=== PATIENT | female | born 1960 | race Two or more races ===

== ENCOUNTER 2016-11-07 19:37 | Emergency (ER) | payer MEDICARE, MEDICAID ==
[~2016-11-07] VITALS: Ht 157.5 cm; Wt 81.6 kg
[~2016-11-07 19:37] MED LIST: BUSP15TA60 PO; CARI-277; CLIN1CAP4 PO; DIPH25CA66 PO; DOCU-94 PO; DOXY100C46 PO; GAB400C PO; LISI10TA6 PO; NOR10T PO; SIMV-8 PO
[2016-11-08] MEDS ORDERED: cloNIDine HCL 0.1 MG TAB PO ONE (01:00)
[2016-11-08 01:49] VITALS: BP 170/105
[2016-11-08] MEDS ORDERED: LABETALOL HCL 5 MG/ML 4ML SYRINGE IV ONE (02:00)
[2016-11-08] MEDS ORDERED: ONDANSETRON HCL 4 MG/2 ML VIAL IV ONE (04:00)
[2016-11-08] MEDS ORDERED: HYDROmorphone HCL 2 MG/ML VL IV ONE (04:00)
== END 2016-11-08 04:14 | disposition home or self-care (01) ==
LOC: ER 19:40
DX: S80.02XA Contusion of left knee, initial encounter (principal); S80.01XA Contusion of right knee, initial encounter; S13.9XXA Sprain of joints and ligaments of unspecified parts of neck, initial encounter; R51 Headache; M54.9 Dorsalgia, unspecified; I12.9 Hypertensive chronic kidney disease with stage 1 through stage 4 chronic kidney disease, or unspecified chronic kidney disease; N18.9 Chronic kidney disease, unspecified; M19.90 Unspecified osteoarthritis, unspecified site; J45.909 Unspecified asthma, uncomplicated; E11.9 Type 2 diabetes mellitus without complications; Z90.710 Acquired absence of both cervix and uterus; Z98.890 Other specified postprocedural states; Z88.6 Allergy status to analgesic agent; W19.XXXA Unspecified fall, initial encounter; Y93.89 Activity, other specified; Y99.8 Other external cause status; Y92.89 Other specified places as the place of occurrence of the external cause
CPT/HCPCS: 70450; 72125; 72131; 73560; 96374; 96375; 99284; J1170; J2405; J3490

== ENCOUNTER 2017-07-15 20:32 | Inpatient (IN) | payer MEDICARE, MEDICAID ==
[~2017-07-15] VITALS: Ht 157.5 cm; Wt 96.3 kg
[2017-07-15 21:26] LABS: Basophils # (auto) 0.1 uL; Basophils % (auto) 1.2 % (0.0-2.0); Eosinophils # (auto) 0.1 uL; Hematocrit 35.2 % (36.0-46.0); Hemoglobin 11.9 g/dL (12.2-16.2); Lymphocytes # (auto) 2.6 uL; Lymphocytes % (auto) 28.6 % (10.0-50.0); Mean Corpuscular Hemoglobin 30.7 pg (28.0-32.0); Mean Corpuscular Hgb Conc. 33.8 g/dL (32.0-36.0); Mean Corpuscular Volume 90.8 fL (80.0-100.0); Mean Platelet Volume 8.8 fL (6.9-10.8); Monocytes # (auto) 0.6 uL; Monocytes % (auto) 6.3 % (0.0-12.0); Neutrophils # (auto) 5.6 uL; Neutrophils % (auto) 62.9 % (37.0-80.0); Platelet Count (auto) 258 10^3/uL (140-450); Red Cell Distribution Width 13.1 % (11.8-14.3); White Blood Cell 8.9 10^3/uL (4.4-10.8)
[2017-07-15 21:35] LABS: Urine Bilirubin Negative (Negative); Urine Blood 1+ /uL (Negative); Urine Color Yellow (Yellow); Urine Glucose 4+ mg/dL (Normal); Urine Hyaline Cast FEW /lpf (0 - 2); Urine Ketone Negative (Negative); Urine Mucus FEW (None Seen); Urine Nitrite Negative (Negative); Urine RBC 2 /hpf (0 - 4); Urine Squamous Epithelial Cell MOD /hpf (<5); Urine Urobilinogen Normal (Negative); Urine pH 6.5 (5.0-8.0)
[2017-07-15 21:41] LABS: INR 0.92 (0.9-1.15); Partial Thromboplastin Time 22.8 sec (22.64-33.71)
[2017-07-15 21:47] LABS: Albumin 2.8 g/dL (3.4-5.0); Alkaline Phosphatase 111 U/L (45-117); Anion Gap 9 (5-15); Aspartate Aminotransferase 17 U/L (15-37); BUN/Creatinine Ratio 13.1; Bilirubin, Total 0.2 mg/dL (0.2-1.0); Blood Urea Nitrogen 32 mg/dL (7-18); Carbon Dioxide 22 mmol/L (21-32); Chloride 105 mmol/L (98-107); GFR African American 26 mL/min; GFR Non-African American 22 mL/min; Glucose 334 mg/dL (74-106); Magnesium 2.3 mg/dL (1.6-2.6); Potassium 4.2 mmol/L (3.5-5.1); Sodium 136 mmol/L (136-145); Total Protein 7.1 g/dL (6.4-8.2)
[2017-07-16] VITALS (7 sets, daily range): BP systolic 110–136; BP diastolic 59–91
[2017-07-16] MEDS ORDERED: ESMOLOL HCL-NS 10MG/ML 250 ML IV SCH (02:08)
[2017-07-16] MEDS ORDERED: ESMOLOL HCL (10MG/ML) 10 ML VIAL IV ONE (02:15)
[2017-07-16] MEDS ORDERED: ASPirin 81 mg TAB PO ONE (02:15)
[2017-07-16] MEDS ORDERED: KETOROLAC TROMETH 30 MG/ML 1ML VIAL IV ONE (03:00)
[2017-07-16] MEDS ORDERED: NITROGLYCERIN 0.2MG/HR TOPICAL PATCH TD ONE (03:00)
[2017-07-16] MEDS ORDERED: cloNIDine HCL 0.1 MG TAB ONE (03:01)
[2017-07-16] MEDS ORDERED: cloNIDine HCL 0.1 MG TAB PO ONE (03:15)
[2017-07-16] MEDS ORDERED: BACLOFEN 10 MG TAB PO PRN (03:15)
[2017-07-16] MEDS ORDERED: NITROGLYCERIN 0.4 MG SL TAB SL PRN (03:15)
[2017-07-16] MEDS ORDERED: HYDROcodone-ACET 5/325MG TAB PO PRN (03:15)
[2017-07-16] MEDS ORDERED: MORPHINE SULF INJ 2 MG/ML SYRINGE 1ML IV PRN (03:15)
[2017-07-16] MEDS ORDERED: ACETAMINOPHEN 500 MG TAB PO PRN (03:15)
[2017-07-16] MEDS ORDERED: ONDANSETRON HCL 4 MG/2 ML VIAL IV PRN (03:15)
[2017-07-16] MEDS ORDERED: LABETALOL HCL 5 MG/ML 4ML SYRINGE IV PRN (03:30)
[2017-07-16] MEDS ORDERED: DEXTROSE (50%) 50ML SYRG IV PRN (03:30)
[2017-07-16 03:42] LABS: Cholesterol 184 mg/dL (< 200); HDL Cholesterol 31 mg/dL (40-59); Triglycerides 418 mg/dL (< 150)
[2017-07-16] MEDS: GABAPENTIN 400 MG CAP PO SCH ×3 (06:23→22:39)
[2017-07-16] MEDS: MORPHINE SULF INJ 2 MG/ML SYRINGE 1ML IV PRN ×3 (06:44→23:12)
[2017-07-16] MEDS: ACCU-CHEK COMFORT CURVE STRIP VI SCH ×4 (07:26→22:00)
[2017-07-16] MEDS: InsuLIN REG 1unit/0.01ml Soln (100units/ml) SC SCH ×3 (07:36→17:00)
[2017-07-16] MEDS: NITROGLYCERIN 0.2MG/HR TOPICAL PATCH TD SCH (10:00)
[2017-07-16] MEDS ORDERED: LISINOPRIL 20 MG TAB PO SCH (10:00)
[2017-07-16] MEDS: ASPirin-EC 81 mg tab PO SCH (10:04)
[2017-07-16] MEDS ORDERED: LISI-707 PO (16:34)
[2017-07-16] MEDS ORDERED: INSUINJ18 SC (16:34)
[2017-07-16] MEDS ORDERED: BACL10TA PO (16:34)
[2017-07-16] MEDS ORDERED: ALBUAER3 IN (16:34)
[2017-07-16] MEDS ORDERED: ONDA4TAB5 PO (16:38)
[2017-07-16] MEDS ORDERED: CYCL1TAB18 PO (16:38)
[2017-07-16] MEDS ORDERED: ALBU2TAB4 NEB (16:41)
[2017-07-16] MEDS: ALBUTEROL SULF 2.5 MG/0.5ML(0.5%) NEB SOLN NEB PRN (18:41)
[2017-07-16] MEDS ORDERED: ATORVASTATIN 20 MG TAB PO SCH (22:00)
[2017-07-16] MEDS ORDERED: InsuLIN REG 1unit/0.01ml Soln (100units/ml) SC SCH (22:00)
[2017-07-17 05:22] VITALS: BP 154/73
[2017-07-17] MEDS: MORPHINE SULF INJ 2 MG/ML SYRINGE 1ML IV PRN ×2 (05:48→10:19)
[2017-07-17] MEDS: GABAPENTIN 400 MG CAP PO SCH ×2 (05:48→14:00)
[2017-07-17 06:00] LABS: Basophils # (auto) 0.1 uL; Basophils % (auto) 1.2 % (0.0-2.0); Eosinophils # (auto) 0.2 uL; Eosinophils % (auto) 1.9 % (0.0-7.0); Hematocrit 30.9 % (36.0-46.0); Hemoglobin 10.6 g/dL (12.2-16.2); Lymphocytes # (auto) 2.9 uL; Lymphocytes % (auto) 35.1 % (10.0-50.0); Mean Corpuscular Hemoglobin 31.3 pg (28.0-32.0); Mean Corpuscular Hgb Conc. 34.3 g/dL (32.0-36.0); Mean Corpuscular Volume 91.2 fL (80.0-100.0); Mean Platelet Volume 8.9 fL (6.9-10.8); Monocytes # (auto) 0.7 uL; Monocytes % (auto) 8.7 % (0.0-12.0); Neutrophils # (auto) 4.3 uL; Neutrophils % (auto) 53.1 % (37.0-80.0); Nucleated Red Blood Cells % 0.1 %; Platelet Count (auto) 197 10^3/uL (140-450); Red Cell Distribution Width 12.7 % (11.8-14.3); White Blood Cell 8.1 10^3/uL (4.4-10.8)
[2017-07-17 06:25] LABS: BUN/Creatinine Ratio 15.2; Calcium 7.7 mg/dL (8.5-10.1); Potassium 4.2 mmol/L (3.5-5.1); Uric Acid 7.1 mg/dL (2.6-6.0)
[2017-07-17] MEDS: ACCU-CHEK COMFORT CURVE STRIP VI SCH ×3 (06:54→17:00)
[2017-07-17] MEDS: InsuLIN REG 1unit/0.01ml Soln (100units/ml) SC SCH ×3 (07:20→17:00)
[2017-07-17 08:00] VITALS: BP 132/72
[2017-07-17] MEDS: ALBUTEROL SULF 2.5 MG/0.5ML(0.5%) NEB SOLN NEB PRN (08:04)
[2017-07-17 09:00] VITALS: BP 132/72
[2017-07-17] MEDS ORDERED: METOPROLOL TARTRATE 25 MG TAB PO ONE (10:00)
[2017-07-17] MEDS ORDERED: METOPROLOL TARTRATE 25 MG TAB PO SCH (10:00)
[2017-07-17] MEDS: ASPirin-EC 81 mg tab PO SCH (10:15)
[2017-07-17] MEDS: NITROGLYCERIN 0.2MG/HR TOPICAL PATCH TD SCH (10:18)
[2017-07-17 11:53] LABS: Urine Bilirubin Negative (Negative); Urine Blood Negative /uL (Negative); Urine Color Yellow (Yellow); Urine Glucose 3+ mg/dL (Normal); Urine Ketone Negative (Negative); Urine Nitrite Negative (Negative); Urine RBC 1 /hpf (0 - 4); Urine Squamous Epithelial Cell FEW /hpf (<5); Urine Urobilinogen Normal (Negative)
[2017-07-17 13:00] VITALS: BP 143/81
[2017-07-17 15:57] VITALS: BP 143/80
[2017-07-17 16:55] VITALS: BP 140/75
== END 2017-07-17 19:00 | disposition home or self-care (01) | DRG 77 ==
LOC: ER 20:33 → TELE 20:34 → TELE-WESTW 07-16 08:42
PROVIDERS: ADMIT Nurse Practitioner Family; ATTEND Family Medicine
DX: I67.4 Hypertensive encephalopathy (principal); N17.0 Acute kidney failure with tubular necrosis; I16.1 Hypertensive emergency; N18.4 Chronic kidney disease, stage 4 (severe); E11.22 Type 2 diabetes mellitus with diabetic chronic kidney disease; E11.40 Type 2 diabetes mellitus with diabetic neuropathy, unspecified; E11.649 Type 2 diabetes mellitus with hypoglycemia without coma; I12.9 Hypertensive chronic kidney disease with stage 1 through stage 4 chronic kidney disease, or unspecified chronic kidney disease; E11.51 Type 2 diabetes mellitus with diabetic peripheral angiopathy without gangrene; E78.5 Hyperlipidemia, unspecified; F41.9 Anxiety disorder, unspecified; E66.9 Obesity, unspecified; H53.8 Other visual disturbances; G89.29 Other chronic pain; M54.9 Dorsalgia, unspecified; J45.909 Unspecified asthma, uncomplicated; K59.00 Constipation, unspecified; Z79.4 Long term (current) use of insulin; Z79.899 Other long term (current) drug therapy; Z82.3 Family history of stroke; Z82.49 Family history of ischemic heart disease and other diseases of the circulatory system; Z85.42 Personal history of malignant neoplasm of other parts of uterus; Z88.5 Allergy status to narcotic agent; Z68.38 Body mass index [BMI] 38.0-38.9, adult; Z90.710 Acquired absence of both cervix and uterus
CPT/HCPCS: 36415; 71010; 76775; 80048; 80053; 80061; 81001; 81025; 82550; 82570; 82962; 83036; 83735; 84156; 84300; 84484; 84550; 85025; 85610; 85652; 85730; 93005; 94640; 96374; 96375; 99291; J1815; J1885; J2405

== ENCOUNTER 2017-08-01 17:40 | Emergency (ER) | payer MEDICARE, MEDICAID ==
[~2017-08-01] VITALS: Ht 157.5 cm; Wt 81.6 kg
[~2017-08-01 17:40] MED LIST changes: +ALBU2TAB4 NEB; +ALBUAER3 IN; +BACL10TA PO; -BUSP15TA60 PO; -CARI-277; -CLIN1CAP4 PO; +CYCL1TAB18 PO; -DIPH25CA66 PO; -DOCU-94 PO; -DOXY100C46 PO; +INSUINJ18 SC; +LISI-707 PO; +ONDA4TAB5 PO
[2017-08-01] MEDS ORDERED: cloNIDine HCL 0.1 MG TAB PO ONE (18:00)
[2017-08-01 18:40] LABS: Basophils # (auto) 0.1 uL; Basophils % (auto) 0.9 % (0.0-2.0); Eosinophils # (auto) 0.3 uL; Eosinophils % (auto) 2.8 % (0.0-7.0); Hematocrit 34.4 % (36.0-46.0); Hemoglobin 11.8 g/dL (12.2-16.2); Lymphocytes % (auto) 32.4 % (10.0-50.0); Mean Corpuscular Hgb Conc. 34.2 g/dL (32.0-36.0); Mean Corpuscular Volume 90.7 fL (80.0-100.0); Monocytes # (auto) 0.6 uL; Monocytes % (auto) 6.8 % (0.0-12.0); Neutrophils # (auto) 5.2 uL; Neutrophils % (auto) 57.1 % (37.0-80.0); Platelet Count (auto) 227 10^3/uL (140-450); Red Cell Distribution Width 12.9 % (11.8-14.3); White Blood Cell 9.1 10^3/uL (4.4-10.8)
[2017-08-01 19:08] LABS: Albumin 2.9 g/dL (3.4-5.0); Alkaline Phosphatase 87 U/L (45-117); Anion Gap 9 (5-15); Aspartate Aminotransferase 19 U/L (15-37); BUN/Creatinine Ratio 24.2; Bilirubin, Total 0.2 mg/dL (0.2-1.0); Blood Urea Nitrogen 50 mg/dL (7-18); Carbon Dioxide 22 mmol/L (21-32); Chloride 105 mmol/L (98-107); GFR African American 32 mL/min; GFR Non-African American 26 mL/min; Glucose 126 mg/dL (74-106); Magnesium 2.3 mg/dL (1.6-2.6); Potassium 3.9 mmol/L (3.5-5.1); Sodium 136 mmol/L (136-145); Total Protein 7.3 g/dL (6.4-8.2)
[2017-08-01 19:18] VITALS: BP 148/92
== END 2017-08-01 20:54 | disposition left against medical advice (07) ==
LOC: ER 17:42
DX: I10 Essential (primary) hypertension (principal); R00.2 Palpitations; R07.9 Chest pain, unspecified; Z53.21 Procedure and treatment not carried out due to patient leaving prior to being seen by health care provider
CPT/HCPCS: 36415; 71020; 80053; 83735; 84484; 85025; 93005

== ENCOUNTER 2018-04-04 13:11 | Inpatient (IN) | payer MEDICARE, MEDICAID ==
[~2018-04-04] VITALS: Ht 154.9 cm; Wt 100.6 kg
[~2018-04-04 13:11] MED LIST changes: -BACL10TA PO; +GABA300C10 PO; +HYDR100T22 PO; -INSUINJ18 SC; -LISI-707 PO; -LISI10TA6 PO
[2018-04-04] MEDS ORDERED: FUROSEMIDE 40 MG/4 ML VIAL IV ONE (13:45)
[2018-04-04 14:28] LABS: Basophils # (auto) 0.1 uL; Basophils % (auto) 1.3 % (0.0-2.0); Eosinophils # (auto) 0.3 uL; Hemoglobin 9.6 g/dL (12.2-16.2); Lymphocytes # (auto) 1.5 uL; Lymphocytes % (auto) 20.4 % (10.0-50.0); Mean Corpuscular Hemoglobin 30.6 pg (28.0-32.0); Mean Corpuscular Hgb Conc. 33.3 g/dL (32.0-36.0); Mean Corpuscular Volume 91.9 fL (80.0-100.0); Monocytes # (auto) 0.6 uL; Monocytes % (auto) 8.4 % (0.0-12.0); Neutrophils # (auto) 4.9 uL; Neutrophils % (auto) 65.9 % (37.0-80.0); Platelet Count (auto) 183 10^3/uL (140-450); Red Blood Cells 3.15 10^6/uL (4.0-5.20); Red Cell Distribution Width 13.5 % (11.8-14.3); White Blood Cell 7.4 10^3/uL (4.4-10.8)
[2018-04-04 14:47] LABS: INR 0.92 (0.9-1.15); Partial Thromboplastin Time 23.4 sec (23.78-33.04); Prothrombin Time 9.9 sec (9.27-12.13)
[2018-04-04 15:01] LABS: Albumin 2.4 g/dL (3.4-5.0); BUN/Creatinine Ratio 10.2; Bilirubin, Total 0.1 mg/dL (0.2-1.0); Calcium 7.7 mg/dL (8.5-10.1); Potassium 3.7 mmol/L (3.5-5.1); Total Protein 6.2 g/dL (6.4-8.2)
[2018-04-04] MEDS ORDERED: MORPHINE SULF(PF) 0.5MG/ML 10ML VIAL IV PRN (17:00)
[2018-04-04] MEDS ORDERED: ALBUTEROL SULF 2.5 MG/0.5ML(0.5%) NEB SOLN NEB PRN (17:00)
[2018-04-04] MEDS ORDERED: traMADol HCL 50 MG TAB PO PRN (17:00)
[2018-04-04] MEDS ORDERED: NITROGLYCERIN 0.4 MG SL TAB SL PRN (17:00)
[2018-04-04] MEDS ORDERED: DEXTROSE (50%) 50ML SYRG IV PRN (17:00)
[2018-04-04] MEDS ORDERED: MEPERIDINE HCL (25 MG/ML) 1ML VIAL IM PRN (17:00)
[2018-04-04] MEDS: ACCU-CHEK COMFORT CURVE STRIP VI SCH ×2 (17:32→22:18)
[2018-04-04] MEDS: InsuLIN REG 1unit/0.01ml Soln (100units/ml) SC SCH ×2 (17:34→22:00)
[2018-04-04] MEDS ORDERED: FUROSEMIDE 40 MG/4 ML VIAL ONE (17:40)
[2018-04-04] MEDS: PROMETHAZINE HCL 25 MG/ML 1ML IV PRN (19:47)
[2018-04-04 20:00] VITALS: BP 141/97
[2018-04-04 20:25] VITALS: BP 149/100
[2018-04-04 21:30] VITALS: BP 149/100
[2018-04-04] MEDS: CARVEDILOL 3.125 MG TAB PO SCH (22:14)
[2018-04-04] MEDS: hydrALAZINE HCL 25 MG TAB PO SCH (22:15)
[2018-04-04] MEDS: ATORVASTATIN 20 MG TAB PO SCH (22:16)
[2018-04-04] MEDS: SODIUM CHLOR 0.9% PF (SALINE LOCK) 10ML VIAL/SYR IV SCH (22:17)
[2018-04-05] VITALS (7 sets, daily range): BP systolic 133–141; BP diastolic 74–96
[2018-04-05] MEDS: ALBUTEROL SULF 2.5 MG/0.5ML(0.5%) NEB SOLN NEB SCH ×4 (01:14→18:59)
[2018-04-05] MEDS: IPRATROPIUM BROM 0.5 MG/2.5ML INH SOL NEB SCH ×4 (01:14→18:59)
[2018-04-05] MEDS ORDERED: HYDROcodone-ACET 10/325MG TAB PO ONE (02:00)
[2018-04-05] MEDS: InsuLIN REG 1unit/0.01ml Soln (100units/ml) SC SCH ×4 (06:16→22:00)
[2018-04-05] MEDS: hydrALAZINE HCL 25 MG TAB PO SCH ×3 (06:16→22:37)
[2018-04-05] MEDS: ACCU-CHEK COMFORT CURVE STRIP VI SCH ×4 (06:17→22:00)
[2018-04-05] MEDS: SODIUM CHLOR 0.9% PF (SALINE LOCK) 10ML VIAL/SYR IV SCH ×3 (06:17→22:39)
[2018-04-05 06:18] LABS: Basophils # (auto) 0.1 uL; Eosinophils # (auto) 0.3 uL; Eosinophils % (auto) 4.5 % (0.0-7.0); Hematocrit 26.8 % (36.0-46.0); Hemoglobin 9.3 g/dL (12.2-16.2); Lymphocytes % (auto) 28.6 % (10.0-50.0); Mean Corpuscular Hemoglobin 31.7 pg (28.0-32.0); Mean Corpuscular Hgb Conc. 34.8 g/dL (32.0-36.0); Monocytes # (auto) 0.5 uL; Monocytes % (auto) 7.8 % (0.0-12.0); Neutrophils % (auto) 58.1 % (37.0-80.0); Platelet Count (auto) 176 10^3/uL (140-450); Red Blood Cells 2.94 10^6/uL (4.0-5.20); Red Cell Distribution Width 13.7 % (11.8-14.3)
[2018-04-05 06:34] LABS: Albumin 2.2 g/dL (3.4-5.0); Bilirubin, Total 0.1 mg/dL (0.2-1.0); Calcium 7.5 mg/dL (8.5-10.1); Potassium 3.4 mmol/L (3.5-5.1); Total Protein 5.8 g/dL (6.4-8.2)
[2018-04-05] MEDS ORDERED: GABAPENTIN 300 MG CAP PO SCH (10:00)
[2018-04-05] MEDS ORDERED: ENOXAPARIN SOD 30 MG/0.3 ML SYRINGE SC SCH (10:00)
[2018-04-05] MEDS ORDERED: FUROSEMIDE 40 MG/4 ML VIAL IV SCH (10:00)
[2018-04-05] MEDS: PANTOPRAZOLE 40 MG TAB PO SCH (11:00)
[2018-04-05] MEDS: POTASSIUM CHL 20 Meq TABLET PO SCH (11:01)
[2018-04-05] MEDS: CARVEDILOL 3.125 MG TAB PO SCH ×2 (11:02→22:36)
[2018-04-05] MEDS: ENALAPRIL MALEATE 2.5 MG TAB PO SCH (11:02)
[2018-04-05] MEDS: ASPirin 81 mg TAB PO SCH (11:05)
[2018-04-05] MEDS: NITROGLYCERIN 0.2MG/HR TOPICAL PATCH TD SCH (11:06)
[2018-04-05] MEDS: HYDROcodone-ACET 5/325MG TAB PO PRN ×2 (14:01→20:27)
[2018-04-05] MEDS ORDERED: IBUP800T24 PO (14:19)
[2018-04-05] MEDS ORDERED: METF-370 PO (14:21)
[2018-04-05] MEDS ORDERED: LORA-654 PO (14:22)
[2018-04-05] MEDS ORDERED: POTASSIUM CHL 20 Meq TABLET PO ONE (14:30)
[2018-04-05 15:38] LABS: Urine Bacteria FEW /hpf (None Seen); Urine Blood Negative /uL (Negative); Urine WBC 2 /hpf (0 - 5)
[2018-04-05 15:41] LABS: Alcohol, Urine < 3.0 mg/dL (0-5); Amphetamine Screen, Urine NEGATIVE (NEGATIVE); Barbiturate Scree,Urine NEGATIVE (NEGATIVE); Benzodiazephine Screen, Urine NEGATIVE (NEGATIVE); Cannabinoid Screen, Urine NEGATIVE (NEGATIVE); Cocaine Screen, Urine NEGATIVE (NEGATIVE); Opiate Scree,Urine NEGATIVE (NEGATIVE); Phencyclidine Screen, Urine NEGATIVE (NEGATIVE)
[2018-04-05] MEDS: FUROSEMIDE 40 MG/4 ML VIAL IV SCH (19:00)
[2018-04-05] MEDS ORDERED: ENOXAPARIN SOD 100 MG/1 ML SYRINGE SC ONE (19:15)
[2018-04-05] MEDS: ATORVASTATIN 20 MG TAB PO SCH (22:43)
[2018-04-06] MEDS: IPRATROPIUM BROM 0.5 MG/2.5ML INH SOL NEB SCH ×5 (00:49→20:04)
[2018-04-06] MEDS: ALBUTEROL SULF 2.5 MG/0.5ML(0.5%) NEB SOLN NEB SCH ×5 (00:49→20:03)
[2018-04-06] MEDS: TEMAZEPAM 15 MG CAP PO PRN (01:16)
[2018-04-06] MEDS: HYDROcodone-ACET 5/325MG TAB PO PRN ×4 (02:12→22:57)
[2018-04-06 05:00] VITALS: BP 130/77
[2018-04-06 06:37] LABS: Basophils # (auto) 0.1 uL; Basophils % (auto) 1.5 % (0.0-2.0); Eosinophils # (auto) 0.4 uL; Eosinophils % (auto) 5.8 % (0.0-7.0); Hematocrit 26.3 % (36.0-46.0); Hemoglobin 8.9 g/dL (12.2-16.2); Lymphocytes # (auto) 2.4 uL; Lymphocytes % (auto) 35.4 % (10.0-50.0); Mean Corpuscular Hemoglobin 31.1 pg (28.0-32.0); Mean Corpuscular Hgb Conc. 33.8 g/dL (32.0-36.0); Mean Corpuscular Volume 92.2 fL (80.0-100.0); Monocytes # (auto) 0.6 uL; Monocytes % (auto) 8.9 % (0.0-12.0); Neutrophils # (auto) 3.2 uL; Neutrophils % (auto) 48.4 % (37.0-80.0); Platelet Count (auto) 182 10^3/uL (140-450); Red Blood Cells 2.85 10^6/uL (4.0-5.20); Red Cell Distribution Width 13.5 % (11.8-14.3); White Blood Cell 6.7 10^3/uL (4.4-10.8)
[2018-04-06] MEDS: InsuLIN REG 1unit/0.01ml Soln (100units/ml) SC SCH ×4 (07:00→22:00)
[2018-04-06] MEDS: ACCU-CHEK COMFORT CURVE STRIP VI SCH ×4 (07:00→22:00)
[2018-04-06] MEDS: FUROSEMIDE 40 MG/4 ML VIAL IV SCH ×2 (07:02→18:00)
[2018-04-06] MEDS: hydrALAZINE HCL 25 MG TAB PO SCH ×3 (07:03→22:13)
[2018-04-06] MEDS: SODIUM CHLOR 0.9% PF (SALINE LOCK) 10ML VIAL/SYR IV SCH ×3 (07:03→22:12)
[2018-04-06 07:18] LABS: BUN/Creatinine Ratio 10.5; Calcium 7.6 mg/dL (8.5-10.1); Magnesium 2.2 mg/dL (1.6-2.6); Potassium 4.1 mmol/L (3.5-5.1)
[2018-04-06] MEDS: PROMETHAZINE HCL 25 MG/ML 1ML IV PRN (07:32)
[2018-04-06 07:35] VITALS: BP 130/77
[2018-04-06 09:00] VITALS: BP 140/77
[2018-04-06] MEDS: PANTOPRAZOLE 40 MG TAB PO SCH (10:05)
[2018-04-06] MEDS: ASPirin 81 mg TAB PO SCH (10:05)
[2018-04-06] MEDS: ENALAPRIL MALEATE 2.5 MG TAB PO SCH (10:05)
[2018-04-06] MEDS: POTASSIUM CHL 20 Meq TABLET PO SCH (10:07)
[2018-04-06] MEDS: CARVEDILOL 3.125 MG TAB PO SCH ×2 (10:08→22:13)
[2018-04-06] MEDS: NITROGLYCERIN 0.2MG/HR TOPICAL PATCH TD SCH (10:09)
[2018-04-06] MEDS: GABAPENTIN 400 MG CAP PO SCH (10:15)
[2018-04-06 13:00] VITALS: BP 153/77
[2018-04-06] MEDS: LACTULOSE 20Gm/30ML SOLN PO PRN (15:10)
[2018-04-06 17:00] VITALS: BP 119/64
[2018-04-06 22:00] VITALS: BP 135/74
[2018-04-06] MEDS: SENNA 8.6 MG TAB PO SCH (22:14)
[2018-04-06] MEDS: ATORVASTATIN 20 MG TAB PO SCH (22:14)
[2018-04-07] VITALS (7 sets, daily range): BP systolic 120–163; BP diastolic 56–88
[2018-04-07] MEDS: ALBUTEROL SULF 2.5 MG/0.5ML(0.5%) NEB SOLN NEB SCH ×5 (00:55→22:57)
[2018-04-07] MEDS: IPRATROPIUM BROM 0.5 MG/2.5ML INH SOL NEB SCH ×5 (00:55→22:57)
[2018-04-07] MEDS: PROMETHAZINE HCL 25 MG/ML 1ML IV PRN ×3 (01:22→18:25)
[2018-04-07] MEDS: TEMAZEPAM 15 MG CAP PO PRN (01:32)
[2018-04-07 06:04] LABS: Basophils # (auto) 0.1 uL; Basophils % (auto) 1.1 % (0.0-2.0); Eosinophils # (auto) 0.4 uL; Eosinophils % (auto) 5.3 % (0.0-7.0); Hematocrit 27.7 % (36.0-46.0); Hemoglobin 9.3 g/dL (12.2-16.2); Lymphocytes # (auto) 1.9 uL; Lymphocytes % (auto) 29.2 % (10.0-50.0); Mean Corpuscular Hemoglobin 30.8 pg (28.0-32.0); Mean Corpuscular Hgb Conc. 33.7 g/dL (32.0-36.0); Mean Corpuscular Volume 91.5 fL (80.0-100.0); Monocytes # (auto) 0.7 uL; Monocytes % (auto) 10.7 % (0.0-12.0); Neutrophils # (auto) 3.6 uL; Neutrophils % (auto) 53.7 % (37.0-80.0); Nucleated Red Blood Cells % 0.1 %; Platelet Count (auto) 191 10^3/uL (140-450); Red Blood Cells 3.02 10^6/uL (4.0-5.20); Red Cell Distribution Width 13.8 % (11.8-14.3); White Blood Cell 6.7 10^3/uL (4.4-10.8)
[2018-04-07] MEDS: SODIUM CHLOR 0.9% PF (SALINE LOCK) 10ML VIAL/SYR IV SCH ×3 (06:06→22:00)
[2018-04-07] MEDS: FUROSEMIDE 40 MG/4 ML VIAL IV SCH ×2 (06:06→17:40)
[2018-04-07] MEDS: hydrALAZINE HCL 25 MG TAB PO SCH ×3 (06:06→22:00)
[2018-04-07 06:16] LABS: Calcium 7.7 mg/dL (8.5-10.1); Potassium 4.1 mmol/L (3.5-5.1)
[2018-04-07] MEDS: ACCU-CHEK COMFORT CURVE STRIP VI SCH ×4 (06:39→22:00)
[2018-04-07] MEDS: InsuLIN REG 1unit/0.01ml Soln (100units/ml) SC SCH ×4 (06:50→21:21)
[2018-04-07] MEDS: GABAPENTIN 400 MG CAP PO SCH (09:20)
[2018-04-07] MEDS: ENALAPRIL MALEATE 2.5 MG TAB PO SCH (09:20)
[2018-04-07] MEDS: PANTOPRAZOLE 40 MG TAB PO SCH (09:20)
[2018-04-07] MEDS: CARVEDILOL 3.125 MG TAB PO SCH ×3 (09:20→23:00)
[2018-04-07] MEDS: HYDROcodone-ACET 5/325MG TAB PO PRN ×2 (09:20→18:30)
[2018-04-07] MEDS: POTASSIUM CHL 20 Meq TABLET PO SCH (09:20)
[2018-04-07] MEDS: NITROGLYCERIN 0.2MG/HR TOPICAL PATCH TD SCH (09:20)
[2018-04-07] MEDS: ASPirin 81 mg TAB PO SCH (09:20)
[2018-04-07] MEDS: LACTULOSE 20Gm/30ML SOLN PO PRN (12:05)
[2018-04-07] MEDS: SENNA 8.6 MG TAB PO SCH (22:00)
[2018-04-07] MEDS: ATORVASTATIN 20 MG TAB PO SCH (22:00)
[2018-04-08] VITALS (7 sets, daily range): BP systolic 97–159; BP diastolic 45–83
[2018-04-08] MEDS: ALBUTEROL SULF 2.5 MG/0.5ML(0.5%) NEB SOLN NEB SCH ×4 (05:56→19:35)
[2018-04-08] MEDS: IPRATROPIUM BROM 0.5 MG/2.5ML INH SOL NEB SCH ×4 (05:56→19:35)
[2018-04-08] MEDS: hydrALAZINE HCL 25 MG TAB PO SCH ×3 (06:15→22:31)
[2018-04-08] MEDS: ACCU-CHEK COMFORT CURVE STRIP VI SCH ×4 (06:15→22:00)
[2018-04-08] MEDS: InsuLIN REG 1unit/0.01ml Soln (100units/ml) SC SCH ×4 (06:15→22:30)
[2018-04-08] MEDS: SODIUM CHLOR 0.9% PF (SALINE LOCK) 10ML VIAL/SYR IV SCH ×3 (06:20→22:00)
[2018-04-08] MEDS: FUROSEMIDE 40 MG/4 ML VIAL IV SCH (06:20)
[2018-04-08] MEDS: HYDROcodone-ACET 5/325MG TAB PO PRN ×2 (06:24→15:13)
[2018-04-08] MEDS: PROMETHAZINE HCL 25 MG/ML 1ML IV PRN ×2 (06:30→17:31)
[2018-04-08 06:38] LABS: Basophils # (auto) 0.1 uL; Basophils % (auto) 1.2 % (0.0-2.0); Eosinophils # (auto) 0.3 uL; Eosinophils % (auto) 3.6 % (0.0-7.0); Hematocrit 27.3 % (36.0-46.0); Hemoglobin 9.4 g/dL (12.2-16.2); Lymphocytes # (auto) 2.1 uL; Lymphocytes % (auto) 28.5 % (10.0-50.0); Mean Corpuscular Hemoglobin 31.4 pg (28.0-32.0); Mean Corpuscular Hgb Conc. 34.4 g/dL (32.0-36.0); Mean Corpuscular Volume 91.3 fL (80.0-100.0); Monocytes # (auto) 0.8 uL; Monocytes % (auto) 10.2 % (0.0-12.0); Neutrophils # (auto) 4.2 uL; Neutrophils % (auto) 56.5 % (37.0-80.0); Platelet Count (auto) 208 10^3/uL (140-450); Red Blood Cells 2.99 10^6/uL (4.0-5.20); Red Cell Distribution Width 13.3 % (11.8-14.3); White Blood Cell 7.4 10^3/uL (4.4-10.8)
[2018-04-08 07:03] LABS: BUN/Creatinine Ratio 10.7
[2018-04-08] MEDS: ASPirin 81 mg TAB PO SCH (10:05)
[2018-04-08] MEDS: POTASSIUM CHL 20 Meq TABLET PO SCH (10:05)
[2018-04-08] MEDS: PANTOPRAZOLE 40 MG TAB PO SCH (10:05)
[2018-04-08] MEDS: CARVEDILOL 3.125 MG TAB PO SCH (10:06)
[2018-04-08] MEDS: NITROGLYCERIN 0.2MG/HR TOPICAL PATCH TD SCH (10:07)
[2018-04-08] MEDS: GABAPENTIN 400 MG CAP PO SCH (10:11)
[2018-04-08] MEDS ORDERED: EPOETIN ALFA 10,000 UNIT/1 ML VIAL SC ONE (16:00)
[2018-04-08] MEDS: HYDROcodone-ACET 10/325MG TAB PO PRN (20:33)
[2018-04-08] MEDS: SENNA 8.6 MG TAB PO SCH (22:31)
[2018-04-08] MEDS: LORazepam 0.5 MG TAB PO PRN (22:31)
[2018-04-08] MEDS: ATORVASTATIN 20 MG TAB PO SCH (22:32)
[2018-04-09] VITALS (7 sets, daily range): BP systolic 118–139; BP diastolic 56–77
[2018-04-09] MEDS: ALBUTEROL SULF 2.5 MG/0.5ML(0.5%) NEB SOLN NEB SCH ×4 (00:15→19:45)
[2018-04-09] MEDS: IPRATROPIUM BROM 0.5 MG/2.5ML INH SOL NEB SCH ×4 (00:15→19:45)
[2018-04-09] MEDS: HYDROcodone-ACET 10/325MG TAB PO PRN ×3 (01:42→21:50)
[2018-04-09 06:03] LABS: Basophils # (auto) 0 uL; Basophils % (auto) 0.2 % (0.0-2.0); Eosinophils # (auto) 0.4 uL; Eosinophils % (auto) 5.5 % (0.0-7.0); Hematocrit 27.6 % (36.0-46.0); Hemoglobin 9.3 g/dL (12.2-16.2); Lymphocytes # (auto) 2.7 uL; Lymphocytes % (auto) 34.7 % (10.0-50.0); Mean Corpuscular Hemoglobin 30.8 pg (28.0-32.0); Mean Corpuscular Hgb Conc. 33.8 g/dL (32.0-36.0); Monocytes # (auto) 0.8 uL; Monocytes % (auto) 10.3 % (0.0-12.0); Neutrophils # (auto) 3.8 uL; Neutrophils % (auto) 49.3 % (37.0-80.0); Platelet Count (auto) 212 10^3/uL (140-450); Red Blood Cells 3.03 10^6/uL (4.0-5.20); Red Cell Distribution Width 13.1 % (11.8-14.3); White Blood Cell 7.7 10^3/uL (4.4-10.8)
[2018-04-09] MEDS: SODIUM CHLOR 0.9% PF (SALINE LOCK) 10ML VIAL/SYR IV SCH ×3 (06:17→21:39)
[2018-04-09] MEDS: hydrALAZINE HCL 25 MG TAB PO SCH ×3 (06:18→21:39)
[2018-04-09] MEDS: ACCU-CHEK COMFORT CURVE STRIP VI SCH ×4 (06:18→21:54)
[2018-04-09] MEDS: InsuLIN REG 1unit/0.01ml Soln (100units/ml) SC SCH ×4 (06:19→21:54)
[2018-04-09 06:20] LABS: Potassium 4.5 mmol/L (3.5-5.1)
[2018-04-09 06:31] LABS: % Iron Saturation 14.6 % (15-50); BUN/Creatinine Ratio 12.6; Calcium 7.7 mg/dL (8.5-10.1)
[2018-04-09] MEDS: GABAPENTIN 400 MG CAP PO SCH (10:22)
[2018-04-09] MEDS: POTASSIUM CHL 20 Meq TABLET PO SCH (10:22)
[2018-04-09] MEDS: ASPirin 81 mg TAB PO SCH (10:22)
[2018-04-09] MEDS: PANTOPRAZOLE 40 MG TAB PO SCH (10:23)
[2018-04-09] MEDS: NITROGLYCERIN 0.2MG/HR TOPICAL PATCH TD SCH (10:24)
[2018-04-09] MEDS: CARVEDILOL 3.125 MG TAB PO SCH (10:25)
[2018-04-09 12:45] LABS: Hepatitis B Surface Antibody Negative
[2018-04-09 12:49] LABS: Hepatitis B Surface Antigen Negative (Negative)
[2018-04-09] MEDS: ATORVASTATIN 20 MG TAB PO SCH (21:39)
[2018-04-09] MEDS: SENNA 8.6 MG TAB PO SCH (21:40)
[2018-04-09] MEDS: TEMAZEPAM 15 MG CAP PO PRN (21:50)
[2018-04-10] VITALS (7 sets, daily range): BP systolic 118–164; BP diastolic 68–94
[2018-04-10] MEDS: PROMETHAZINE HCL 25 MG/ML 1ML IV PRN ×2 (01:27→18:56)
[2018-04-10 05:51] LABS: Basophils # (auto) 0.1 uL; Basophils % (auto) 1.3 % (0.0-2.0); Eosinophils # (auto) 0.3 uL; Eosinophils % (auto) 5.2 % (0.0-7.0); Hematocrit 25.2 % (36.0-46.0); Hemoglobin 8.7 g/dL (12.2-16.2); Lymphocytes # (auto) 1.6 uL; Lymphocytes % (auto) 25.8 % (10.0-50.0); Mean Corpuscular Hemoglobin 31.4 pg (28.0-32.0); Mean Corpuscular Hgb Conc. 34.7 g/dL (32.0-36.0); Mean Corpuscular Volume 90.6 fL (80.0-100.0); Monocytes # (auto) 0.6 uL; Monocytes % (auto) 9.3 % (0.0-12.0); Neutrophils # (auto) 3.5 uL; Neutrophils % (auto) 58.4 % (37.0-80.0); Platelet Count (auto) 188 10^3/uL (140-450); Red Blood Cells 2.78 10^6/uL (4.0-5.20); Red Cell Distribution Width 13.3 % (11.8-14.3); White Blood Cell 6.1 10^3/uL (4.4-10.8)
[2018-04-10] MEDS: HYDROcodone-ACET 10/325MG TAB PO PRN ×3 (05:58→18:53)
[2018-04-10] MEDS: SODIUM CHLOR 0.9% PF (SALINE LOCK) 10ML VIAL/SYR IV SCH ×3 (05:58→21:56)
[2018-04-10] MEDS: hydrALAZINE HCL 25 MG TAB PO SCH ×3 (05:58→21:57)
[2018-04-10 06:12] LABS: BUN/Creatinine Ratio 13.6; Calcium 7.8 mg/dL (8.5-10.1); Potassium 4.5 mmol/L (3.5-5.1)
[2018-04-10] MEDS: InsuLIN REG 1unit/0.01ml Soln (100units/ml) SC SCH ×4 (06:33→21:58)
[2018-04-10] MEDS: ACCU-CHEK COMFORT CURVE STRIP VI SCH ×4 (06:33→21:58)
[2018-04-10] MEDS: ALBUTEROL SULF 2.5 MG/0.5ML(0.5%) NEB SOLN NEB SCH ×4 (07:02→18:57)
[2018-04-10] MEDS: IPRATROPIUM BROM 0.5 MG/2.5ML INH SOL NEB SCH ×4 (07:02→18:57)
[2018-04-10] MEDS: GABAPENTIN 400 MG CAP PO SCH (09:40)
[2018-04-10] MEDS: POTASSIUM CHL 20 Meq TABLET PO SCH (09:40)
[2018-04-10] MEDS: ASPirin 81 mg TAB PO SCH (09:40)
[2018-04-10] MEDS: PANTOPRAZOLE 40 MG TAB PO SCH (09:40)
[2018-04-10] MEDS: NITROGLYCERIN 0.2MG/HR TOPICAL PATCH TD SCH (09:44)
[2018-04-10 18:30] LABS: BUN/Creatinine Ratio 13.9; Calcium 7.9 mg/dL (8.5-10.1); Potassium 4.5 mmol/L (3.5-5.1)
[2018-04-10] MEDS: SODIUM FERR GLUC 62.5MG/5ML 125 MG in SODIUM CHL 0.9% 100 ML IV SCH (21:35)
[2018-04-10] MEDS: ATORVASTATIN 20 MG TAB PO SCH (21:57)
[2018-04-10] MEDS: CARVEDILOL 3.125 MG TAB PO SCH (21:57)
[2018-04-10] MEDS: SENNA 8.6 MG TAB PO SCH (21:57)
[2018-04-11] VITALS (8 sets, daily range): BP systolic 115–159; BP diastolic 64–95
[2018-04-11] MEDS: SODIUM CHLOR 0.9% PF (SALINE LOCK) 10ML VIAL/SYR IV SCH ×3 (06:18→21:30)
[2018-04-11] MEDS: hydrALAZINE HCL 25 MG TAB PO SCH ×3 (06:20→22:23)
[2018-04-11] MEDS: ACCU-CHEK COMFORT CURVE STRIP VI SCH ×4 (06:35→22:22)
[2018-04-11] MEDS: InsuLIN REG 1unit/0.01ml Soln (100units/ml) SC SCH ×4 (06:35→22:34)
[2018-04-11 07:26] LABS: INR 0.97 (0.9-1.15); Partial Thromboplastin Time 23.6 sec (23.78-33.04); Prothrombin Time 10.4 sec (9.27-12.13)
[2018-04-11] MEDS: IPRATROPIUM BROM 0.5 MG/2.5ML INH SOL NEB SCH ×4 (07:37→18:53)
[2018-04-11] MEDS: ALBUTEROL SULF 2.5 MG/0.5ML(0.5%) NEB SOLN NEB SCH ×4 (07:37→18:53)
[2018-04-11] MEDS: NITROGLYCERIN 0.2MG/HR TOPICAL PATCH TD SCH (09:41)
[2018-04-11] MEDS: ASPirin 81 mg TAB PO SCH (09:43)
[2018-04-11] MEDS: PANTOPRAZOLE 40 MG TAB PO SCH (09:44)
[2018-04-11] MEDS: GABAPENTIN 400 MG CAP PO SCH (09:44)
[2018-04-11] MEDS: POTASSIUM CHL 20 Meq TABLET PO SCH (09:44)
[2018-04-11] MEDS: HYDROcodone-ACET 10/325MG TAB PO PRN (11:22)
[2018-04-11] MEDS ORDERED: FUROSEMIDE 20 MG/2 ML VIAL IV ONE (11:30)
[2018-04-11] MEDS: CARVEDILOL 3.125 MG TAB PO SCH ×2 (11:56→22:23)
[2018-04-11] MEDS ORDERED: LIDOCAINE 1% (LOCAL ANESTH.) PF 5ml SDV ONE ×3 (12:31→12:49)
[2018-04-11] MEDS ORDERED: HEPARIN SODIUM (PORCINE) 5000 UNITS/ML 1ML VIAL ONE (12:31)
[2018-04-11] MEDS ORDERED: BUPIVACAINE HCL 50 ML ONE (12:31)
[2018-04-11] MEDS ORDERED: LIDOCAINE HCL (LOCAL ANESTH.) 0.5 % 50ML MDV IJ ONE (12:37)
[2018-04-11] MEDS ORDERED: ceFAZolin 1GM/50ML 50 ML IV ONE (12:54)
[2018-04-11] MEDS ORDERED: GLYCOPYRROLATE 0.2 MG/ML 1ML VIAL IV ONE (13:25)
[2018-04-11] MEDS ORDERED: NEOSTIGMINE 1 MG/ML INJ (10mg/10ML VIAL) IV ONE (13:25)
[2018-04-11] MEDS ORDERED: MIDAZOLAM HCL 1MG/1ML-2 ML VIAL ONE (13:26)
[2018-04-11] MEDS ORDERED: ROCURONIUM 10MG/ML 10ML VIAL IV ONE (13:26)
[2018-04-11] MEDS ORDERED: fentaNYL CITRATE 100 MCG/2 ML VL ONE (13:26)
[2018-04-11] MEDS ORDERED: SUCCINYLCHOLINE CHLORIDE 20 MG/ML 10ML VIAL IV ONE (13:28)
[2018-04-11] MEDS ORDERED: PROPOFOL 10 MG/ML 20 ML IV ONE (13:34)
[2018-04-11] MEDS ORDERED: ONDANSETRON HCL 4 MG/2 ML VIAL IV ONE (14:30)
[2018-04-11] MEDS ORDERED: hydrALAZINE HCL 20 MG/ML VL IV PRN (14:30)
[2018-04-11] MEDS ORDERED: ePHEDrine SULFATE 50 MG/ML AMP IV PRN (14:30)
[2018-04-11] MEDS: fentaNYL CITRATE 100 MCG/2 ML VL IV PRN ×4 (14:35→15:15)
[2018-04-11] MEDS ORDERED: hydrALAZINE HCL 20 MG/ML VL ONE (14:40)
[2018-04-11] MEDS: OXYCODONE W/ ACETAMINOPHEN 5/325MG TABLET PO PRN ×2 (16:07→21:28)
[2018-04-11] MEDS: SODIUM FERR GLUC 62.5MG/5ML 125 MG in SODIUM CHL 0.9% 100 ML IV SCH (16:08)
[2018-04-11] MEDS: ATORVASTATIN 20 MG TAB PO SCH (21:30)
[2018-04-11] MEDS: SENNA 8.6 MG TAB PO SCH (21:30)
[2018-04-11] MEDS: TEMAZEPAM 15 MG CAP PO PRN (22:34)
[2018-04-12] MEDS: OXYCODONE W/ ACETAMINOPHEN 5/325MG TABLET PO PRN ×2 (02:59→06:53)
[2018-04-12 04:55] VITALS: BP 137/68
[2018-04-12] MEDS: ALBUTEROL SULF 2.5 MG/0.5ML(0.5%) NEB SOLN NEB SCH ×4 (06:00→20:40)
[2018-04-12] MEDS: IPRATROPIUM BROM 0.5 MG/2.5ML INH SOL NEB SCH ×4 (06:00→20:40)
[2018-04-12] MEDS: SODIUM CHLOR 0.9% PF (SALINE LOCK) 10ML VIAL/SYR IV SCH ×3 (06:14→21:34)
[2018-04-12] MEDS: hydrALAZINE HCL 25 MG TAB PO SCH ×3 (06:22→21:33)
[2018-04-12] MEDS: InsuLIN REG 1unit/0.01ml Soln (100units/ml) SC SCH ×4 (06:36→22:24)
[2018-04-12] MEDS: ACCU-CHEK COMFORT CURVE STRIP VI SCH ×4 (06:36→22:20)
[2018-04-12 09:00] VITALS: BP 149/85
[2018-04-12 09:18] LABS: BUN/Creatinine Ratio 13.5; Calcium 8.1 mg/dL (8.5-10.1); Potassium 4.4 mmol/L (3.5-5.1)
[2018-04-12] MEDS: POTASSIUM CHL 20 Meq TABLET PO SCH (10:17)
[2018-04-12] MEDS: GABAPENTIN 400 MG CAP PO SCH (10:17)
[2018-04-12] MEDS: CARVEDILOL 3.125 MG TAB PO SCH ×2 (10:18→21:34)
[2018-04-12] MEDS: PANTOPRAZOLE 40 MG TAB PO SCH (10:18)
[2018-04-12] MEDS: ASPirin 81 mg TAB PO SCH (10:18)
[2018-04-12] MEDS: NITROGLYCERIN 0.2MG/HR TOPICAL PATCH TD SCH (10:19)
[2018-04-12] MEDS: MORPHINE SULFATE 10 MG/5 ML ORAL SOLN PO PRN ×3 (11:13→19:41)
[2018-04-12] MEDS: SODIUM FERR GLUC 62.5MG/5ML 125 MG in SODIUM CHL 0.9% 100 ML IV SCH (12:59)
[2018-04-12 13:00] VITALS: BP 152/89
[2018-04-12] MEDS: FUROSEMIDE 100 MG/10ML VIAL IV SCH ×2 (13:01→17:34)
[2018-04-12 17:00] VITALS: BP 142/77
[2018-04-12 20:00] VITALS: BP 138/74
[2018-04-12] MEDS: SENNA 8.6 MG TAB PO SCH (21:33)
[2018-04-12] MEDS: TEMAZEPAM 15 MG CAP PO PRN (21:33)
[2018-04-12] MEDS: ATORVASTATIN 20 MG TAB PO SCH (21:33)
[2018-04-12 22:00] VITALS: BP 138/74
[2018-04-13] MEDS: ALBUTEROL SULF 2.5 MG/0.5ML(0.5%) NEB SOLN NEB SCH ×4 (00:29→18:00)
[2018-04-13] MEDS: IPRATROPIUM BROM 0.5 MG/2.5ML INH SOL NEB SCH ×5 (00:29→18:00)
[2018-04-13] MEDS: LORazepam 0.5 MG TAB PO PRN (00:34)
[2018-04-13] MEDS: PROMETHAZINE HCL 25 MG/ML 1ML IV PRN (00:34)
[2018-04-13 05:37] LABS: Basophils # (auto) 0.1 uL; Basophils % (auto) 1.3 % (0.0-2.0); Eosinophils # (auto) 0.3 uL; Eosinophils % (auto) 4.5 % (0.0-7.0); Hematocrit 27.3 % (36.0-46.0); Hemoglobin 9.4 g/dL (12.2-16.2); Lymphocytes # (auto) 1.3 uL; Lymphocytes % (auto) 18.5 % (10.0-50.0); Mean Corpuscular Hemoglobin 31.6 pg (28.0-32.0); Mean Corpuscular Hgb Conc. 34.3 g/dL (32.0-36.0); Mean Corpuscular Volume 92.2 fL (80.0-100.0); Monocytes # (auto) 0.7 uL; Monocytes % (auto) 10.2 % (0.0-12.0); Neutrophils # (auto) 4.6 uL; Neutrophils % (auto) 65.5 % (37.0-80.0); Platelet Count (auto) 211 10^3/uL (140-450); Red Blood Cells 2.96 10^6/uL (4.0-5.20); Red Cell Distribution Width 13.9 % (11.8-14.3)
[2018-04-13 05:38] VITALS: BP 120/58
[2018-04-13 05:55] LABS: BUN/Creatinine Ratio 12.3; Calcium 8.2 mg/dL (8.5-10.1); Potassium 4.6 mmol/L (3.5-5.1)
[2018-04-13] MEDS: hydrALAZINE HCL 25 MG TAB PO SCH ×3 (06:17→21:33)
[2018-04-13] MEDS: SODIUM CHLOR 0.9% PF (SALINE LOCK) 10ML VIAL/SYR IV SCH ×3 (06:19→21:34)
[2018-04-13] MEDS: FUROSEMIDE 100 MG/10ML VIAL IV SCH ×2 (06:19→17:29)
[2018-04-13] MEDS: MORPHINE SULFATE 10 MG/5 ML ORAL SOLN PO PRN ×4 (06:48→21:32)
[2018-04-13] MEDS: ACCU-CHEK COMFORT CURVE STRIP VI SCH ×4 (06:49→21:34)
[2018-04-13] MEDS: InsuLIN REG 1unit/0.01ml Soln (100units/ml) SC SCH ×4 (06:49→22:20)
[2018-04-13 09:00] VITALS: BP 141/91
[2018-04-13] MEDS: GABAPENTIN 400 MG CAP PO SCH (10:08)
[2018-04-13] MEDS: POTASSIUM CHL 20 Meq TABLET PO SCH (10:08)
[2018-04-13] MEDS: PANTOPRAZOLE 40 MG TAB PO SCH (10:08)
[2018-04-13] MEDS: ASPirin 81 mg TAB PO SCH (10:08)
[2018-04-13] MEDS: CARVEDILOL 3.125 MG TAB PO SCH ×2 (10:09→21:33)
[2018-04-13] MEDS: NITROGLYCERIN 0.2MG/HR TOPICAL PATCH TD SCH (10:11)
[2018-04-13 13:00] VITALS: BP 119/63
[2018-04-13 17:00] VITALS: BP 112/75
[2018-04-13 20:00] VITALS: BP 127/66
[2018-04-13] MEDS: ATORVASTATIN 20 MG TAB PO SCH (21:33)
[2018-04-13] MEDS: SENNA 8.6 MG TAB PO SCH (21:34)
[2018-04-13 22:00] VITALS: BP 127/66
[2018-04-13] MEDS: TEMAZEPAM 15 MG CAP PO PRN (22:20)
[2018-04-14] MEDS: PROMETHAZINE HCL 25 MG/ML 1ML IV PRN ×2 (01:53→10:36)
[2018-04-14 03:41] VITALS: BP 102/65
[2018-04-14 05:00] VITALS: BP 115/48
[2018-04-14] MEDS: SODIUM CHLOR 0.9% PF (SALINE LOCK) 10ML VIAL/SYR IV SCH (06:05)
[2018-04-14] MEDS: FUROSEMIDE 100 MG/10ML VIAL IV SCH (06:05)
[2018-04-14] MEDS: hydrALAZINE HCL 25 MG TAB PO SCH (06:08)
[2018-04-14] MEDS: IPRATROPIUM BROM 0.5 MG/2.5ML INH SOL NEB SCH ×3 (06:45→11:57)
[2018-04-14] MEDS: ALBUTEROL SULF 2.5 MG/0.5ML(0.5%) NEB SOLN NEB SCH ×3 (06:45→11:58)
[2018-04-14] MEDS: ACCU-CHEK COMFORT CURVE STRIP VI SCH (06:57)
[2018-04-14] MEDS: InsuLIN REG 1unit/0.01ml Soln (100units/ml) SC SCH (07:00)
[2018-04-14 07:30] LABS: Basophils # (auto) 0.1 uL; Basophils % (auto) 1.4 % (0.0-2.0); Eosinophils # (auto) 0.2 uL; Eosinophils % (auto) 2.7 % (0.0-7.0); Hematocrit 25.7 % (36.0-46.0); Hemoglobin 8.9 g/dL (12.2-16.2); Lymphocytes # (auto) 1.7 uL; Lymphocytes % (auto) 22.2 % (10.0-50.0); Mean Corpuscular Hemoglobin 31.8 pg (28.0-32.0); Mean Corpuscular Hgb Conc. 34.7 g/dL (32.0-36.0); Mean Corpuscular Volume 91.6 fL (80.0-100.0); Monocytes # (auto) 0.7 uL; Monocytes % (auto) 9.3 % (0.0-12.0); Neutrophils # (auto) 4.8 uL; Neutrophils % (auto) 64.4 % (37.0-80.0); Platelet Count (auto) 226 10^3/uL (140-450); Red Cell Distribution Width 13.6 % (11.8-14.3); White Blood Cell 7.5 10^3/uL (4.4-10.8)
[2018-04-14 07:47] LABS: BUN/Creatinine Ratio 11.8; Calcium 8.2 mg/dL (8.5-10.1); Potassium 5.3 mmol/L (3.5-5.1)
[2018-04-14 08:34] VITALS: BP 152/86
[2018-04-14] MEDS: NITROGLYCERIN 0.2MG/HR TOPICAL PATCH TD SCH (10:33)
[2018-04-14] MEDS: POTASSIUM CHL 20 Meq TABLET PO SCH (10:34)
[2018-04-14] MEDS: CARVEDILOL 3.125 MG TAB PO SCH (10:35)
[2018-04-14] MEDS: PANTOPRAZOLE 40 MG TAB PO SCH (10:35)
[2018-04-14] MEDS: ASPirin 81 mg TAB PO SCH (10:35)
[2018-04-14] MEDS: GABAPENTIN 400 MG CAP PO SCH (10:36)
[2018-04-14] MEDS: MORPHINE SULFATE 10 MG/5 ML ORAL SOLN PO PRN (10:37)
[2018-04-14 13:00] VITALS: BP 142/88
[2018-04-14 14:28] VITALS: BP 142/88
== END 2018-04-14 15:36 | disposition home or self-care (01) | DRG 987 ==
LOC: EDBD 13:11 → ER 13:11 → TELE 13:12 → ER 15:20 → TELE 19:57 → TELE-WESTW 20:14
PROVIDERS: ADMIT Internal Medicine; ATTEND Internal Medicine
PROC: 0WJG4ZZ Inspection of Peritoneal Cavity, Percutaneous Endoscopic Approach (ICD-10-PCS; principal; 2018-04-11 13:25)
DX: I13.2 Hypertensive heart and chronic kidney disease with heart failure and with stage 5 chronic kidney disease, or end stage renal disease (principal); E43 Unspecified severe protein-calorie malnutrition; I50.43 Acute on chronic combined systolic (congestive) and diastolic (congestive) heart failure; N18.5 Chronic kidney disease, stage 5; I24.9 Acute ischemic heart disease, unspecified; Z68.41 Body mass index [BMI] 40.0-44.9, adult; E11.22 Type 2 diabetes mellitus with diabetic chronic kidney disease; J45.909 Unspecified asthma, uncomplicated; F41.9 Anxiety disorder, unspecified; D63.1 Anemia in chronic kidney disease; E11.21 Type 2 diabetes mellitus with diabetic nephropathy; E11.51 Type 2 diabetes mellitus with diabetic peripheral angiopathy without gangrene; E66.01 Morbid (severe) obesity due to excess calories; I20.9 Angina pectoris, unspecified; I65.29 Occlusion and stenosis of unspecified carotid artery; N73.6 Female pelvic peritoneal adhesions (postinfective); Z82.3 Family history of stroke; Z82.49 Family history of ischemic heart disease and other diseases of the circulatory system; Z83.3 Family history of diabetes mellitus; Z80.9 Family history of malignant neoplasm, unspecified; Z90.710 Acquired absence of both cervix and uterus; Z89.411 Acquired absence of right great toe; Z88.6 Allergy status to analgesic agent
CPT/HCPCS: 36415; 71045; 72100; 78582; 80048; 80053; 80061; 80307; 81001; 82550; 82728; 82962; 83036; 83540; 83550; 83735; 83880; 84443; 84484; 85025; 85045; 85379; 85610; 85652; 85730; 86141; 86706; 86850; 86900; 86901; 87070; 87205; 87340; 93005; 93306; 93886; 93970; 94640; 96372; 96374; 96375; J0330; J0690; J0885; J1815; J2250; J2405; J2704; J3490

== ENCOUNTER 2018-08-27 20:27 | Emergency (ER) | payer MEDICARE, MEDICAID ==
[~2018-08-27] VITALS: Ht 152.4 cm; Wt 81.6 kg
[2018-08-27 21:25] LABS: Basophils # (auto) 0.1 uL; Basophils % (auto) 1.3 % (0.0-2.0); Eosinophils # (auto) 0.3 uL; Hematocrit 30.1 % (36.0-46.0); Hemoglobin 9.9 g/dL (12.2-16.2); Lymphocytes # (auto) 1.8 uL; Mean Corpuscular Hemoglobin 31.1 pg (28.0-32.0); Mean Corpuscular Hgb Conc. 33.1 g/dL (32.0-36.0); Mean Corpuscular Volume 93.8 fL (80.0-100.0); Monocytes # (auto) 0.5 uL; Neutrophils % (auto) 52.7 % (37.0-80.0); Platelet Count (auto) 276 10^3/uL (140-450); Red Cell Distribution Width 13.9 % (11.8-14.3); White Blood Cell 5.7 10^3/uL (4.4-10.8)
[2018-08-27 21:41] LABS: Albumin 3.3 g/dL (3.4-5.0); Calcium 8.3 mg/dL (8.5-10.1); Potassium 3.9 mmol/L (3.5-5.1); Uric Acid 5.6 mg/dL (2.6-6.0)
[2018-08-27 21:46] LABS: BUN/Creatinine Ratio 10.2; Bilirubin, Total 0.5 mg/dL (0.2-1.0); Total Protein 7.8 g/dL (6.4-8.2)
[2018-08-28] MEDS ORDERED: LORazepam 2MG/ML-1ML VIAL IV ONE (03:15)
[2018-08-28] MEDS ORDERED: MORPHINE SULFATE 4 MG/ML SYR/VIAL IV ONE (03:15)
[2018-08-28] MEDS ORDERED: ONDANSETRON HCL 4 MG/2 ML VIAL IV ONE (03:15)
[2018-08-28 05:04] VITALS: BP 146/83
== END 2018-08-28 05:40 | disposition home or self-care (01) ==
LOC: EDBD 20:27 → ER 20:31
DX: S16.1XXA Strain of muscle, fascia and tendon at neck level, initial encounter (principal); E11.22 Type 2 diabetes mellitus with diabetic chronic kidney disease; I12.0 Hypertensive chronic kidney disease with stage 5 chronic kidney disease or end stage renal disease; N18.6 End stage renal disease; J45.909 Unspecified asthma, uncomplicated; M25.512 Pain in left shoulder; M25.562 Pain in left knee; Z99.2 Dependence on renal dialysis; Z90.710 Acquired absence of both cervix and uterus; Z88.6 Allergy status to analgesic agent; Z79.899 Other long term (current) drug therapy; W19.XXXA Unspecified fall, initial encounter; Y93.89 Activity, other specified; Y92.89 Other specified places as the place of occurrence of the external cause; Y99.8 Other external cause status
CPT/HCPCS: 36415; 71045; 73560; 74176; 80053; 82962; 84550; 85025; 93005; 93971; 96374; 96375; 99285; J2060; J2270; J2405

== ENCOUNTER 2018-10-03 15:20 | Emergency (ER) | payer MEDICARE, MEDICAID ==
[~2018-10-03] VITALS: Ht 157.5 cm; Wt 80.3 kg
[2018-10-03 15:55] VITALS: BP 172/77
[2018-10-03] MEDS ORDERED: PROMETHAZINE HCL 25 MG/ML 1ML IM ONE (16:15)
[2018-10-03] MEDS ORDERED: MORPHINE SULFATE 10 MG/ML INJ 1ML SDV IM ONE (16:15)
== END 2018-10-03 17:21 | disposition home or self-care (01) ==
LOC: ER 15:26
DX: S16.1XXA Strain of muscle, fascia and tendon at neck level, initial encounter (principal); S39.012A Strain of muscle, fascia and tendon of lower back, initial encounter; S50.11XA Contusion of right forearm, initial encounter; J45.909 Unspecified asthma, uncomplicated; E11.22 Type 2 diabetes mellitus with diabetic chronic kidney disease; I12.9 Hypertensive chronic kidney disease with stage 1 through stage 4 chronic kidney disease, or unspecified chronic kidney disease; N18.9 Chronic kidney disease, unspecified; F41.9 Anxiety disorder, unspecified; Z90.710 Acquired absence of both cervix and uterus; Z88.6 Allergy status to analgesic agent; V43.62XA Car passenger injured in collision with other type car in traffic accident, initial encounter; Y93.89 Activity, other specified; Y92.488 Other paved roadways as the place of occurrence of the external cause; Y99.8 Other external cause status
CPT/HCPCS: 72040; 72100; 96372; 99283; J2270; J2550

== ENCOUNTER 2018-10-30 20:20 | Emergency (ER) | payer MEDICARE, MEDICAID ==
[~2018-10-30] VITALS: Ht 157.5 cm; Wt 80.3 kg
[2018-10-30 21:31] LABS: Urine Bacteria NONE SEEN /hpf (None Seen); Urine Blood TRACE /uL (Negative); Urine Hyaline Cast FEW /lpf (0 - 2); Urine Specific Gravity 1.018 (1.001-1.035); Urine WBC 2 /hpf (0 - 5)
[2018-10-30 21:40] LABS: Basophils # (auto) 0.1 uL; Basophils % (auto) 0.9 % (0.0-2.0); Eosinophils # (auto) 0.3 uL; Eosinophils % (auto) 3.4 % (0.0-7.0); Hematocrit 37.9 % (36.0-46.0); Hemoglobin 12.9 g/dL (12.2-16.2); Lymphocytes # (auto) 1.6 uL; Lymphocytes % (auto) 21.2 % (10.0-50.0); Mean Corpuscular Hemoglobin 32.6 pg (28.0-32.0); Mean Corpuscular Hgb Conc. 34.1 g/dL (32.0-36.0); Mean Corpuscular Volume 95.7 fL (80.0-100.0); Monocytes # (auto) 0.7 uL; Monocytes % (auto) 9.6 % (0.0-12.0); Neutrophils % (auto) 64.9 % (37.0-80.0); Platelet Count (auto) 278 10^3/uL (140-450); Red Blood Cells 3.96 10^6/uL (4.0-5.20); Red Cell Distribution Width 14.6 % (11.8-14.3); White Blood Cell 7.7 10^3/uL (4.4-10.8)
[2018-10-30 21:56] LABS: Alanine Aminotransferase 22 U/L (13-56); Albumin 3.2 g/dL (3.4-5.0); Anion Gap 11 (5-15); Aspartate Aminotransferase 17 U/L (15-37); BUN/Creatinine Ratio 10.9; Blood Urea Nitrogen 53 mg/dL (7-18); Calcium 7.5 mg/dL (8.5-10.1); Carbon Dioxide 27 mmol/L (21-32); Chloride 95 mmol/L (98-107); GFR African American 12 mL/min; GFR Non-African American 10 mL/min; Glucose 297 mg/dL (74-106); Magnesium 2.8 mg/dL (1.6-2.6); Potassium 4.2 mmol/L (3.5-5.1); Sodium 133 mmol/L (136-145)
[2018-10-30 22:00] LABS: Alkaline Phosphatase 123 U/L (45-117); Bilirubin, Total 0.4 mg/dL (0.2-1.0); Total Protein 7.8 g/dL (6.4-8.2)
[2018-10-31 00:04] VITALS: BP 134/76
[2018-10-31] MEDS ORDERED: NEOMYCIN-BACITRACIN-POLYM UNITDOSE PKG TOP OINT TOP ONE (00:30)
[2018-10-31] MEDS ORDERED: BACITRACIN-POLYMYXIN B TOPICAL OINT UD TOP ONE (00:31)
== END 2018-10-31 00:54 | disposition home or self-care (01) ==
LOC: ER 20:20
DX: L08.9 Local infection of the skin and subcutaneous tissue, unspecified (principal); B96.89 Other specified bacterial agents as the cause of diseases classified elsewhere; F41.9 Anxiety disorder, unspecified; J45.909 Unspecified asthma, uncomplicated; E11.22 Type 2 diabetes mellitus with diabetic chronic kidney disease; I12.9 Hypertensive chronic kidney disease with stage 1 through stage 4 chronic kidney disease, or unspecified chronic kidney disease; N18.9 Chronic kidney disease, unspecified; Z90.710 Acquired absence of both cervix and uterus; Z88.6 Allergy status to analgesic agent
CPT/HCPCS: 36415; 71250; 80053; 81001; 82010; 82962; 83605; 83735; 84484; 85025; 87040; 87077; 87186; 93005; 94761

== ENCOUNTER 2018-11-21 13:52 | Emergency (ER) | payer MEDICARE, MEDICAID ==
[~2018-11-21] VITALS: Ht 157.5 cm; Wt 81.6 kg
[2018-11-21 14:51] LABS: Basophils # (auto) 0.1 uL; Basophils % (auto) 0.8 % (0.0-2.0); Eosinophils # (auto) 0.2 uL; Eosinophils % (auto) 3.1 % (0.0-7.0); Hematocrit 32.3 % (36.0-46.0); Hemoglobin 10.8 g/dL (12.2-16.2); Lymphocytes # (auto) 1.8 uL; Lymphocytes % (auto) 27.8 % (10.0-50.0); Mean Corpuscular Hemoglobin 31.3 pg (28.0-32.0); Mean Corpuscular Hgb Conc. 33.4 g/dL (32.0-36.0); Mean Corpuscular Volume 93.8 fL (80.0-100.0); Monocytes # (auto) 0.5 uL; Monocytes % (auto) 8.2 % (0.0-12.0); Neutrophils % (auto) 60.1 % (37.0-80.0); Nucleated Red Blood Cells % 0.1 %; Platelet Count (auto) 286 10^3/uL (140-450); Red Blood Cells 3.44 10^6/uL (4.0-5.20); Red Cell Distribution Width 13.4 % (11.8-14.3); White Blood Cell 6.6 10^3/uL (4.4-10.8)
[2018-11-21 15:09] LABS: Calcium 8.1 mg/dL (8.5-10.1); Potassium 4.4 mmol/L (3.5-5.1)
[2018-11-21 15:12] LABS: BUN/Creatinine Ratio 12.5; Bilirubin, Total 0.2 mg/dL (0.2-1.0); Total Protein 7.6 g/dL (6.4-8.2)
[2018-11-21] MEDS ORDERED: KETOROLAC TROMETH 60MG/2ML VIAL IM ONE ×2 (17:15→21:53)
[2018-11-21] MEDS ORDERED: DEXTROSE (50%) 50ML SYRG IV PRN (23:00)
[2018-11-21] MEDS ORDERED: ONDANSETRON HCL 4 MG/2 ML VIAL IV PRN (23:00)
[2018-11-21] MEDS ORDERED: ALBUTEROL SULF 2.5 MG/0.5ML(0.5%) NEB SOLN NEB PRN (23:00)
[2018-11-21] MEDS ORDERED: ONDANSETRON HCL 4 MG/2 ML VIAL IV ONE (23:00)
[2018-11-21] MEDS ORDERED: MORPHINE SULFATE 4 MG/ML SYR/VIAL IV ONE (23:00)
[2018-11-21 23:42] VITALS: BP 163/90
[2018-11-22 00:29] VITALS: BP 179/85
[2018-11-22] MEDS ORDERED: NEOMYCIN-BACITRACIN-POLYM UNITDOSE PKG TOP OINT TOP ONE (00:30)
[2018-11-22] MEDS ORDERED: cefTRIAXone SOD 1,000 MG VL IM ONE (00:30)
[2018-11-22] MEDS ORDERED: cefTRIAXone 1GM/50ML D5W 0 ML IV ONE (01:01)
[2018-11-22] MEDS ORDERED: cefTRIAXone SOD 1,000 MG VL ONE (01:02)
[2018-11-22] MEDS ORDERED: MORPHINE SULF INJ 2 MG/ML SYRINGE 1ML IV PRN (03:00)
[2018-11-22] MEDS ORDERED: hydrALAZINE HCL 25 MG TAB PO SCH (06:00)
[2018-11-22] MEDS ORDERED: GABAPENTIN 400 MG CAP PO SCH (06:00)
[2018-11-22] MEDS ORDERED: ACCU-CHEK COMFORT CURVE STRIP VI SCH (07:00)
[2018-11-22] MEDS ORDERED: InsuLIN REG 1unit/0.01ml Soln (100units/ml) SC SCH (07:00)
[2018-11-22] MEDS ORDERED: CLOPIDOGREL BISULFATE 75 MG TAB PO SCH (10:00)
[2018-11-22] MEDS ORDERED: busPIRone HCL 10 MG TAB PO SCH (10:00)
== END 2018-11-22 01:10 | disposition home or self-care (01) ==
LOC: EDBD 13:52 → ER 13:53
DX: M25.061 Hemarthrosis, right knee (principal); D63.8 Anemia in other chronic diseases classified elsewhere; F41.9 Anxiety disorder, unspecified; I25.10 Atherosclerotic heart disease of native coronary artery without angina pectoris; E11.22 Type 2 diabetes mellitus with diabetic chronic kidney disease; I12.0 Hypertensive chronic kidney disease with stage 5 chronic kidney disease or end stage renal disease; N18.6 End stage renal disease; E78.00 Pure hypercholesterolemia, unspecified; Z79.899 Other long term (current) drug therapy; Z88.5 Allergy status to narcotic agent; Z88.6 Allergy status to analgesic agent
CPT/HCPCS: 20610; 36415; 73562; 73700; 80053; 84550; 85025; 87205; 89051; 93971; 94761; 96372; 96374; 96375; 99284; J0696; J1885; J2270; J2405

== ENCOUNTER 2018-12-12 13:12 | Emergency (ER) | payer MEDICARE, MEDICAID ==
[~2018-12-12] VITALS: Ht 165.1 cm; Wt 90.7 kg
[2018-12-12 14:45] LABS: Basophils # (auto) 0.1 uL; Eosinophils # (auto) 0.1 uL; Eosinophils % (auto) 1.1 % (0.0-7.0); Hematocrit 36.7 % (36.0-46.0); Lymphocytes # (auto) 1.1 uL; Mean Corpuscular Hemoglobin 31.4 pg (28.0-32.0); Mean Corpuscular Hgb Conc. 32.8 g/dL (32.0-36.0); Mean Corpuscular Volume 95.7 fL (80.0-100.0); Monocytes # (auto) 0.9 uL; Monocytes % (auto) 11.9 % (0.0-12.0); Neutrophils # (auto) 5.6 uL; Platelet Count (auto) 264 10^3/uL (140-450); Red Blood Cells 3.83 10^6/uL (4.0-5.20); Red Cell Distribution Width 14.4 % (11.8-14.3); White Blood Cell 7.8 10^3/uL (4.4-10.8)
[2018-12-12 14:58] LABS: Alanine Aminotransferase 11 U/L (13-56); Albumin 2.9 g/dL (3.4-5.0); Anion Gap 11 (5-15); Aspartate Aminotransferase 9 U/L (15-37); BUN/Creatinine Ratio 13.9; Blood Urea Nitrogen 58 mg/dL (7-18); Calcium 8.1 mg/dL (8.5-10.1); Carbon Dioxide 24 mmol/L (21-32); Chloride 99 mmol/L (98-107); GFR African American 14 mL/min; GFR Non-African American 12 mL/min; Glucose 179 mg/dL (74-106); Sodium 134 mmol/L (136-145)
[2018-12-12 15:03] LABS: Alkaline Phosphatase 83 U/L (45-117); Bilirubin, Total 0.6 mg/dL (0.2-1.0); Total Protein 7.7 g/dL (6.4-8.2)
[2018-12-12] MEDS ORDERED: HYDROcodone-ACET 10/325MG TAB PO ONE (15:15)
[2018-12-12] MEDS ORDERED: MORPHINE SULFATE 4 MG/ML SYR/VIAL IM ONE (15:30)
[2018-12-12] MEDS ORDERED: ONDANSETRON HCL 4 MG/2 ML VIAL IM ONE (15:30)
[2018-12-12 15:40] VITALS: BP 161/82
== END 2018-12-12 16:01 | disposition home or self-care (01) ==
LOC: EDBD 13:12 → EDUNIT# 13:12 → ER 13:14
DX: M25.461 Effusion, right knee (principal); E11.22 Type 2 diabetes mellitus with diabetic chronic kidney disease; I12.0 Hypertensive chronic kidney disease with stage 5 chronic kidney disease or end stage renal disease; N18.6 End stage renal disease; Z99.2 Dependence on renal dialysis; Z88.5 Allergy status to narcotic agent; Z88.6 Allergy status to analgesic agent; Z79.899 Other long term (current) drug therapy
CPT/HCPCS: 36415; 71045; 73562; 80053; 83880; 84484; 85025; 96372; 99284; J2270; J2405

== ENCOUNTER 2019-08-05 12:38 | Emergency (ER) | payer MEDICARE, MEDICAID ==
[~2019-08-05] VITALS: Ht 157.5 cm; Wt 77.1 kg
[~2019-08-05 12:38] MED LIST changes: -ALBU2TAB4 NEB; +AML5T PO; +ASPI-404 PO; -CYCL1TAB18 PO; +FURO1TAB32 PO; -GAB400C PO; -GABA300C10 PO; +GABA400C PO; -HYDR100T22 PO; +HYDR50TA15 PO; +METH750T3 PO; +ONDA-144 PO; -ONDA4TAB5 PO; +RIVA20TA PO; +SEVE800T8 PO
[2019-08-05 13:11] LABS: Basophils # (auto) 0.1 uL; Basophils % (auto) 1.5 % (0.0-2.0); Eosinophils # (auto) 0.1 uL; Eosinophils % (auto) 1.1 % (0.0-7.0); Hematocrit 40.7 % (36.0-46.0); Hemoglobin 13.7 g/dL (12.2-16.2); Lymphocytes # (auto) 1.6 uL; Mean Corpuscular Hemoglobin 32.7 pg (28.0-32.0); Mean Corpuscular Hgb Conc. 33.6 g/dL (32.0-36.0); Mean Corpuscular Volume 97.3 fL (80.0-100.0); Monocytes # (auto) 0.7 uL; Monocytes % (auto) 7.1 % (0.0-12.0); Neutrophils # (auto) 6.6 uL; Neutrophils % (auto) 72.3 % (37.0-80.0); Nucleated Red Blood Cells % 0.1 %; Platelet Count (auto) 262 10^3/uL (140-450); Red Blood Cells 4.18 10^6/uL (4.0-5.20); White Blood Cell 9.2 10^3/uL (4.4-10.8)
[2019-08-05 13:27] LABS: Alanine Aminotransferase 19 U/L (13-56); Albumin 4.2 g/dL (3.4-5.0); Anion Gap 12 (5-15); Aspartate Aminotransferase 19 U/L (15-37); BUN/Creatinine Ratio 3.8; Blood Urea Nitrogen 13 mg/dL (7-18); Calcium 9.5 mg/dL (8.5-10.1); Carbon Dioxide 27 mmol/L (21-32); Chloride 93 mmol/L (98-107); GFR African American 18 mL/min; GFR Non-African American 15 mL/min; Glucose 212 mg/dL (74-106); Potassium 3.5 mmol/L (3.5-5.1); Sodium 132 mmol/L (136-145)
[2019-08-05 13:32] LABS: Alkaline Phosphatase 96 U/L (45-117); Bilirubin, Total 0.6 mg/dL (0.2-1.0); Total Protein 9.7 g/dL (6.4-8.2)
[2019-08-05 16:23] VITALS: BP 116/62
[2019-08-05] MEDS ORDERED: traMADol HCL 50 MG TAB PO ONE (16:45)
== END 2019-08-05 17:11 | disposition home or self-care (01) ==
LOC: ER 12:41
DX: E11.65 Type 2 diabetes mellitus with hyperglycemia (principal); E11.22 Type 2 diabetes mellitus with diabetic chronic kidney disease; I12.0 Hypertensive chronic kidney disease with stage 5 chronic kidney disease or end stage renal disease; N18.6 End stage renal disease; E78.5 Hyperlipidemia, unspecified; Z99.2 Dependence on renal dialysis; Z90.710 Acquired absence of both cervix and uterus; Z98.61 Coronary angioplasty status
CPT/HCPCS: 36415; 80053; 82962; 84484; 85025; 93005

== ENCOUNTER 2019-08-05 22:34 | Emergency (ER) | payer MEDICARE, MEDICAID ==
[~2019-08-05] VITALS: Ht 157.5 cm; Wt 77.1 kg
[2019-08-05 22:47] VITALS: BP 95/65
== END 2019-08-05 23:43 | disposition left against medical advice (07) ==
LOC: EDBD 22:34 → ER 22:34
DX: R53.1 Weakness (principal); Z53.21 Procedure and treatment not carried out due to patient leaving prior to being seen by health care provider
CPT/HCPCS: 93005

== ENCOUNTER 2020-09-04 18:04 | Inpatient (IN) | payer MEDICARE, MEDICAID ==
[~2020-09-04] VITALS: Ht 157.5 cm; Wt 82.8 kg
[~2020-09-04 18:04] MED LIST changes: -ASPI-404 PO; +ASPI-543 PO; +ATOR20TA50 PO; +CLOP75TA28 PO; -RIVA20TA PO; -SIMV-8 PO
[2020-09-04 19:20] LABS: Basophils # (auto) 0.1 10 ^3/uL (0-0.2); Basophils % (auto) 0.9 % (0.0-2.0); Eosinophils # (auto) 0.2 10 ^3/uL (0-0.8); Eosinophils % (auto) 2.6 % (0.0-7.0); Hematocrit 27.2 % (36.0-46.0); Lymphocytes # (auto) 1.6 10 ^3/uL (0.4-5.4); Lymphocytes % (auto) 22.3 % (10.0-50.0); Monocytes # (auto) 0.6 10 ^3/uL (0-1.3); Monocytes % (auto) 9.1 % (0.0-12.0); Neutrophils # (auto) 4.6 10 ^3/uL (1.6-8.6); Neutrophils % (auto) 65.1 % (37.0-80.0); Platelet Count (auto) 188 10^3/uL (140-450); Red Blood Cells 2.81 10^6/uL (4.0-5.20); Red Cell Distribution Width 12.9 % (11.8-14.3)
[2020-09-04 19:45] LABS: Albumin 3.5 g/dL (3.4-5.0); BUN/Creatinine Ratio 13.7; Calcium 7.8 mg/dL (8.5-10.1)
[2020-09-04] MEDS ORDERED: ONDANSETRON HCL 4 MG/2 ML VIAL IV ONE (19:45)
[2020-09-04] MEDS ORDERED: MORPHINE SULFATE 4 MG/ML SYR/VIAL IV ONE ×2 (19:45→23:30)
[2020-09-04 19:50] LABS: Bilirubin, Total 0.3 mg/dL (0.2-1.0); Total Protein 7.1 g/dL (6.4-8.2)
[2020-09-04 20:39] LABS: INR 0.96 (0.9-1.15); Partial Thromboplastin Time 22.2 sec (23.0-31.2)
[2020-09-04] MEDS ORDERED: metroNIDAZOLE 500MG/100ML 100 ML IV ONE (23:30)
[2020-09-05 00:28] LABS: Urine Bacteria FEW /hpf (None Seen); Urine Blood Negative /uL (Negative); Urine Specific Gravity 1.009 (1.001-1.035); Urine WBC 1 /hpf (0 - 5)
[2020-09-05] MEDS ORDERED: SODIUM CHLORIDE 0.9% 1,000 ML IV SCH (00:30)
[2020-09-05] MEDS ORDERED: MORPHINE SULF INJ 2 MG/ML SYRINGE 1ML IV PRN (00:30)
[2020-09-05] MEDS ORDERED: NITROGLYCERIN 0.4 MG SL TAB SL PRN (00:30)
[2020-09-05] MEDS ORDERED: cloNIDine HCL 0.1 MG TAB PO PRN (00:30)
[2020-09-05] MEDS ORDERED: DEXTROSE (50%) 50ML SYRG IV PRN (00:30)
[2020-09-05] MEDS ORDERED: MORPHINE SULF INJ 2 MG/ML SYRINGE 1ML IV ONE (03:00)
[2020-09-05] MEDS: InsuLIN REG 1unit/0.01ml Soln (100units/ml) SC SCH ×4 (06:10→23:51)
[2020-09-05] MEDS: ACCU-CHEK COMFORT CURVE STRIP VI SCH ×4 (06:10→23:47)
[2020-09-05] MEDS ORDERED: HYDROcodone-ACET 7.5/325MG TAB PO ONE (07:15)
[2020-09-05] MEDS: SEVELAMER 800 MG TAB PO SCH ×3 (08:00→18:00)
[2020-09-05 08:45] LABS: Basophils # (auto) 0.2 10 ^3/uL (0-0.2); Basophils % (auto) 2.3 % (0.0-2.0); Eosinophils # (auto) 0.2 10 ^3/uL (0-0.8); Eosinophils % (auto) 2.9 % (0.0-7.0); Hematocrit 26.9 % (36.0-46.0); Lymphocytes # (auto) 2.5 10 ^3/uL (0.4-5.4); Lymphocytes % (auto) 34.2 % (10.0-50.0); Mean Corpuscular Hemoglobin 31.9 pg (28.0-32.0); Mean Corpuscular Hgb Conc. 33.2 g/dL (32.0-36.0); Mean Corpuscular Volume 95.8 fL (80.0-100.0); Monocytes # (auto) 0.5 10 ^3/uL (0-1.3); Monocytes % (auto) 7.1 % (0.0-12.0); Neutrophils # (auto) 3.8 10 ^3/uL (1.6-8.6); Neutrophils % (auto) 53.5 % (37.0-80.0); Nucleated Red Blood Cells % 0.3 %; Platelet Count (auto) 156 10^3/uL (140-450); Red Blood Cells 2.81 10^6/uL (4.0-5.20); Red Cell Distribution Width 13.1 % (11.8-14.3); White Blood Cell 7.2 10^3/uL (4.4-10.8)
[2020-09-05] MEDS: PANTOPRAZOLE 40 MG/10 ML VIAL INJ IV SCH (08:57)
[2020-09-05] MEDS: hydrALAZINE HCL 25 MG TAB PO SCH (08:58)
[2020-09-05] MEDS: FUROSEMIDE 40 MG TAB PO SCH (08:58)
[2020-09-05] MEDS: CLOPIDOGREL BISULFATE 75 MG TAB PO SCH (08:59)
[2020-09-05 09:02] LABS: Calcium 8.1 mg/dL (8.5-10.1); Potassium 4.5 mmol/L (3.5-5.1)
[2020-09-05 09:04] LABS: BUN/Creatinine Ratio 13.6
[2020-09-05 09:13] LABS: INR 0.99 (0.9-1.15); Partial Thromboplastin Time 22.6 sec (23.0-31.2)
[2020-09-05 09:16] LABS: Cholesterol 97 mg/dL (< 200)
[2020-09-05 09:18] LABS: HDL Cholesterol 46 mg/dL (40-59); LDL Cholesterol 71 mg/dL (< 100); Triglycerides 17 mg/dL (< 150)
[2020-09-05] MEDS ORDERED: ASPirin 81 mg TAB PO SCH (10:00)
[2020-09-05] MEDS ORDERED: HEPARIN SODIUM (PORCINE) 5000 UNITS/ML 1ML VIAL ONE (10:51)
[2020-09-05] MEDS ORDERED: VERAPAMIL 2.5MG/ML INJ 2ML VIAL IV ONE (10:51)
[2020-09-05] MEDS ORDERED: ANGIOMAX 250 MG VIAL IV ONE (10:51)
[2020-09-05] MEDS ORDERED: MIDAZOLAM HCL 1MG/1ML-2 ML VIAL ONE (10:51)
[2020-09-05] MEDS ORDERED: fentaNYL CITRATE 100 MCG/2 ML VL ONE (10:51)
[2020-09-05] MEDS ORDERED: LIDOCAINE 2%HCL (LOCAL ANESTH.) INJ 20ML MDV ONE (10:52)
[2020-09-05] MEDS ORDERED: IODIXANOL 320MG/ML 100ML BTL IV ONE (10:52)
[2020-09-05] MEDS ORDERED: SODIUM CHL 0.9% 0 ML ONE (10:52)
[2020-09-05] MEDS ORDERED: amLODIPine BESYLATE 5 MG TAB PO ONE (13:30)
[2020-09-05] MEDS: MORPHINE SULF INJ 2 MG/ML SYRINGE 1ML IV PRN ×2 (15:10→23:40)
[2020-09-05] MEDS ORDERED: OPTISON 3ml Vial for INJ IV ONE (15:12)
--- NOTE | 2020-09-05 19:40 | NUR ---
Opening shift note Assumed care from day shift RNHermilo who reported that this patient was recently admitted. Patient A&Ox4, respirations even and non-labored with no s/s of distress at this time. Noted that right radial wrist dressing is CDI from biology laboratory assistant with no s/s of swelling or bleeding. Patients IV to right AC flushed patent and intact. Discussed POC with patient who verbalized understanding, advised patient to call for assistance, bed alarm set at this time. Safety precautions in place, bed lowered and locked with 2 side rails up, call light within reach. Will continue to monitor Q1hr and PRN.
--- NOTE | 2020-09-05 19:46 | NUR ---
ADMITTED FROM PAYROLL MASTER, TRANSFERRED VIA STRETCHER, AMBULATED TO BR. PT A/O. RT WRIST NO BLEEDING OR BRUISING NOTED. EATING ET DRINKING WELL. VS TAKEN. 96% RA. BG 105. ORIENTED ROOM ET REMOTE.
[2020-09-05 21:00] VITALS: BP_SYST 121; BP_SYST 146; BP_DIAS 48; BP_DIAS 67
[2020-09-05] MEDS: ATORVASTATIN 20 MG TAB PO SCH (22:02)
[2020-09-05] MEDS: ONDANSETRON HCL 4 MG/2 ML VIAL IV PRN (23:40)
[2020-09-06 05:00] VITALS: BP 105/71
[2020-09-06] MEDS: InsuLIN REG 1unit/0.01ml Soln (100units/ml) SC SCH ×3 (05:28→18:00)
[2020-09-06] MEDS: ACCU-CHEK COMFORT CURVE STRIP VI SCH ×3 (05:28→18:28)
--- NOTE | 2020-09-06 06:52 | NUR ---
Patient medications taken to pharmacy
--- NOTE | 2020-09-06 07:37 | NUR ---
Closing shift note Patient resting without s/s of distress. Endorsed care to day shift RN.
[2020-09-06 07:56] LABS: Basophils # (auto) 0.1 10 ^3/uL (0-0.2); Eosinophils # (auto) 0.1 10 ^3/uL (0-0.8); Eosinophils % (auto) 1.6 % (0.0-7.0); Hematocrit 25.3 % (36.0-46.0); Hemoglobin 8.6 g/dL (12.2-16.2); Lymphocytes % (auto) 13.7 % (10.0-50.0); Mean Corpuscular Hgb Conc. 34.1 g/dL (32.0-36.0); Mean Corpuscular Volume 96.8 fL (80.0-100.0); Monocytes # (auto) 0.5 10 ^3/uL (0-1.3); Neutrophils # (auto) 5.8 10 ^3/uL (1.6-8.6); Neutrophils % (auto) 77.7 % (37.0-80.0); Platelet Count (auto) 176 10^3/uL (140-450); Red Blood Cells 2.61 10^6/uL (4.0-5.20); Red Cell Distribution Width 12.9 % (11.8-14.3); White Blood Cell 7.5 10^3/uL (4.4-10.8)
[2020-09-06 08:00] VITALS: BP 141/41
--- NOTE | 2020-09-06 08:00 | NUR ---
Opening Shift Note Assumed care of patient, pt is awake and A&OX4. No S/S of distress/SOB or pain. Instructed on POC and to call for assist PRN, call light within reach, bed is locked and in lowest position, side rails up X2. Rt. wrist dressing from veterinary laboratory technician is noted and no s/sx of swelling or bleeding. Rt. ac IV is intact and patent. Pt is in emotional distress due to her recent loss of a family member. Pt has good family support. Will continue to monitor for changes Q1hr and PRN.
[2020-09-06 08:09] LABS: Albumin 3.2 g/dL (3.4-5.0); Calcium 7.9 mg/dL (8.5-10.1); Potassium 4.4 mmol/L (3.5-5.1)
[2020-09-06 08:13] LABS: BUN/Creatinine Ratio 12.6; Bilirubin, Total 0.3 mg/dL (0.2-1.0)
[2020-09-06 09:00] VITALS: BP 141/41
[2020-09-06] MEDS: PANTOPRAZOLE 40 MG/10 ML VIAL INJ IV SCH (09:19)
[2020-09-06] MEDS: FUROSEMIDE 40 MG TAB PO SCH (09:20)
[2020-09-06] MEDS: hydrALAZINE HCL 25 MG TAB PO SCH (09:20)
[2020-09-06] MEDS: SEVELAMER 800 MG TAB PO SCH ×3 (09:21→18:00)
[2020-09-06] MEDS: ASPirin 81 mg TAB PO SCH (09:21)
[2020-09-06] MEDS: CLOPIDOGREL BISULFATE 75 MG TAB PO SCH (09:22)
[2020-09-06] MEDS: amLODIPine BESYLATE 5 MG TAB PO SCH (09:22)
[2020-09-06] MEDS ORDERED: SODIUM CHL 0.9% 1000 ML BAG XX ONE (11:45)
--- NOTE | 2020-09-06 12:00 | NUR ---
Blood Glucose Check & Held Insulin R Pt's blood glucose is 145 mg/dL but held 2 units of Insulin R as the pt is on hemodialysis at the moment and NPO as well as possible HIDA scan later of the day.
[2020-09-06 13:00] VITALS: BP 150/58
--- NOTE | 2020-09-06 15:00 | NUR ---
DIALYSIS ENDED 2.5 LITERS REMOVED, PATIENT TOLERATED WELL.
--- NOTE | 2020-09-06 16:00 | NUR ---
PATIENT TAKEN TO HIDA SCAN BY TECH. DENIED PAIN, NO DISTRESS NOTED.
--- NOTE | 2020-09-06 17:15 | NUR ---
RETURNED FROM HIDA SCAN.TOLERATED WELL
--- NOTE | 2020-09-06 18:28 | NUR ---
REFUSED DINNER TREE HELD . BLOOD SUGAR 132 INSULIN HELD DUE TO PATIENT WILL NOT EAT DINNER.
--- NOTE | 2020-09-06 19:03 | NUR ---
ENDORSED CARE TO NIGHT RN.
--- NOTE | 2020-09-06 19:10 | NUR ---
Opening shift note Assumed care from day shift RN. Patient A&Ox4, respirations even and non-labored with no s/s of distress at this time. Noted that right radial wrist dressing is CDI from wharf labourer 2 days ago as per report with no s/s of swelling or bleeding. Discussed POC with patient who verbalized understanding, advised patient to call for assistance, bed alarm set at this time. Safety precautions in place, bed lowered and locked with 2 side rails up, call light within reach. Will continue to monitor Q1hr and PRN.
[2020-09-06] MEDS ORDERED: EPOETIN ALFA 10,000 UNIT/1 ML VIAL SC ONE (21:00)
[2020-09-06] MEDS: ATORVASTATIN 20 MG TAB PO SCH (21:25)
[2020-09-06 22:00] VITALS: BP 110/83
[2020-09-06] MEDS: MORPHINE SULF INJ 2 MG/ML SYRINGE 1ML IV PRN (22:30)
--- NOTE | 2020-09-06 22:30 | NUR ---
IV insertion and IV removal IV access obtained, via clean sterile technique by inserting 22 gauge catheter at Right forearm after 1 attempt. IV secured properly. No trauma to site. Patient tolerated well. IV removed at Right AC. Catheter intact. Patient tolerated.
--- NOTE | 2020-09-06 22:30 | NUR ---
Patient is complaining of sore throat and pain on her right abdomen/ right lower rib. 9/10 for pain score. gave pain medicine. Patient tolerated.
--- NOTE | 2020-09-07 01:00 | NUR ---
Patient used bedside commode. Did well. Addendum: 09/08/20 at 0537 by HAROON MENA RN RN wrong date
[2020-09-07] MEDS: HYDROcodone-ACET 5/325MG TAB PO PRN ×2 (01:17→18:50)
--- NOTE | 2020-09-07 01:23 | NUR ---
Patient requested for jello and ice. Patient is using the bedpan. She said it will take her awhile because she is a dialysis patient. Educated the patient that she can't sit or have the bedpan for too long for it might cause pressure wound. Patient said she will call once she's done. Patient agreed and verbalized understanding.
--- NOTE | 2020-09-07 04:49 | NUR ---
Patient uses bedpan to urinate. Patient tolerated. No SOB seen.
[2020-09-07 05:00] VITALS: BP 127/60
[2020-09-07] MEDS: InsuLIN REG 1unit/0.01ml Soln (100units/ml) SC SCH ×4 (05:55→18:00)
[2020-09-07] MEDS: ACCU-CHEK COMFORT CURVE STRIP VI SCH ×4 (05:55→18:20)
[2020-09-07] MEDS: MORPHINE SULF INJ 2 MG/ML SYRINGE 1ML IV PRN ×2 (06:53→21:19)
[2020-09-07 08:00] VITALS: BP 123/54
--- NOTE | 2020-09-07 08:00 | NUR ---
Opening Shift Note Assumed care of patient, awake and alert. No S/S of distress/SOB or pain. Bed in lowest position side rails up x2 and call light within reach. Right forearm 22 gauge IV clean, patent, and dry with no signs of redness or swelling. Instructed on POC and to call for assist PRN, will continue to monitor for changes Q1hr and PRN.
[2020-09-07] MEDS: SEVELAMER 800 MG TAB PO SCH ×3 (08:28→18:19)
[2020-09-07 09:00] VITALS: BP 123/54
[2020-09-07] MEDS ORDERED: THROAT LOZENGES(CEPASTAT) MT PRN (09:30)
[2020-09-07] MEDS: amLODIPine BESYLATE 5 MG TAB PO SCH (09:45)
[2020-09-07] MEDS: FUROSEMIDE 40 MG TAB PO SCH (09:46)
[2020-09-07] MEDS: CLOPIDOGREL BISULFATE 75 MG TAB PO SCH (09:46)
[2020-09-07] MEDS: hydrALAZINE HCL 25 MG TAB PO SCH (09:47)
[2020-09-07] MEDS: ASPirin 81 mg TAB PO SCH (09:48)
[2020-09-07] MEDS: PANTOPRAZOLE 40 MG/10 ML VIAL INJ IV SCH (09:48)
[2020-09-07] MEDS ORDERED: CLOPIDOGREL BISULFATE 75 MG TAB PO SCH (10:30)
--- NOTE | 2020-09-07 11:00 | NUR ---
Patient using bedside commode Patient used bedside commode with assistance x1. Tolerated well with no signs of distress.
--- NOTE | 2020-09-07 12:40 | NUR ---
Nutrition Assessment Note please see attached link for complete assessment [employer] needs ABW 67 [id number] kcals (25-27 kcal/kgABW), Est Protein needs: 80-87 gms/day (1.2-1.3 gm/kgABW r/t HD) Will continue to monitor and reassess prn. Addendum: 09/07/20 at [address] Amended: Links added.
[2020-09-07 13:00] VITALS: BP 121/63
[2020-09-07 16:18] VITALS: BP 143/73
--- NOTE | 2020-09-07 16:45 | NUR ---
Assessment Patient is a 59 year old female, who is alert and oriented. Patient cognitive abilities are intact. Patient states that she can do all ADL's and ambulates independently. Patient states that she lives with a roommate, patient states that she will return home post discharge. Patient stated that she receives SSI/SSA as income. Patient states that her daughters Melva and Ene ([phone]) are her support systems. Patient states that she receives dialysis therapy on Saturday, Saturday, and Saturday at [facility] in [place]. Patient is receptive to receive Advance Directive forms. Discharge planning: Patient will return home post discharge, patient will follow up with her PCP post discharge. Patient will resume dialysis treatment at [facility] in [place] post discharge. will provide Advance Directives forms for patient to complete. Patient has no other post discharge needs to identify at the moment. Addendum: 09/07/20 at 1650 by EDISON THOMAS SS Amended: Links added.
[2020-09-07] MEDS ORDERED: SODIUM CHL 0.9% 1000 ML BAG XX ONE (17:00)
[2020-09-07 19:13] LABS: Hematocrit 25.4 % (36.0-46.0); Hemoglobin 8.7 g/dL (12.2-16.2)
--- NOTE | 2020-09-07 19:32 | NUR ---
Opening Shift Note Assumed care of patient, awake and alert. No S/S of distress/SOB or pain. Fall precaution observed for safety. InsTructed on POC and to call for assist PRN, will continue to monitor for changes Q1hr and PRN.
--- NOTE | 2020-09-07 19:32 | NUR ---
ENDORSED CARE TO NIGHT RN.
[2020-09-07] MEDS ORDERED: EPOETIN ALFA 10,000 UNIT/1 ML VIAL SC ONE (21:00)
[2020-09-07] MEDS: ATORVASTATIN 20 MG TAB PO SCH (21:19)
[2020-09-07 23:44] VITALS: BP 108/55
[2020-09-08 00:08] VITALS: BP 108/55
[2020-09-08] MEDS: ONDANSETRON HCL 4 MG/2 ML VIAL IV PRN ×2 (00:26→19:09)
--- NOTE | 2020-09-08 01:00 | NUR ---
Patient use bedside commode. Did well. Instruct to call for help.
[2020-09-08] MEDS: MORPHINE SULF INJ 2 MG/ML SYRINGE 1ML IV PRN ×2 (04:44→16:58)
--- NOTE | 2020-09-08 04:44 | NUR ---
Pain medication given for pain of 10/10 on right upper abdomen. tolerated
[2020-09-08 05:00] VITALS: BP 132/76
[2020-09-08] MEDS: InsuLIN REG 1unit/0.01ml Soln (100units/ml) SC SCH ×5 (05:57→23:29)
[2020-09-08] MEDS: ACCU-CHEK COMFORT CURVE STRIP VI SCH ×5 (05:57→23:29)
--- NOTE | 2020-09-08 07:40 | NUR ---
Opening Shift Note Assumed care of patient, awake and alert bed is locked and in lowest position bed rails up x2 call light is within reach . No S/S of distress/SOB or pain. Instructed on POC and to call for assistance PRN, will continue to monitor for changes Q1hr and PRN.
[2020-09-08] MEDS: SEVELAMER 800 MG TAB PO SCH ×3 (08:30→18:22)
[2020-09-08 09:00] VITALS: BP 131/66
[2020-09-08] MEDS ORDERED: SODIUM CHL 0.9% 1000 ML BAG XX ONE (09:30)
[2020-09-08] MEDS: hydrALAZINE HCL 25 MG TAB PO SCH (10:00)
[2020-09-08] MEDS: amLODIPine BESYLATE 5 MG TAB PO SCH (10:00)
[2020-09-08] MEDS: PANTOPRAZOLE 40 MG/10 ML VIAL INJ IV SCH (10:00)
[2020-09-08] MEDS: FUROSEMIDE 40 MG TAB PO SCH (10:00)
[2020-09-08] MEDS: ASPirin 81 mg TAB PO SCH (10:56)
[2020-09-08 13:00] VITALS: BP 167/80
--- NOTE | 2020-09-08 14:50 | NUR ---
Dialysis nurse removed 2.5 L
[2020-09-08] MEDS: HYDROcodone-ACET 5/325MG TAB PO PRN ×2 (15:11→21:05)
[2020-09-08 17:00] VITALS: BP 142/64
--- NOTE | 2020-09-08 19:20 | NUR ---
Opening Shift Note Assumed care of patient, awake and alert bed is locked and in lowest position bed rails up x2 call light is within reach . No S/S of distress/SOB or pain. Patinet calling for nausea medicine. Will check charts and emar and will give nausea medicine. Instructed on POC and to call for assistance PRN, will continue to monitor for changes Q1hr and PRN.
[2020-09-08] MEDS ORDERED: EPOETIN ALFA 4,000 UNIT/ML VL SC ONE (21:00)
[2020-09-08] MEDS: ATORVASTATIN 20 MG TAB PO SCH (21:05)
--- NOTE | 2020-09-08 21:05 | NUR ---
Patient verbalized that her pain medication hasn't helping her much. Will page hospitalist for this concern . Will continue to educate and monitor patient.
[2020-09-08 22:00] VITALS: BP 128/63
--- NOTE | 2020-09-08 22:06 | NUR ---
PAGED HOSPITALIST. WAITING FOR CALL BACK
--- NOTE | 2020-09-08 22:31 | NUR ---
OBTAINED AN ORDER TO INCREASE MORPHINE TO 3MG IV MORPHINE Q6 HOURS.
[2020-09-08] MEDS: MORPHINE SULFATE 4 MG/ML SYR/VIAL IV PRN (23:30)
--- NOTE | 2020-09-08 23:30 | NUR ---
Patient had a RUQ pain that radiates to her back. pain score is 9/10. gave pain medication. tolerated.
--- NOTE | 2020-09-09 00:01 | NUR ---
patient had bowel movement and gave bed bath and total linen change, oral and perineal care. Elevated the left foot. Addendum: 09/09/20 at 0435 by HAROON MENA RN RN Wrong patient.
[2020-09-09] MEDS: LORazepam 0.5 MG TAB PO PRN ×2 (01:50→22:12)
[2020-09-09] MEDS: ONDANSETRON HCL 4 MG/2 ML VIAL IV PRN (02:00)
[2020-09-09 05:00] VITALS: BP 131/72
[2020-09-09] MEDS: ACCU-CHEK COMFORT CURVE STRIP VI SCH ×4 (05:44→23:52)
[2020-09-09] MEDS: InsuLIN REG 1unit/0.01ml Soln (100units/ml) SC SCH ×4 (05:45→23:52)
--- NOTE | 2020-09-09 07:00 | NUR ---
Closing shift event Patient no SOB, denies any needs, bed in low locked position, siderails up x2, call light within reach.
--- NOTE | 2020-09-09 07:40 | NUR ---
Opening Shift Note Assumed care of patient, awake and alert. bed is locked and in lowest position bed rails up x2 , call light is within reach . No S/S of distress/SOB or pain. Instructed on POC and to call for assistance PRN, will continue to monitor for changes Q1hr and PRN.
[2020-09-09] MEDS: SEVELAMER 800 MG TAB PO SCH ×3 (07:51→17:43)
[2020-09-09 08:58] VITALS: BP 130/65
[2020-09-09] MEDS: ASPirin 81 mg TAB PO SCH (10:47)
[2020-09-09] MEDS: PANTOPRAZOLE 40 MG/10 ML VIAL INJ IV SCH (10:47)
[2020-09-09] MEDS: hydrALAZINE HCL 25 MG TAB PO SCH (10:48)
[2020-09-09] MEDS: amLODIPine BESYLATE 5 MG TAB PO SCH (10:49)
[2020-09-09] MEDS: FUROSEMIDE 40 MG TAB PO SCH (10:49)
[2020-09-09] MEDS: MORPHINE SULFATE 4 MG/ML SYR/VIAL IV PRN ×2 (11:55→18:17)
[2020-09-09 13:00] VITALS: BP 153/70
--- NOTE | 2020-09-09 15:54 | NUR ---
Nutrition Followup Notes Pt wt is 88.5 kg Pt was sleeping when rounded this morning. Pt is with a Clear Liquid diet, appetite is good aeb ave 75% PO intake x4 per RN doc. Est Energy needs ABW 67 [id number] kcals (25-27 kcal/kgABW), Est Protein needs: 80-87 gms/day (1.2-1.3 gm/kgABW r/t HD) Will continue to monitor and reassess prn. LABS: BUN 99 H, CREAT 4.87 H, GFR 10 L, CA 8.0 L, ALB 2.0 L GI: Pt had 1 BM on 09/08 per RN doc BS: 19 low risk. Refer to wound assessment report for further details PES: 1) Altered nutrition related lab values r.t current chronic medical condition aeb elev RFT hyperglycemia, mild hypoalb 2) Decreased nutrient needs r/t adiposity aeb pt`s high BMI of 34.1 kgm2 Comments Will continue to monitor PO status, skin status, pertinent labs and weight trends. Will f/u in 2-3 days 1) advance diet as medically feasible 2) refer to CDE on DC 3) continue current plan of care Addendum: 09/09/20 at [address] NOTE: Posted labs do not apply to this patient. Correct Labs: Gluc 108 H, Alb 3.2 L
[2020-09-09 17:00] VITALS: BP 136/62
--- NOTE | 2020-09-09 19:45 | NUR ---
RECEIVED PATIENT FROM DAY SHIFT RN. PATIENT RESTING IN BED AND TALKING ON THE PHONE. NO S/S OF DISTRESS NOTED. DENIED PAIN FOR NOW. POC INSTRUCTED AND ENCOURAGED PATIENT TO CALL FOR DIRECTOR ENTERPRISE SALES IF NEEDED. BED IN LOWEST POSITION WITH SIDE RAILS UP X 2. CALL MARTINEZ WITHIN REACH. ALARM ON. CONTINUE TO MONITOR FOR CHANGES Q1H AND PRN.
[2020-09-09] MEDS: ATORVASTATIN 20 MG TAB PO SCH (22:05)
--- NOTE | 2020-09-09 23:53 | NUR ---
ACCU-CHECK, BS 105. NO COVERAGE. CONTINUE TO MONITOR
[2020-09-10 05:00] VITALS: BP 140/78
[2020-09-10] MEDS: InsuLIN REG 1unit/0.01ml Soln (100units/ml) SC SCH ×3 (06:00→17:54)
[2020-09-10] MEDS: ACCU-CHEK COMFORT CURVE STRIP VI SCH ×3 (06:09→17:53)
[2020-09-10] MEDS ORDERED: SODIUM CHL 0.9% 1000 ML BAG XX ONE (07:00)
[2020-09-10] MEDS: MORPHINE SULFATE 4 MG/ML SYR/VIAL IV PRN ×3 (07:02→22:39)
--- NOTE | 2020-09-10 07:02 | NUR ---
PATIENT C/O PAIN @ 07/30. MEDICATED PATIENT ORDERED. CONTINUE TO MONITOR.
--- NOTE | 2020-09-10 07:25 | NUR ---
Opening Shift Note Assumed care of patient, awake and alert. Bed is locked and in lowest position,bed rails up x2 , call light is within reach. No S/S of distress/SOB or pain. Instructed on POC and to call for assistance PRN, will continue to monitor for changes Q1hr and PRN.
[2020-09-10] MEDS: SEVELAMER 800 MG TAB PO SCH ×3 (08:30→18:08)
[2020-09-10 09:00] VITALS: BP 149/72
[2020-09-10] MEDS: ASPirin 81 mg TAB PO SCH (10:00)
[2020-09-10] MEDS: FUROSEMIDE 40 MG TAB PO SCH (10:00)
[2020-09-10] MEDS: hydrALAZINE HCL 25 MG TAB PO SCH (10:00)
[2020-09-10] MEDS: PANTOPRAZOLE 40 MG/10 ML VIAL INJ IV SCH (10:00)
[2020-09-10] MEDS: amLODIPine BESYLATE 5 MG TAB PO SCH (10:00)
--- NOTE | 2020-09-10 10:30 | NUR ---
DIALYSIS NURSE AT BEDSIDE.
[2020-09-10] MEDS: HYDROcodone-ACET 5/325MG TAB PO PRN (12:38)
[2020-09-10 13:00] VITALS: BP 142/65
--- NOTE | 2020-09-10 13:30 | NUR ---
DIALYSIS COMPLETE PATIENT 2.5 L REMOVED PER ORDERS , VS IN HARD CHART.
[2020-09-10 16:56] VITALS: BP 137/67
[2020-09-10 21:00] VITALS: BP 122/58
[2020-09-10] MEDS ORDERED: EPOETIN ALFA 4,000 UNIT/ML VL SC ONE (21:00)
[2020-09-10] MEDS: ATORVASTATIN 20 MG TAB PO SCH (21:40)
[2020-09-11] MEDS: ACCU-CHEK COMFORT CURVE STRIP VI SCH ×5 (00:11→23:30)
[2020-09-11 05:24] LABS: Hematocrit 31.3 % (36.0-46.0); Hemoglobin 10.7 g/dL (12.2-16.2)
[2020-09-11 05:30] VITALS: BP 137/59
[2020-09-11 05:48] LABS: Calcium 8.7 mg/dL (8.5-10.1); Magnesium 2.5 mg/dL (1.6-2.6)
[2020-09-11 05:51] LABS: BUN/Creatinine Ratio 4.4
[2020-09-11] MEDS: InsuLIN REG 1unit/0.01ml Soln (100units/ml) SC SCH ×5 (05:52→23:31)
--- NOTE | 2020-09-11 07:40 | NUR ---
Opening note Assumed care of patient from NOC RN. Patient is AOx4 no s/s of distress noted. Bed is in lowest locked position, call light within reach and side rails up x2. Updated patient on plan of care and patient verbalized understanding. Will continue to monitor q1hr and PRN.
[2020-09-11] MEDS: MORPHINE SULFATE 4 MG/ML SYR/VIAL IV PRN ×2 (08:14→14:52)
[2020-09-11] MEDS: PANTOPRAZOLE 40 MG/10 ML VIAL INJ IV SCH (08:15)
[2020-09-11] MEDS: SEVELAMER 800 MG TAB PO SCH ×3 (08:17→17:45)
[2020-09-11] MEDS: FUROSEMIDE 40 MG TAB PO SCH (08:18)
[2020-09-11] MEDS: hydrALAZINE HCL 25 MG TAB PO SCH (08:18)
[2020-09-11] MEDS: amLODIPine BESYLATE 5 MG TAB PO SCH (08:19)
[2020-09-11] MEDS: ASPirin 81 mg TAB PO SCH (08:23)
[2020-09-11 09:00] VITALS: BP 160/70
--- NOTE | 2020-09-11 10:10 | NUR ---
Physician rounding Dr. Navarrete at bedside. MD updated patient on plan of care. Patient verbalized understanding. No new orders received, will continue care.
[2020-09-11] MEDS ORDERED: POTASSIUM EFFERVESENT TAB 25 MEQ PO ONE (10:15)
--- NOTE | 2020-09-11 10:40 | NUR ---
at nurses station Dr. Navarrete at nurses station. Per MD patient will require covid swab for surgery, will follow through.
--- NOTE | 2020-09-11 11:54 | NUR ---
Nutrition Followup Notes Pt wt is 88.5 kg Pt was alert and oriented at time of rounds, reports no nausea or vomiting, reports const last BM 09/09. Pt is on a CLD with a good po intake of 75-100% x 2 days per Rn note. Pt is NPO after midnight for open lap bertrand tomorrow. Est Energy needs ABW 67 [id number] kcals (25-27 kcal/kgABW), Est Protein needs: 80-87 gms/day (1.2-1.3 gm/kgABW r/t HD) Will continue to monitor and reassess prn. LABS: Na 135L, Creat 3.15H, Alb 3.2L, GLUC 113H GI: Pt had 1 BM on 09/09 per RN doc BS: 19 low risk. Refer to wound assessment report for further details PES: 1) Altered nutrition related lab values r.t current chronic medical condition aeb elev RFT hyperglycemia, mild hypoalb 2) Decreased nutrient needs r/t adiposity aeb pt`s high BMI of 34.1 kgm2 Comments Will continue to monitor PO status, skin status, pertinent labs and weight trends. Will f/u in 2-3 days 1) advance diet as medically feasible 2) refer to CDE on DC 3) continue current plan of care
[2020-09-11 13:00] VITALS: BP 144/71
[2020-09-11 17:00] VITALS: BP 143/62
[2020-09-11 19:04] LABS: Calcium 9.3 mg/dL (8.5-10.1); Potassium 3.5 mmol/L (3.5-5.1)
[2020-09-11 19:06] LABS: BUN/Creatinine Ratio 4.9
--- NOTE | 2020-09-11 19:15 | NUR ---
End of shift note Endorsed care to NOC. No s/s of distress noted.
--- NOTE | 2020-09-11 19:30 | NUR ---
Opening Shift Note Assumed care of patient, awake and alert. No S/S of distress/SOB or pain. Instructed on POC and to call for assist PRN. Bed in lowest locked position, call light within reach, side rails up x2. Will continue to monitor for changes Q1hr and PRN.
[2020-09-11] MEDS: ATORVASTATIN 20 MG TAB PO SCH (21:32)
[2020-09-12] MEDS: MORPHINE SULFATE 4 MG/ML SYR/VIAL IV PRN ×2 (04:15→15:06)
[2020-09-12] MEDS: ACCU-CHEK COMFORT CURVE STRIP VI SCH ×3 (05:57→17:32)
[2020-09-12] MEDS: InsuLIN REG 1unit/0.01ml Soln (100units/ml) SC SCH ×3 (05:58→17:32)
[2020-09-12 06:21] LABS: Basophils # (auto) 0 10 ^3/uL (0-0.2); Basophils % (auto) 0.6 % (0.0-2.0); Eosinophils # (auto) 0.1 10 ^3/uL (0-0.8); Eosinophils % (auto) 1.3 % (0.0-7.0); Hematocrit 32.2 % (36.0-46.0); Hemoglobin 10.7 g/dL (12.2-16.2); Lymphocytes % (auto) 16.8 % (10.0-50.0); Mean Corpuscular Hemoglobin 31.8 pg (28.0-32.0); Mean Corpuscular Hgb Conc. 33.2 g/dL (32.0-36.0); Mean Corpuscular Volume 95.8 fL (80.0-100.0); Monocytes # (auto) 0.5 10 ^3/uL (0-1.3); Monocytes % (auto) 8.5 % (0.0-12.0); Neutrophils # (auto) 4.2 10 ^3/uL (1.6-8.6); Neutrophils % (auto) 72.8 % (37.0-80.0); Nucleated Red Blood Cells % 0.1 %; Platelet Count (auto) 235 10^3/uL (140-450); Red Blood Cells 3.35 10^6/uL (4.0-5.20); Red Cell Distribution Width 13.2 % (11.8-14.3); White Blood Cell 5.7 10^3/uL (4.4-10.8)
[2020-09-12 06:28] LABS: INR 1.05 (0.9-1.15); Partial Thromboplastin Time 23.7 sec (23.0-31.2)
[2020-09-12 06:42] LABS: Potassium 3.4 mmol/L (3.5-5.1)
--- NOTE | 2020-09-12 07:05 | NUR ---
Opening Shift Note Assumed care of patient, awake and alert. No S/S of distress/SOB or pain. Bed in lowest position side rails upx2 and call light within reach. Instructed on POC and to call for assist PRN, will continue to monitor for changes Q1hr and PRN.
[2020-09-12] MEDS ORDERED: ETOMIDATE (2MG/ML) 20ML VIAL IV ONE (07:07)
[2020-09-12] MEDS ORDERED: GLYCOPYRROLATE 0.2 MG/ML 1ML VIAL ONE ×2 (07:07→11:03)
[2020-09-12] MEDS ORDERED: ONDANSETRON HCL 4 MG/2 ML VIAL ONE (07:07)
[2020-09-12] MEDS ORDERED: PHENYLEPHRINE HCL 10 MG/ML VL ONE (07:07)
[2020-09-12] MEDS ORDERED: LIDOCAINE 2% (LOCAL ANESTH.) PF 5ml SDV ONE (07:07)
[2020-09-12] MEDS ORDERED: ePHEDrine SULFATE 50 MG/ML AMP ONE (07:07)
[2020-09-12] MEDS ORDERED: ROCURONIUM 10MG/ML 10ML VIAL IV ONE (07:07)
[2020-09-12] MEDS ORDERED: fentaNYL CITRATE 100 MCG/2 ML VL ONE (07:07)
[2020-09-12] MEDS ORDERED: MIDAZOLAM HCL 1MG/1ML-2 ML VIAL ONE (07:12)
[2020-09-12 07:15] LABS: BUN/Creatinine Ratio 4.7; Calcium 8.9 mg/dL (8.5-10.1)
--- NOTE | 2020-09-12 07:20 | NUR ---
PATIENT OFF UNIT Patient off unit for procedure. Will assess when patient is back on the floor.
[2020-09-12] MEDS ORDERED: ceFAZolin 1GM/50ML 50 ML IV ONE (07:29)
[2020-09-12] MEDS: SEVELAMER 800 MG TAB PO SCH ×3 (08:00→17:32)
[2020-09-12] MEDS ORDERED: SUCCINYLCHOLINE CHLORIDE 20 MG/ML 10ML VIAL IV ONE (08:14)
--- NOTE | 2020-09-12 08:27 | NUR ---
Patient off unit Addendum: 09/12/20 at 0828 by JOSE BARRERA RN RN Amended: Links added.
[2020-09-12] MEDS ORDERED: HYDROmorphone HCL 2 MG/ML VL ONE (08:54)
[2020-09-12] MEDS ORDERED: ceFAZolin 1GM VL ONE (09:15)
[2020-09-12] MEDS ORDERED: ACCU-CHEK COMFORT CURVE STRIP VI ONE (09:45)
[2020-09-12] MEDS ORDERED: ONDANSETRON HCL 4 MG/2 ML VIAL IV PRN (09:45)
[2020-09-12] MEDS ORDERED: HYDROmorphone HCL 2 MG/ML VL IV PRN (09:45)
--- NOTE | 2020-09-12 10:50 | NUR ---
Patient back on floor Received report from OR nurse. Patient is A&Ox4, on 2L of O2 via nasal cannula , and complaining of no discomfort. No visible signs of SOB or distress. Patient has 3 incisions on abdomen secured with steri strips and an abdominal binder. Incisions are clean, dry, and intact.
[2020-09-12] MEDS: ASPirin 81 mg TAB PO SCH (11:00)
[2020-09-12] MEDS: PANTOPRAZOLE 40 MG/10 ML VIAL INJ IV SCH (11:00)
[2020-09-12] MEDS: FUROSEMIDE 40 MG TAB PO SCH (11:01)
[2020-09-12] MEDS: hydrALAZINE HCL 25 MG TAB PO SCH (11:01)
[2020-09-12] MEDS: amLODIPine BESYLATE 5 MG TAB PO SCH (11:02)
[2020-09-12] MEDS ORDERED: NEOSTIGMINE 1 MG/ML INJ (10mg/10ML VIAL) ONE (11:03)
[2020-09-12] MEDS ORDERED: diphenhdrAMINE HCL 25 MG CAP PO ONE (12:00)
[2020-09-12 13:21] VITALS: BP 142/73
[2020-09-12] MEDS: LACTATED RINGER'S 1,000 ML IV SCH ×2 (13:31→20:00)
[2020-09-12] MEDS: HYDROcodone-ACET 5/325MG TAB PO PRN (13:33)
[2020-09-12] MEDS ORDERED: diphenhdrAMINE HCL 25 MG CAP PO PRN (17:15)
[2020-09-12 17:20] VITALS: BP 157/68
--- NOTE | 2020-09-12 19:09 | NUR ---
PATIENT ROUNDS PATIENT SITTING UP IN BED WATCHING TELEVISION. NO S/S OF DISTRESS OR SOB. PATIENT DENIES PAIN. WILL ENDORSE CARE TO REPRODUCTION ARTIST RN.
--- NOTE | 2020-09-12 19:30 | NUR ---
Opening Shift Note Assumed care of patient, awake and alert. No S/S of distress/SOB or pain. Instructed on POC and to call for assist PRN. Bed in lowest locked position, call light within reach, side rails up x2, fall precautions in place. Will continue to monitor for changes Q1hr and PRN.
[2020-09-12] MEDS: ATORVASTATIN 20 MG TAB PO SCH (21:37)
[2020-09-12 22:00] VITALS: BP 132/73
[2020-09-13] MEDS: ACCU-CHEK COMFORT CURVE STRIP VI SCH ×4 (00:26→17:18)
[2020-09-13] MEDS: LACTATED RINGER'S 1,000 ML IV SCH (04:00)
[2020-09-13] MEDS: MORPHINE SULFATE 4 MG/ML SYR/VIAL IV PRN (04:25)
[2020-09-13 05:00] VITALS: BP 148/80
[2020-09-13] MEDS: InsuLIN REG 1unit/0.01ml Soln (100units/ml) SC SCH ×4 (05:34→17:18)
[2020-09-13] MEDS ORDERED: SODIUM CHL 0.9% 1000 ML BAG XX ONE (07:00)
--- NOTE | 2020-09-13 07:25 | NUR ---
Opening Shift Note Assumed care of patient, awake and alert. No S/S of distress/SOB or pain. Instructed on POC and to call for assistance PRN. Bed locked in lowest position, call light within reach, side rails up x2, fall precautions in place. Will continue to monitor for changes Q1hr and PRN.
[2020-09-13] MEDS: SEVELAMER 800 MG TAB PO SCH ×3 (08:14→17:58)
[2020-09-13 09:00] VITALS: BP 150/70
[2020-09-13 09:04] LABS: Basophils # (auto) 0 10 ^3/uL (0-0.2); Basophils % (auto) 0.7 % (0.0-2.0); Eosinophils # (auto) 0.2 10 ^3/uL (0-0.8); Eosinophils % (auto) 2.8 % (0.0-7.0); Hematocrit 33.3 % (36.0-46.0); Hemoglobin 10.9 g/dL (12.2-16.2); Lymphocytes # (auto) 1.2 10 ^3/uL (0.4-5.4); Lymphocytes % (auto) 18.6 % (10.0-50.0); Mean Corpuscular Hemoglobin 31.9 pg (28.0-32.0); Mean Corpuscular Hgb Conc. 32.6 g/dL (32.0-36.0); Mean Corpuscular Volume 98.1 fL (80.0-100.0); Monocytes # (auto) 0.6 10 ^3/uL (0-1.3); Monocytes % (auto) 9.2 % (0.0-12.0); Neutrophils # (auto) 4.6 10 ^3/uL (1.6-8.6); Neutrophils % (auto) 68.7 % (37.0-80.0); Nucleated Red Blood Cells % 0.1 %; Platelet Count (auto) 222 10^3/uL (140-450); Red Cell Distribution Width 13.2 % (11.8-14.3); White Blood Cell 6.7 10^3/uL (4.4-10.8)
[2020-09-13] MEDS ORDERED: PANT40TA2 PO (09:10)
[2020-09-13] MEDS ORDERED: AMLO10TA13 PO (09:10)
[2020-09-13] MEDS: amLODIPine BESYLATE 5 MG TAB PO SCH (09:32)
[2020-09-13] MEDS: FUROSEMIDE 40 MG TAB PO SCH (09:32)
[2020-09-13] MEDS: ASPirin 81 mg TAB PO SCH (09:32)
[2020-09-13] MEDS: hydrALAZINE HCL 25 MG TAB PO SCH (09:33)
[2020-09-13] MEDS: HYDROcodone-ACET 5/325MG TAB PO PRN ×2 (09:33→22:01)
[2020-09-13] MEDS: PANTOPRAZOLE 40 MG TAB PO SCH (09:33)
--- NOTE | 2020-09-13 12:45 | NUR ---
DESIGN PRINTING MACHINE SET UP OPERATOR AT BEDSIDE
[2020-09-13 13:00] VITALS: BP 142/64
--- NOTE | 2020-09-13 16:35 | NUR ---
DIALYSIS COMPLETED PER SYRUP MIXER, 2L REMOVED, PATIENT TOLERATED WELL. VITALS STABLE.
[2020-09-13 16:48] VITALS: BP 129/57
--- NOTE | 2020-09-13 18:05 | NUR ---
DISCHARGE HELD TILL MORNING PER MD VILLEGAS ORDERS, HOLD DC IF PATIENT DOES NOT TOLERATE DIET. PATIENT C/O OF NOT WANTING TO EAT, 25% EATEN AT THIS TIME, STATES "FOOD IS MAKING ME NOT FEEL GOOD". PATIENT STATES SHE WOULD PREFER TO DISCHARGE HOME IN THE MORNING. MARKETING DATABASE COORDINATOR MADE AWARE.
[2020-09-13] MEDS ORDERED: EPOETIN ALFA 4,000 UNIT/ML VL SC ONE (21:00)
[2020-09-13] MEDS: ATORVASTATIN 20 MG TAB PO SCH (21:51)
[2020-09-13] MEDS: LORazepam 0.5 MG TAB PO PRN (21:59)
[2020-09-13] MEDS: ONDANSETRON HCL 4 MG/2 ML VIAL IV PRN (21:59)
[2020-09-13 22:00] VITALS: BP 129/105
--- NOTE | 2020-09-14 04:25 | NUR ---
Pt informed this RN that she has not had bm in 19 days. Requesting laxative and stool softeners.
[2020-09-14 05:00] VITALS: BP 159/73
[2020-09-14] MEDS: ACCU-CHEK COMFORT CURVE STRIP VI SCH ×3 (06:00→12:00)
[2020-09-14] MEDS: InsuLIN REG 1unit/0.01ml Soln (100units/ml) SC SCH ×3 (06:00→12:00)
--- NOTE | 2020-09-14 07:30 | NUR ---
Opening Shift Note Upon entering room patient awake and alert. No signs of distress or shortness of breath noted. Patient relaxed and calm. Instructed patient on the use of the call light PRN, call light within reach. Bed in lowest position, locked with two side rails up. Will continue to monitor for changes.
[2020-09-14 09:19] VITALS: BP 148/66
[2020-09-14] MEDS: SEVELAMER 800 MG TAB PO SCH ×2 (09:19→12:00)
[2020-09-14] MEDS: PANTOPRAZOLE 40 MG TAB PO SCH (10:39)
[2020-09-14] MEDS: hydrALAZINE HCL 25 MG TAB PO SCH (10:39)
[2020-09-14] MEDS: ASPirin 81 mg TAB PO SCH (10:39)
[2020-09-14] MEDS: FUROSEMIDE 40 MG TAB PO SCH (10:40)
[2020-09-14] MEDS: amLODIPine BESYLATE 5 MG TAB PO SCH (10:41)
--- NOTE | 2020-09-14 11:30 | NUR ---
Discharge instructions given as ordered. Encourage to follow up with PMD as instructed. All questions and concerns addressed. Patient verbalized understanding. Medication reconciliation form completed and copy given to patient. Home medications held in Pharmacy returned to patient. IV removed with catheter intact, pressure dressing applied. Telemetry unit returned to ICU. Patient taken to vehicle via wheelchair with all personal belongings, accompanied by staff. No distress noted at time of departure.
== END 2020-09-14 11:30 | disposition home or self-care (01) | DRG 417 ==
LOC: ER 18:04 → TELE 18:05 → TELE-WESTW 09-05 18:42
PROVIDERS: ADMIT Nurse Practitioner; ATTEND Internal Medicine
PROC: B2111ZZ Fluoroscopy of Multiple Coronary Arteries using Low Osmolar Contrast (ICD-10-PCS; principal; 2020-09-05)
PROC: 4A023N7 Measurement of Cardiac Sampling and Pressure, Left Heart, Percutaneous Approach (ICD-10-PCS; 2020-09-05)
PROC: B2151ZZ Fluoroscopy of Left Heart using Low Osmolar Contrast (ICD-10-PCS; 2020-09-05)
PROC: B2111ZZ Fluoroscopy of Multiple Coronary Arteries using Low Osmolar Contrast (ICD-10-PCS; 2020-09-05)
PROC: 5A1D70Z Performance of Urinary Filtration, Intermittent, Less than 6 Hours Per Day (ICD-10-PCS; 2020-09-06)
PROC: 5A1D70Z Performance of Urinary Filtration, Intermittent, Less than 6 Hours Per Day (ICD-10-PCS; 2020-09-08)
PROC: 0FT44ZZ Resection of Gallbladder, Percutaneous Endoscopic Approach (ICD-10-PCS; 2020-09-12)
PROC: 5A1D70Z Performance of Urinary Filtration, Intermittent, Less than 6 Hours Per Day (ICD-10-PCS; 2020-09-13)
DX: K82.8 Other specified diseases of gallbladder (principal); N18.6 End stage renal disease; I21.A1 Myocardial infarction type 2; K80.12 Calculus of gallbladder with acute and chronic cholecystitis without obstruction; I50.32 Chronic diastolic (congestive) heart failure; I13.2 Hypertensive heart and chronic kidney disease with heart failure and with stage 5 chronic kidney disease, or end stage renal disease; E87.1 Hypo-osmolality and hyponatremia; E11.9 Type 2 diabetes mellitus without complications; I10 Essential (primary) hypertension; E66.9 Obesity, unspecified; E78.5 Hyperlipidemia, unspecified; E87.6 Hypokalemia; E83.39 Other disorders of phosphorus metabolism; D63.1 Anemia in chronic kidney disease; E11.22 Type 2 diabetes mellitus with diabetic chronic kidney disease; I25.10 Atherosclerotic heart disease of native coronary artery without angina pectoris; F41.9 Anxiety disorder, unspecified; K57.30 Diverticulosis of large intestine without perforation or abscess without bleeding; K66.0 Peritoneal adhesions (postprocedural) (postinfection); Z20.828 Contact with and (suspected) exposure to other viral communicable diseases; Z79.4 Long term (current) use of insulin; Z79.82 Long term (current) use of aspirin; Z99.2 Dependence on renal dialysis; Z82.3 Family history of stroke; Z82.49 Family history of ischemic heart disease and other diseases of the circulatory system; Z83.3 Family history of diabetes mellitus; Z85.42 Personal history of malignant neoplasm of other parts of uterus; Z90.711 Acquired absence of uterus with remaining cervical stump; Z95.5 Presence of coronary angioplasty implant and graft; Z88.5 Allergy status to narcotic agent; Z80.9 Family history of malignant neoplasm, unspecified; Z79.899 Other long term (current) drug therapy; Z79.891 Long term (current) use of opiate analgesic; Z79.01 Long term (current) use of anticoagulants; Z91.19 Patient's noncompliance with other medical treatment and regimen
CPT/HCPCS: 36415; 71045; 71250; 74176; 76705; 78226; 80048; 80053; 80061; 81001; 82247; 82962; 83735; 83880; 84443; 84484; 85014; 85018; 85025; 85610; 85730; 86850; 86900; 86901; 87040; 87426; 90935; 93005; 93306; 96365; 96366; 96375; 96376; 99152; C9113; G0378; J0330; J0690; J0885; J1642; J1815; J2001; J2250; J2405; J3490; Q9956; Q9967

== ENCOUNTER 2020-10-06 21:50 | Inpatient (IN) | payer MEDICARE, MEDICAID ==
[~2020-10-06] VITALS: Ht 154.9 cm; Wt 82.5 kg
[~2020-10-06 21:50] MED LIST changes: -AML5T PO; +AMLO10TA13 PO; -ASPI-543 PO; +PANT40TA2 PO
[2020-10-06] MEDS ORDERED: MORPHINE SULFATE 4 MG/ML SYR/VIAL IV ONE (22:45)
[2020-10-06 23:47] LABS: Hematocrit 29.9 % (36.0-46.0); Hemoglobin 10.1 g/dL (12.2-16.2)
[2020-10-07 00:05] LABS: Anion Gap 5 (5-15); BUN/Creatinine Ratio 8.6; Blood Urea Nitrogen 40 mg/dL (7-18); Carbon Dioxide 27 mmol/L (21-32); Chloride 103 mmol/L (98-107); GFR African American 12 mL/min; GFR Non-African American 10 mL/min; Glucose 107 mg/dL (74-106); Potassium 3.9 mmol/L (3.5-5.1); Sodium 135 mmol/L (136-145)
[2020-10-07] MEDS ORDERED: HYDROcodone-ACET 5/325MG TAB PO ONE (02:00)
[2020-10-07] MEDS ORDERED: ONDANSETRON HCL 4 MG/2 ML VIAL IV ONE (02:00)
[2020-10-07] MEDS ORDERED: MORPHINE SULFATE 4 MG/ML SYR/VIAL IV ONE (02:30)
[2020-10-07 03:25] LABS: INR 0.98 (0.9-1.15); Partial Thromboplastin Time 22.4 sec (23.0-31.2)
[2020-10-07 04:08] LABS: Urine Amorphous Crystal FEW /hpf (None Seen); Urine Bacteria FEW /hpf (None Seen); Urine Blood Negative /uL (Negative); Urine Hyaline Cast FEW /lpf (0 - 2); Urine Specific Gravity 1.015 (1.001-1.035); Urine WBC 1 /hpf (0 - 5)
[2020-10-07] MEDS ORDERED: DOCUSATE SOD 100 MG CAP PO PRN (06:30)
[2020-10-07] MEDS ORDERED: ACETAMINOPHEN 325 MG TAB PO PRN (06:30)
[2020-10-07] MEDS ORDERED: MORPHINE SULF INJ 2 MG/ML SYRINGE 1ML IV PRN (06:30)
[2020-10-07] MEDS ORDERED: NITROGLYCERIN 0.4 MG SL TAB SL PRN (06:30)
[2020-10-07] MEDS ORDERED: DEXTROSE (50%) 50ML SYRG IV PRN (06:30)
[2020-10-07] MEDS: InsuLIN REG 1unit/0.01ml Soln (100units/ml) SC SCH ×3 (07:00→17:00)
[2020-10-07] MEDS: ACCU-CHEK COMFORT CURVE STRIP VI SCH ×4 (07:08→23:55)
[2020-10-07 07:26] LABS: Basophils # (auto) 0.1 10 ^3/uL (0-0.2); Basophils % (auto) 1.3 % (0.0-2.0); Eosinophils # (auto) 0.2 10 ^3/uL (0-0.8); Eosinophils % (auto) 3.3 % (0.0-7.0); Hemoglobin 10.4 g/dL (12.2-16.2); Lymphocytes # (auto) 1.3 10 ^3/uL (0.4-5.4); Lymphocytes % (auto) 25.1 % (10.0-50.0); Mean Corpuscular Hgb Conc. 34.7 g/dL (32.0-36.0); Monocytes # (auto) 0.6 10 ^3/uL (0-1.3); Monocytes % (auto) 10.5 % (0.0-12.0); Neutrophils # (auto) 3.2 10 ^3/uL (1.6-8.6); Neutrophils % (auto) 59.8 % (37.0-80.0); Platelet Count (auto) 193 10^3/uL (140-450); Red Blood Cells 3.15 10^6/uL (4.0-5.20); White Blood Cell 5.3 10^3/uL (4.4-10.8)
[2020-10-07 07:47] LABS: Albumin 3.3 g/dL (3.4-5.0); Calcium 8.5 mg/dL (8.5-10.1); Potassium 3.8 mmol/L (3.5-5.1)
[2020-10-07 07:50] LABS: BUN/Creatinine Ratio 8.8; Bilirubin, Total 0.4 mg/dL (0.2-1.0); Total Protein 7.4 g/dL (6.4-8.2)
[2020-10-07] MEDS: MORPHINE SULFATE 4 MG/ML SYR/VIAL IV PRN ×4 (08:29→17:03)
[2020-10-07] MEDS: ONDANSETRON HCL 4 MG/2 ML VIAL IV PRN ×3 (08:30→17:03)
[2020-10-07] MEDS: FAMOTIDINE 20 MG TAB PO SCH ×2 (10:00→22:00)
[2020-10-07] MEDS: HEPARIN SODIUM (PORCINE) 5000 UNITS/ML 1ML VIAL SC SCH ×2 (10:00→22:00)
[2020-10-07] MEDS ORDERED: ZINC SULFATE 220mg CAP or TAB PO SCH (10:00)
[2020-10-07] MEDS: ASCORBIC ACID 500 MG TAB PO SCH ×2 (10:00→22:00)
[2020-10-07] MEDS ORDERED: MULTIPLE VITAMIN TAB PO SCH (10:00)
[2020-10-07] MEDS: SODIUM CHLOR 0.9% PF (SALINE LOCK) 10ML VIAL/SYR IV SCH ×2 (14:00→22:00)
[2020-10-07] MEDS ORDERED: InsuLIN REG 1unit/0.01ml Soln (100units/ml) SC SCH (22:00)
[2020-10-08 00:35] VITALS: BP 125/70
[2020-10-08 04:18] VITALS: BP 146/80
[2020-10-08] MEDS: SODIUM CHLOR 0.9% PF (SALINE LOCK) 10ML VIAL/SYR IV SCH ×2 (05:37→13:36)
[2020-10-08] MEDS: ACCU-CHEK COMFORT CURVE STRIP VI SCH ×3 (06:30→17:21)
[2020-10-08] MEDS: InsuLIN REG 1unit/0.01ml Soln (100units/ml) SC SCH ×3 (06:30→17:27)
--- NOTE | 2020-10-08 07:02 | NUR ---
OPENING SHIFT NOTE Assumed care of patient from brand advisor RN. She is alert and oriented x4, no signs of distress noted. She was updated on the plan of care and verbalized understanding. Immobilizer noted on right leg. Bed is locked, in the lowest position, side rails up x2 and call light is in reach. She was encouraged to call for assistance as needed.
[2020-10-08] MEDS: MORPHINE SULFATE 4 MG/ML SYR/VIAL IV PRN (08:36)
[2020-10-08 09:00] VITALS: BP 120/66
--- NOTE | 2020-10-08 09:01 | NUR ---
PARVIN AT BEDSIDE Updated on the patient status, plan of care was discussed with the patient and she verbalized understanding. Orders for DC after dialysis and renal diet. Will call Vera to see if the patient is on the list for today. Orders read back and verified.
--- NOTE | 2020-10-08 09:10 | NUR ---
MESSAGE LEFT FOR MIYA/YURY regarding dialysis today. Awaiting call back.
[2020-10-08] MEDS: FAMOTIDINE 20 MG TAB PO SCH (09:54)
[2020-10-08] MEDS: HEPARIN SODIUM (PORCINE) 5000 UNITS/ML 1ML VIAL SC SCH (09:56)
[2020-10-08] MEDS: HYDROcodone-ACET 10/325MG TAB PO PRN ×2 (10:31→17:21)
[2020-10-08 12:48] LABS: Basophils # (auto) 0.1 10 ^3/uL (0-0.2); Basophils % (auto) 1.2 % (0.0-2.0); Eosinophils # (auto) 0.3 10 ^3/uL (0-0.8); Eosinophils % (auto) 5.6 % (0.0-7.0); Hematocrit 27.6 % (36.0-46.0); Hemoglobin 9.6 g/dL (12.2-16.2); Lymphocytes # (auto) 1.2 10 ^3/uL (0.4-5.4); Lymphocytes % (auto) 23.3 % (10.0-50.0); Mean Corpuscular Hemoglobin 33.3 pg (28.0-32.0); Mean Corpuscular Hgb Conc. 34.8 g/dL (32.0-36.0); Mean Corpuscular Volume 95.5 fL (80.0-100.0); Monocytes # (auto) 0.5 10 ^3/uL (0-1.3); Monocytes % (auto) 8.9 % (0.0-12.0); Neutrophils # (auto) 3.2 10 ^3/uL (1.6-8.6); Platelet Count (auto) 187 10^3/uL (140-450); Red Blood Cells 2.89 10^6/uL (4.0-5.20); White Blood Cell 5.2 10^3/uL (4.4-10.8)
[2020-10-08 13:00] VITALS: BP 158/69
[2020-10-08 13:05] LABS: Potassium 4.2 mmol/L (3.5-5.1)
[2020-10-08 13:13] LABS: Albumin 3.2 g/dL (3.4-5.0); Bilirubin, Total 0.4 mg/dL (0.2-1.0); Calcium 8.2 mg/dL (8.5-10.1); Total Protein 7.1 g/dL (6.4-8.2)
--- NOTE | 2020-10-08 13:31 | NUR ---
MESSAGE LEFT FOR JUDE SPAULDING regarding patient dialysis for today, message left with Hiren at the answering service. Awaiting call back.
[2020-10-08] MEDS ORDERED: SODIUM CHL 0.9% 1000 ML BAG XX ONE (13:45)
--- NOTE | 2020-10-08 14:02 | NUR ---
DETHISTLER OPERATOR AT BEDSIDE
[2020-10-08 17:00] VITALS: BP 116/60
--- NOTE | 2020-10-08 17:26 | NUR ---
DIALYSIS COMPLETED Per dialysis nurse 2L removed. Patient tolerated well. No signs of distress noted.
[2020-10-08 17:30] VITALS: BP 136/72
--- NOTE | 2020-10-08 18:57 | NUR ---
DISCHARGE PAPERWORK SIGNED IV removed and tele box taken out Paperwork signed by patient.
[2020-10-08] MEDS ORDERED: EPOETIN ALFA 4,000 UNIT/ML VL SC ONE (21:00)
--- NOTE | 2020-10-08 21:09 | NUR ---
Pt's family here waiting at front entrance. This RN and MARTHA Rodriguez, assisted pt into w/c. TY Henderson and Jennifer accompanying pt off unit to pvt. vehicle. Pt in stable condition. No s/sx of resp distress and denies pain at this time. Arm band/ID removed. Tele monitor and IV access removed prev by day shift RN. Pt A&Ox4; able to HOUSE with coordination.
--- NOTE | 2020-10-08 21:33 | NUR ---
Received report re. pt who currently is reclining in bed awaiting family member to take her home. Discharge order already present. Pt able to HOUSE with purpose. A/R pulses equal. Skin wm and dry with cap refill <3 sec. PPP and =. No s/sx resp distress or increased WOB; denies pain. A&Ox4. Bed low with HOB in semi-Torrez's position. Call light within pt's reach. Addendum: 10/08/20 at 3 by BRANDON BEYER RN Above note for 1929 change of shift.
== END 2020-10-08 21:09 | disposition home or self-care (01) | DRG 562 ==
LOC: EDBD 21:50 → ER 21:52 → TELE 21:53 → TELE-CENTR 10-07 23:44
PROVIDERS: ADMIT Nurse Practitioner Family; ATTEND Family Medicine
PROC: 5A1D70Z Performance of Urinary Filtration, Intermittent, Less than 6 Hours Per Day (ICD-10-PCS; principal; 2020-10-08)
DX: S82.454A Nondisplaced comminuted fracture of shaft of right fibula, initial encounter for closed fracture (principal); N18.6 End stage renal disease; S82.001A Unspecified fracture of right patella, initial encounter for closed fracture; I13.2 Hypertensive heart and chronic kidney disease with heart failure and with stage 5 chronic kidney disease, or end stage renal disease; W10.8XXA Fall (on) (from) other stairs and steps, initial encounter; Y93.01 Activity, walking, marching and hiking; S09.90XA Unspecified injury of head, initial encounter; E11.22 Type 2 diabetes mellitus with diabetic chronic kidney disease; E11.40 Type 2 diabetes mellitus with diabetic neuropathy, unspecified; E78.5 Hyperlipidemia, unspecified; I25.10 Atherosclerotic heart disease of native coronary artery without angina pectoris; Z20.828 Contact with and (suspected) exposure to other viral communicable diseases; I50.9 Heart failure, unspecified; Y92.098 Other place in other non-institutional residence as the place of occurrence of the external cause; Y99.8 Other external cause status; Z82.49 Family history of ischemic heart disease and other diseases of the circulatory system; Z82.3 Family history of stroke; Z83.3 Family history of diabetes mellitus; Z85.42 Personal history of malignant neoplasm of other parts of uterus; Z90.49 Acquired absence of other specified parts of digestive tract; Z95.5 Presence of coronary angioplasty implant and graft; Z90.710 Acquired absence of both cervix and uterus; Y92.009 Unspecified place in unspecified non-institutional (private) residence as the place of occurrence of the external cause; Z99.2 Dependence on renal dialysis; Z88.5 Allergy status to narcotic agent; F41.9 Anxiety disorder, unspecified
CPT/HCPCS: 36415; 70450; 73080; 73562; 73610; 73700; 80048; 80053; 81001; 82962; 83036; 85014; 85018; 85025; 85610; 85730; 87081; 87426; 90935; 96374; 96375; 96376; G0378; J1815; J2405

== ENCOUNTER 2021-02-04 17:20 | Emergency (ER) | payer MEDICARE, MEDICAID ==
[~2021-02-04] VITALS: Ht 167.6 cm; Wt 81.6 kg
[~2021-02-04 17:20] MED LIST changes: +AMLO-496 PO; -AMLO10TA13 PO
[2021-02-04] MEDS ORDERED: HYDROcodone-ACET 10/325MG TAB PO ONE (22:00)
[2021-02-04 23:01] VITALS: BP 133/60
== END 2021-02-05 01:17 | disposition home or self-care (01) ==
LOC: EDBD 17:20 → ER 17:23
DX: S82.491A Other fracture of shaft of right fibula, initial encounter for closed fracture (principal); M25.561 Pain in right knee; F41.9 Anxiety disorder, unspecified; I25.10 Atherosclerotic heart disease of native coronary artery without angina pectoris; I12.0 Hypertensive chronic kidney disease with stage 5 chronic kidney disease or end stage renal disease; N18.6 End stage renal disease; E11.22 Type 2 diabetes mellitus with diabetic chronic kidney disease; E78.5 Hyperlipidemia, unspecified; Z88.5 Allergy status to narcotic agent; Z79.899 Other long term (current) drug therapy; Z86.73 Personal history of transient ischemic attack (TIA), and cerebral infarction without residual deficits; Z90.49 Acquired absence of other specified parts of digestive tract; Z90.710 Acquired absence of both cervix and uterus; Z98.890 Other specified postprocedural states; W18.39XA Other fall on same level, initial encounter; Y93.89 Activity, other specified; Y92.89 Other specified places as the place of occurrence of the external cause; Y99.8 Other external cause status
CPT/HCPCS: 73562; 93971

== ENCOUNTER 2021-08-16 23:30 | Inpatient (IN) | payer MEDICARE, MEDICAID ==
[~2021-08-16] VITALS: Ht 167.6 cm; Wt 122.5 kg
[~2021-08-16 23:30] MED LIST changes: +METH750T22 PO; -METH750T3 PO
[2021-08-17 00:43] LABS: Basophils # (auto) 0 10 ^3/uL (0-0.2); Basophils % (auto) 0.3 % (0.0-2.0); Eosinophils # (auto) 0 10 ^3/uL (0-0.8); Hematocrit 31.1 % (36.0-46.0); Hemoglobin 9.5 g/dL (12.2-16.2); Lymphocytes # (auto) 0.5 10 ^3/uL (0.4-5.4); Lymphocytes % (auto) 4.4 % (10.0-50.0); Mean Corpuscular Hemoglobin 33.7 pg (28.0-32.0); Mean Corpuscular Hgb Conc. 30.6 g/dL (32.0-36.0); Mean Corpuscular Volume 110.2 fL (80.0-100.0); Monocytes # (auto) 0.2 10 ^3/uL (0-1.3); Monocytes % (auto) 1.7 % (0.0-12.0); Neutrophils # (auto) 10.3 10 ^3/uL (1.6-8.6); Neutrophils % (auto) 93.6 % (37.0-80.0); Red Blood Cells 2.82 10^6/uL (4.0-5.20); Red Cell Distribution Width 13.6 % (11.8-14.3)
[2021-08-17 00:44] LABS: Calcium 6.6 mg/dL (8.5-10.1)
[2021-08-17 00:50] LABS: Albumin 2.9 g/dL (3.4-5.0); BUN/Creatinine Ratio 10.6; Bilirubin, Total 0.3 mg/dL (0.2-1.0); Total Protein 7.4 g/dL (6.4-8.2)
[2021-08-17 01:21] LABS: Potassium 7.1 mmol/L (3.5-5.1)
[2021-08-17] MEDS ORDERED: SODIUM BICARBONATE 8.4 % INJ 50ML VIAL IV ONE (02:00)
[2021-08-17] MEDS ORDERED: InsuLIN REG 1unit/0.01ml Soln (100units/ml) IV ONE (02:00)
[2021-08-17] MEDS ORDERED: ALBUTEROL SULF 2.5 MG/0.5ML(0.5%) NEB SOLN NEB ONE (02:00)
[2021-08-17] MEDS ORDERED: SODIUM ZIRCONIUM CYCL 10 GM PAK PO ONE (02:00)
[2021-08-17] MEDS ORDERED: CALCIUM CHL 100MG/ML 1,000 MG in D5W 5% 100 ML IV ONE (02:00)
[2021-08-17 02:43] LABS: Partial Thromboplastin Time 23.1 sec (23.6-33.0)
[2021-08-17] MEDS ORDERED: CALCIUM CHLOR(10%) 100MG/ML 10ML SYRINGE IV ONE (02:43)
[2021-08-17 03:58] LABS: Urine Bacteria FEW /hpf (None Seen); Urine Blood TRACE /uL (Negative); Urine Specific Gravity 1.017 (1.001-1.035); Urine WBC 1 /hpf (0 - 5)
[2021-08-17] MEDS ORDERED: SODIUM CHLORIDE 0.9% 500 ML IV ONE (04:15)
[2021-08-17] MEDS ORDERED: ONDANSETRON HCL 4 MG/2 ML VIAL IV PRN ×2 (06:30→16:15)
[2021-08-17] MEDS ORDERED: NITROGLYCERIN 0.4 MG SL TAB SL PRN (06:30)
[2021-08-17] MEDS ORDERED: DEXTROSE (50%) 50ML SYRG IV PRN (06:30)
[2021-08-17] MEDS ORDERED: MORPHINE SULFATE INJECTION 2 MG/ML SYRG IV PRN ×3 (06:30→16:45)
[2021-08-17] MEDS: InsuLIN R (HUMAN) 100 UNITS in SODIUM CHL 0.9% 99 ML IV SCH ×2 (06:37→07:52)
[2021-08-17] MEDS: ACCU-CHEK COMFORT CURVE STRIP VI SCH ×11 (07:53→22:21)
[2021-08-17] MEDS: SEVELAMER 800 MG TAB PO SCH ×3 (08:00→19:52)
[2021-08-17] MEDS ORDERED: PANTOPRAZOLE 40 MG TAB PO SCH (10:00)
[2021-08-17] MEDS ORDERED: ASPirin 81 mg TAB PO SCH (10:00)
[2021-08-17] MEDS: GABAPENTIN 400 MG CAP PO SCH ×2 (10:00→22:21)
[2021-08-17] MEDS: FUROSEMIDE 40 MG TAB PO SCH (10:00)
[2021-08-17] MEDS ORDERED: CLOPIDOGREL BISULFATE 75 MG TAB PO SCH (10:00)
[2021-08-17] MEDS ORDERED: ASPirin 81 mg TAB PO ONE (11:30)
[2021-08-17] MEDS ORDERED: CLOPIDOGREL 300 MG TAB PO ONE (11:30)
[2021-08-17] MEDS ORDERED: ENOXAPARIN SOD 120 MG/0.8 ML SYRINGE SC ONE (11:30)
[2021-08-17 11:31] LABS: Basophils # (auto) 0.1 10 ^3/uL (0-0.2); Basophils % (auto) 0.7 % (0.0-2.0); Eosinophils # (auto) 0 10 ^3/uL (0-0.8); Hematocrit 28.6 % (36.0-46.0); Hemoglobin 9.8 g/dL (12.2-16.2); Lymphocytes # (auto) 1.2 10 ^3/uL (0.4-5.4); Lymphocytes % (auto) 9.9 % (10.0-50.0); Mean Corpuscular Hemoglobin 33.5 pg (28.0-32.0); Mean Corpuscular Hgb Conc. 34.4 g/dL (32.0-36.0); Mean Corpuscular Volume 97.6 fL (80.0-100.0); Monocytes % (auto) 7.9 % (0.0-12.0); Neutrophils # (auto) 10.1 10 ^3/uL (1.6-8.6); Neutrophils % (auto) 81.5 % (37.0-80.0); Nucleated Red Blood Cells % 0.1 %; Red Blood Cells 2.93 10^6/uL (4.0-5.20); Red Cell Distribution Width 12.9 % (11.8-14.3); White Blood Cell 12.4 10^3/uL (4.4-10.8)
[2021-08-17 11:46] LABS: Calcium 8.3 mg/dL (8.5-10.1)
[2021-08-17 11:59] LABS: Cholesterol 169 mg/dL (< 200)
[2021-08-17 12:03] LABS: HDL Cholesterol 60 mg/dL (40-59); LDL Cholesterol 97 mg/dL (< 100); Triglycerides 134 mg/dL (< 150)
[2021-08-17] MEDS ORDERED: NITROGLYCERIN 0.4MG/HR TOPICAL PATCH TD ONE (16:45)
[2021-08-17] MEDS ORDERED: METOPROLOL TARTRATE 25 MG TAB PO ONE (16:45)
[2021-08-17 17:08] LABS: Calcium 7.8 mg/dL (8.5-10.1); Potassium 3.6 mmol/L (3.5-5.1)
[2021-08-17 17:14] LABS: BUN/Creatinine Ratio 8.3
[2021-08-17] MEDS: HYDROcodone-ACET 5/325MG TAB PO PRN (18:34)
[2021-08-17] MEDS: METOPROLOL TARTRATE 25 MG TAB PO SCH (22:20)
[2021-08-17] MEDS: ATORVASTATIN 20 MG TAB PO SCH (22:20)
[2021-08-18] VITALS (14 sets, daily range): BP systolic 109–193; BP diastolic 59–104
[2021-08-18] MEDS: ACCU-CHEK COMFORT CURVE STRIP VI SCH ×9 (00:15→23:26)
[2021-08-18 02:06] LABS: BUN/Creatinine Ratio 8.7; Calcium 7.8 mg/dL (8.5-10.1); Potassium 4.3 mmol/L (3.5-5.1)
[2021-08-18] MEDS: HYDROcodone-ACET 5/325MG TAB PO PRN (02:27)
[2021-08-18 03:05] LABS: Basophils # (auto) 0.1 10 ^3/uL (0-0.2); Eosinophils # (auto) 0.1 10 ^3/uL (0-0.8); Hematocrit 24.6 % (36.0-46.0); Hemoglobin 8.4 g/dL (12.2-16.2); Lymphocytes # (auto) 2.3 10 ^3/uL (0.4-5.4); Monocytes # (auto) 0.8 10 ^3/uL (0-1.3); Neutrophils # (auto) 8.6 10 ^3/uL (1.6-8.6); Red Blood Cells 2.44 10^6/uL (4.0-5.20)
[2021-08-18 03:07] LABS: Basophils % (auto) 1.1 % (0.0-2.0); Eosinophils % (auto) 0.9 % (0.0-7.0); Lymphocytes % (auto) 19.5 % (10.0-50.0); Mean Corpuscular Hemoglobin 34.3 pg (28.0-32.0); Mean Corpuscular Volume 100.8 fL (80.0-100.0); Monocytes % (auto) 6.3 % (0.0-12.0); Neutrophils % (auto) 72.2 % (37.0-80.0); Nucleated Red Blood Cells % 0.1 %; Red Cell Distribution Width 12.7 % (11.8-14.3)
[2021-08-18 03:08] LABS: Albumin 2.6 g/dL (3.4-5.0); BUN/Creatinine Ratio 8.7; Calcium 7.5 mg/dL (8.5-10.1); Potassium 4.1 mmol/L (3.5-5.1)
[2021-08-18 03:13] LABS: Bilirubin, Total 0.3 mg/dL (0.2-1.0); Total Protein 6.6 g/dL (6.4-8.2)
[2021-08-18 03:49] LABS: INR 1.05 (0.9-1.15); Partial Thromboplastin Time 24.7 sec (23.6-33.0)
[2021-08-18] MEDS ORDERED: HEPARIN SODIUM (PORCINE) 5000 UNITS/ML 1ML VIAL ONE (07:13)
[2021-08-18] MEDS ORDERED: ANGIOMAX 250 MG VIAL IV ONE (07:13)
[2021-08-18] MEDS ORDERED: VERAPAMIL 2.5MG/ML INJ 2ML VIAL IV ONE (07:13)
[2021-08-18] MEDS ORDERED: fentaNYL CITRATE 100 MCG/2 ML VL ONE (07:13)
[2021-08-18] MEDS ORDERED: IODIXANOL 320MG/ML 100ML BTL IV ONE ×3 (07:14→09:22)
[2021-08-18] MEDS ORDERED: MIDAZOLAM HCL 2MG/2ML 2ml VIAL (1mg/ml) ONE (07:14)
[2021-08-18] MEDS ORDERED: SODIUM CHL 0.9% 0 ML ONE (07:14)
[2021-08-18] MEDS ORDERED: LIDOCAINE 2%HCL (LOCAL ANESTH.) INJ 20ML MDV ONE ×2 (07:14→08:42)
[2021-08-18] MEDS: SEVELAMER 800 MG TAB PO SCH ×3 (08:00→18:34)
[2021-08-18] MEDS ORDERED: INSULIN LANTUS (GLARGINE) 1 /0.01ml (100units/ml) SC ONE (08:30)
[2021-08-18] MEDS ORDERED: hydrALAZINE HCL 20 MG/ML VL ONE (09:26)
[2021-08-18] MEDS ORDERED: PANTOPRAZOLE 40 MG/10 ML VIAL INJ IV SCH (10:00)
[2021-08-18] MEDS ORDERED: LOSARTAN POTASSIUM 50 MG TAB PO SCH (10:00)
[2021-08-18] MEDS ORDERED: cloNIDine HCL 0.1 MG TAB PO PRN (10:00)
[2021-08-18] MEDS ORDERED: GABAPENTIN 100 MG CAP ONE (10:38)
[2021-08-18] MEDS ORDERED: GABAPENTIN 300 MG CAP ONE (10:38)
[2021-08-18] MEDS: METOPROLOL TARTRATE 25 MG TAB PO SCH ×2 (10:48→22:18)
[2021-08-18] MEDS: FUROSEMIDE 40 MG TAB PO SCH (10:48)
[2021-08-18] MEDS: ASPirin 81 mg TAB PO SCH (10:50)
[2021-08-18] MEDS: GABAPENTIN 400 MG CAP PO SCH ×2 (10:50→22:18)
[2021-08-18] MEDS ORDERED: DEXTROSE (50%) 50ML SYRG IV PRN (11:30)
[2021-08-18] MEDS: CLOPIDOGREL BISULFATE 75 MG TAB PO SCH (11:44)
[2021-08-18] MEDS ORDERED: NIFEdipine ER 30 MG TAB PO ONE (12:15)
[2021-08-18] MEDS: InsuLIN REG 1unit/0.01ml Soln (100units/ml) SC SCH ×3 (12:42→22:59)
[2021-08-18] MEDS: ATORVASTATIN 20 MG TAB PO SCH (22:19)
[2021-08-18] MEDS ORDERED: ALBUTEROL SULF 2.5 MG/0.5ML(0.5%) NEB SOLN NEB PRN (22:45)
[2021-08-19 05:00] VITALS: BP 111/56
[2021-08-19] MEDS: InsuLIN REG 1unit/0.01ml Soln (100units/ml) SC SCH ×3 (06:00→18:45)
[2021-08-19] MEDS: ACCU-CHEK COMFORT CURVE STRIP VI SCH ×3 (06:00→18:42)
[2021-08-19] MEDS ORDERED: SODIUM CHL 0.9% 1000 ML BAG XX ONE (07:00)
[2021-08-19 08:39] LABS: Eosinophils # (auto) 0.1 10 ^3/uL (0-0.8); Eosinophils % (auto) 1.6 % (0.0-7.0); Red Blood Cells 2.46 10^6/uL (4.0-5.20)
[2021-08-19 08:40] LABS: Basophils # (auto) 0.1 10 ^3/uL (0-0.2); Basophils % (auto) 1.1 % (0.0-2.0); Hematocrit 24.4 % (36.0-46.0); Hemoglobin 8.6 g/dL (12.2-16.2); Lymphocytes # (auto) 1.6 10 ^3/uL (0.4-5.4); Lymphocytes % (auto) 18.5 % (10.0-50.0); Mean Corpuscular Hgb Conc. 35.3 g/dL (32.0-36.0); Mean Corpuscular Volume 99.2 fL (80.0-100.0); Monocytes # (auto) 0.7 10 ^3/uL (0-1.3); Monocytes % (auto) 8.1 % (0.0-12.0); Neutrophils # (auto) 6.2 10 ^3/uL (1.6-8.6); Neutrophils % (auto) 70.7 % (37.0-80.0); Red Cell Distribution Width 12.3 % (11.8-14.3); White Blood Cell 8.8 10^3/uL (4.4-10.8)
[2021-08-19 08:49] LABS: Calcium 7.4 mg/dL (8.5-10.1)
[2021-08-19 08:52] LABS: BUN/Creatinine Ratio 8.9
[2021-08-19 09:04] VITALS: BP 118/76
[2021-08-19] MEDS ORDERED: NIFEdipine ER 30 MG TAB PO SCH (10:00)
[2021-08-19] MEDS ORDERED: PANTOPRAZOLE 40 MG TAB PO SCH (10:00)
[2021-08-19] MEDS: SEVELAMER 800 MG TAB PO SCH ×3 (11:03→18:42)
[2021-08-19] MEDS: METOPROLOL TARTRATE 25 MG TAB PO SCH (11:04)
[2021-08-19] MEDS: ASPirin 81 mg TAB PO SCH (11:04)
[2021-08-19] MEDS: FUROSEMIDE 40 MG TAB PO SCH (11:04)
[2021-08-19] MEDS: CLOPIDOGREL BISULFATE 75 MG TAB PO SCH (11:05)
[2021-08-19] MEDS: GABAPENTIN 400 MG CAP PO SCH (11:05)
[2021-08-19 12:30] VITALS: BP 91/68
[2021-08-19] MEDS ORDERED: ASPI1CHW15 PO (13:56)
[2021-08-19 17:05] VITALS: BP 125/65
[2021-08-19 17:46] VITALS: BP 91/68
[2021-08-19] MEDS ORDERED: EPOETIN ALFA-EPBX 10,000 UNIT/1ML VIAL SC ONE (21:00)
== END 2021-08-19 20:00 | disposition home or self-care (01) | DRG 280 ==
LOC: ER 23:30 → EDUNIT# 23:30 → EDBD 23:30 → TELE 08-17 06:21 → TELE-WESTW 08-18 12:50
PROVIDERS: ADMIT Nurse Practitioner; ATTEND Internal Medicine
PROC: 5A1D70Z Performance of Urinary Filtration, Intermittent, Less than 6 Hours Per Day (ICD-10-PCS; 2021-08-17)
PROC: 4A023N7 Measurement of Cardiac Sampling and Pressure, Left Heart, Percutaneous Approach (ICD-10-PCS; principal; 2021-08-18)
PROC: B211YZZ Fluoroscopy of Multiple Coronary Arteries using Other Contrast (ICD-10-PCS; 2021-08-18)
PROC: B215YZZ Fluoroscopy of Left Heart using Other Contrast (ICD-10-PCS; 2021-08-18)
PROC: 5A1D70Z Performance of Urinary Filtration, Intermittent, Less than 6 Hours Per Day (ICD-10-PCS; 2021-08-19)
DX: I13.2 Hypertensive heart and chronic kidney disease with heart failure and with stage 5 chronic kidney disease, or end stage renal disease (principal); N18.6 End stage renal disease; I21.A1 Myocardial infarction type 2; I50.43 Acute on chronic combined systolic (congestive) and diastolic (congestive) heart failure; R65.10 Systemic inflammatory response syndrome (SIRS) of non-infectious origin without acute organ dysfunction; E87.1 Hypo-osmolality and hyponatremia; Z68.41 Body mass index [BMI] 40.0-44.9, adult; E11.65 Type 2 diabetes mellitus with hyperglycemia; E87.5 Hyperkalemia; E66.01 Morbid (severe) obesity due to excess calories; Z88.5 Allergy status to narcotic agent; Z20.822 Contact with and (suspected) exposure to COVID-19; D63.1 Anemia in chronic kidney disease; E11.22 Type 2 diabetes mellitus with diabetic chronic kidney disease; E11.40 Type 2 diabetes mellitus with diabetic neuropathy, unspecified; E78.5 Hyperlipidemia, unspecified; I25.10 Atherosclerotic heart disease of native coronary artery without angina pectoris; I25.5 Ischemic cardiomyopathy; R09.02 Hypoxemia; E88.09 Other disorders of plasma-protein metabolism, not elsewhere classified; F41.9 Anxiety disorder, unspecified; Z82.3 Family history of stroke; Z82.49 Family history of ischemic heart disease and other diseases of the circulatory system; Z83.3 Family history of diabetes mellitus; Z90.710 Acquired absence of both cervix and uterus; Z91.19 Patient's noncompliance with other medical treatment and regimen; Z98.61 Coronary angioplasty status; Z99.2 Dependence on renal dialysis
CPT/HCPCS: 36415; 71045; 80048; 80053; 80061; 81001; 82962; 83036; 83735; 83880; 83930; 84132; 84443; 84484; 85025; 85610; 85730; 87426; 90935; 93005; 93306; 93458; 94644; 96365; 96375; 99152; 99153; 99291; C9113; G0378; J1642; J1815; J2250; J2405; J7060; Q9967

== ENCOUNTER 2021-09-27 02:16 | Inpatient (IN) | payer MEDICARE, MEDICAID ==
[~2021-09-27] VITALS: Ht 157.5 cm; Wt 95.2 kg
[~2021-09-27 02:16] MED LIST changes: +ASPI1CHW15 PO; -NOR10T PO; -ONDA-144 PO
[2021-09-27 04:10] LABS: Basophils # (auto) 0.1 10 ^3/uL (0-0.2); Basophils % (auto) 0.9 % (0.0-2.0); Eosinophils # (auto) 0.1 10 ^3/uL (0-0.8); Eosinophils % (auto) 0.5 % (0.0-7.0); Hematocrit 27.9 % (36.0-46.0); Hemoglobin 9.3 g/dL (12.2-16.2); Lymphocytes # (auto) 1.1 10 ^3/uL (0.4-5.4); Lymphocytes % (auto) 7.5 % (10.0-50.0); Mean Corpuscular Hemoglobin 33.5 pg (28.0-32.0); Mean Corpuscular Hgb Conc. 33.4 g/dL (32.0-36.0); Mean Corpuscular Volume 100.3 fL (80.0-100.0); Monocytes # (auto) 0.7 10 ^3/uL (0-1.3); Neutrophils # (auto) 12.9 10 ^3/uL (1.6-8.6); Neutrophils % (auto) 86.1 % (37.0-80.0); Nucleated Red Blood Cells % 0.1 %; Red Blood Cells 2.78 10^6/uL (4.0-5.20); Red Cell Distribution Width 12.8 % (11.8-14.3); White Blood Cell 14.9 10^3/uL (4.4-10.8)
[2021-09-27 04:19] LABS: Albumin 3.3 g/dL (3.4-5.0); Calcium 7.2 mg/dL (8.5-10.1)
[2021-09-27 04:26] LABS: BUN/Creatinine Ratio 12.2; Bilirubin, Total 0.4 mg/dL (0.2-1.0); Total Protein 7.5 g/dL (6.4-8.2)
[2021-09-27 04:47] LABS: Potassium 6.4 mmol/L (3.5-5.1)
[2021-09-27] MEDS ORDERED: FUROSEMIDE 40 MG/4 ML VIAL IV ONE ×2 (13:15→18:45)
[2021-09-27] MEDS ORDERED: InsuLIN REG 1unit/0.01ml Soln (100units/ml) IV ONE ×2 (13:15→18:45)
[2021-09-27] MEDS ORDERED: SODIUM CHLORIDE 0.9% 1,000 ML IV ONE (13:15)
[2021-09-27] MEDS ORDERED: MORPHINE SULFATE INJECTION 2 MG/ML SYRG ONE (15:19)
[2021-09-27] MEDS ORDERED: ONDANSETRON HCL 4 MG/2 ML VIAL ONE (15:19)
[2021-09-27] MEDS ORDERED: ONDANSETRON HCL 4 MG/2 ML VIAL IV ONE (15:45)
[2021-09-27] MEDS ORDERED: MORPHINE SULFATE INJECTION 2 MG/ML SYRG IV ONE (15:45)
[2021-09-27] MEDS ORDERED: SODIUM ZIRCONIUM CYCL 10 GM PAK PO ONE (18:45)
[2021-09-27] MEDS ORDERED: ALBUTEROL SULF 2.5 MG/0.5ML(0.5%) NEB SOLN NEB ONE ×3 (18:45→23:15)
[2021-09-27] MEDS ORDERED: SODIUM BICARBONATE 8.4% INJ 50ML SYRINGE IV ONE (18:45)
[2021-09-27] MEDS ORDERED: CALCIUM CHL 100MG/ML 1,000 MG in D5W 5% 100 ML IV ONE (18:45)
[2021-09-27] MEDS ORDERED: NITROGLYCERIN 0.4 MG SL TAB SL PRN ×2 (19:00→23:15)
[2021-09-27] MEDS ORDERED: MORPHINE SULFATE INJECTION 2 MG/ML SYRG IV PRN ×2 (19:00→23:15)
[2021-09-27] MEDS ORDERED: DEXTROSE (50%) 50ML SYRG IV PRN (19:00)
[2021-09-27] MEDS ORDERED: ALBUTEROL SULF 2.5 MG/0.5ML(0.5%) NEB SOLN ONE (19:06)
[2021-09-27] MEDS ORDERED: VANCOMYCIN PER PHARMACY 0 MG IV SCH (20:45)
[2021-09-27] MEDS ORDERED: VANCOMYCIN 1GM/250ML 250 ML IV ONE (20:45)
[2021-09-27] MEDS ORDERED: PIPERACILLIN-TAZOB 2.25GM 50 ML IV ONE (20:45)
[2021-09-27 22:00] VITALS: BP 125/61
[2021-09-27] MEDS: InsuLIN REG 1unit/0.01ml Soln (100units/ml) SC SCH (22:00)
[2021-09-27] MEDS: ACCU-CHEK COMFORT CURVE STRIP VI SCH (22:00)
[2021-09-27] MEDS ORDERED: PIPERACILLIN-TAZOB 2.25GM 50 ML IV SCH (22:00)
[2021-09-27 22:22] LABS: BUN/Creatinine Ratio 10.3; Calcium 7.3 mg/dL (8.5-10.1)
[2021-09-27] MEDS ORDERED: SEVELAMER 800 MG TAB PO ONE (23:00)
[2021-09-27] MEDS ORDERED: BUMETANIDE 2.5mg/10ml (0.25 mg/ml) INJ IV ONE (23:00)
[2021-09-27] MEDS ORDERED: PANTOPRAZOLE 40 MG/10 ML VIAL INJ IV ONE (23:00)
[2021-09-27] MEDS ORDERED: METOCLOPRAMIDE HCL 5MG/ml INJ 2ml VIAL IV PRN (23:15)
[2021-09-27] MEDS ORDERED: hydrALAZINE HCL 20 MG/ML VL IV PRN (23:15)
[2021-09-27] MEDS ORDERED: ALUM & MAG HYDROX-SIMETH LIQ(MAALOX) 30 ML PO PRN (23:15)
[2021-09-27] MEDS ORDERED: IPRATROPIUM BROM 0.5 MG/2.5ML INH SOL NEB ONE (23:15)
[2021-09-27] MEDS ORDERED: BUDESONIDE (INHALATION) 0.5 MG/2 ML NEB NEB ONE (23:15)
[2021-09-27] MEDS ORDERED: DOCUSATE SOD 100 MG CAP PO PRN (23:15)
[2021-09-27 23:26] VITALS: BP 125/61
[2021-09-27 23:26] LABS: Cholesterol 140 mg/dL (< 200)
[2021-09-27 23:29] LABS: HDL Cholesterol 57 mg/dL (40-59); LDL Cholesterol 65 mg/dL (< 100); Triglycerides 94 mg/dL (< 150)
[2021-09-27] MEDS ORDERED: METOPROLOL SUCCINATE XL 50 MG TAB PO ONE (23:30)
[2021-09-28] MEDS: HYDROcodone-ACET 5/325MG TAB PO PRN ×2 (00:19→01:39)
[2021-09-28] MEDS ORDERED: IPRATROPIUM BROM 0.5 MG/2.5ML INH SOL NEB SCH (02:00)
[2021-09-28 05:00] VITALS: BP 131/69
[2021-09-28] MEDS: BUMETANIDE 2.5mg/10ml (0.25 mg/ml) INJ IV SCH ×2 (05:09→18:03)
[2021-09-28] MEDS: hydrALAZINE HCL 25 MG TAB PO SCH ×2 (05:15→18:03)
[2021-09-28] MEDS: InsuLIN REG 1unit/0.01ml Soln (100units/ml) SC SCH ×3 (05:27→18:02)
[2021-09-28 05:28] LABS: Basophils # (auto) 0.1 10 ^3/uL (0-0.2); Basophils % (auto) 1.1 % (0.0-2.0); Eosinophils # (auto) 0.2 10 ^3/uL (0-0.8); Hemoglobin 8.1 g/dL (12.2-16.2); Nucleated Red Blood Cells % 0.1 %
[2021-09-28 05:32] LABS: Eosinophils % (auto) 2.1 % (0.0-7.0); Hematocrit 23.4 % (36.0-46.0); Lymphocytes # (auto) 1.7 10 ^3/uL (0.4-5.4); Lymphocytes % (auto) 21.6 % (10.0-50.0); Mean Corpuscular Hemoglobin 34.6 pg (28.0-32.0); Mean Corpuscular Hgb Conc. 34.7 g/dL (32.0-36.0); Mean Corpuscular Volume 99.7 fL (80.0-100.0); Monocytes # (auto) 0.7 10 ^3/uL (0-1.3); Monocytes % (auto) 8.7 % (0.0-12.0); Neutrophils # (auto) 5.1 10 ^3/uL (1.6-8.6); Neutrophils % (auto) 66.5 % (37.0-80.0); Red Blood Cells 2.35 10^6/uL (4.0-5.20); Red Cell Distribution Width 12.8 % (11.8-14.3); White Blood Cell 7.6 10^3/uL (4.4-10.8)
[2021-09-28 05:48] LABS: INR 1.01 (0.9-1.15); Partial Thromboplastin Time 22.1 sec (23.6-33.0)
[2021-09-28] MEDS ORDERED: SODIUM ZIRCONIUM CYCL 10 GM PAK PO SCH (06:00)
[2021-09-28 06:14] LABS: Potassium 5.5 mmol/L (3.5-5.1)
[2021-09-28 06:24] LABS: Albumin 2.9 g/dL (3.4-5.0); BUN/Creatinine Ratio 11.7; Bilirubin, Total 0.4 mg/dL (0.2-1.0); Magnesium 2.5 mg/dL (1.6-2.6); Phosphorus 5.9 mg/dL (2.5-4.90); Total Protein 6.8 g/dL (6.4-8.2)
[2021-09-28] MEDS: ACCU-CHEK COMFORT CURVE STRIP VI SCH ×3 (07:00→18:01)
[2021-09-28] MEDS: BUDESONIDE (INHALATION) 0.5 MG/2 ML NEB NEB SCH ×2 (07:37→23:20)
[2021-09-28 09:00] VITALS: BP 128/71
[2021-09-28 09:27] VITALS: BP 128/71
[2021-09-28] MEDS ORDERED: METOPROLOL SUCCINATE XL 50 MG TAB PO SCH (10:00)
[2021-09-28] MEDS ORDERED: PANTOPRAZOLE 40 MG/10 ML VIAL INJ IV SCH (10:00)
[2021-09-28] MEDS ORDERED: THROAT LOZENGES(CEPASTAT) MT PRN (10:45)
[2021-09-28] MEDS ORDERED: predniSONE 20 MG TAB PO ONE (10:45)
[2021-09-28] MEDS ORDERED: METOCLOPRAMIDE HCL 5MG/ml INJ 2ml VIAL IV PRN (10:45)
[2021-09-28] MEDS ORDERED: THROAT LOZENGES(CEPASTAT) MT ONE (10:45)
[2021-09-28 12:00] VITALS: BP 131/78
[2021-09-28] MEDS: SEVELAMER 800 MG TAB PO SCH ×3 (12:09→18:02)
[2021-09-28] MEDS: ASPirin 81 mg TAB PO SCH (12:09)
[2021-09-28] MEDS: CLOPIDOGREL BISULFATE 75 MG TAB PO SCH (12:10)
[2021-09-28] MEDS: ISOSORBIDE MONONITRATE ER 60 MG TAB PO SCH (12:10)
[2021-09-28] MEDS: ENOXAPARIN SOD 30 MG/0.3 ML SYRINGE SC SCH (12:11)
[2021-09-28] MEDS: MORPHINE SULFATE INJECTION 2 MG/ML SYRG IV PRN ×2 (12:43→19:06)
[2021-09-28 17:00] VITALS: BP 140/75
[2021-09-28 22:00] VITALS: BP 145/77
[2021-09-28] MEDS: ALBUTEROL SULF 2.5 MG/0.5ML(0.5%) NEB SOLN NEB PRN (23:20)
[2021-09-28] MEDS: LORazepam 0.5 MG TAB PO PRN (23:20)
[2021-09-28] MEDS: IPRATROPIUM BROM 0.5 MG/2.5ML INH SOL NEB PRN (23:20)
[2021-09-29] MEDS: hydrALAZINE HCL 25 MG TAB PO SCH ×4 (00:01→21:43)
[2021-09-29] MEDS: ATORVASTATIN 20 MG TAB PO SCH ×2 (00:02→21:43)
[2021-09-29] MEDS: ACCU-CHEK COMFORT CURVE STRIP VI SCH ×5 (00:02→22:35)
[2021-09-29] MEDS: InsuLIN REG 1unit/0.01ml Soln (100units/ml) SC SCH ×5 (00:03→22:36)
[2021-09-29 05:45] VITALS: BP 145/78
[2021-09-29 06:48] LABS: Basophils # (auto) 0 10 ^3/uL (0-0.2); Eosinophils # (auto) 0 10 ^3/uL (0-0.8); Hematocrit 24.7 % (36.0-46.0); Lymphocytes # (auto) 0.7 10 ^3/uL (0.4-5.4); Monocytes # (auto) 0.5 10 ^3/uL (0-1.3); Neutrophils # (auto) 6.2 10 ^3/uL (1.6-8.6); White Blood Cell 7.5 10^3/uL (4.4-10.8)
[2021-09-29 06:52] LABS: Basophils % (auto) 0.4 % (0.0-2.0); Hemoglobin 8.5 g/dL (12.2-16.2); Lymphocytes % (auto) 9.2 % (10.0-50.0); Mean Corpuscular Hemoglobin 33.9 pg (28.0-32.0); Mean Corpuscular Hgb Conc. 34.5 g/dL (32.0-36.0); Mean Corpuscular Volume 98.1 fL (80.0-100.0); Neutrophils % (auto) 83.4 % (37.0-80.0); Nucleated Red Blood Cells % 0.1 %; Red Blood Cells 2.52 10^6/uL (4.0-5.20); Red Cell Distribution Width 12.6 % (11.8-14.3)
[2021-09-29] MEDS: BUMETANIDE 2.5mg/10ml (0.25 mg/ml) INJ IV SCH ×2 (06:59→18:19)
[2021-09-29 07:37] LABS: Potassium 5.3 mmol/L (3.5-5.1)
[2021-09-29 07:47] LABS: BUN/Creatinine Ratio 11.3; Calcium 7.3 mg/dL (8.5-10.1)
[2021-09-29] MEDS: ALBUTEROL SULF 2.5 MG/0.5ML(0.5%) NEB SOLN NEB PRN ×2 (08:28→18:17)
[2021-09-29] MEDS: BUDESONIDE (INHALATION) 0.5 MG/2 ML NEB NEB SCH ×3 (08:28→22:00)
[2021-09-29 09:00] VITALS: BP 167/93
[2021-09-29] MEDS ORDERED: amLODIPine BESYLATE 5 MG TAB PO ONE (10:45)
[2021-09-29] MEDS ORDERED: GABAPENTIN 400 MG CAP PO ONE (10:45)
[2021-09-29] MEDS ORDERED: METHOCARBAMOL 500 MG TAB PO PRN (10:45)
[2021-09-29] MEDS: ASPirin 81 mg TAB PO SCH (11:14)
[2021-09-29] MEDS: predniSONE 20 MG TAB PO SCH (11:14)
[2021-09-29] MEDS: cefTRIAXone 1GM/50ML D5W 50 ML IV SCH (11:14)
[2021-09-29] MEDS: MORPHINE SULFATE INJECTION 2 MG/ML SYRG IV PRN ×2 (11:15→18:30)
[2021-09-29] MEDS: ISOSORBIDE MONONITRATE ER 60 MG TAB PO SCH (11:15)
[2021-09-29] MEDS: CLOPIDOGREL BISULFATE 75 MG TAB PO SCH (11:15)
[2021-09-29] MEDS: ENOXAPARIN SOD 30 MG/0.3 ML SYRINGE SC SCH (11:16)
[2021-09-29] MEDS: AZITHROMYCIN 250 MG TAB PO SCH (11:16)
[2021-09-29] MEDS: PANTOPRAZOLE 40 MG TAB PO SCH (11:16)
[2021-09-29] MEDS: SEVELAMER 800 MG TAB PO SCH ×2 (11:18→18:18)
[2021-09-29 13:00] VITALS: BP 160/75
[2021-09-29 17:00] VITALS: BP 149/73
[2021-09-29 21:30] VITALS: BP 137/74
[2021-09-29] MEDS: LORazepam 0.5 MG TAB PO PRN (21:44)
[2021-09-29] MEDS ORDERED: GABAPENTIN 400 MG CAP PO SCH (22:00)
[2021-09-30 05:00] VITALS: BP 161/74
[2021-09-30 05:51] LABS: Calcium 6.8 mg/dL (8.5-10.1); Potassium 5.2 mmol/L (3.5-5.1)
[2021-09-30] MEDS: BUMETANIDE 2.5mg/10ml (0.25 mg/ml) INJ IV SCH ×2 (06:27→17:50)
[2021-09-30] MEDS: hydrALAZINE HCL 25 MG TAB PO SCH ×2 (06:27→14:50)
[2021-09-30] MEDS: ACCU-CHEK COMFORT CURVE STRIP VI SCH ×3 (06:28→17:51)
[2021-09-30] MEDS: InsuLIN REG 1unit/0.01ml Soln (100units/ml) SC SCH ×3 (06:29→18:42)
[2021-09-30] MEDS: BUDESONIDE (INHALATION) 0.5 MG/2 ML NEB NEB SCH (07:12)
[2021-09-30] MEDS: IPRATROPIUM BROM 0.5 MG/2.5ML INH SOL NEB PRN (07:12)
[2021-09-30] MEDS: ALBUTEROL SULF 2.5 MG/0.5ML(0.5%) NEB SOLN NEB PRN (07:12)
[2021-09-30 08:15] VITALS: BP 144/70
[2021-09-30] MEDS: SEVELAMER 800 MG TAB PO SCH ×3 (08:24→17:51)
[2021-09-30] MEDS: HYDROcodone-ACET 5/325MG TAB PO PRN ×2 (08:26→15:17)
[2021-09-30] MEDS: cefTRIAXone 1GM/50ML D5W 50 ML IV SCH (08:38)
[2021-09-30 09:00] VITALS: BP 144/70
[2021-09-30] MEDS: ASPirin 81 mg TAB PO SCH (09:43)
[2021-09-30] MEDS: predniSONE 20 MG TAB PO SCH (09:43)
[2021-09-30] MEDS: PANTOPRAZOLE 40 MG TAB PO SCH (09:44)
[2021-09-30] MEDS: ISOSORBIDE MONONITRATE ER 60 MG TAB PO SCH (09:44)
[2021-09-30] MEDS: AZITHROMYCIN 250 MG TAB PO SCH (09:44)
[2021-09-30] MEDS: CLOPIDOGREL BISULFATE 75 MG TAB PO SCH (09:44)
[2021-09-30] MEDS: ENOXAPARIN SOD 30 MG/0.3 ML SYRINGE SC SCH (09:45)
[2021-09-30] MEDS ORDERED: amLODIPine BESYLATE 5 MG TAB PO SCH (10:00)
[2021-09-30 13:00] VITALS: BP 142/83
[2021-09-30 17:00] VITALS: BP 135/80
[2021-09-30] MEDS ORDERED: EPOETIN ALFA-EPBX 10,000 UNIT/1ML VIAL SC ONE (21:00)
== END 2021-09-30 20:00 | disposition home or self-care (01) | DRG 871 ==
LOC: ER 02:16 → EDBD 02:16 → TELE 18:49 → TELE-CENTR 21:59
PROVIDERS: ADMIT Hospitalist; ATTEND Internal Medicine
PROC: 5A1D70Z Performance of Urinary Filtration, Intermittent, Less than 6 Hours Per Day (ICD-10-PCS; principal; 2021-09-28)
PROC: 5A1D70Z Performance of Urinary Filtration, Intermittent, Less than 6 Hours Per Day (ICD-10-PCS; 2021-09-29)
PROC: 5A1D70Z Performance of Urinary Filtration, Intermittent, Less than 6 Hours Per Day (ICD-10-PCS; 2021-09-30)
DX: A41.9 Sepsis, unspecified organism (principal); N18.6 End stage renal disease; J18.9 Pneumonia, unspecified organism; I21.A1 Myocardial infarction type 2; I50.43 Acute on chronic combined systolic (congestive) and diastolic (congestive) heart failure; J96.00 Acute respiratory failure, unspecified whether with hypoxia or hypercapnia; E44.1 Mild protein-calorie malnutrition; J44.1 Chronic obstructive pulmonary disease with (acute) exacerbation; I13.2 Hypertensive heart and chronic kidney disease with heart failure and with stage 5 chronic kidney disease, or end stage renal disease; J45.901 Unspecified asthma with (acute) exacerbation; Z20.822 Contact with and (suspected) exposure to COVID-19; D63.1 Anemia in chronic kidney disease; Z99.2 Dependence on renal dialysis; E87.5 Hyperkalemia; G89.4 Chronic pain syndrome; I25.10 Atherosclerotic heart disease of native coronary artery without angina pectoris; I25.5 Ischemic cardiomyopathy; I27.21 Secondary pulmonary arterial hypertension; F41.9 Anxiety disorder, unspecified; E11.40 Type 2 diabetes mellitus with diabetic neuropathy, unspecified; M19.90 Unspecified osteoarthritis, unspecified site; D53.9 Nutritional anemia, unspecified; I50.82 Biventricular heart failure; E66.01 Morbid (severe) obesity due to excess calories; E78.5 Hyperlipidemia, unspecified; Z90.49 Acquired absence of other specified parts of digestive tract; Z90.710 Acquired absence of both cervix and uterus; Z98.61 Coronary angioplasty status; Z83.3 Family history of diabetes mellitus; Z82.49 Family history of ischemic heart disease and other diseases of the circulatory system; Z68.32 Body mass index [BMI] 32.0-32.9, adult
CPT/HCPCS: 36415; 71045; 71250; 80048; 80053; 80061; 80202; 82962; 83036; 83735; 83880; 83970; 84100; 84132; 84443; 84484; 85025; 85379; 85610; 85730; 87040; 87070; 87205; 87340; 87426; 90935; 93005; 94640; 94644; 96361; 96374; 96375; 97110; 97163; 97530; C9113; G0378; J0696; J1815; J2405; J2543; J7060

== ENCOUNTER 2022-07-03 20:13 | Emergency (ER) | payer MEDICARE, MEDICAID ==
[~2022-07-03] VITALS: Ht 157.5 cm; Wt 81.8 kg
[2022-07-03 20:25] VITALS: BP 187/94
[2022-07-04] MEDS ORDERED: diphenhdrAMINE HCL 25 MG CAP PO ONE (04:00)
[2022-07-04] MEDS ORDERED: CEPH-510 PO (04:04)
== END 2022-07-04 04:17 | disposition home or self-care (01) ==
LOC: ER 20:13
DX: L98.499 Non-pressure chronic ulcer of skin of other sites with unspecified severity (principal); L29.9 Pruritus, unspecified; E11.22 Type 2 diabetes mellitus with diabetic chronic kidney disease; I13.2 Hypertensive heart and chronic kidney disease with heart failure and with stage 5 chronic kidney disease, or end stage renal disease; I50.9 Heart failure, unspecified; N18.6 End stage renal disease; J44.9 Chronic obstructive pulmonary disease, unspecified; E78.5 Hyperlipidemia, unspecified; Z90.49 Acquired absence of other specified parts of digestive tract; Z90.710 Acquired absence of both cervix and uterus; Z88.6 Allergy status to analgesic agent
CPT/HCPCS: 82962

== ENCOUNTER 2022-09-17 15:26 | Emergency (ER) | payer MEDICARE, MEDICAID ==
[~2022-09-17] VITALS: Ht 157.5 cm; Wt 90.0 kg
[~2022-09-17 15:26] MED LIST changes: +CEPH-510 PO
[2022-09-17 17:22] LABS: Hematocrit 34.6 % (36.0-46.0); Hemoglobin 11.3 g/dL (12.2-16.2); Mean Corpuscular Hemoglobin 30.9 pg (28.0-32.0); Mean Corpuscular Hgb Conc. 32.8 g/dL (32.0-36.0); Mean Corpuscular Volume 94.2 fL (80.0-100.0); Red Blood Cells 3.67 10^6/uL (4.0-5.20); Red Cell Distribution Width 15.2 % (11.8-14.3); White Blood Cell 8.3 10^3/uL (4.4-10.8)
[2022-09-17 17:35] LABS: Band Neutrophils % (manual) 0; Basophils % (manual) 0 (0.0-2.0); Blast Cells 0; Metamyelocytes % 0; Myelocytes % 0; Promyelocytes % 0; Reactive Lymphocytes 0
[2022-09-17 17:37] LABS: Albumin 3.5 g/dL (3.4-5.0); BUN/Creatinine Ratio 9.1; Calcium 8.1 mg/dL (8.5-10.1); Magnesium 2.3 mg/dL (1.6-2.6); Potassium 3.5 mmol/L (3.5-5.1)
[2022-09-17 17:40] LABS: Bilirubin, Total 0.4 mg/dL (0.2-1.0); INR 1.03 (0.9-1.15); Partial Thromboplastin Time 21.5 sec (24.6-33.4); Total Protein 8.1 g/dL (6.4-8.2)
[2022-09-17 18:26] LABS: Eosinophils % (manual) 2 (0-7); Lymphocytes % (manual) 18 (10.0-50.0); Monocytes % (manual) 4 (0-12)
[2022-09-17 21:59] VITALS: BP 142/51
== END 2022-09-17 22:07 | disposition home or self-care (01) ==
LOC: EDBD 15:26 → EDUNIT# 15:26 → ER 15:26
DX: R07.89 Other chest pain (principal); I13.0 Hypertensive heart and chronic kidney disease with heart failure and stage 1 through stage 4 chronic kidney disease, or unspecified chronic kidney disease; E11.22 Type 2 diabetes mellitus with diabetic chronic kidney disease; N18.9 Chronic kidney disease, unspecified; I50.9 Heart failure, unspecified; J44.9 Chronic obstructive pulmonary disease, unspecified; E78.5 Hyperlipidemia, unspecified; Z90.49 Acquired absence of other specified parts of digestive tract; Z90.89 Acquired absence of other organs; Z88.6 Allergy status to analgesic agent; Z79.899 Other long term (current) drug therapy
CPT/HCPCS: 36415; 71045; 80053; 83735; 83880; 84484; 85007; 85027; 85610; 85730; 93005

== ENCOUNTER 2022-11-07 10:00 | Inpatient (IN) | payer MEDICARE, MEDICAID ==
[~2022-11-07] VITALS: Ht 154.9 cm; Wt 96.1 kg
[2022-11-07 11:02] LABS: Basophils # (auto) 0.1 10 ^3/uL (0-0.2); Basophils % (auto) 0.8 % (0.0-2.0); Eosinophils # (auto) 0.1 10 ^3/uL (0-0.8); Eosinophils % (auto) 2.1 % (0.0-7.0); Hematocrit 26.5 % (36.0-46.0); Hemoglobin 8.6 g/dL (12.2-16.2); Lymphocytes # (auto) 0.6 10 ^3/uL (0.4-5.4); Lymphocytes % (auto) 9.7 % (10.0-50.0); Mean Corpuscular Hemoglobin 31.9 pg (28.0-32.0); Mean Corpuscular Hgb Conc. 32.5 g/dL (32.0-36.0); Mean Corpuscular Volume 98.3 fL (80.0-100.0); Monocytes # (auto) 0.4 10 ^3/uL (0-1.3); Monocytes % (auto) 6.2 % (0.0-12.0); Neutrophils % (auto) 81.2 % (37.0-80.0); Nucleated Red Blood Cells % 0.1 %; Red Blood Cells 2.69 10^6/uL (4.0-5.20); Red Cell Distribution Width 15.4 % (11.8-14.3); White Blood Cell 6.2 10^3/uL (4.4-10.8)
[2022-11-07] MEDS ORDERED: IPRATROPIUM BROM 0.5 MG/2.5ML INH SOL NEB ONE (11:30)
[2022-11-07] MEDS ORDERED: ALBUTEROL SULF 2.5 MG/0.5ML(0.5%) NEB SOLN NEB ONE (11:30)
[2022-11-07] MEDS ORDERED: ALBUTEROL MEDNEB 2.5 mg/3ml NEB ONE ×2 (11:33→20:31)
[2022-11-07] MEDS ORDERED: ASPirin 81 mg TAB PO ONE (12:15)
[2022-11-07] MEDS ORDERED: SODIUM CHLORIDE 0.9% 1,000 ML IV ONE (12:15)
[2022-11-07] MEDS ORDERED: FUROSEMIDE 40 MG/4 ML VIAL IV ONE ×2 (12:15→20:30)
[2022-11-07 13:04] LABS: INR 1.02 (0.9-1.15)
[2022-11-07] MEDS ORDERED: MORPHINE SULFATE INJ 2 MG/ml SYRG IV ONE (16:15)
[2022-11-07] MEDS ORDERED: ONDANSETRON HCL 4 MG/2 ML VIAL IV ONE (16:15)
[2022-11-07 17:14] LABS: Sodium 136 mmol/L (136-145)
[2022-11-07 17:15] LABS: Alanine Aminotransferase 35 U/L (13-56); Albumin 3.3 g/dL (3.4-5.0); Alkaline Phosphatase 120 U/L (45-117); Anion Gap 7 (5-15); Aspartate Aminotransferase 37 U/L (15-37); BUN/Creatinine Ratio 9.3; Bilirubin, Total 0.6 mg/dL (0.2-1.0); Blood Urea Nitrogen 56 mg/dL (7-18); Calcium 8.2 mg/dL (8.5-10.1); Carbon Dioxide 22 mmol/L (21-32); Chloride 107 mmol/L (98-107); GFR African American 9 mL/min; GFR Non-African American 7 mL/min; Glucose 187 mg/dL (74-106); Total Protein 7.8 g/dL (6.4-8.2)
[2022-11-07 17:20] LABS: Potassium 7.3 mmol/L (3.5-5.1)
[2022-11-07] MEDS ORDERED: SODIUM BICARBONATE 8.4 % INJ 50ML VIAL IV ONE (17:45)
[2022-11-07] MEDS ORDERED: D5W/SOD CHLO 0.9% 250 ML IV ONE (17:45)
[2022-11-07] MEDS ORDERED: CALCIUM GLUC 1,000mg/50ml-NS 50 ML IV ONE (17:45)
[2022-11-07] MEDS ORDERED: InsuLIN REG 1unit/0.01ml Soln (100units/ml) IV ONE (17:45)
[2022-11-07] MEDS: METOPROLOL TARTRATE 1MG/1ML-5ML VIAL IV SCH (18:19)
[2022-11-07] MEDS ORDERED: SODIUM ZIRCONIUM CYCL 10 GM PAK PO ONE (18:30)
[2022-11-07] MEDS ORDERED: IOHEXOL 350 MG/ML 100ML IJ ONE (19:53)
[2022-11-07] MEDS ORDERED: NITROGLYCERIN 0.4 MG SL TAB SL PRN (20:00)
[2022-11-07] MEDS ORDERED: cefTRIAXone 1GM/50ML D5W 50 ML IV ONE (20:30)
[2022-11-07] MEDS ORDERED: AZITHROMYCIN 500MG/ 250ML 250 ML IV ONE (20:30)
[2022-11-07] MEDS: IPRATROPIUM BROM 0.5 MG/2.5ML INH SOL NEB PRN (20:37)
[2022-11-07] MEDS: ALBUTEROL SULF 2.5 MG/0.5ML(0.5%) NEB SOLN NEB PRN (20:37)
[2022-11-07 20:51] VITALS: BP 127/65
[2022-11-07 21:34] LABS: BUN/Creatinine Ratio 9.6; Calcium 7.9 mg/dL (8.5-10.1)
[2022-11-07 21:37] LABS: Potassium 5.7 mmol/L (3.5-5.1)
[2022-11-08] MEDS: MORPHINE SULFATE INJ 2 MG/ml SYRG IV PRN ×3 (00:45→21:40)
[2022-11-08] MEDS: METOPROLOL TARTRATE 1MG/1ML-5ML VIAL IV SCH ×4 (01:11→17:39)
[2022-11-08] MEDS: HEPARIN SODIUM (PORCINE) 5000 UNITS/ML 1ML VIAL SC SCH ×3 (01:11→22:00)
[2022-11-08] MEDS: ATORVASTATIN 20 MG TAB PO SCH ×2 (01:11→21:51)
[2022-11-08] MEDS: GABAPENTIN 400 MG CAP PO SCH ×3 (01:11→21:51)
[2022-11-08] MEDS ORDERED: ALBUTEROL MEDNEB 2.5 mg/3ml NEB ONE ×4 (01:24→17:49)
[2022-11-08] MEDS: IPRATROPIUM BROM 0.5 MG/2.5ML INH SOL NEB PRN (01:25)
[2022-11-08] MEDS: ALBUTEROL SULF 2.5 MG/0.5ML(0.5%) NEB SOLN NEB PRN (01:25)
[2022-11-08] MEDS ORDERED: SODIUM CHL 0.9% 1000 ML BAG XX ONE (04:15)
[2022-11-08] MEDS: ALBUTEROL SULF 2.5 MG/0.5ML(0.5%) NEB SOLN NEB SCH ×3 (06:27→17:52)
[2022-11-08] MEDS: IPRATROPIUM BROM 0.5 MG/2.5ML INH SOL NEB SCH ×3 (06:28→17:52)
[2022-11-08] MEDS ORDERED: cefTRIAXone 1GM/50ML D5W 50 ML IV SCH (09:00)
[2022-11-08] MEDS: PANTOPRAZOLE 40 MG/10 ML VIAL INJ IV SCH (09:48)
[2022-11-08] MEDS: ASPirin 81 mg TAB PO SCH (09:57)
[2022-11-08] MEDS: amLODIPine BESYLATE 5 MG TAB PO SCH (09:58)
[2022-11-08] MEDS: hydrALAZINE HCL 25 MG TAB PO SCH (09:59)
[2022-11-08] MEDS: SEVELAMER 800 MG TAB PO SCH ×3 (10:00→17:38)
[2022-11-08] MEDS ORDERED: AZITHROMYCIN 500MG/ 250ML 250 ML IV SCH (10:00)
[2022-11-08] MEDS ORDERED: SODIUM ZIRCONIUM CYCL 10 GM PAK PO ONE (15:15)
[2022-11-08] MEDS ORDERED: ALBUTEROL SULF 2.5 MG/0.5ML(0.5%) NEB SOLN NEB ONE (15:15)
[2022-11-08 17:55] LABS: Cholesterol 112 mg/dL (< 200)
[2022-11-08 17:58] LABS: HDL Cholesterol 59 mg/dL (40-59); LDL Cholesterol 54 mg/dL (< 100); Triglycerides 47 mg/dL (< 150)
[2022-11-08 18:17] LABS: BUN/Creatinine Ratio 7.7; Calcium 7.9 mg/dL (8.5-10.1); Potassium 4.1 mmol/L (3.5-5.1)
[2022-11-08 18:20] LABS: Bilirubin, Total 0.3 mg/dL (0.2-1.0); Total Protein 7.1 g/dL (6.4-8.2)
[2022-11-08] MEDS ORDERED: EPOETIN ALFA-EPBX 10,000 UNIT/1ML VIAL SC ONE (21:00)
[2022-11-09] VITALS (7 sets, daily range): BP systolic 104–155; BP diastolic 42–87
[2022-11-09 00:21] LABS: Basophils # (auto) 0.1 10 ^3/uL (0-0.2); Basophils % (auto) 1.2 % (0.0-2.0); Eosinophils # (auto) 0.2 10 ^3/uL (0-0.8); Hematocrit 26.5 % (36.0-46.0); Hemoglobin 8.3 g/dL (12.2-16.2); Mean Corpuscular Hgb Conc. 31.2 g/dL (32.0-36.0); Mean Corpuscular Volume 99.3 fL (80.0-100.0); Monocytes # (auto) 0.5 10 ^3/uL (0-1.3); Monocytes % (auto) 9.4 % (0.0-12.0); Neutrophils # (auto) 3.4 10 ^3/uL (1.6-8.6); Neutrophils % (auto) 66.4 % (37.0-80.0); Nucleated Red Blood Cells % 0.1 %; Red Blood Cells 2.67 10^6/uL (4.0-5.20); Red Cell Distribution Width 15.5 % (11.8-14.3); White Blood Cell 5.1 10^3/uL (4.4-10.8)
[2022-11-09 00:36] LABS: INR 1.11 (0.9-1.15); Partial Thromboplastin Time 23.2 sec (24.6-33.4)
[2022-11-09] MEDS: METOPROLOL TARTRATE 1MG/1ML-5ML VIAL IV SCH ×5 (02:23→23:37)
[2022-11-09] MEDS ORDERED: SODIUM CHL 0.9% 1000 ML BAG XX ONE (04:15)
[2022-11-09] MEDS ORDERED: ALBUTEROL MEDNEB 2.5 mg/3ml NEB ONE ×2 (06:00→10:59)
[2022-11-09] MEDS: IPRATROPIUM BROM 0.5 MG/2.5ML INH SOL NEB SCH ×3 (06:02→17:52)
[2022-11-09] MEDS: ALBUTEROL SULF 2.5 MG/0.5ML(0.5%) NEB SOLN NEB SCH ×3 (06:05→17:52)
[2022-11-09] MEDS: MORPHINE SULFATE INJ 2 MG/ml SYRG IV PRN ×2 (07:14→13:51)
[2022-11-09 07:15] LABS: Eosinophils # (auto) 0.2 10 ^3/uL (0-0.8); Hemoglobin 8.3 g/dL (12.2-16.2); Monocytes # (auto) 0.5 10 ^3/uL (0-1.3); Neutrophils # (auto) 3.4 10 ^3/uL (1.6-8.6); Red Blood Cells 2.57 10^6/uL (4.0-5.20)
[2022-11-09 07:20] LABS: Basophils # (auto) 0 10 ^3/uL (0-0.2); Basophils % (auto) 0.8 % (0.0-2.0); Eosinophils % (auto) 4.1 % (0.0-7.0); Hematocrit 25.1 % (36.0-46.0); Lymphocytes # (auto) 1.3 10 ^3/uL (0.4-5.4); Lymphocytes % (auto) 23.8 % (10.0-50.0); Mean Corpuscular Hemoglobin 32.1 pg (28.0-32.0); Mean Corpuscular Volume 97.4 fL (80.0-100.0); Monocytes % (auto) 9.3 % (0.0-12.0); Nucleated Red Blood Cells % 0.3 %; Red Cell Distribution Width 15.6 % (11.8-14.3); White Blood Cell 5.5 10^3/uL (4.4-10.8)
[2022-11-09 07:32] LABS: INR 1.07 (0.9-1.15); Partial Thromboplastin Time 23.3 sec (24.6-33.4)
[2022-11-09 07:36] LABS: BUN/Creatinine Ratio 7.8; Calcium 7.7 mg/dL (8.5-10.1); Potassium 3.9 mmol/L (3.5-5.1)
[2022-11-09] MEDS: HEPARIN SODIUM (PORCINE) 5000 UNITS/ML 1ML VIAL SC SCH ×2 (07:38→21:42)
[2022-11-09] MEDS: ASPirin 81 mg TAB PO SCH (07:45)
[2022-11-09] MEDS: SEVELAMER 800 MG TAB PO SCH ×3 (09:20→17:49)
[2022-11-09 10:20] LABS: Urine Bacteria NONE SEEN /hpf (None Seen); Urine Blood Negative /uL (Negative); Urine Specific Gravity 1.018 (1.001-1.035); Urine WBC 1 /hpf (0 - 5)
[2022-11-09] MEDS: GABAPENTIN 400 MG CAP PO SCH ×2 (11:23→21:40)
[2022-11-09] MEDS: hydrALAZINE HCL 25 MG TAB PO SCH (11:23)
[2022-11-09] MEDS: PANTOPRAZOLE 40 MG/10 ML VIAL INJ IV SCH (11:23)
[2022-11-09] MEDS: amLODIPine BESYLATE 5 MG TAB PO SCH (11:24)
[2022-11-09] MEDS ORDERED: IODIXANOL 320MG/ML 100ML BTL IV ONE ×3 (14:07→15:07)
[2022-11-09] MEDS ORDERED: LIDOCAINE 2%HCL (LOCAL ANESTH.) INJ 20ML MDV ONE (14:07)
[2022-11-09] MEDS ORDERED: HEPARIN SODIUM (PORCINE) 5000 UNITS/ML 1ML VIAL ONE (14:22)
[2022-11-09] MEDS ORDERED: ANGIOMAX 250 MG VIAL IV ONE (14:22)
[2022-11-09] MEDS ORDERED: MIDAZOLAM HCL 2MG/2ML 2ml VIAL (1mg/ml) ONE (14:23)
[2022-11-09] MEDS ORDERED: VERAPAMIL 2.5MG/ML INJ 2ML VIAL IV ONE (14:23)
[2022-11-09] MEDS ORDERED: fentaNYL CITRATE 100 MCG/2 ML VL ONE (14:23)
[2022-11-09] MEDS ORDERED: SODIUM CHL 0.9% 50 ML ONE (14:23)
[2022-11-09] MEDS ORDERED: CLOPIDOGREL BISULFATE 75 MG TAB ONE (15:32)
[2022-11-09] MEDS ORDERED: EPOETIN ALFA-EPBX 10,000 UNIT/1ML VIAL SC ONE (21:00)
[2022-11-09] MEDS: CARVEDILOL 3.125 MG TAB PO SCH (21:39)
[2022-11-09] MEDS: ATORVASTATIN 20 MG TAB PO SCH (21:40)
[2022-11-10 05:00] VITALS: BP 141/62
[2022-11-10] MEDS: METOPROLOL TARTRATE 1MG/1ML-5ML VIAL IV SCH ×4 (05:33→23:59)
[2022-11-10] MEDS ORDERED: ALBUTEROL MEDNEB 2.5 mg/3ml NEB ONE ×2 (06:01→17:38)
[2022-11-10] MEDS: IPRATROPIUM BROM 0.5 MG/2.5ML INH SOL NEB SCH ×3 (06:51→18:03)
[2022-11-10] MEDS: ALBUTEROL SULF 2.5 MG/0.5ML(0.5%) NEB SOLN NEB SCH ×3 (06:51→18:02)
[2022-11-10 07:04] LABS: Basophils # (auto) 0.1 10 ^3/uL (0-0.2); Mean Corpuscular Hgb Conc. 32.2 g/dL (32.0-36.0); Monocytes # (auto) 0.6 10 ^3/uL (0-1.3); Red Blood Cells 2.52 10^6/uL (4.0-5.20)
[2022-11-10 07:07] LABS: Eosinophils # (auto) 0.3 10 ^3/uL (0-0.8); Eosinophils % (auto) 4.4 % (0.0-7.0); Hematocrit 24.7 % (36.0-46.0); Lymphocytes # (auto) 0.9 10 ^3/uL (0.4-5.4); Lymphocytes % (auto) 16.7 % (10.0-50.0); Mean Corpuscular Hemoglobin 31.6 pg (28.0-32.0); Mean Corpuscular Volume 98.1 fL (80.0-100.0); Monocytes % (auto) 9.8 % (0.0-12.0); Neutrophils # (auto) 3.8 10 ^3/uL (1.6-8.6); Neutrophils % (auto) 68.1 % (37.0-80.0); Nucleated Red Blood Cells % 0.3 %; Red Cell Distribution Width 15.4 % (11.8-14.3); White Blood Cell 5.6 10^3/uL (4.4-10.8)
[2022-11-10 07:29] LABS: Calcium 7.1 mg/dL (8.5-10.1); Potassium 4.2 mmol/L (3.5-5.1)
[2022-11-10 07:33] LABS: BUN/Creatinine Ratio 5.7; Bilirubin, Total 0.6 mg/dL (0.2-1.0); Total Protein 6.4 g/dL (6.4-8.2)
[2022-11-10] MEDS: SEVELAMER 800 MG TAB PO SCH ×3 (08:34→18:21)
[2022-11-10] MEDS: PANTOPRAZOLE 40 MG/10 ML VIAL INJ IV SCH (08:52)
[2022-11-10] MEDS: ASPirin 81 mg TAB PO SCH (08:53)
[2022-11-10] MEDS: CLOPIDOGREL BISULFATE 75 MG TAB PO SCH (08:53)
[2022-11-10] MEDS: MORPHINE SULFATE INJ 2 MG/ml SYRG IV PRN ×2 (08:53→23:52)
[2022-11-10] MEDS: CARVEDILOL 3.125 MG TAB PO SCH ×2 (08:55→21:53)
[2022-11-10] MEDS: GABAPENTIN 400 MG CAP PO SCH ×2 (08:55→21:49)
[2022-11-10 08:56] VITALS: BP 154/51
[2022-11-10] MEDS: amLODIPine BESYLATE 5 MG TAB PO SCH (08:56)
[2022-11-10] MEDS: LISINOPRIL 5 MG TAB PO SCH (08:56)
[2022-11-10] MEDS: hydrALAZINE HCL 25 MG TAB PO SCH (10:00)
[2022-11-10] MEDS: HEPARIN SODIUM (PORCINE) 5000 UNITS/ML 1ML VIAL SC SCH ×2 (12:43→21:53)
[2022-11-10 16:57] VITALS: BP 90/35
[2022-11-10] MEDS: ATORVASTATIN 20 MG TAB PO SCH (21:49)
[2022-11-10 22:00] VITALS: BP 101/51
[2022-11-11] VITALS (7 sets, daily range): BP systolic 101–124; BP diastolic 48–88
[2022-11-11] MEDS: METOPROLOL TARTRATE 1MG/1ML-5ML VIAL IV SCH ×4 (05:56→23:31)
[2022-11-11] MEDS ORDERED: ALBUTEROL MEDNEB 2.5 mg/3ml NEB ONE ×3 (06:59→18:07)
[2022-11-11] MEDS ORDERED: HYDROcodone-ACET 5/325MG TAB PO PRN (07:15)
[2022-11-11] MEDS: IPRATROPIUM BROM 0.5 MG/2.5ML INH SOL NEB SCH ×3 (07:54→18:10)
[2022-11-11] MEDS: ALBUTEROL SULF 2.5 MG/0.5ML(0.5%) NEB SOLN NEB SCH ×3 (07:54→18:10)
[2022-11-11] MEDS: SEVELAMER 800 MG TAB PO SCH ×3 (07:56→18:39)
[2022-11-11] MEDS: GABAPENTIN 400 MG CAP PO SCH ×2 (09:31→21:55)
[2022-11-11] MEDS: ASPirin 81 mg TAB PO SCH (09:31)
[2022-11-11] MEDS: CLOPIDOGREL BISULFATE 75 MG TAB PO SCH (09:32)
[2022-11-11] MEDS: LISINOPRIL 5 MG TAB PO SCH (09:32)
[2022-11-11] MEDS: PANTOPRAZOLE 40 MG/10 ML VIAL INJ IV SCH (09:33)
[2022-11-11] MEDS: amLODIPine BESYLATE 5 MG TAB PO SCH (09:33)
[2022-11-11] MEDS: HEPARIN SODIUM (PORCINE) 5000 UNITS/ML 1ML VIAL SC SCH ×2 (09:35→21:53)
[2022-11-11] MEDS: CARVEDILOL 3.125 MG TAB PO SCH ×2 (09:40→21:56)
[2022-11-11] MEDS: MORPHINE SULFATE INJ 2 MG/ml SYRG IV PRN ×2 (13:51→23:39)
[2022-11-11] MEDS: hydrALAZINE HCL 25 MG TAB PO SCH (14:05)
[2022-11-11] MEDS: ATORVASTATIN 20 MG TAB PO SCH (21:55)
[2022-11-12 05:00] VITALS: BP 121/48
[2022-11-12] MEDS: METOPROLOL TARTRATE 1MG/1ML-5ML VIAL IV SCH ×3 (05:30→18:00)
[2022-11-12] MEDS ORDERED: ALBUTEROL MEDNEB 2.5 mg/3ml NEB ONE ×3 (05:42→18:07)
[2022-11-12] MEDS: IPRATROPIUM BROM 0.5 MG/2.5ML INH SOL NEB SCH ×2 (05:53→11:30)
[2022-11-12] MEDS: ALBUTEROL SULF 2.5 MG/0.5ML(0.5%) NEB SOLN NEB SCH ×2 (05:53→11:30)
[2022-11-12 08:57] VITALS: BP 128/60
[2022-11-12] MEDS: HEPARIN SODIUM (PORCINE) 5000 UNITS/ML 1ML VIAL SC SCH (09:36)
[2022-11-12] MEDS: CLOPIDOGREL BISULFATE 75 MG TAB PO SCH (09:37)
[2022-11-12] MEDS: GABAPENTIN 400 MG CAP PO SCH (09:37)
[2022-11-12] MEDS: PANTOPRAZOLE 40 MG/10 ML VIAL INJ IV SCH (09:37)
[2022-11-12] MEDS: ASPirin 81 mg TAB PO SCH (09:37)
[2022-11-12] MEDS: SEVELAMER 800 MG TAB PO SCH ×3 (09:43→18:31)
[2022-11-12] MEDS: hydrALAZINE HCL 25 MG TAB PO SCH (10:00)
[2022-11-12] MEDS: CARVEDILOL 3.125 MG TAB PO SCH (10:00)
[2022-11-12] MEDS: LISINOPRIL 5 MG TAB PO SCH (10:00)
[2022-11-12] MEDS: amLODIPine BESYLATE 5 MG TAB PO SCH (10:00)
[2022-11-12] MEDS ORDERED: ASPI1CHW15 PO (11:59)
[2022-11-12] MEDS ORDERED: CAR3125T PO (11:59)
[2022-11-12] MEDS ORDERED: CLOP75TA28 PO (11:59)
[2022-11-12 13:00] VITALS: BP 135/76
[2022-11-12] MEDS ORDERED: SODIUM CHL 0.9% 1000 ML BAG XX ONE (15:30)
[2022-11-12 16:07] VITALS: BP 138/58
[2022-11-12 17:00] VITALS: BP 108/76
[2022-11-12] MEDS ORDERED: EPOETIN ALFA-EPBX 10,000 UNIT/1ML VIAL SC ONE (21:00)
== END 2022-11-12 19:04 | disposition home or self-care (01) | DRG 246 ==
LOC: ER 10:00 → EDBD 10:00 → TELE 19:52 → TELE-EAST 11-09 17:11
PROVIDERS: ADMIT Registered Nurse; ATTEND Internal Medicine
PROC: 5A1D70Z Performance of Urinary Filtration, Intermittent, Less than 6 Hours Per Day (ICD-10-PCS; 2022-11-08)
PROC: 027034Z Dilation of Coronary Artery, One Artery with Drug-eluting Intraluminal Device, Percutaneous Approach (ICD-10-PCS; principal; 2022-11-09)
PROC: 4A023N7 Measurement of Cardiac Sampling and Pressure, Left Heart, Percutaneous Approach (ICD-10-PCS; 2022-11-09)
PROC: B211YZZ Fluoroscopy of Multiple Coronary Arteries using Other Contrast (ICD-10-PCS; 2022-11-09)
PROC: B215YZZ Fluoroscopy of Left Heart using Other Contrast (ICD-10-PCS; 2022-11-09)
PROC: 5A1D70Z Performance of Urinary Filtration, Intermittent, Less than 6 Hours Per Day (ICD-10-PCS; 2022-11-09)
PROC: 5A1D70Z Performance of Urinary Filtration, Intermittent, Less than 6 Hours Per Day (ICD-10-PCS; 2022-11-12)
DX: T82.855A Stenosis of coronary artery stent, initial encounter (principal); I21.4 Non-ST elevation (NSTEMI) myocardial infarction; I50.43 Acute on chronic combined systolic (congestive) and diastolic (congestive) heart failure; J18.9 Pneumonia, unspecified organism; J96.20 Acute and chronic respiratory failure, unspecified whether with hypoxia or hypercapnia; N18.6 End stage renal disease; E44.1 Mild protein-calorie malnutrition; I13.2 Hypertensive heart and chronic kidney disease with heart failure and with stage 5 chronic kidney disease, or end stage renal disease; J44.0 Chronic obstructive pulmonary disease with (acute) lower respiratory infection; J44.1 Chronic obstructive pulmonary disease with (acute) exacerbation; D63.1 Anemia in chronic kidney disease; D69.6 Thrombocytopenia, unspecified; E11.22 Type 2 diabetes mellitus with diabetic chronic kidney disease; E11.59 Type 2 diabetes mellitus with other circulatory complications; E66.01 Morbid (severe) obesity due to excess calories; E78.5 Hyperlipidemia, unspecified; E87.5 Hyperkalemia; G89.4 Chronic pain syndrome; I25.10 Atherosclerotic heart disease of native coronary artery without angina pectoris; Z20.822 Contact with and (suspected) exposure to COVID-19; I27.20 Pulmonary hypertension, unspecified; F41.9 Anxiety disorder, unspecified; Y84.0 Cardiac catheterization as the cause of abnormal reaction of the patient, or of later complication, without mention of misadventure at the time of the procedure; I72.4 Aneurysm of artery of lower extremity; Z79.4 Long term (current) use of insulin; Z79.84 Long term (current) use of oral hypoglycemic drugs; Z85.42 Personal history of malignant neoplasm of other parts of uterus; Z99.2 Dependence on renal dialysis; Z79.82 Long term (current) use of aspirin; Z79.02 Long term (current) use of antithrombotics/antiplatelets; Z79.899 Other long term (current) drug therapy; Z82.3 Family history of stroke; Z82.49 Family history of ischemic heart disease and other diseases of the circulatory system; Z83.3 Family history of diabetes mellitus; Z90.710 Acquired absence of both cervix and uterus; Z71.3 Dietary counseling and surveillance; Y92.89 Other specified places as the place of occurrence of the external cause; Z68.37 Body mass index [BMI] 37.0-37.9, adult; Z88.5 Allergy status to narcotic agent
CPT/HCPCS: 36415; 71045; 71275; 80048; 80053; 80061; 81001; 83036; 83735; 83880; 84132; 84443; 84484; 85025; 85379; 85610; 85730; 87040; 87426; 90935; 93005; 93306; 93970; 93971; 94640; 94644; 96361; 96374; 96375; 99152; 99153; 99291; C1874; C9113; G0378; J0696; J1815; J2250; J2405; Q9967

== ENCOUNTER 2023-08-08 02:34 | Inpatient (IN) | payer MEDICARE, MEDICAID ==
[2023-08-08] VITALS (11 sets, daily range): BP systolic 134–147; BP diastolic 63–72; PULSE 86–120; RESP 12–21; TEMP 97.3–97.8; O2SAT 86–100
[~2023-08-08] VITALS: Ht 157.5 cm; Wt 94.3 kg
[~2023-08-08 02:34] MED LIST changes: -AMLO-496 PO; +AMLO1TAB23 PO; +ASPI-736 PO; -ASPI1CHW15 PO; +CAR3125T PO; -CEPH-510 PO; +HYDR-4297 PO; -HYDR50TA15 PO; +METH-1182 PO; -METH750T22 PO
[2023-08-08 03:49] LABS: Basophils # (auto) 0.1 10 ^3/uL (0-0.2); Basophils % (auto) 0.9 % (0.0-2.0); Eosinophils # (auto) 0.1 10 ^3/uL (0-0.8); Eosinophils % (auto) 0.6 % (0.0-7.0); Hematocrit 22.5 % (36.0-46.0); Hemoglobin 7.4 g/dL (12.2-16.2); Lymphocytes # (auto) 0.9 10 ^3/uL (0.4-5.4); Lymphocytes % (auto) 11.2 % (10.0-50.0); Mean Corpuscular Hemoglobin 34.1 pg (28.0-32.0); Mean Corpuscular Volume 103.3 fL (80.0-100.0); Monocytes # (auto) 0.5 10 ^3/uL (0-1.3); Monocytes % (auto) 5.6 % (0.0-12.0); Neutrophils # (auto) 6.6 10 ^3/uL (1.6-8.6); Neutrophils % (auto) 81.7 % (37.0-80.0); Nucleated Red Blood Cells % 0.1 %; Red Blood Cells 2.18 10^6/uL (4.0-5.20); White Blood Cell 8.1 10^3/uL (4.4-10.8)
[2023-08-08] MEDS ORDERED: MORPHINE SULFATE INJ 2 MG/ml SYRG IV ONE (04:00)
[2023-08-08 04:08] LABS: INR 1.04 (0.9-1.15); Partial Thromboplastin Time 23.6 SEC (24.5-34.5); Prothrombin Time 10.9 sec (9.3-11.8)
[2023-08-08 04:09] LABS: Alanine Aminotransferase 14 U/L (7-40); Albumin 3.8 g/dL (3.2-4.8); Alkaline Phosphatase 125 U/L (46-116); Anion Gap 11 (5-15); Aspartate Aminotransferase 19 U/L (13-40); BUN/Creatinine Ratio 9.4 (10.0-20.0); Bilirubin, Total 0.3 mg/dL (0.2-1.0); Blood Urea Nitrogen 70 mg/dL (9-23); Calcium 7.6 mg/dL (8.7-10.4); Carbon Dioxide 19 mmol/L (20-30); Chloride 105 mmol/L (98-107); Sodium 135 mmol/L (136-145); Total Protein 7.1 g/dL (5.7-8.2)
[2023-08-08 04:30] LABS: Glucose 271 mg/dL (74-106)
[2023-08-08] MEDS ORDERED: SODIUM BICARBONATE 8.4 % INJ 50ML VIAL IV ONE (05:00)
[2023-08-08] MEDS ORDERED: FUROSEMIDE 100 MG/10ML VIAL IV ONE (05:00)
[2023-08-08] MEDS ORDERED: ALBUTEROL SULF 2.5 MG/0.5ML(0.5%) NEB SOLN NEB ONE (05:00)
[2023-08-08] MEDS ORDERED: InsuLIN REG 1unit/0.01ml Soln (100units/ml) IV ONE (05:45)
[2023-08-08] MEDS ORDERED: DEXTROSE (50%) 50ML SYRG IV PRN (10:45)
[2023-08-08] MEDS ORDERED: ENOXAPARIN SOD 40 MG/0.4 ML SYRINGE SC SCH (10:45)
[2023-08-08] MEDS ORDERED: DOCUSATE SOD 100 MG CAP PO PRN (10:45)
[2023-08-08 11:24] LABS: Hematocrit 22.1 % (36.0-46.0); Hemoglobin 7.1 g/dL (12.2-16.2)
[2023-08-08] MEDS: InsuLIN REG 1unit/0.01ml Soln (100units/ml) SC SCH ×3 (11:30→22:57)
[2023-08-08 11:35] LABS: Folate (Folic Acid) 12.02 ng/mL (>5.38)
[2023-08-08 11:36] LABS: Ferritin > 1650.0 ng/mL (10-291)
[2023-08-08] MEDS: ACCU-CHEK COMFORT CURVE STRIP VI SCH ×3 (11:36→22:00)
[2023-08-08 11:46] LABS: Base Excess -6.6 mmol/L (-2.0-2.0)
[2023-08-08] MEDS: IPRATROPIUM BROM 0.5 MG/2.5ML INH SOL NEB SCH ×2 (11:46→18:19)
[2023-08-08] MEDS: LEVALBUTEROL HCL 1.25 MG/3 ML NEB NEB SCH ×2 (11:46→18:19)
[2023-08-08] MEDS: ONDANSETRON HCL 4 MG/2 ML VIAL IV PRN ×2 (11:57→21:09)
[2023-08-08] MEDS: MORPHINE SULFATE INJ 2 MG/ml SYRG IV PRN ×2 (11:58→21:10)
[2023-08-08] MEDS: GABAPENTIN 300 MG CAP PO SCH (13:06)
[2023-08-08] MEDS ORDERED: SODIUM ZIRCONIUM CYCL 10 GM PAK PO ONE (13:15)
[2023-08-08] MEDS ORDERED: SODIUM CHL 0.9% 1000 ML BAG XX ONE (14:00)
[2023-08-08 14:05] LABS: Magnesium 2.3 mg/dL (1.6-2.6)
[2023-08-08 14:07] LABS: Phosphorus 5.7 mg/dL (2.4-5.1)
[2023-08-08] MEDS: SEVELAMER 800 MG TAB PO SCH ×2 (14:19→23:01)
[2023-08-08 15:24] LABS: COVID19 ANTIGEN SOFIA FIA NEGATIVE (NEGATIVE); Rapid Influenza A Negative (Negative); Rapid Influenza B Negative (Negative)
[2023-08-08] MEDS ORDERED: dilTIAZem 25 MG/5 ML VIAL IV ONE (22:00)
[2023-08-08] MEDS: CARVEDILOL 3.125 MG TAB PO SCH (23:02)
[2023-08-08] MEDS: ATORVASTATIN 20 MG TAB PO SCH (23:13)
[2023-08-09] VITALS (13 sets, daily range): BP systolic 145–149; BP diastolic 69–74; PULSE 89–111; RESP 16–22; TEMP 97.9–99.1; O2SAT 92–100
[2023-08-09] MEDS: LEVALBUTEROL HCL 1.25 MG/3 ML NEB NEB SCH ×4 (00:40→19:00)
[2023-08-09] MEDS: IPRATROPIUM BROM 0.5 MG/2.5ML INH SOL NEB SCH ×4 (00:40→19:00)
[2023-08-09] MEDS: ONDANSETRON HCL 4 MG/2 ML VIAL IV PRN ×2 (03:00→12:51)
[2023-08-09] MEDS: MORPHINE SULFATE INJ 2 MG/ml SYRG IV PRN (03:00)
[2023-08-09] MEDS: METHOCARBAMOL 500 MG TAB PO PRN ×2 (05:01→11:47)
[2023-08-09 05:29] LABS: Basophils # (auto) 0.1 10 ^3/uL (0-0.2); Eosinophils # (auto) 0.1 10 ^3/uL (0-0.8); Eosinophils % (auto) 2.3 % (0.0-7.0); Monocytes # (auto) 0.5 10 ^3/uL (0-1.3); Neutrophils # (auto) 3.8 10 ^3/uL (1.6-8.6); White Blood Cell 5.4 10^3/uL (4.4-10.8)
[2023-08-09 05:31] LABS: Basophils % (auto) 1.1 % (0.0-2.0); Hemoglobin 7.8 g/dL (12.2-16.2); Lymphocytes # (auto) 0.9 10 ^3/uL (0.4-5.4); Lymphocytes % (auto) 17.6 % (10.0-50.0); Mean Corpuscular Hemoglobin 33.3 pg (28.0-32.0); Mean Corpuscular Hgb Conc. 33.8 g/dL (32.0-36.0); Mean Corpuscular Volume 98.6 fL (80.0-100.0); Monocytes % (auto) 8.7 % (0.0-12.0); Neutrophils % (auto) 70.3 % (37.0-80.0); Nucleated Red Blood Cells % 0.1 %; Red Blood Cells 2.34 10^6/uL (4.0-5.20); Red Cell Distribution Width 16.6 % (11.8-14.3)
[2023-08-09 05:36] LABS: Alanine Aminotransferase 17 U/L (7-40); Albumin 3.8 g/dL (3.2-4.8); Alkaline Phosphatase 93 U/L (46-116); Anion Gap 8 (5-15); Calcium 7.9 mg/dL (8.5-10.1); Carbon Dioxide 29 mmol/L (20-30); Chloride 103 mmol/L (98-107); Glucose 105 mg/dL (74-106); Potassium 5.4 mmol/L (3.5-5.1); Sodium 140 mmol/L (136-145)
[2023-08-09 05:37] LABS: Aspartate Aminotransferase 19 U/L (13-40); Bilirubin, Total 0.4 mg/dL (0.2-1.0)
[2023-08-09 06:04] LABS: Blood Urea Nitrogen 38 mg/dL (9-23)
[2023-08-09] MEDS: SEVELAMER 800 MG TAB PO SCH ×3 (06:21→22:22)
[2023-08-09] MEDS: ACCU-CHEK COMFORT CURVE STRIP VI SCH ×4 (06:43→22:21)
[2023-08-09] MEDS: InsuLIN REG 1unit/0.01ml Soln (100units/ml) SC SCH ×4 (06:44→22:28)
[2023-08-09] MEDS ORDERED: SODIUM CHL 0.9% 1000 ML BAG XX ONE (07:00)
[2023-08-09] MEDS: amLODIPine BESYLATE 5 MG TAB PO SCH (10:00)
[2023-08-09] MEDS: hydrALAZINE HCL 25 MG TAB PO SCH (10:00)
[2023-08-09 11:18] LABS: Hematocrit 26.4 % (36.0-46.0); Hemoglobin 8.8 g/dL (12.2-16.2)
[2023-08-09] MEDS: CLOPIDOGREL BISULFATE 75 MG TAB PO SCH (11:43)
[2023-08-09] MEDS: ENOXAPARIN SOD 30 MG/0.3 ML SYRINGE SC SCH (11:43)
[2023-08-09] MEDS: ASPirin-EC 81 mg tab PO SCH (11:43)
[2023-08-09] MEDS: PANTOPRAZOLE 40 MG TAB PO SCH (11:43)
[2023-08-09] MEDS: CARVEDILOL 3.125 MG TAB PO SCH ×2 (11:44→22:22)
[2023-08-09] MEDS: FUROSEMIDE 100 MG/10ML VIAL IV SCH (11:44)
[2023-08-09] MEDS: GABAPENTIN 300 MG CAP PO SCH (15:24)
[2023-08-09] MEDS: ATORVASTATIN 20 MG TAB PO SCH (22:22)
[2023-08-10] VITALS (15 sets, daily range): BP systolic 120–144; BP diastolic 35–69; PULSE 60–84; RESP 16–20; TEMP 97.5–98.2; O2SAT 93–100
[2023-08-10] MEDS: LEVALBUTEROL HCL 1.25 MG/3 ML NEB NEB SCH ×4 (00:40→18:27)
[2023-08-10] MEDS: IPRATROPIUM BROM 0.5 MG/2.5ML INH SOL NEB SCH ×4 (00:41→18:27)
[2023-08-10 05:20] LABS: Eosinophils # (auto) 0.1 10 ^3/uL (0-0.8); Hematocrit 22.8 % (36.0-46.0); Hemoglobin 7.7 g/dL (12.2-16.2); Lymphocytes # (auto) 0.8 10 ^3/uL (0.4-5.4); Mean Corpuscular Hemoglobin 33.8 pg (28.0-32.0); Monocytes # (auto) 0.4 10 ^3/uL (0-1.3); Neutrophils # (auto) 2.3 10 ^3/uL (1.6-8.6); Nucleated Red Blood Cells % 0.1 %
[2023-08-10 05:24] LABS: Basophils # (auto) 0 10 ^3/uL (0-0.2); Basophils % (auto) 1.3 % (0.0-2.0); Eosinophils % (auto) 3.7 % (0.0-7.0); Lymphocytes % (auto) 21.1 % (10.0-50.0); Mean Corpuscular Hgb Conc. 33.9 g/dL (32.0-36.0); Mean Corpuscular Volume 99.8 fL (80.0-100.0); Monocytes % (auto) 11.9 % (0.0-12.0); Red Blood Cells 2.29 10^6/uL (4.0-5.20); White Blood Cell 3.7 10^3/uL (4.4-10.8)
[2023-08-10 05:26] LABS: Chloride 103 mmol/L (98-107); Potassium 4.8 mmol/L (3.5-5.1); Sodium 140 mmol/L (136-145)
[2023-08-10 05:27] LABS: Anion Gap 7 (5-15); Carbon Dioxide 30 mmol/L (20-30)
[2023-08-10 05:28] LABS: Calcium 7.7 mg/dL (8.5-10.1)
[2023-08-10 05:32] LABS: BUN/Creatinine Ratio 7.5 (10.0-20.0); Blood Urea Nitrogen 36 mg/dL (9-23); Glucose 120 mg/dL (74-106)
[2023-08-10] MEDS: ACCU-CHEK COMFORT CURVE STRIP VI SCH ×4 (06:15→21:44)
[2023-08-10] MEDS: SEVELAMER 800 MG TAB PO SCH ×3 (06:15→21:38)
[2023-08-10] MEDS: InsuLIN REG 1unit/0.01ml Soln (100units/ml) SC SCH ×4 (06:24→21:47)
[2023-08-10] MEDS ORDERED: SODIUM CHL 0.9% 1000 ML BAG XX ONE (07:00)
[2023-08-10] MEDS: FUROSEMIDE 100 MG/10ML VIAL IV SCH (10:56)
[2023-08-10] MEDS: ASPirin-EC 81 mg tab PO SCH (10:57)
[2023-08-10] MEDS: CLOPIDOGREL BISULFATE 75 MG TAB PO SCH (10:58)
[2023-08-10] MEDS: PANTOPRAZOLE 40 MG TAB PO SCH (10:58)
[2023-08-10] MEDS: amLODIPine BESYLATE 5 MG TAB PO SCH (10:58)
[2023-08-10] MEDS: hydrALAZINE HCL 25 MG TAB PO SCH (10:58)
[2023-08-10] MEDS: LIDOCAINE 5% TOPICAL PATCH TOP SCH (10:59)
[2023-08-10] MEDS: CARVEDILOL 3.125 MG TAB PO SCH ×2 (10:59→21:40)
[2023-08-10] MEDS: ENOXAPARIN SOD 30 MG/0.3 ML SYRINGE SC SCH (10:59)
[2023-08-10] MEDS: GABAPENTIN 300 MG CAP PO SCH (12:27)
[2023-08-10] MEDS ORDERED: EPOETIN ALFA-EPBX 10,000 UNIT/1ML VIAL SC ONE (21:00)
[2023-08-10] MEDS: ATORVASTATIN 20 MG TAB PO SCH (21:38)
[2023-08-11] VITALS (11 sets, daily range): BP systolic 146–157; BP diastolic 64–68; PULSE 73–78; RESP 16–21; TEMP 98–98.3; O2SAT 94–100
[2023-08-11] MEDS: ACCU-CHEK COMFORT CURVE STRIP VI SCH ×4 (05:32→22:10)
[2023-08-11] MEDS: SEVELAMER 800 MG TAB PO SCH ×3 (05:32→22:10)
[2023-08-11] MEDS: InsuLIN REG 1unit/0.01ml Soln (100units/ml) SC SCH ×4 (05:37→22:09)
[2023-08-11 05:44] LABS: Eosinophils # (auto) 0.2 10 ^3/uL (0-0.8); Lymphocytes # (auto) 0.9 10 ^3/uL (0.4-5.4); Monocytes # (auto) 0.4 10 ^3/uL (0-1.3); Neutrophils # (auto) 2.5 10 ^3/uL (1.6-8.6); White Blood Cell 4.1 10^3/uL (4.4-10.8)
[2023-08-11 05:46] LABS: Basophils # (auto) 0.1 10 ^3/uL (0-0.2); Basophils % (auto) 1.3 % (0.0-2.0); Eosinophils % (auto) 3.7 % (0.0-7.0); Hematocrit 23.5 % (36.0-46.0); Hemoglobin 7.8 g/dL (12.2-16.2); Lymphocytes % (auto) 21.8 % (10.0-50.0); Mean Corpuscular Hemoglobin 33.5 pg (28.0-32.0); Mean Corpuscular Hgb Conc. 33.2 g/dL (32.0-36.0); Mean Corpuscular Volume 100.9 fL (80.0-100.0); Neutrophils % (auto) 62.2 % (37.0-80.0); Red Blood Cells 2.33 10^6/uL (4.0-5.20); Red Cell Distribution Width 15.7 % (11.8-14.3)
[2023-08-11 06:11] LABS: Alanine Aminotransferase 13 U/L (7-40); Alkaline Phosphatase 94 U/L (46-116); Anion Gap 10 (5-15); BUN/Creatinine Ratio 7.2 (10.0-20.0); Calcium 6.9 mg/dL (8.7-10.4); Carbon Dioxide 26 mmol/L (20-30); Chloride 100 mmol/L (98-107); Glucose 127 mg/dL (74-106); Potassium 4.7 mmol/L (3.5-5.1); Sodium 136 mmol/L (136-145)
[2023-08-11 06:12] LABS: Albumin 3.5 g/dL (3.2-4.8); Aspartate Aminotransferase 14 U/L (13-40); Bilirubin, Total 0.3 mg/dL (0.2-1.0); Total Protein 6.6 g/dL (5.7-8.2)
[2023-08-11 06:27] LABS: Blood Urea Nitrogen 46 mg/dL (9-23)
[2023-08-11] MEDS ORDERED: SODIUM CHL 0.9% 1000 ML BAG XX ONE (07:00)
[2023-08-11] MEDS: LEVALBUTEROL HCL 1.25 MG/3 ML NEB NEB SCH ×4 (08:02→18:00)
[2023-08-11] MEDS: IPRATROPIUM BROM 0.5 MG/2.5ML INH SOL NEB SCH ×4 (08:02→18:00)
[2023-08-11] MEDS: amLODIPine BESYLATE 5 MG TAB PO SCH (10:00)
[2023-08-11] MEDS: FUROSEMIDE 100 MG/10ML VIAL IV SCH (10:00)
[2023-08-11] MEDS: CLOPIDOGREL BISULFATE 75 MG TAB PO SCH (10:00)
[2023-08-11] MEDS: hydrALAZINE HCL 25 MG TAB PO SCH (10:00)
[2023-08-11] MEDS: ASPirin-EC 81 mg tab PO SCH (10:00)
[2023-08-11] MEDS: CARVEDILOL 3.125 MG TAB PO SCH (10:00)
[2023-08-11] MEDS: PANTOPRAZOLE 40 MG TAB PO SCH (10:44)
[2023-08-11] MEDS: LIDOCAINE 5% TOPICAL PATCH TOP SCH (10:44)
[2023-08-11] MEDS: ENOXAPARIN SOD 30 MG/0.3 ML SYRINGE SC SCH (10:45)
[2023-08-11] MEDS: GABAPENTIN 300 MG CAP PO SCH (13:24)
[2023-08-11] MEDS ORDERED: EPOETIN ALFA-EPBX 10,000 UNIT/1ML VIAL SC ONE (21:00)
[2023-08-11] MEDS: ATORVASTATIN 20 MG TAB PO SCH (22:10)
[2023-08-11] MEDS: CARVEDILOL 12.5 MG TAB PO SCH (22:13)
[2023-08-11] MEDS: ONDANSETRON HCL 4 MG/2 ML VIAL IV PRN (22:41)
[2023-08-12 00:11] VITALS: PULSE 79; RESP 16; O2SAT 100
[2023-08-12] MEDS: IPRATROPIUM BROM 0.5 MG/2.5ML INH SOL NEB SCH ×3 (00:16→12:00)
[2023-08-12] MEDS: LEVALBUTEROL HCL 1.25 MG/3 ML NEB NEB SCH ×3 (00:16→12:00)
[2023-08-12 00:19] VITALS: PULSE 80; RESP 16; O2SAT 100
[2023-08-12 04:26] VITALS: BP 155/60; PULSE 77; RESP 16; TEMP 97.9; O2SAT 97
[2023-08-12 05:06] LABS: Eosinophils # (auto) 0.2 10 ^3/uL (0-0.8); Hemoglobin 7.7 g/dL (12.2-16.2); Lymphocytes # (auto) 0.8 10 ^3/uL (0.4-5.4); Monocytes # (auto) 0.5 10 ^3/uL (0-1.3)
[2023-08-12 05:09] LABS: Basophils # (auto) 0.1 10 ^3/uL (0-0.2); Basophils % (auto) 1.3 % (0.0-2.0); Eosinophils % (auto) 3.3 % (0.0-7.0); Hematocrit 22.5 % (36.0-46.0); Lymphocytes % (auto) 18.5 % (10.0-50.0); Mean Corpuscular Hemoglobin 34.3 pg (28.0-32.0); Mean Corpuscular Hgb Conc. 34.1 g/dL (32.0-36.0); Mean Corpuscular Volume 100.7 fL (80.0-100.0); Neutrophils % (auto) 65.9 % (37.0-80.0); Red Blood Cells 2.24 10^6/uL (4.0-5.20); Red Cell Distribution Width 15.3 % (11.8-14.3); White Blood Cell 4.5 10^3/uL (4.4-10.8)
[2023-08-12 05:15] LABS: Chloride 101 mmol/L (98-107); Sodium 136 mmol/L (136-145)
[2023-08-12 05:16] LABS: Anion Gap 11 (5-15); Carbon Dioxide 24 mmol/L (20-30)
[2023-08-12 05:17] LABS: Calcium 6.6 mg/dL (8.7-10.4)
[2023-08-12 05:21] LABS: Glucose 132 mg/dL (74-106)
[2023-08-12 05:22] LABS: BUN/Creatinine Ratio 8.3 (10.0-20.0)
[2023-08-12 05:59] LABS: Blood Urea Nitrogen 63 mg/dL (9-23)
[2023-08-12] MEDS: ACCU-CHEK COMFORT CURVE STRIP VI SCH ×2 (06:19→11:30)
[2023-08-12] MEDS: InsuLIN REG 1unit/0.01ml Soln (100units/ml) SC SCH ×2 (06:19→11:30)
[2023-08-12] MEDS: SEVELAMER 800 MG TAB PO SCH ×2 (06:21→14:00)
[2023-08-12] MEDS ORDERED: SODIUM CHL 0.9% 1000 ML BAG XX ONE (07:00)
[2023-08-12 08:00] VITALS: BP 155/60; PULSE 77; PULSE 78; RESP 16; TEMP 97.9; O2SAT 97
[2023-08-12 09:00] VITALS: BP 155/91; PULSE 79; RESP 18; TEMP 97.9; O2SAT 97
[2023-08-12] MEDS: LIDOCAINE 5% TOPICAL PATCH TOP SCH (10:00)
[2023-08-12] MEDS: PANTOPRAZOLE 40 MG TAB PO SCH (11:33)
[2023-08-12] MEDS: hydrALAZINE HCL 25 MG TAB PO SCH (11:33)
[2023-08-12] MEDS: amLODIPine BESYLATE 5 MG TAB PO SCH (11:35)
[2023-08-12] MEDS: CLOPIDOGREL BISULFATE 75 MG TAB PO SCH (11:35)
[2023-08-12] MEDS: ASPirin-EC 81 mg tab PO SCH (11:35)
[2023-08-12] MEDS: ONDANSETRON HCL 4 MG/2 ML VIAL IV PRN (11:36)
[2023-08-12] MEDS: CARVEDILOL 12.5 MG TAB PO SCH (11:36)
[2023-08-12] MEDS: ENOXAPARIN SOD 30 MG/0.3 ML SYRINGE SC SCH (11:36)
[2023-08-12] MEDS: FUROSEMIDE 100 MG/10ML VIAL IV SCH (11:37)
[2023-08-12] MEDS: GABAPENTIN 300 MG CAP PO SCH (12:48)
[2023-08-12 13:00] VITALS: BP 155/55; PULSE 83; RESP 20; TEMP 98.1; O2SAT 97
== END 2023-08-12 14:18 | disposition home or self-care (01) | DRG 280 ==
LOC: EDBD 02:34 → ER 02:34 → EDUNIT# 02:34 → TELE 10:54 → TELE-CENTR 08-09 08:05
PROVIDERS: ADMIT Nurse Practitioner Family; ATTEND Internal Medicine Pulmonary Disease
PROC: 5A1D70Z Performance of Urinary Filtration, Intermittent, Less than 6 Hours Per Day (ICD-10-PCS; 2023-08-08)
PROC: 30233N1 Transfusion of Nonautologous Red Blood Cells into Peripheral Vein, Percutaneous Approach (ICD-10-PCS; 2023-08-08)
PROC: 5A09357 Assistance with Respiratory Ventilation, Less than 24 Consecutive Hours, Continuous Positive Airway Pressure (ICD-10-PCS; 2023-08-08)
PROC: 5A1D70Z Performance of Urinary Filtration, Intermittent, Less than 6 Hours Per Day (ICD-10-PCS; 2023-08-09)
PROC: 5A1D70Z Performance of Urinary Filtration, Intermittent, Less than 6 Hours Per Day (ICD-10-PCS; principal; 2023-08-12)
DX: I21.4 Non-ST elevation (NSTEMI) myocardial infarction (principal); I50.23 Acute on chronic systolic (congestive) heart failure; J96.01 Acute respiratory failure with hypoxia; N18.6 End stage renal disease; D62 Acute posthemorrhagic anemia; E87.20 Acidosis, unspecified; N25.81 Secondary hyperparathyroidism of renal origin; J44.1 Chronic obstructive pulmonary disease with (acute) exacerbation; I13.2 Hypertensive heart and chronic kidney disease with heart failure and with stage 5 chronic kidney disease, or end stage renal disease; I47.20 Ventricular tachycardia, unspecified; J44.0 Chronic obstructive pulmonary disease with (acute) lower respiratory infection; Z99.2 Dependence on renal dialysis; D63.1 Anemia in chronic kidney disease; E78.5 Hyperlipidemia, unspecified; E87.5 Hyperkalemia; E11.65 Type 2 diabetes mellitus with hyperglycemia; F41.9 Anxiety disorder, unspecified; D72.819 Decreased white blood cell count, unspecified; E66.01 Morbid (severe) obesity due to excess calories; G89.29 Other chronic pain; Z20.822 Contact with and (suspected) exposure to COVID-19; I25.10 Atherosclerotic heart disease of native coronary artery without angina pectoris; E11.22 Type 2 diabetes mellitus with diabetic chronic kidney disease; I25.2 Old myocardial infarction; Z90.49 Acquired absence of other specified parts of digestive tract; Z90.710 Acquired absence of both cervix and uterus; Z83.3 Family history of diabetes mellitus; Z82.49 Family history of ischemic heart disease and other diseases of the circulatory system; Z82.3 Family history of stroke; Z80.9 Family history of malignant neoplasm, unspecified; Z88.5 Allergy status to narcotic agent; Z68.38 Body mass index [BMI] 38.0-38.9, adult
CPT/HCPCS: 36415; 36430; 36600; 71045; 80048; 80053; 82607; 82728; 82746; 82805; 82962; 83036; 83735; 83880; 84100; 84132; 84484; 85014; 85018; 85025; 85045; 85610; 85730; 86850; 86900; 86901; 86920; 87340; 87426; 87804; 90935; 93005; 93306; 94640; 94660; G0378; J1642; J1815; J2405

== ENCOUNTER 2023-08-17 16:27 | Inpatient (IN) | payer MEDICARE, MEDICAID ==
[~2023-08-17] VITALS: Ht 157.5 cm; Wt 87.8 kg
[2023-08-17 18:14] LABS: Basophils # (auto) 0.1 10 ^3/uL (0-0.2); Basophils % (auto) 0.7 % (0.0-2.0); Eosinophils # (auto) 0.1 10 ^3/uL (0-0.8); Hematocrit 27.4 % (36.0-46.0); Hemoglobin 9.1 g/dL (12.2-16.2); Lymphocytes # (auto) 0.7 10 ^3/uL (0.4-5.4); Lymphocytes % (auto) 8.1 % (10.0-50.0); Mean Corpuscular Hemoglobin 33.1 pg (28.0-32.0); Mean Corpuscular Hgb Conc. 33.1 g/dL (32.0-36.0); Mean Corpuscular Volume 99.8 fL (80.0-100.0); Monocytes # (auto) 0.7 10 ^3/uL (0-1.3); Monocytes % (auto) 7.8 % (0.0-12.0); Neutrophils # (auto) 7.2 10 ^3/uL (1.6-8.6); Neutrophils % (auto) 82.4 % (37.0-80.0); Red Blood Cells 2.75 10^6/uL (4.0-5.20); Red Cell Distribution Width 15.4 % (11.8-14.3); White Blood Cell 8.8 10^3/uL (4.4-10.8)
[2023-08-17 18:29] LABS: Alanine Aminotransferase 16 U/L (7-40); Albumin 4.4 g/dL (3.2-4.8); Alkaline Phosphatase 99 U/L (46-116); Anion Gap 6 (5-15); Aspartate Aminotransferase 19 U/L (13-40); BUN/Creatinine Ratio 6.1 (10.0-20.0); Bilirubin, Total 0.5 mg/dL (0.2-1.0); Blood Urea Nitrogen 19 mg/dL (9-23); Calcium 8.3 mg/dL (8.7-10.4); Carbon Dioxide 31 mmol/L (20-30); Chloride 97 mmol/L (98-107); Glucose 112 mg/dL (74-106); Lipase 48 U/L (12-53); Potassium 3.6 mmol/L (3.5-5.1); Sodium 134 mmol/L (136-145); Total Protein 8.1 g/dL (5.7-8.2)
[2023-08-17] MEDS ORDERED: FUROSEMIDE 40 MG/4 ML VIAL IV ONE (19:45)
[2023-08-17] MEDS ORDERED: HYDROcodone-ACET 10/325MG TAB PO ONE (20:00)
[2023-08-17] MEDS ORDERED: CALCIUM GLUC 1,000mg/50ml-NS 50 ML IV ONE (20:00)
[2023-08-17] MEDS ORDERED: SODIUM CHLORIDE 0.9% 1,000 ML IV ONE (20:00)
[2023-08-17] MEDS ORDERED: DOCUSATE SOD 100 MG CAP PO PRN (20:15)
[2023-08-17] MEDS ORDERED: NITROGLYCERIN 0.4 MG SL TAB SL PRN (20:15)
[2023-08-17] MEDS ORDERED: hydrALAZINE HCL 20 MG/ML VL IV PRN (20:15)
[2023-08-17] MEDS ORDERED: DEXTROSE (50%) 50ML SYRG IV PRN (20:15)
[2023-08-17 20:28] LABS: INR 1.03 (0.9-1.15); Prothrombin Time 10.8 sec (9.3-11.8)
[2023-08-17] MEDS: ATORVASTATIN 20 MG TAB PO SCH (22:20)
[2023-08-17] MEDS: SODIUM CHLOR 0.9% PF (SALINE LOCK) 10ML VIAL/SYR IV SCH (22:21)
[2023-08-17] MEDS: CARVEDILOL 3.125 MG TAB PO SCH (22:21)
[2023-08-17] MEDS: FAMOTIDINE (10MG/ML) 2ML VL IV SCH (22:21)
[2023-08-17] MEDS: ACCU-CHEK COMFORT CURVE STRIP VI SCH (22:34)
[2023-08-17] MEDS: InsuLIN REG 1unit/0.01ml Soln (100units/ml) SC SCH (22:48)
[2023-08-18] VITALS (7 sets, daily range): BP systolic 103–132; BP diastolic 51–59; PULSE 69–79; RESP 18–20; TEMP 98.1; O2SAT 94–100
[2023-08-18] MEDS ORDERED: ACETAMINOPHEN 500 MG TAB PO ONE (04:45)
[2023-08-18] MEDS: SODIUM CHLOR 0.9% PF (SALINE LOCK) 10ML VIAL/SYR IV SCH ×3 (05:30→21:44)
[2023-08-18 05:56] LABS: Eosinophils # (auto) 0.2 10 ^3/uL (0-0.8); Hemoglobin 8.3 g/dL (12.2-16.2); Neutrophils # (auto) 3.5 10 ^3/uL (1.6-8.6)
[2023-08-18 05:59] LABS: Basophils # (auto) 0.1 10 ^3/uL (0-0.2); Basophils % (auto) 1.1 % (0.0-2.0); Eosinophils % (auto) 3.3 % (0.0-7.0); Hematocrit 24.2 % (36.0-46.0); Lymphocytes # (auto) 0.8 10 ^3/uL (0.4-5.4); Lymphocytes % (auto) 16.3 % (10.0-50.0); Mean Corpuscular Hemoglobin 34.1 pg (28.0-32.0); Mean Corpuscular Hgb Conc. 34.3 g/dL (32.0-36.0); Mean Corpuscular Volume 99.3 fL (80.0-100.0); Monocytes # (auto) 0.6 10 ^3/uL (0-1.3); Monocytes % (auto) 11.2 % (0.0-12.0); Neutrophils % (auto) 68.1 % (37.0-80.0); Red Blood Cells 2.44 10^6/uL (4.0-5.20); Red Cell Distribution Width 15.4 % (11.8-14.3); White Blood Cell 5.2 10^3/uL (4.4-10.8)
[2023-08-18] MEDS: InsuLIN REG 1unit/0.01ml Soln (100units/ml) SC SCH ×4 (06:23→21:50)
[2023-08-18] MEDS: ACCU-CHEK COMFORT CURVE STRIP VI SCH ×4 (06:23→21:45)
[2023-08-18 06:24] LABS: Alanine Aminotransferase 17 U/L (7-40); Albumin 3.8 g/dL (3.2-4.8); Alkaline Phosphatase 86 U/L (46-116); Anion Gap 7 (5-15); Aspartate Aminotransferase 27 U/L (13-40); BUN/Creatinine Ratio 5.9 (10.0-20.0); Bilirubin, Total 0.5 mg/dL (0.2-1.0); Blood Urea Nitrogen 24 mg/dL (9-23); Calcium 7.9 mg/dL (8.7-10.4); Carbon Dioxide 30 mmol/L (20-30); Chloride 97 mmol/L (98-107); Glucose 101 mg/dL (74-106); Potassium 4.1 mmol/L (3.5-5.1); Sodium 134 mmol/L (136-145)
[2023-08-18 06:25] LABS: Total Protein 7.1 g/dL (5.7-8.2)
[2023-08-18] MEDS ORDERED: IPRATROPIUM BROM 0.5 MG/2.5ML INH SOL NEB PRN ×2 (07:30)
[2023-08-18] MEDS: CALCIUM ACETATE 667 MG CAP PO SCH ×3 (09:03→17:50)
[2023-08-18] MEDS: SEVELAMER 800 MG TAB PO SCH ×3 (09:03→17:51)
[2023-08-18] MEDS: B-COMPLEX W/ C & FOLIC ACID(NEPHROVITE TAB) PO SCH (09:09)
[2023-08-18] MEDS: CLOPIDOGREL BISULFATE 75 MG TAB PO SCH (09:09)
[2023-08-18] MEDS: ASPirin 81 mg TAB PO SCH (09:10)
[2023-08-18] MEDS: FAMOTIDINE (10MG/ML) 2ML VL IV SCH ×2 (09:10→21:44)
[2023-08-18] MEDS: FUROSEMIDE 40 MG/4 ML VIAL IV SCH (09:10)
[2023-08-18] MEDS: CARVEDILOL 3.125 MG TAB PO SCH ×2 (09:10→21:46)
[2023-08-18] MEDS: HYDROcodone-ACET 5/325MG TAB PO PRN ×2 (09:34→16:12)
[2023-08-18 09:47] LABS: LDL Cholesterol 99 mg/dL (< 100); Triglycerides 91 mg/dL (< 150)
[2023-08-18 09:48] LABS: HDL Cholesterol 36 mg/dL (40-59)
[2023-08-18 09:49] LABS: Cholesterol 156 mg/dL (< 200)
[2023-08-18] MEDS ORDERED: ALBUTEROL MEDNEB 2.5 mg/3ml NEB ONE (14:01)
[2023-08-18] MEDS ORDERED: INFLUENZA QUAD 2023-2024 0.5 ML SYRG IM ONE (16:15)
[2023-08-18] MEDS: ATORVASTATIN 20 MG TAB PO SCH (21:46)
[2023-08-19] VITALS (11 sets, daily range): BP systolic 111–134; BP diastolic 46–55; PULSE 74–85; RESP 16–19; TEMP 97.7–98.6; O2SAT 92–100
[2023-08-19] MEDS: HYDROcodone-ACET 5/325MG TAB PO PRN (06:08)
[2023-08-19] MEDS: EMPAGLIFLOZIN 10 MG TAB PO SCH (06:09)
[2023-08-19] MEDS: ACCU-CHEK COMFORT CURVE STRIP VI SCH ×4 (06:16→21:25)
[2023-08-19] MEDS: SODIUM CHLOR 0.9% PF (SALINE LOCK) 10ML VIAL/SYR IV SCH ×3 (06:16→21:10)
[2023-08-19] MEDS: InsuLIN REG 1unit/0.01ml Soln (100units/ml) SC SCH ×4 (06:17→21:26)
[2023-08-19] MEDS: FAMOTIDINE (10MG/ML) 2ML VL IV SCH ×2 (08:02→21:09)
[2023-08-19] MEDS: B-COMPLEX W/ C & FOLIC ACID(NEPHROVITE TAB) PO SCH (08:02)
[2023-08-19] MEDS: FUROSEMIDE 40 MG/4 ML VIAL IV SCH (08:02)
[2023-08-19] MEDS: ASPirin 81 mg TAB PO SCH (08:02)
[2023-08-19 08:03] LABS: Basophils # (auto) 0.1 10 ^3/uL (0-0.2); Eosinophils # (auto) 0.2 10 ^3/uL (0-0.8); Hemoglobin 8.2 g/dL (12.2-16.2); Red Cell Distribution Width 15.3 % (11.8-14.3)
[2023-08-19] MEDS: CLOPIDOGREL BISULFATE 75 MG TAB PO SCH (08:03)
[2023-08-19] MEDS: amLODIPine BESYLATE 5 MG TAB PO SCH (08:03)
[2023-08-19] MEDS: CARVEDILOL 3.125 MG TAB PO SCH ×2 (08:03→21:18)
[2023-08-19] MEDS: CALCIUM ACETATE 667 MG CAP PO SCH ×3 (08:04→17:52)
[2023-08-19 08:06] LABS: Basophils % (auto) 1.3 % (0.0-2.0); Eosinophils % (auto) 3.6 % (0.0-7.0); Hematocrit 24.5 % (36.0-46.0); Lymphocytes % (auto) 17.6 % (10.0-50.0); Mean Corpuscular Hemoglobin 33.6 pg (28.0-32.0); Mean Corpuscular Hgb Conc. 33.4 g/dL (32.0-36.0); Mean Corpuscular Volume 100.7 fL (80.0-100.0); Monocytes # (auto) 0.5 10 ^3/uL (0-1.3); Monocytes % (auto) 9.6 % (0.0-12.0); Neutrophils # (auto) 3.7 10 ^3/uL (1.6-8.6); Neutrophils % (auto) 67.9 % (37.0-80.0); Red Blood Cells 2.44 10^6/uL (4.0-5.20); White Blood Cell 5.4 10^3/uL (4.4-10.8)
[2023-08-19] MEDS: ONDANSETRON HCL 4 MG/2 ML VIAL IV PRN (08:14)
[2023-08-19] MEDS: SEVELAMER 800 MG TAB PO SCH ×3 (08:14→17:53)
[2023-08-19 08:27] LABS: Alanine Aminotransferase 15 U/L (7-40); Albumin 3.7 g/dL (3.2-4.8); Alkaline Phosphatase 77 U/L (46-116); Anion Gap 10 (5-15); Aspartate Aminotransferase 18 U/L (13-40); BUN/Creatinine Ratio 6.9 (10.0-20.0); Carbon Dioxide 27 mmol/L (20-30); Chloride 98 mmol/L (98-107); Glucose 112 mg/dL (74-106); Potassium 4.8 mmol/L (3.5-5.1); Sodium 135 mmol/L (136-145)
[2023-08-19 08:28] LABS: Bilirubin, Total 0.2 mg/dL (0.2-1.0); Phosphorus 7.2 mg/dL (2.4-5.1)
[2023-08-19 08:32] LABS: Blood Urea Nitrogen 39 mg/dL (9-23)
[2023-08-19 09:26] LABS: Magnesium 2.1 mg/dL (1.6-2.6)
[2023-08-19] MEDS ORDERED: PATIENTS OWN MEDICATION (Amlodipine Besylate 1 TAB) PO SCH (10:00)
[2023-08-19] MEDS ORDERED: CLOPIDOGREL BISULFATE 75 MG TAB PO SCH (10:00)
[2023-08-19] MEDS ORDERED: SODIUM CHL 0.9% 1000 ML BAG XX ONE (10:45)
[2023-08-19] MEDS ORDERED: LIDO1PAD55 TOP (11:20)
[2023-08-19] MEDS ORDERED: DICL1GEL73 TOP (11:20)
[2023-08-19] MEDS: diphenhdrAMINE HCL 50 MG/1 ML VL IV PRN ×2 (12:10→21:09)
[2023-08-19] MEDS ORDERED: EPOETIN ALFA-EPBX 10,000 UNIT/1ML VIAL SC ONE (21:00)
[2023-08-19] MEDS: ATORVASTATIN 20 MG TAB PO SCH (21:08)
[2023-08-20] VITALS (8 sets, daily range): BP systolic 122–172; BP diastolic 56–72; PULSE 78–86; RESP 16–19; TEMP 98–98.6; O2SAT 94–100
[2023-08-20 06:11] LABS: Basophils # (auto) 0.1 10 ^3/uL (0-0.2); Eosinophils # (auto) 0.2 10 ^3/uL (0-0.8); Eosinophils % (auto) 3.6 % (0.0-7.0); Hematocrit 25.5 % (36.0-46.0); Hemoglobin 8.6 g/dL (12.2-16.2); Lymphocytes # (auto) 1.1 10 ^3/uL (0.4-5.4); Lymphocytes % (auto) 18.6 % (10.0-50.0); Mean Corpuscular Hemoglobin 33.5 pg (28.0-32.0); Mean Corpuscular Hgb Conc. 33.5 g/dL (32.0-36.0); Mean Corpuscular Volume 99.8 fL (80.0-100.0); Monocytes # (auto) 0.6 10 ^3/uL (0-1.3); Monocytes % (auto) 10.1 % (0.0-12.0); Neutrophils # (auto) 3.9 10 ^3/uL (1.6-8.6); Neutrophils % (auto) 66.7 % (37.0-80.0); Nucleated Red Blood Cells % 0.1 %; Red Blood Cells 2.56 10^6/uL (4.0-5.20); Red Cell Distribution Width 15.1 % (11.8-14.3); White Blood Cell 5.9 10^3/uL (4.4-10.8)
[2023-08-20 06:16] LABS: Anion Gap 9 (5-15); Carbon Dioxide 26 mmol/L (20-30); Chloride 99 mmol/L (98-107); Potassium 4.9 mmol/L (3.5-5.1); Sodium 134 mmol/L (136-145)
[2023-08-20 06:17] LABS: Calcium 7.7 mg/dL (8.7-10.4)
[2023-08-20 06:22] LABS: Glucose 106 mg/dL (74-106)
[2023-08-20 06:24] LABS: Blood Urea Nitrogen 49 mg/dL (9-23)
[2023-08-20] MEDS: InsuLIN REG 1unit/0.01ml Soln (100units/ml) SC SCH ×4 (06:27→22:26)
[2023-08-20] MEDS: ACCU-CHEK COMFORT CURVE STRIP VI SCH ×4 (06:27→22:15)
[2023-08-20] MEDS: EMPAGLIFLOZIN 10 MG TAB PO SCH (06:27)
[2023-08-20] MEDS: SODIUM CHLOR 0.9% PF (SALINE LOCK) 10ML VIAL/SYR IV SCH ×3 (06:40→22:15)
[2023-08-20] MEDS: ASPirin 81 mg TAB PO SCH (09:28)
[2023-08-20] MEDS: B-COMPLEX W/ C & FOLIC ACID(NEPHROVITE TAB) PO SCH (09:28)
[2023-08-20] MEDS: amLODIPine BESYLATE 5 MG TAB PO SCH (09:28)
[2023-08-20] MEDS: SEVELAMER 800 MG TAB PO SCH ×3 (09:28→18:34)
[2023-08-20] MEDS: CARVEDILOL 3.125 MG TAB PO SCH ×2 (09:29→22:10)
[2023-08-20] MEDS: CLOPIDOGREL BISULFATE 75 MG TAB PO SCH (09:29)
[2023-08-20] MEDS: FAMOTIDINE (10MG/ML) 2ML VL IV SCH ×2 (09:30→21:47)
[2023-08-20] MEDS: CALCIUM ACETATE 667 MG CAP PO SCH ×3 (09:30→18:34)
[2023-08-20] MEDS: FUROSEMIDE 40 MG/4 ML VIAL IV SCH (09:30)
[2023-08-20] MEDS: MUPIROCIN 2% OINT 15gm or 22gm FOR MRSA NARES EACHNOSTRI SCH ×2 (10:00→22:27)
[2023-08-20] MEDS: diphenhdrAMINE HCL 50 MG/1 ML VL IV PRN ×2 (11:22→21:46)
[2023-08-20] MEDS: ONDANSETRON HCL 4 MG/2 ML VIAL IV PRN (21:47)
[2023-08-20] MEDS: ATORVASTATIN 20 MG TAB PO SCH (22:10)
[2023-08-21] VITALS (9 sets, daily range): BP systolic 124–151; BP diastolic 40–68; PULSE 79–85; RESP 17–19; TEMP 98–98.3; O2SAT 94–99
[2023-08-21] MEDS: ACCU-CHEK COMFORT CURVE STRIP VI SCH ×4 (06:22→21:43)
[2023-08-21] MEDS: InsuLIN REG 1unit/0.01ml Soln (100units/ml) SC SCH ×4 (06:22→22:11)
[2023-08-21] MEDS: EMPAGLIFLOZIN 10 MG TAB PO SCH (06:23)
[2023-08-21] MEDS: SODIUM CHLOR 0.9% PF (SALINE LOCK) 10ML VIAL/SYR IV SCH ×3 (06:23→22:08)
[2023-08-21 06:48] LABS: Basophils # (auto) 0.1 10 ^3/uL (0-0.2); Eosinophils # (auto) 0.2 10 ^3/uL (0-0.8); Hematocrit 24.1 % (36.0-46.0); Hemoglobin 8.3 g/dL (12.2-16.2); Mean Corpuscular Hgb Conc. 34.5 g/dL (32.0-36.0); Monocytes % (auto) 9.9 % (0.0-12.0)
[2023-08-21 06:51] LABS: Eosinophils % (auto) 3.1 % (0.0-7.0); Lymphocytes % (auto) 18.1 % (10.0-50.0); Mean Corpuscular Hemoglobin 34.4 pg (28.0-32.0); Mean Corpuscular Volume 99.8 fL (80.0-100.0); Monocytes # (auto) 0.5 10 ^3/uL (0-1.3); Neutrophils # (auto) 3.6 10 ^3/uL (1.6-8.6); Neutrophils % (auto) 67.9 % (37.0-80.0); Red Blood Cells 2.42 10^6/uL (4.0-5.20); Red Cell Distribution Width 14.7 % (11.8-14.3); White Blood Cell 5.3 10^3/uL (4.4-10.8)
[2023-08-21 06:57] LABS: Anion Gap 5 (5-15); Carbon Dioxide 29 mmol/L (20-30); Chloride 102 mmol/L (98-107); Potassium 4.8 mmol/L (3.5-5.1); Sodium 136 mmol/L (136-145)
[2023-08-21 07:03] LABS: Glucose 96 mg/dL (74-106)
[2023-08-21 07:04] LABS: BUN/Creatinine Ratio 6.2 (10.0-20.0)
[2023-08-21 07:09] LABS: Blood Urea Nitrogen 35 mg/dL (9-23)
[2023-08-21] MEDS: CLOPIDOGREL BISULFATE 75 MG TAB PO SCH (09:16)
[2023-08-21] MEDS: SEVELAMER 800 MG TAB PO SCH ×3 (09:16→18:21)
[2023-08-21] MEDS: B-COMPLEX W/ C & FOLIC ACID(NEPHROVITE TAB) PO SCH (09:16)
[2023-08-21] MEDS: ASPirin 81 mg TAB PO SCH (09:16)
[2023-08-21] MEDS: CARVEDILOL 3.125 MG TAB PO SCH ×2 (09:16→21:55)
[2023-08-21] MEDS: CALCIUM ACETATE 667 MG CAP PO SCH ×3 (09:16→18:21)
[2023-08-21] MEDS: FAMOTIDINE (10MG/ML) 2ML VL IV SCH ×2 (09:17→21:43)
[2023-08-21] MEDS: amLODIPine BESYLATE 5 MG TAB PO SCH (09:17)
[2023-08-21] MEDS: FUROSEMIDE 40 MG/4 ML VIAL IV SCH (09:18)
[2023-08-21] MEDS: MUPIROCIN 2% OINT 15gm or 22gm FOR MRSA NARES EACHNOSTRI SCH ×2 (09:18→21:43)
[2023-08-21] MEDS: diphenhdrAMINE HCL 50 MG/1 ML VL IV PRN ×2 (10:34→21:43)
[2023-08-21] MEDS: ATORVASTATIN 20 MG TAB PO SCH (21:53)
[2023-08-22] VITALS (11 sets, daily range): BP systolic 120–183; BP diastolic 44–99; PULSE 81–90; RESP 12–18; TEMP 97.5–98.9; O2SAT 95–98
[2023-08-22] MEDS: SODIUM CHLOR 0.9% PF (SALINE LOCK) 10ML VIAL/SYR IV SCH ×3 (06:00→21:04)
[2023-08-22] MEDS: EMPAGLIFLOZIN 10 MG TAB PO SCH (06:34)
[2023-08-22] MEDS: ACCU-CHEK COMFORT CURVE STRIP VI SCH ×4 (06:35→21:23)
[2023-08-22] MEDS: InsuLIN REG 1unit/0.01ml Soln (100units/ml) SC SCH ×4 (06:35→21:23)
[2023-08-22 06:59] LABS: Calcium 8.8 mg/dL (8.5-10.1); Chloride 103 mmol/L (98-107); Potassium 5.3 mmol/L (3.5-5.1); Sodium 138 mmol/L (136-145)
[2023-08-22 07:00] LABS: Anion Gap 8 (5-15); Carbon Dioxide 27 mmol/L (20-30)
[2023-08-22] MEDS ORDERED: SODIUM CHL 0.9% 1000 ML BAG XX ONE (07:00)
[2023-08-22 07:04] LABS: Basophils # (auto) 0.1 10 ^3/uL (0-0.2); Eosinophils # (auto) 0.2 10 ^3/uL (0-0.8); INR 1.08 (0.9-1.15); Mean Corpuscular Hgb Conc. 34.6 g/dL (32.0-36.0); Monocytes # (auto) 0.6 10 ^3/uL (0-1.3); Neutrophils # (auto) 3.8 10 ^3/uL (1.6-8.6); Prothrombin Time 11.3 sec (9.3-11.8); White Blood Cell 5.7 10^3/uL (4.4-10.8)
[2023-08-22 07:05] LABS: BUN/Creatinine Ratio 6.5 (10.0-20.0); Blood Urea Nitrogen 44 mg/dL (9-23); Glucose 97 mg/dL (74-106)
[2023-08-22 07:07] LABS: Basophils % (auto) 1.2 % (0.0-2.0); Eosinophils % (auto) 2.9 % (0.0-7.0); Hematocrit 25.5 % (36.0-46.0); Hemoglobin 8.8 g/dL (12.2-16.2); Lymphocytes % (auto) 18.3 % (10.0-50.0); Mean Corpuscular Hemoglobin 34.7 pg (28.0-32.0); Mean Corpuscular Volume 100.1 fL (80.0-100.0); Monocytes % (auto) 9.9 % (0.0-12.0); Neutrophils % (auto) 67.7 % (37.0-80.0); Red Blood Cells 2.55 10^6/uL (4.0-5.20); Red Cell Distribution Width 15.1 % (11.8-14.3)
[2023-08-22] MEDS: SEVELAMER 800 MG TAB PO SCH ×3 (08:07→18:00)
[2023-08-22] MEDS: CALCIUM ACETATE 667 MG CAP PO SCH ×3 (08:07→18:00)
[2023-08-22] MEDS: MUPIROCIN 2% OINT 15gm or 22gm FOR MRSA NARES EACHNOSTRI SCH ×2 (10:00→21:24)
[2023-08-22] MEDS: ASPirin 81 mg TAB PO SCH (11:04)
[2023-08-22] MEDS: FUROSEMIDE 40 MG/4 ML VIAL IV SCH (11:04)
[2023-08-22] MEDS: FAMOTIDINE (10MG/ML) 2ML VL IV SCH ×2 (11:04→20:58)
[2023-08-22] MEDS: B-COMPLEX W/ C & FOLIC ACID(NEPHROVITE TAB) PO SCH (11:05)
[2023-08-22] MEDS: CARVEDILOL 3.125 MG TAB PO SCH ×2 (11:05→21:02)
[2023-08-22] MEDS: amLODIPine BESYLATE 5 MG TAB PO SCH (11:06)
[2023-08-22] MEDS: CLOPIDOGREL BISULFATE 75 MG TAB PO SCH (11:06)
[2023-08-22] MEDS ORDERED: LIDOCAINE 2%HCL (LOCAL ANESTH.) INJ 20ML MDV ONE (14:04)
[2023-08-22] MEDS ORDERED: IODIXANOL 320MG/ML 100ML BTL IV ONE (14:05)
[2023-08-22] MEDS ORDERED: ANGIOMAX 250 MG VIAL IV ONE (14:15)
[2023-08-22] MEDS ORDERED: fentaNYL CITRATE 100 MCG/2 ML VL ONE ×2 (14:15→15:34)
[2023-08-22] MEDS ORDERED: MIDAZOLAM HCL 2MG/2ML 2ml VIAL (1mg/ml) ONE (14:16)
[2023-08-22] MEDS ORDERED: SODIUM CHL 0.9% 0 ML ONE (14:16)
[2023-08-22] MEDS ORDERED: HEPARIN SODIUM (PORCINE) 5000 UNITS/ML 1ML VIAL ONE ×2 (14:52→15:33)
[2023-08-22] MEDS ORDERED: VERAPAMIL 2.5MG/ML INJ 2ML VIAL IV ONE (14:52)
[2023-08-22] MEDS ORDERED: hydrALAZINE HCL 20 MG/ML VL ONE (16:24)
[2023-08-22] MEDS ORDERED: SODIUM ZIRCONIUM CYCL 10 GM PAK PO ONE (17:30)
[2023-08-22] MEDS: HYDROcodone-ACET 5/325MG TAB PO PRN (17:45)
[2023-08-22 19:08] LABS: Basophils # (auto) 0.1 10 ^3/uL (0-0.2); Basophils % (auto) 2.1 % (0.0-2.0); Eosinophils # (auto) 0.2 10 ^3/uL (0-0.8); Hematocrit 26.4 % (36.0-46.0); Hemoglobin 8.8 g/dL (12.2-16.2); Lymphocytes # (auto) 1.1 10 ^3/uL (0.4-5.4); Lymphocytes % (auto) 20.7 % (10.0-50.0); Mean Corpuscular Hemoglobin 33.4 pg (28.0-32.0); Mean Corpuscular Hgb Conc. 33.2 g/dL (32.0-36.0); Mean Corpuscular Volume 100.8 fL (80.0-100.0); Monocytes # (auto) 0.5 10 ^3/uL (0-1.3); Monocytes % (auto) 9.1 % (0.0-12.0); Neutrophils # (auto) 3.6 10 ^3/uL (1.6-8.6); Neutrophils % (auto) 65.1 % (37.0-80.0); Nucleated Red Blood Cells % 0.1 %; Red Blood Cells 2.62 10^6/uL (4.0-5.20); Red Cell Distribution Width 14.7 % (11.8-14.3); White Blood Cell 5.5 10^3/uL (4.4-10.8)
[2023-08-22 19:12] LABS: Chloride 104 mmol/L (98-107); Potassium 4.6 mmol/L (3.5-5.1); Sodium 136 mmol/L (136-145)
[2023-08-22 19:13] LABS: Anion Gap 9 (5-15); Carbon Dioxide 23 mmol/L (20-30)
[2023-08-22 19:14] LABS: Calcium 8.6 mg/dL (8.7-10.4)
[2023-08-22 19:19] LABS: BUN/Creatinine Ratio 6.3 (10.0-20.0); Blood Urea Nitrogen 46 mg/dL (9-23); Glucose 130 mg/dL (74-106)
[2023-08-22] MEDS: diphenhdrAMINE HCL 50 MG/1 ML VL IV PRN (20:58)
[2023-08-22] MEDS: ATORVASTATIN 20 MG TAB PO SCH (20:59)
[2023-08-23] VITALS (8 sets, daily range): BP systolic 124–170; BP diastolic 44–85; PULSE 75–98; RESP 16–19; TEMP 97.8–98.6; O2SAT 77–99
[2023-08-23] MEDS: HYDROcodone-ACET 5/325MG TAB PO PRN (04:36)
[2023-08-23] MEDS: diphenhdrAMINE HCL 50 MG/1 ML VL IV PRN (04:36)
[2023-08-23 05:07] LABS: Basophils # (auto) 0.1 10 ^3/uL (0-0.2); Basophils % (auto) 1.2 % (0.0-2.0); Eosinophils # (auto) 0.2 10 ^3/uL (0-0.8); Eosinophils % (auto) 3.1 % (0.0-7.0); Hematocrit 27.2 % (36.0-46.0); Hemoglobin 9.1 g/dL (12.2-16.2); Lymphocytes % (auto) 15.6 % (10.0-50.0); Mean Corpuscular Hemoglobin 33.6 pg (28.0-32.0); Mean Corpuscular Hgb Conc. 33.5 g/dL (32.0-36.0); Mean Corpuscular Volume 100.3 fL (80.0-100.0); Monocytes # (auto) 0.6 10 ^3/uL (0-1.3); Monocytes % (auto) 9.6 % (0.0-12.0); Neutrophils # (auto) 4.7 10 ^3/uL (1.6-8.6); Neutrophils % (auto) 70.5 % (37.0-80.0); Nucleated Red Blood Cells % 0.2 %; Red Blood Cells 2.71 10^6/uL (4.0-5.20); Red Cell Distribution Width 14.6 % (11.8-14.3); White Blood Cell 6.6 10^3/uL (4.4-10.8)
[2023-08-23 05:40] LABS: Chloride 104 mmol/L (98-107); Sodium 136 mmol/L (136-145)
[2023-08-23 05:41] LABS: Anion Gap 11 (5-15); Carbon Dioxide 21 mmol/L (20-30)
[2023-08-23 05:46] LABS: Glucose 103 mg/dL (74-106)
[2023-08-23 05:47] LABS: BUN/Creatinine Ratio 5.7 (10.0-20.0); Blood Urea Nitrogen 44 mg/dL (9-23)
[2023-08-23] MEDS: EMPAGLIFLOZIN 10 MG TAB PO SCH (06:20)
[2023-08-23] MEDS: SODIUM CHLOR 0.9% PF (SALINE LOCK) 10ML VIAL/SYR IV SCH ×3 (06:20→22:15)
[2023-08-23] MEDS: InsuLIN REG 1unit/0.01ml Soln (100units/ml) SC SCH ×4 (06:21→22:00)
[2023-08-23] MEDS: ACCU-CHEK COMFORT CURVE STRIP VI SCH ×4 (06:21→22:15)
[2023-08-23] MEDS ORDERED: SODIUM CHL 0.9% 1000 ML BAG XX ONE (06:45)
[2023-08-23] MEDS ORDERED: hydrALAZINE HCL 20 MG/ML VL IV PRN (08:00)
[2023-08-23] MEDS: SEVELAMER 800 MG TAB PO SCH ×3 (08:06→17:20)
[2023-08-23] MEDS: CALCIUM ACETATE 667 MG CAP PO SCH ×3 (08:06→17:20)
[2023-08-23] MEDS: ONDANSETRON HCL 4 MG/2 ML VIAL IV PRN (08:11)
[2023-08-23] MEDS: CARVEDILOL 3.125 MG TAB PO SCH ×2 (11:17→22:07)
[2023-08-23] MEDS: FAMOTIDINE (10MG/ML) 2ML VL IV SCH ×2 (11:17→22:10)
[2023-08-23] MEDS: FUROSEMIDE 40 MG/4 ML VIAL IV SCH (11:17)
[2023-08-23] MEDS: ASPirin 81 mg TAB PO SCH (11:17)
[2023-08-23] MEDS: amLODIPine BESYLATE 5 MG TAB PO SCH (11:18)
[2023-08-23] MEDS: CLOPIDOGREL BISULFATE 75 MG TAB PO SCH (11:18)
[2023-08-23] MEDS: B-COMPLEX W/ C & FOLIC ACID(NEPHROVITE TAB) PO SCH (11:18)
[2023-08-23] MEDS: MUPIROCIN 2% OINT 15gm or 22gm FOR MRSA NARES EACHNOSTRI SCH ×2 (11:19→22:13)
[2023-08-23] MEDS: MORPHINE SULFATE INJ 2 MG/ml SYRG IV PRN ×2 (11:34→20:51)
[2023-08-23] MEDS: ATORVASTATIN 20 MG TAB PO SCH (22:06)
[2023-08-24] VITALS (8 sets, daily range): BP systolic 128–138; BP diastolic 48–71; PULSE 76–90; RESP 16–19; TEMP 97.4–98.8; O2SAT 95–99
[2023-08-24] MEDS: MORPHINE SULFATE INJ 2 MG/ml SYRG IV PRN ×3 (04:56→20:40)
[2023-08-24 06:02] LABS: Anion Gap 9 (5-15); Carbon Dioxide 26 mmol/L (20-30); Chloride 102 mmol/L (98-107); Potassium 4.4 mmol/L (3.5-5.1); Sodium 137 mmol/L (136-145)
[2023-08-24 06:03] LABS: Calcium 9.3 mg/dL (8.7-10.4)
[2023-08-24] MEDS: EMPAGLIFLOZIN 10 MG TAB PO SCH (06:07)
[2023-08-24] MEDS: ACCU-CHEK COMFORT CURVE STRIP VI SCH ×4 (06:07→22:57)
[2023-08-24 06:08] LABS: BUN/Creatinine Ratio 5.2 (10.0-20.0); Glucose 105 mg/dL (74-106)
[2023-08-24] MEDS: SODIUM CHLOR 0.9% PF (SALINE LOCK) 10ML VIAL/SYR IV SCH ×3 (06:09→22:57)
[2023-08-24 06:24] LABS: Blood Urea Nitrogen 29 mg/dL (9-23)
[2023-08-24 06:26] LABS: Eosinophils # (auto) 0.1 10 ^3/uL (0-0.8); Eosinophils % (auto) 2.5 % (0.0-7.0); Hemoglobin 9.5 g/dL (12.2-16.2); Lymphocytes # (auto) 1.1 10 ^3/uL (0.4-5.4)
[2023-08-24 06:29] LABS: Basophils # (auto) 0.1 10 ^3/uL (0-0.2); Basophils % (auto) 1.4 % (0.0-2.0); Hematocrit 27.8 % (36.0-46.0); Mean Corpuscular Hemoglobin 33.9 pg (28.0-32.0); Mean Corpuscular Hgb Conc. 34.2 g/dL (32.0-36.0); Mean Corpuscular Volume 99.2 fL (80.0-100.0); Monocytes # (auto) 0.7 10 ^3/uL (0-1.3); Monocytes % (auto) 11.9 % (0.0-12.0); Neutrophils # (auto) 3.7 10 ^3/uL (1.6-8.6); Neutrophils % (auto) 64.2 % (37.0-80.0); Red Blood Cells 2.81 10^6/uL (4.0-5.20); Red Cell Distribution Width 14.6 % (11.8-14.3); White Blood Cell 5.7 10^3/uL (4.4-10.8)
[2023-08-24] MEDS: InsuLIN REG 1unit/0.01ml Soln (100units/ml) SC SCH ×4 (06:38→22:00)
[2023-08-24] MEDS: SEVELAMER 800 MG TAB PO SCH ×3 (08:15→17:10)
[2023-08-24] MEDS: CALCIUM ACETATE 667 MG CAP PO SCH ×3 (08:15→17:10)
[2023-08-24] MEDS: ASPirin 81 mg TAB PO SCH (11:25)
[2023-08-24] MEDS: B-COMPLEX W/ C & FOLIC ACID(NEPHROVITE TAB) PO SCH (11:25)
[2023-08-24] MEDS: FAMOTIDINE (10MG/ML) 2ML VL IV SCH ×2 (11:26→22:55)
[2023-08-24] MEDS: amLODIPine BESYLATE 5 MG TAB PO SCH (11:26)
[2023-08-24] MEDS: CARVEDILOL 3.125 MG TAB PO SCH ×2 (11:26→22:55)
[2023-08-24] MEDS: FUROSEMIDE 40 MG/4 ML VIAL IV SCH (11:27)
[2023-08-24] MEDS: CLOPIDOGREL BISULFATE 75 MG TAB PO SCH (11:33)
[2023-08-24] MEDS: MUPIROCIN 2% OINT 15gm or 22gm FOR MRSA NARES EACHNOSTRI SCH ×2 (12:10→22:55)
[2023-08-24] MEDS: ATORVASTATIN 20 MG TAB PO SCH (22:54)
[2023-08-24] MEDS: diphenhdrAMINE HCL 50 MG/1 ML VL IV PRN (22:59)
[2023-08-25 05:00] VITALS: PULSE 81; RESP 18; TEMP 98.1; O2SAT 97
[2023-08-25] MEDS: MORPHINE SULFATE INJ 2 MG/ml SYRG IV PRN (05:24)
[2023-08-25 05:26] LABS: Chloride 100 mmol/L (98-107); Potassium 4.5 mmol/L (3.5-5.1); Sodium 135 mmol/L (136-145)
[2023-08-25 05:27] LABS: Anion Gap 9 (5-15); Carbon Dioxide 26 mmol/L (20-30)
[2023-08-25 05:28] LABS: Calcium 9.1 mg/dL (8.7-10.4)
[2023-08-25 05:33] LABS: BUN/Creatinine Ratio 5.1 (10.0-20.0); Blood Urea Nitrogen 35 mg/dL (9-23); Glucose 91 mg/dL (74-106)
[2023-08-25 05:53] LABS: Basophils # (auto) 0.1 10 ^3/uL (0-0.2); Basophils % (auto) 1.4 % (0.0-2.0); Eosinophils # (auto) 0.2 10 ^3/uL (0-0.8); Eosinophils % (auto) 3.6 % (0.0-7.0); Hematocrit 27.9 % (36.0-46.0); Hemoglobin 9.4 g/dL (12.2-16.2); Lymphocytes # (auto) 1.2 10 ^3/uL (0.4-5.4); Mean Corpuscular Hemoglobin 33.4 pg (28.0-32.0); Mean Corpuscular Hgb Conc. 33.6 g/dL (32.0-36.0); Mean Corpuscular Volume 99.3 fL (80.0-100.0); Monocytes # (auto) 0.7 10 ^3/uL (0-1.3); Neutrophils # (auto) 3.4 10 ^3/uL (1.6-8.6); Nucleated Red Blood Cells % 0.1 %; Red Blood Cells 2.81 10^6/uL (4.0-5.20); Red Cell Distribution Width 14.3 % (11.8-14.3); White Blood Cell 5.6 10^3/uL (4.4-10.8)
[2023-08-25] MEDS: EMPAGLIFLOZIN 10 MG TAB PO SCH (06:24)
[2023-08-25] MEDS: SODIUM CHLOR 0.9% PF (SALINE LOCK) 10ML VIAL/SYR IV SCH ×2 (06:24→13:47)
[2023-08-25] MEDS: InsuLIN REG 1unit/0.01ml Soln (100units/ml) SC SCH ×2 (06:25→11:23)
[2023-08-25] MEDS: ACCU-CHEK COMFORT CURVE STRIP VI SCH ×2 (06:25→11:17)
[2023-08-25] MEDS: CALCIUM ACETATE 667 MG CAP PO SCH ×2 (07:55→12:17)
[2023-08-25] MEDS: SEVELAMER 800 MG TAB PO SCH ×2 (07:56→12:17)
[2023-08-25 08:00] VITALS: PULSE 79; PULSE 81; RESP 16; O2SAT 98
[2023-08-25 09:00] VITALS: BP 142/56; PULSE 79; RESP 16; TEMP 98.6; O2SAT 97
[2023-08-25] MEDS: FAMOTIDINE (10MG/ML) 2ML VL IV SCH (09:27)
[2023-08-25] MEDS: FUROSEMIDE 40 MG/4 ML VIAL IV SCH (09:27)
[2023-08-25] MEDS: CLOPIDOGREL BISULFATE 75 MG TAB PO SCH (09:28)
[2023-08-25] MEDS: CARVEDILOL 3.125 MG TAB PO SCH (09:28)
[2023-08-25] MEDS: B-COMPLEX W/ C & FOLIC ACID(NEPHROVITE TAB) PO SCH (09:28)
[2023-08-25] MEDS: ASPirin 81 mg TAB PO SCH (09:29)
[2023-08-25] MEDS: amLODIPine BESYLATE 5 MG TAB PO SCH (09:29)
[2023-08-25 10:00] VITALS: O2SAT 98
[2023-08-25] MEDS: diphenhdrAMINE HCL 50 MG/1 ML VL IV PRN (11:18)
[2023-08-25 13:00] VITALS: BP 114/62; PULSE 83; RESP 16; TEMP 98.3; O2SAT 96
[2023-08-25] MEDS ORDERED: HYDR-4902 PO (13:11)
[2023-08-25 15:25] VITALS: BP 114/62; PULSE 83; RESP 16; TEMP 98.3; O2SAT 96
== END 2023-08-25 16:51 | disposition home or self-care (01) | DRG 278 ==
LOC: EDBD 16:27 → ER 16:27 → TELE 20:14 → TELE-WESTW 08-18 15:40
PROVIDERS: ADMIT Internal Medicine Geriatric Medicine; ATTEND Student in an Organized Health Care Education/Training Program
PROC: 5A1D70Z Performance of Urinary Filtration, Intermittent, Less than 6 Hours Per Day (ICD-10-PCS; 2023-08-20)
PROC: 047N3ZZ Dilation of Left Popliteal Artery, Percutaneous Approach (ICD-10-PCS; principal; 2023-08-22)
PROC: 04FN3ZZ Fragmentation of Left Popliteal Artery, Percutaneous Approach (ICD-10-PCS; 2023-08-22)
PROC: 047Q3ZZ Dilation of Left Anterior Tibial Artery, Percutaneous Approach (ICD-10-PCS; 2023-08-22)
PROC: 04FQ3ZZ Fragmentation of Left Anterior Tibial Artery, Percutaneous Approach (ICD-10-PCS; 2023-08-22)
PROC: B44GZZ3 Ultrasonography of Left Lower Extremity Arteries, Intravascular (ICD-10-PCS; 2023-08-22)
PROC: B41GYZZ Fluoroscopy of Left Lower Extremity Arteries using Other Contrast (ICD-10-PCS; 2023-08-22)
PROC: 5A1D70Z Performance of Urinary Filtration, Intermittent, Less than 6 Hours Per Day (ICD-10-PCS; 2023-08-23)
DX: E11.51 Type 2 diabetes mellitus with diabetic peripheral angiopathy without gangrene (principal); I50.23 Acute on chronic systolic (congestive) heart failure; J96.21 Acute and chronic respiratory failure with hypoxia; N18.6 End stage renal disease; I13.2 Hypertensive heart and chronic kidney disease with heart failure and with stage 5 chronic kidney disease, or end stage renal disease; E87.1 Hypo-osmolality and hyponatremia; J44.1 Chronic obstructive pulmonary disease with (acute) exacerbation; I42.0 Dilated cardiomyopathy; E78.5 Hyperlipidemia, unspecified; I25.10 Atherosclerotic heart disease of native coronary artery without angina pectoris; I27.20 Pulmonary hypertension, unspecified; Z99.2 Dependence on renal dialysis; E66.01 Morbid (severe) obesity due to excess calories; E83.51 Hypocalcemia; E87.5 Hyperkalemia; Z68.37 Body mass index [BMI] 37.0-37.9, adult; D63.1 Anemia in chronic kidney disease; E11.22 Type 2 diabetes mellitus with diabetic chronic kidney disease; B95.62 Methicillin resistant Staphylococcus aureus infection as the cause of diseases classified elsewhere; F41.9 Anxiety disorder, unspecified; I25.2 Old myocardial infarction; Z80.3 Family history of malignant neoplasm of breast; Z82.3 Family history of stroke; Z82.49 Family history of ischemic heart disease and other diseases of the circulatory system; Z83.3 Family history of diabetes mellitus; Z90.710 Acquired absence of both cervix and uterus; Z98.61 Coronary angioplasty status; Z88.5 Allergy status to narcotic agent; Z90.49 Acquired absence of other specified parts of digestive tract
CPT/HCPCS: 36415; 37224; 37228; 71045; 75710; 78582; 80048; 80053; 80061; 82962; 83690; 83735; 83880; 84100; 84443; 84484; 85025; 85379; 85610; 85730; 86850; 86900; 86901; 87081; 90935; 93005; 93925; 93970; 94640; 96374; 99152; 99153; C1894; G0378; J1815; J2250; J2405; J3490; Q9967

== ENCOUNTER 2024-03-09 14:30 | Inpatient (IN) | payer MEDICARE, MEDICAID ==
[~2024-03-09] VITALS: Ht 157.5 cm; Wt 85.8 kg
[~2024-03-09 14:30] MED LIST changes: -CAR3125T PO; +CARV-214 PO; +DICL1GEL73 TOP; -HYDR-4297 PO; +HYDR-4902 PO; +HYDR50TA47 PO; +LIDO1PAD55 TOP
[2024-03-09 16:45] LABS: Basophils # (auto) 0.1 10 ^3/uL (0-0.2); Basophils % (auto) 0.9 % (0.0-2.0); Eosinophils # (auto) 0.1 10 ^3/uL (0-0.8); Eosinophils % (auto) 0.9 % (0.0-7.0); Hematocrit 39.5 % (36.0-46.0); Hemoglobin 12.4 g/dL (12.2-16.2); Lymphocytes # (auto) 1.2 10 ^3/uL (0.4-5.4); Lymphocytes % (auto) 15.2 % (10.0-50.0); Mean Corpuscular Hemoglobin 30.8 pg (28.0-32.0); Mean Corpuscular Hgb Conc. 31.4 g/dL (32.0-36.0); Mean Corpuscular Volume 98.2 fL (80.0-100.0); Monocytes # (auto) 0.6 10 ^3/uL (0-1.3); Monocytes % (auto) 7.8 % (0.0-12.0); Neutrophils # (auto) 5.9 10 ^3/uL (1.6-8.6); Neutrophils % (auto) 75.2 % (37.0-80.0); Nucleated Red Blood Cells % 0.3 %; Red Blood Cells 4.03 10^6/uL (4.0-5.20); Red Cell Distribution Width 15.1 % (11.8-14.3); White Blood Cell 7.8 10^3/uL (4.4-10.8)
[2024-03-09 17:00] LABS: Alanine Aminotransferase 15 U/L (7-40); Albumin 4.1 g/dL (3.2-4.8); Alkaline Phosphatase 98 U/L (46-116); Anion Gap 9 (5-15); Aspartate Aminotransferase 13 U/L (13-40); BUN/Creatinine Ratio 7.4 (10.0-20.0); Blood Urea Nitrogen 52 mg/dL (9-23); Calcium 8.7 mg/dL (8.5-10.1); Carbon Dioxide 23 mmol/L (20-30); Chloride 105 mmol/L (98-107); Glucose 128 mg/dL (74-106); Potassium 4.2 mmol/L (3.5-5.1); Sodium 137 mmol/L (136-145)
[2024-03-09 17:01] LABS: Bilirubin, Total 0.3 mg/dL (0.2-1.0); Total Protein 7.6 g/dL (5.7-8.2)
[2024-03-09 17:38] LABS: Platelet Estimate Adequate
[2024-03-09 17:58] LABS: Urine Bacteria None Seen /hpf (None Seen)
[2024-03-09 18:25] LABS: Urine Blood 1+ /uL (Negative); Urine Budding Yeast OCCASIONAL /hpf (None Seen); Urine Clarity Ex.Turbid (Clear); Urine Color Light-Brown (Yellow); Urine Hyaline Cast FEW /lpf (0 - 2); Urine Protein, UAD 3+ (Negative); Urine Specific Gravity 1.017 (1.001-1.035); Urine Urobilinogen Normal (Negative); Urine WBC 412 /hpf (0 - 5); Urine WBC Clumps PRESENT /hpf (None Seen); Urine pH 6.5 (5.0-9.0)
[2024-03-09] MEDS: IOHEXOL 350 MG/ML 100ML IJ ONE (18:35)
[2024-03-09] MEDS ORDERED: MORPHINE SULFATE INJ 2 MG/ml SYRG IV PRN (19:15)
[2024-03-09] MEDS ORDERED: ONDANSETRON HCL 4 MG/2 ML VIAL IV PRN (19:15)
[2024-03-09] MEDS ORDERED: NITROGLYCERIN 0.4 MG SL TAB SL PRN (19:15)
[2024-03-09] MEDS ORDERED: IPRATROPIUM BROM 0.5 MG/2.5ML INH SOL NEB PRN (19:45)
[2024-03-09] MEDS ORDERED: ALBUTEROL SULF 2.5 MG/0.5ML(0.5%) NEB SOLN NEB PRN (19:45)
[2024-03-09] MEDS ORDERED: LOSA-534 PO (19:46)
[2024-03-09] MEDS ORDERED: HYDR50TA47 PO (19:46)
[2024-03-09] MEDS ORDERED: CALC667C PO (19:46)
[2024-03-09] MEDS ORDERED: cloNIDine HCL 0.1 MG TAB PO PRN (20:00)
[2024-03-09 20:04] VITALS: BP 163/80; PULSE 85; RESP 20; TEMP 99; O2SAT 95
[2024-03-09 20:07] VITALS: O2SAT 95
[2024-03-09 20:08] VITALS: O2SAT 95
[2024-03-09] MEDS: cefTRIAXone 1GM/50ML D5W 50 ML IV ONE (21:30)
[2024-03-09] MEDS: MORPHINE SULFATE INJ 2 MG/ml SYRG IV PRN (21:32)
[2024-03-09] MEDS ORDERED: PATIENTS OWN MEDICATION (Sevelamer Carbonate (Renvela) 1 TAB) PO SCH (22:00)
[2024-03-10] VITALS (11 sets, daily range): BP systolic 108–154; BP diastolic 46–79; PULSE 62–88; RESP 15–22; TEMP 97.1–98.7; O2SAT 95–99
[2024-03-10] MEDS: hydrALAZINE HCL 25 MG TAB PO SCH (02:20)
[2024-03-10] MEDS: LOSARTAN POTASSIUM 50 MG TAB PO SCH (02:21)
[2024-03-10] MEDS: CARVEDILOL 3.125 MG TAB PO SCH (02:21)
[2024-03-10] MEDS: HEPARIN SODIUM (PORCINE) 5000 UNITS/ML 1ML VIAL SC SCH (02:23)
[2024-03-10] MEDS: GABAPENTIN 300 MG CAP PO ONE (02:27)
[2024-03-10 06:11] LABS: Basophils # (auto) 0 10 ^3/uL (0-0.2); Basophils % (auto) 0.9 % (0.0-2.0); Eosinophils # (auto) 0.1 10 ^3/uL (0-0.8); Eosinophils % (auto) 2.1 % (0.0-7.0); Hematocrit 33.6 % (36.0-46.0); Lymphocytes # (auto) 1.2 10 ^3/uL (0.4-5.4); Lymphocytes % (auto) 22.1 % (10.0-50.0); Mean Corpuscular Hemoglobin 31.6 pg (28.0-32.0); Mean Corpuscular Hgb Conc. 32.7 g/dL (32.0-36.0); Mean Corpuscular Volume 96.5 fL (80.0-100.0); Monocytes # (auto) 0.6 10 ^3/uL (0-1.3); Monocytes % (auto) 10.4 % (0.0-12.0); Neutrophils # (auto) 3.6 10 ^3/uL (1.6-8.6); Neutrophils % (auto) 64.5 % (37.0-80.0); Nucleated Red Blood Cells % 0.1 %; Red Blood Cells 3.48 10^6/uL (4.0-5.20); Red Cell Distribution Width 14.4 % (11.8-14.3); White Blood Cell 5.5 10^3/uL (4.4-10.8)
[2024-03-10 06:35] LABS: Alanine Aminotransferase 12 U/L (7-40); Albumin 3.6 g/dL (3.2-4.8); Alkaline Phosphatase 81 U/L (46-116); Anion Gap 11 (5-15); Aspartate Aminotransferase 13 U/L (13-40); Bilirubin, Total 0.2 mg/dL (0.2-1.0); Blood Urea Nitrogen 52 mg/dL (9-23); Calcium 8.2 mg/dL (8.5-10.1); Carbon Dioxide 22 mmol/L (20-30); Chloride 105 mmol/L (98-107); Glucose 97 mg/dL (74-106); Potassium 4.1 mmol/L (3.5-5.1); Sodium 138 mmol/L (136-145); Total Protein 6.6 g/dL (5.7-8.2)
[2024-03-10] MEDS: FUROSEMIDE 40 MG/4 ML VIAL IV SCH (07:05)
[2024-03-10] MEDS ORDERED: PATIENTS OWN MEDICATION (Furosemide (Lasix) 1 TAB) PO SCH (10:00)
[2024-03-10] MEDS: GABAPENTIN 300 MG CAP PO SCH (10:09)
[2024-03-10] MEDS: CALCIUM ACETATE 667 MG CAP PO SCH (10:09)
[2024-03-10] MEDS: PANTOPRAZOLE 40 MG TAB PO SCH (10:10)
[2024-03-10] MEDS: cefTRIAXone 1GM/50ML D5W 50 ML IV SCH (10:10)
[2024-03-10] MEDS: GABAPENTIN 300 MG CAP PO PRN (15:23)
[2024-03-11] VITALS (16 sets, daily range): BP systolic 117–134; BP diastolic 54–84; PULSE 76–101; RESP 16–22; TEMP 97.8–98.4; O2SAT 94–100
[2024-03-11] MEDS ORDERED: SODIUM CHL 0.9% 1000 ML BAG XX ONE (07:00)
[2024-03-11] MEDS ORDERED: IPRATROPIUM BROM 0.5 MG/2.5ML INH SOL NEB SCH (08:15)
[2024-03-11] MEDS ORDERED: ALBUTEROL SULF 2.5 MG/0.5ML(0.5%) NEB SOLN NEB SCH (08:15)
[2024-03-11] MEDS: ASPirin 81 mg TAB PO SCH (09:48)
[2024-03-11] MEDS: CLOPIDOGREL BISULFATE 75 MG TAB PO SCH (09:48)
[2024-03-11] MEDS: HYDROcodone-ACET 5/325MG TAB PO PRN (09:57)
[2024-03-11] MEDS: IPRATROPIUM BROM 0.5 MG/2.5ML INH SOL NEB SCH (10:08)
[2024-03-11] MEDS: ALBUTEROL SULF 2.5 MG/0.5ML(0.5%) NEB SOLN NEB SCH (10:08)
[2024-03-11 16:15] LABS: Hematocrit 34.3 % (36.0-46.0); Hemoglobin 11.4 g/dL (12.2-16.2)
[2024-03-11] MEDS ORDERED: ALBU108A5 INH (16:47)
[2024-03-11] MEDS ORDERED: HYDR-4902 PO (16:49)
[2024-03-11] MEDS ORDERED: ATOR-507 PO (16:49)
[2024-03-11] MEDS ORDERED: diphenhdrAMINE HCL 25 MG CAP PO PRN (19:00)
[2024-03-11] MEDS ORDERED: EPOETIN ALFA-EPBX 4,000 UNIT/ML VIAL SC ONE (21:00)
[2024-03-12] VITALS (17 sets, daily range): BP systolic 110–154; BP diastolic 52–66; PULSE 76–97; RESP 15–20; TEMP 98.1–98.7; O2SAT 93–99
[2024-03-12] MEDS: ACETAMINOPHEN 325 MG TAB PO PRN (05:39)
[2024-03-12] MEDS: DOCUSATE SOD 100 MG CAP PO PRN (11:45)
[2024-03-12] MEDS ORDERED: ALBUMIN 25% 100 ML, ALBUMIN 25% 100 ML IV PRN (14:30)
[2024-03-12] MEDS ORDERED: ALBUMIN 25% 0 ML IV ONE (15:05)
[2024-03-12] MEDS: SODIUM CHL 0.9% 1000 ML BAG XX ONE (17:37)
[2024-03-13] VITALS (13 sets, daily range): BP systolic 115–126; BP diastolic 54–65; PULSE 76–87; RESP 16–20; TEMP 98.1–98.5; O2SAT 93–100
[2024-03-13] MEDS ORDERED: TRAM50TA2 PO (10:38)
[2024-03-13] MEDS ORDERED: HYDR-4902 PO (10:38)
[2024-03-13] MEDS ORDERED: CIPR-173 PO (10:38)
[2024-03-14] MEDS ORDERED: SODIUM CHL 0.9% 1000 ML BAG XX ONE (07:00)
[2024-03-14] MEDS ORDERED: EPOETIN ALFA-EPBX 4,000 UNIT/ML VIAL SC ONE (21:00)
== END 2024-03-13 18:08 | disposition home health service (06) | DRG 291 ==
LOC: ER 14:30 → TELE 19:37 → TELE-EAST 23:32
PROVIDERS: ADMIT Nurse Practitioner Family; ATTEND Family Medicine
PROC: 5A1D70Z Performance of Urinary Filtration, Intermittent, Less than 6 Hours Per Day (ICD-10-PCS; principal; 2024-03-10)
PROC: 5A1D70Z Performance of Urinary Filtration, Intermittent, Less than 6 Hours Per Day (ICD-10-PCS; 2024-03-12)
DX: I13.2 Hypertensive heart and chronic kidney disease with heart failure and with stage 5 chronic kidney disease, or end stage renal disease (principal); E43 Unspecified severe protein-calorie malnutrition; J96.21 Acute and chronic respiratory failure with hypoxia; I50.23 Acute on chronic systolic (congestive) heart failure; N18.6 End stage renal disease; J44.1 Chronic obstructive pulmonary disease with (acute) exacerbation; G93.49 Other encephalopathy; N30.00 Acute cystitis without hematuria; I16.0 Hypertensive urgency; I25.10 Atherosclerotic heart disease of native coronary artery without angina pectoris; D64.9 Anemia, unspecified; E11.22 Type 2 diabetes mellitus with diabetic chronic kidney disease; E78.00 Pure hypercholesterolemia, unspecified; F41.9 Anxiety disorder, unspecified; E11.40 Type 2 diabetes mellitus with diabetic neuropathy, unspecified; G89.4 Chronic pain syndrome; B96.20 Unspecified Escherichia coli [E. coli] as the cause of diseases classified elsewhere; Z88.5 Allergy status to narcotic agent; Z79.899 Other long term (current) drug therapy; Z79.82 Long term (current) use of aspirin; Z83.3 Family history of diabetes mellitus; Z90.710 Acquired absence of both cervix and uterus; Z90.49 Acquired absence of other specified parts of digestive tract; Z86.718 Personal history of other venous thrombosis and embolism; Z80.3 Family history of malignant neoplasm of breast; Z82.49 Family history of ischemic heart disease and other diseases of the circulatory system; Z82.3 Family history of stroke; Z95.5 Presence of coronary angioplasty implant and graft; Z68.34 Body mass index [BMI] 34.0-34.9, adult; Z99.2 Dependence on renal dialysis
CPT/HCPCS: 36415; 70450; 71045; 80053; 81001; 84443; 84484; 85014; 85018; 85025; 85379; 87081; 87086; 87088; 87186; 87340; 90935; 93005; 93306; 93970; 94640; 96365; G0378; J1642; P9047

== ENCOUNTER 2024-04-11 03:22 | Inpatient (IN) | payer MEDICARE, MEDICAID ==
[~2024-04-11] VITALS: Ht 160 cm; Wt 95.2 kg
[~2024-04-11 03:22] MED LIST changes: +ALBU108A5 INH; -ALBUAER3 IN; +ATOR-507 PO; -ATOR20TA50 PO; +CALC667C PO; +CIPR-173 PO; +LOSA-534 PO; +TRAM50TA2 PO
[2024-04-11 04:07] VITALS: PULSE 94; RESP 13; O2SAT 92
[2024-04-11 04:11] LABS: Basophils # (auto) 0.1 10 ^3/uL (0-0.2); Basophils % (auto) 0.6 % (0.0-2.0); Eosinophils # (auto) 0.2 10 ^3/uL (0-0.8); Eosinophils % (auto) 1.5 % (0.0-7.0); Hemoglobin 9.5 g/dL (12.2-16.2); Lymphocytes # (auto) 1.5 10 ^3/uL (0.4-5.4); Lymphocytes % (auto) 14.5 % (10.0-50.0); Mean Corpuscular Hemoglobin 31.7 pg (28.0-32.0); Mean Corpuscular Hgb Conc. 32.9 g/dL (32.0-36.0); Mean Corpuscular Volume 96.1 fL (80.0-100.0); Monocytes # (auto) 0.8 10 ^3/uL (0-1.3); Monocytes % (auto) 7.2 % (0.0-12.0); Neutrophils % (auto) 76.2 % (37.0-80.0); Red Blood Cells 3.02 10^6/uL (4.0-5.20); Red Cell Distribution Width 14.5 % (11.8-14.3); White Blood Cell 10.5 10^3/uL (4.4-10.8)
[2024-04-11 04:12] LABS: Chloride 99 mmol/L (98-107); Potassium 4.7 mmol/L (3.5-5.1); Sodium 132 mmol/L (136-145)
[2024-04-11 04:13] LABS: Anion Gap 13 (5-15); Carbon Dioxide 20 mmol/L (20-30)
[2024-04-11 04:14] LABS: Calcium 8.6 mg/dL (8.7-10.4)
[2024-04-11 04:19] LABS: BUN/Creatinine Ratio 7.5 (10.0-20.0); Blood Urea Nitrogen 66 mg/dL (9-23); Glucose 97 mg/dL (74-106)
[2024-04-11 07:36] LABS: Alanine Aminotransferase 15 U/L (7-40); Alkaline Phosphatase 84 U/L (46-116); Aspartate Aminotransferase 13 U/L (13-40); Bilirubin, Direct < 0.1 mg/dL (<0.3); Bilirubin, Total 0.2 mg/dL (0.2-1.0); Magnesium 2.3 mg/dL (1.6-2.6); Total Protein 7.1 g/dL (5.7-8.2)
[2024-04-11 07:39] LABS: INR 0.98 (0.9-1.15); Partial Thromboplastin Time 22.6 SEC (24.5-34.5); Prothrombin Time 10.4 sec (9.3-11.8)
[2024-04-11 07:50] VITALS: O2SAT 2
[2024-04-11] MEDS: ONDANSETRON HCL 4 MG/2 ML VIAL IV ONE (07:52)
[2024-04-11] MEDS: MORPHINE SULFATE INJ 2 MG/ml SYRG IV ONE (07:53)
[2024-04-11] MEDS: SODIUM CHLORIDE 0.9% 1,000 ML IV ONE (07:53)
[2024-04-11] MEDS: CIPROFLOXACIN 400MG/200ML 200 ML IV ONE (08:57)
[2024-04-11] MEDS: SODIUM CHLORIDE 0.9% 2,000 ML IV ONE (09:18)
[2024-04-11] MEDS: metroNIDAZOLE 500MG/100ML 100 ML IV ONE (10:39)
[2024-04-11 13:22] LABS: Urine Bacteria None Seen /hpf (None Seen)
[2024-04-11] MEDS: NOREPINEPHRINE 8 MG/250ML KIT 250 ML IV SCH (13:38)
[2024-04-11 13:39] LABS: Urine Blood Negative /uL (Negative); Urine Clarity Turbid (Clear); Urine Color Yellow (Yellow); Urine Protein, UAD 2+ (Negative); Urine Specific Gravity 1.023 (1.001-1.035); Urine Urobilinogen Normal (Negative); Urine WBC 17 /hpf (0 - 5); Urine pH 5.5 (5.0-9.0)
[2024-04-11] MEDS: dilTIAZem 25 MG/5 ML VIAL IV ONE (15:53)
[2024-04-11] MEDS ORDERED: MORPHINE SULFATE INJ 2 MG/ml SYRG IV PRN (16:00)
[2024-04-11] MEDS ORDERED: NITROGLYCERIN 0.4 MG SL TAB SL PRN (16:00)
[2024-04-11] MEDS ORDERED: ONDANSETRON HCL 4 MG/2 ML VIAL IV PRN (16:00)
[2024-04-11] MEDS ORDERED: DEXTROSE (50%) 50ML SYRG IV PRN (16:00)
[2024-04-11] MEDS ORDERED: DOCUSATE SOD 100 MG CAP PO PRN (16:00)
[2024-04-11] MEDS: DIGOXIN (250MCG/ML) 2 ML AMPULE IV ONE (16:06)
[2024-04-11] MEDS: AMIODARONE BOLUS KIT 100 ML IV ONE (16:24)
[2024-04-11] MEDS: AMIODARONE 450mg/250ml AE 250 ML IV SCH ×2 (16:44→22:24)
[2024-04-11] MEDS ORDERED: VANCOMYCIN PER PHARMACY 0 MG IV SCH (16:45)
[2024-04-11] MEDS: VASOPRESSIN 20 UNIT/ML ONE (16:51)
[2024-04-11] MEDS: VASOPRESSIN 20 UNITS in SODIUM CHL 0.9% 99 ML IV SCH (16:54)
[2024-04-11 16:55] LABS: Magnesium 2.1 mg/dL (1.6-2.6)
[2024-04-11 16:56] LABS: Phosphorus 6.7 mg/dL (2.4-5.1)
[2024-04-11] MEDS: VANCOMYCIN 1GM/200ML 200 ML IV ONE (18:05)
[2024-04-11] MEDS: ACCU-CHEK COMFORT CURVE STRIP VI SCH (18:21)
[2024-04-11] MEDS: InsuLIN REG 1unit/0.01ml Soln (100units/ml) SC SCH (18:21)
[2024-04-11] MEDS: NOREPINEPHRINE 8 MG/250ML KIT 250 ML IV ONE (18:45)
[2024-04-11 19:50] VITALS: PULSE 86; RESP 14; O2SAT 96
[2024-04-11] MEDS: EPOETIN ALFA-EPBX 4,000 UNIT/ML VIAL SC ONE (21:19)
[2024-04-11] MEDS: PIPERACILLIN-TAZOB 2.25GM 50 ML IV SCH (22:28)
[2024-04-12] MEDS: AMIODARONE HCL (50 MG/ ML) 3 ML VIAL IV ONE (01:26)
[2024-04-12 06:16] LABS: Basophils # (auto) 0.1 10 ^3/uL (0-0.2); Eosinophils # (auto) 0.1 10 ^3/uL (0-0.8); Eosinophils % (auto) 1.4 % (0.0-7.0); Hemoglobin 8.3 g/dL (12.2-16.2); Monocytes # (auto) 0.9 10 ^3/uL (0-1.3); White Blood Cell 9.1 10^3/uL (4.4-10.8)
[2024-04-12 06:22] LABS: Basophils % (auto) 0.7 % (0.0-2.0); Hematocrit 24.8 % (36.0-46.0); Lymphocytes # (auto) 1.3 10 ^3/uL (0.4-5.4); Lymphocytes % (auto) 14.7 % (10.0-50.0); Mean Corpuscular Hgb Conc. 33.4 g/dL (32.0-36.0); Mean Corpuscular Volume 95.8 fL (80.0-100.0); Monocytes % (auto) 9.7 % (0.0-12.0); Neutrophils # (auto) 6.7 10 ^3/uL (1.6-8.6); Neutrophils % (auto) 73.5 % (37.0-80.0); Red Blood Cells 2.59 10^6/uL (4.0-5.20); Red Cell Distribution Width 14.6 % (11.8-14.3)
[2024-04-12 06:48] LABS: Alanine Aminotransferase 11 U/L (7-40); Albumin 3.5 g/dL (3.2-4.8); Alkaline Phosphatase 75 U/L (46-116); Anion Gap 8 (5-15); Aspartate Aminotransferase 15 U/L (13-40); BUN/Creatinine Ratio 7.1 (10.0-20.0); Bilirubin, Total 0.2 mg/dL (0.2-1.0); Blood Urea Nitrogen 44 mg/dL (9-23); Calcium 7.9 mg/dL (8.5-10.1); Carbon Dioxide 25 mmol/L (20-30); Chloride 102 mmol/L (98-107); Glucose 98 mg/dL (74-106); Sodium 135 mmol/L (136-145); Total Protein 5.9 g/dL (5.7-8.2)
[2024-04-12 08:35] VITALS: PULSE 80; RESP 12; O2SAT 99
[2024-04-12] MEDS: ENOXAPARIN SOD 100 MG/1 ML SYRINGE SC SCH (09:15)
[2024-04-12] MEDS: AMIODARONE HCL 200 MG TAB PO SCH (10:28)
[2024-04-12] MEDS: VANCOMYCIN 1GM/200ML 200 ML IV ONE (12:18)
[2024-04-12 15:13] VITALS: PULSE 78; RESP 18; O2SAT 97
[2024-04-12 16:00] VITALS: BP 120/49; PULSE 78; RESP 18; TEMP 98.2; O2SAT 100
[2024-04-12] MEDS ORDERED: HYDR50TA47 PO (17:53)
[2024-04-12] MEDS ORDERED: ASPI325T6 PO (17:53)
[2024-04-12] MEDS ORDERED: ATOR40TA52 PO (17:53)
[2024-04-12] MEDS ORDERED: CLOP75TA70 PO (17:53)
[2024-04-12] MEDS ORDERED: LEVO250T58 PO (17:53)
[2024-04-12] MEDS ORDERED: CARV3.1240 PO (17:53)
[2024-04-12] MEDS ORDERED: LOSA-534 PO (17:53)
[2024-04-12] MEDS ORDERED: BUSP10TA90 PO (17:53)
[2024-04-12] MEDS ORDERED: CICL8SOL21 TOP (17:53)
[2024-04-12 20:00] VITALS: PULSE 85
[2024-04-12] MEDS: HYDROcodone-ACET 5/325MG TAB PO PRN (20:24)
[2024-04-12 22:00] VITALS: BP 116/55; PULSE 85; RESP 16; TEMP 98.5; O2SAT 96
[2024-04-13] VITALS (13 sets, daily range): BP systolic 122–159; BP diastolic 47–72; PULSE 62–93; RESP 14–19; TEMP 98–98.7; O2SAT 92–100
[2024-04-13] MEDS: metroNIDAZOLE 500 MG TAB PO SCH (14:00)
[2024-04-13 15:08] LABS: Basophils # (auto) 0 10 ^3/uL (0-0.2); Eosinophils # (auto) 0.2 10 ^3/uL (0-0.8); Hemoglobin 7.5 g/dL (12.2-16.2); Lymphocytes # (auto) 0.9 10 ^3/uL (0.4-5.4); Monocytes # (auto) 0.7 10 ^3/uL (0-1.3); Neutrophils # (auto) 4.9 10 ^3/uL (1.6-8.6); Red Cell Distribution Width 14.1 % (11.8-14.3); White Blood Cell 6.7 10^3/uL (4.4-10.8)
[2024-04-13 15:10] LABS: Basophils % (auto) 0.7 % (0.0-2.0); Eosinophils % (auto) 2.4 % (0.0-7.0); Hematocrit 22.5 % (36.0-46.0); Lymphocytes % (auto) 13.6 % (10.0-50.0); Mean Corpuscular Hemoglobin 32.2 pg (28.0-32.0); Mean Corpuscular Hgb Conc. 33.6 g/dL (32.0-36.0); Mean Corpuscular Volume 95.8 fL (80.0-100.0); Monocytes % (auto) 9.8 % (0.0-12.0); Neutrophils % (auto) 73.5 % (37.0-80.0); Red Blood Cells 2.34 10^6/uL (4.0-5.20)
[2024-04-13 15:21] LABS: Anion Gap 9 (5-15); Carbon Dioxide 24 mmol/L (20-30); Chloride 102 mmol/L (98-107); Potassium 3.6 mmol/L (3.5-5.1); Sodium 135 mmol/L (136-145)
[2024-04-13 15:22] LABS: Calcium 7.8 mg/dL (8.5-10.1)
[2024-04-13 15:27] LABS: BUN/Creatinine Ratio 6.2 (10.0-20.0); Blood Urea Nitrogen 48 mg/dL (9-23); Glucose 158 mg/dL (74-106); Triglycerides 90 mg/dL (< 150)
[2024-04-13 15:28] LABS: LDL Cholesterol 71 mg/dL (< 100)
[2024-04-13 15:29] LABS: Cholesterol 116 mg/dL (< 200); HDL Cholesterol 30 mg/dL (40-59)
[2024-04-14] VITALS (7 sets, daily range): BP systolic 135–156; BP diastolic 56–71; PULSE 64–78; RESP 17–19; TEMP 97.6–98.8; O2SAT 94–100
[2024-04-14] MEDS: CARVEDILOL 3.125 MG TAB PO SCH (00:05)
[2024-04-14] MEDS: ATORVASTATIN 20 MG TAB PO SCH (00:05)
[2024-04-14] MEDS: SACUBITRIL-VALSARTAN 24mg/26mg TAB PO SCH (00:06)
[2024-04-14] MEDS ORDERED: SODIUM CHL 0.9% 1000 ML BAG XX ONE (07:00)
[2024-04-14 07:09] LABS: Basophils # (auto) 0 10 ^3/uL (0-0.2); Basophils % (auto) 0.6 % (0.0-2.0); Eosinophils # (auto) 0.2 10 ^3/uL (0-0.8); Eosinophils % (auto) 2.9 % (0.0-7.0); Hemoglobin 9.3 g/dL (12.2-16.2); Lymphocytes # (auto) 1.1 10 ^3/uL (0.4-5.4); Lymphocytes % (auto) 15.7 % (10.0-50.0); Mean Corpuscular Hemoglobin 31.7 pg (28.0-32.0); Mean Corpuscular Hgb Conc. 31.9 g/dL (32.0-36.0); Mean Corpuscular Volume 99.5 fL (80.0-100.0); Monocytes # (auto) 0.8 10 ^3/uL (0-1.3); Neutrophils # (auto) 4.7 10 ^3/uL (1.6-8.6); Neutrophils % (auto) 68.8 % (37.0-80.0); Nucleated Red Blood Cells % 0.1 %; Red Blood Cells 2.92 10^6/uL (4.0-5.20); Red Cell Distribution Width 15.6 % (11.8-14.3); White Blood Cell 6.8 10^3/uL (4.4-10.8)
[2024-04-14 07:25] LABS: Albumin 3.3 g/dL (3.2-4.8); Alkaline Phosphatase 62 U/L (46-116); Anion Gap 12 (5-15); BUN/Creatinine Ratio 5.3 (10.0-20.0); Blood Urea Nitrogen 44 mg/dL (9-23); Calcium 7.9 mg/dL (8.5-10.1); Carbon Dioxide 22 mmol/L (20-30); Chloride 102 mmol/L (98-107); Glucose 100 mg/dL (74-106); Potassium 3.8 mmol/L (3.5-5.1); Sodium 136 mmol/L (136-145)
[2024-04-14 07:26] LABS: Aspartate Aminotransferase 11 U/L (13-40); Bilirubin, Total 0.2 mg/dL (0.2-1.0); Total Protein 5.9 g/dL (5.7-8.2)
[2024-04-14 07:31] LABS: Alanine Aminotransferase < 9 U/L (7-40)
[2024-04-14] MEDS ORDERED: HEPARIN SODIUM (PORCINE) 5000 UNITS/ML 1ML VIAL SC SCH (11:15)
[2024-04-14] MEDS: CLOPIDOGREL BISULFATE 75 MG TAB PO ONE (13:59)
[2024-04-14] MEDS: EPOETIN ALFA-EPBX 10,000 UNIT/1ML VIAL SC ONE (20:33)
[2024-04-15] VITALS (8 sets, daily range): BP systolic 94–148; BP diastolic 56–141; PULSE 67–79; RESP 16–20; TEMP 97.7–98.7; O2SAT 17–98
[2024-04-15] MEDS: CLOPIDOGREL BISULFATE 75 MG TAB PO SCH (08:28)
[2024-04-15] MEDS ORDERED: ENOXAPARIN SOD 40 MG/0.4 ML SYRINGE SC SCH (10:00)
[2024-04-15] MEDS: VANCOMYCIN 500 MG in D5W 5% 100 ML IV ONE (12:03)
[2024-04-15 18:12] LABS: % Iron Saturation 36.7 % (15-50)
[2024-04-15 18:40] LABS: Ferritin 1520.1 ng/mL (10-291); Folate (Folic Acid) 9.61 ng/mL (>5.38)
[2024-04-16] VITALS (7 sets, daily range): BP systolic 126–150; BP diastolic 59–79; PULSE 68–80; RESP 16–20; TEMP 36.6; O2SAT 94–99
[2024-04-16 06:44] LABS: Basophils # (auto) 0.1 10 ^3/uL (0-0.2); Eosinophils # (auto) 0.2 10 ^3/uL (0-0.8); Eosinophils % (auto) 3.2 % (0.0-7.0); Hematocrit 30.5 % (36.0-46.0); Hemoglobin 10.3 g/dL (12.2-16.2); Lymphocytes # (auto) 1.1 10 ^3/uL (0.4-5.4); Lymphocytes % (auto) 16.9 % (10.0-50.0); Mean Corpuscular Hemoglobin 32.5 pg (28.0-32.0); Mean Corpuscular Hgb Conc. 33.6 g/dL (32.0-36.0); Mean Corpuscular Volume 96.7 fL (80.0-100.0); Monocytes # (auto) 0.9 10 ^3/uL (0-1.3); Monocytes % (auto) 14.9 % (0.0-12.0); Nucleated Red Blood Cells % 0.1 %; Red Blood Cells 3.15 10^6/uL (4.0-5.20); Red Cell Distribution Width 14.5 % (11.8-14.3); White Blood Cell 6.3 10^3/uL (4.4-10.8)
[2024-04-16] MEDS ORDERED: APIXABAN 2.5 MG TAB PO SCH (22:00)
== END 2024-04-16 20:20 | disposition home or self-care (01) | DRG 291 ==
LOC: EDBD 03:22 → EDUNIT# 03:22 → ER 03:22 → MERGE 15:58 → OVERFLOW 15:58 → TELE-CENTR 04-12 14:30
PROVIDERS: ADMIT Nurse Practitioner Family; ATTEND Family Medicine
PROC: 05H433Z Insertion of Infusion Device into Left Innominate Vein, Percutaneous Approach (ICD-10-PCS; 2024-04-11)
PROC: 5A1D70Z Performance of Urinary Filtration, Intermittent, Less than 6 Hours Per Day (ICD-10-PCS; 2024-04-11)
PROC: 30233N1 Transfusion of Nonautologous Red Blood Cells into Peripheral Vein, Percutaneous Approach (ICD-10-PCS; principal; 2024-04-13)
PROC: 5A1D70Z Performance of Urinary Filtration, Intermittent, Less than 6 Hours Per Day (ICD-10-PCS; 2024-04-14)
PROC: 5A1D70Z Performance of Urinary Filtration, Intermittent, Less than 6 Hours Per Day (ICD-10-PCS; 2024-04-16)
DX: I13.2 Hypertensive heart and chronic kidney disease with heart failure and with stage 5 chronic kidney disease, or end stage renal disease (principal); I50.23 Acute on chronic systolic (congestive) heart failure; N18.6 End stage renal disease; R57.1 Hypovolemic shock; R57.0 Cardiogenic shock; D68.59 Other primary thrombophilia; I48.0 Paroxysmal atrial fibrillation; K52.9 Noninfective gastroenteritis and colitis, unspecified; E11.22 Type 2 diabetes mellitus with diabetic chronic kidney disease; E11.65 Type 2 diabetes mellitus with hyperglycemia; E83.51 Hypocalcemia; J45.909 Unspecified asthma, uncomplicated; E11.51 Type 2 diabetes mellitus with diabetic peripheral angiopathy without gangrene; I25.10 Atherosclerotic heart disease of native coronary artery without angina pectoris; I25.5 Ischemic cardiomyopathy; I49.3 Ventricular premature depolarization; E83.39 Other disorders of phosphorus metabolism; D63.1 Anemia in chronic kidney disease; Z95.5 Presence of coronary angioplasty implant and graft; Z99.2 Dependence on renal dialysis; Z88.5 Allergy status to narcotic agent; Z79.899 Other long term (current) drug therapy; Z86.718 Personal history of other venous thrombosis and embolism
CPT/HCPCS: 36415; 36556; 71045; 74176; 80048; 80053; 80061; 80076; 80202; 81001; 82270; 82565; 82607; 82728; 82746; 82962; 83036; 83540; 83550; 83605; 83690; 83735; 84100; 84443; 84484; 85025; 85045; 85048; 85610; 85730; 86850; 86900; 86901; 86920; 87040; 87045; 87081; 87340; 87427; 87493; 90935; 93005; 99291; G0378; J1815; J2405; J2543; J3490; J7060

== ENCOUNTER 2024-04-27 00:12 | Inpatient (IN) | payer MEDICARE, MEDICAID ==
[~2024-04-27] VITALS: Ht 165.1 cm; Wt 115.1 kg
[~2024-04-27 00:12] MED LIST changes: +APIX5TAB PO; +ASPI325T6 PO; +ATOR40TA52 PO; +BUSP10TA90 PO; +CARV3.1240 PO; +CICL8SOL21 TOP; +CLOP75TA70 PO; +LEVO250T58 PO; +LEVO500T91 PO; +MET500T PO; +TIRZ2.5I SC
[2024-04-27] MEDS: ALBUTEROL SULF 2.5 MG/0.5ML(0.5%) NEB SOLN NEB ONE ×3 (00:49→16:15)
[2024-04-27] MEDS: IPRATROPIUM BROM 0.5 MG/2.5ML INH SOL NEB ONE ×2 (00:49→11:50)
[2024-04-27 01:00] LABS: Basophils # (auto) 0.1 10 ^3/uL (0-0.2); Basophils % (auto) 1.2 % (0.0-2.0); Eosinophils # (auto) 0.1 10 ^3/uL (0-0.8); Eosinophils % (auto) 1.3 % (0.0-7.0); Hematocrit 29.5 % (36.0-46.0); Hemoglobin 9.8 g/dL (12.2-16.2); Lymphocytes # (auto) 0.8 10 ^3/uL (0.4-5.4); Lymphocytes % (auto) 8.4 % (10.0-50.0); Mean Corpuscular Hemoglobin 32.8 pg (28.0-32.0); Mean Corpuscular Hgb Conc. 33.3 g/dL (32.0-36.0); Mean Corpuscular Volume 98.4 fL (80.0-100.0); Monocytes # (auto) 0.7 10 ^3/uL (0-1.3); Monocytes % (auto) 7.1 % (0.0-12.0); Neutrophils # (auto) 7.6 10 ^3/uL (1.6-8.6); Red Cell Distribution Width 15.8 % (11.8-14.3); White Blood Cell 9.3 10^3/uL (4.4-10.8)
[2024-04-27 01:06] LABS: Alanine Aminotransferase 12 U/L (7-40); Albumin 3.8 g/dL (3.2-4.8); Alkaline Phosphatase 110 U/L (46-116); Anion Gap 8 (5-15); Aspartate Aminotransferase 14 U/L (13-40); BUN/Creatinine Ratio 7.6 (10.0-20.0); Blood Urea Nitrogen 51 mg/dL (9-23); Calcium 8.9 mg/dL (8.7-10.4); Carbon Dioxide 23 mmol/L (20-30); Chloride 105 mmol/L (98-107); Glucose 177 mg/dL (74-106); Magnesium 1.9 mg/dL (1.6-2.6); Sodium 136 mmol/L (136-145)
[2024-04-27 01:07] LABS: Bilirubin, Total 0.4 mg/dL (0.2-1.0)
[2024-04-27] MEDS: DexAMETHasone SOD PHOS 10MG/1ML VIAL INJ IV ONE (01:12)
[2024-04-27] MEDS: cloNIDine HCL 0.1 MG TAB PO ONE (01:12)
[2024-04-27] MEDS: HYDROcodone-ACET 5/325MG TAB PO ONE ×2 (01:13→04:06)
[2024-04-27 01:15] LABS: INR 1.13 (0.9-1.15); Partial Thromboplastin Time 27.9 SEC (24.5-34.5); Potassium 5.8 mmol/L (3.5-5.1); Prothrombin Time 11.9 sec (9.3-11.8)
[2024-04-27] MEDS: FUROSEMIDE 40 MG/4 ML VIAL IV ONE ×2 (02:04→17:37)
[2024-04-27] MEDS: SODIUM ZIRCONIUM CYCL 10 GM PAK PO ONE ×2 (02:05→16:45)
[2024-04-27 03:12] LABS: Urine Bacteria None Seen /hpf (None Seen)
[2024-04-27 03:45] LABS: Urine Blood Negative /uL (Negative); Urine Clarity Clear (Clear); Urine Color Light-Yellow (Yellow); Urine Protein, UAD 2+ (Negative); Urine Specific Gravity 1.014 (1.001-1.035); Urine Urobilinogen Normal (Negative); Urine WBC 3 /hpf (0 - 5); Urine pH 7.5 (5.0-9.0)
[2024-04-27] MEDS ORDERED: CINA30TA14 PO (09:51)
[2024-04-27] MEDS ORDERED: DULA0.5I SC (09:51)
[2024-04-27] MEDS ORDERED: DIPH2.5T73 PO (09:51)
[2024-04-27] MEDS: HYDROcodone-ACET 5/325MG TAB PO PRN (10:29)
[2024-04-27] MEDS ORDERED: ALBUTEROL SULF 2.5 MG/0.5ML(0.5%) NEB SOLN NEB PRN (11:00)
[2024-04-27] MEDS ORDERED: IPRATROPIUM BROM 0.5 MG/2.5ML INH SOL NEB PRN (11:00)
[2024-04-27] MEDS ORDERED: MORPHINE SULFATE INJ 2 MG/ml SYRG IV PRN (11:00)
[2024-04-27] MEDS ORDERED: NITROGLYCERIN 0.4 MG SL TAB SL PRN ×2 (11:00)
[2024-04-27] MEDS ORDERED: DEXTROSE (50%) 50ML SYRG IV PRN ×2 (11:00→16:15)
[2024-04-27] MEDS: InsuLIN REG 1unit/0.01ml Soln (100units/ml) SC SCH ×2 (11:30→22:57)
[2024-04-27] MEDS: ACCU-CHEK COMFORT CURVE STRIP VI SCH ×2 (11:30→22:45)
[2024-04-27] MEDS: levoFLOXacin 250MG 50 ML IV ONE (11:38)
[2024-04-27 11:59] LABS: INR 1.13 (0.9-1.15); Prothrombin Time 11.9 sec (9.3-11.8)
[2024-04-27] MEDS: ENOXAPARIN SOD 40 MG/0.4 ML SYRINGE SC ONE (12:35)
[2024-04-27 12:54] LABS: Magnesium 1.9 mg/dL (1.6-2.6)
[2024-04-27 12:55] LABS: Phosphorus 4.6 mg/dL (2.4-5.1)
[2024-04-27] MEDS: hydrALAZINE HCL 25 MG TAB PO SCH (14:24)
[2024-04-27] MEDS: InsuLIN REG 1unit/0.01ml Soln (100units/ml) SC ONE (14:28)
[2024-04-27] MEDS: SODIUM BICARB 8.4% 50Meq/50ml SYR INJ IV ONE (16:15)
[2024-04-27] MEDS: InsuLIN REG 1unit/0.01ml Soln (100units/ml) IV ONE ×2 (16:15→18:42)
[2024-04-27] MEDS: SODIUM CHL 0.9% 1000 ML BAG XX ONE (16:45)
[2024-04-27] MEDS: DEXTROSE (50%) 50ML SYRG IV ONE (17:30)
[2024-04-27] MEDS: MORPHINE SULFATE 4 MG/ML SYR/VIAL IV PRN (18:10)
[2024-04-27 18:20] VITALS: BP 135/45; PULSE 118; RESP 25; TEMP 98.2; O2SAT 97
[2024-04-27] MEDS: CALCIUM GLUC 1,000mg/50ml-NS 50 ML IV ONE (18:21)
[2024-04-27 18:47] VITALS: BP_SYST 106; BP_SYST 151; BP_DIAS 49; BP_DIAS 56; PULSE 106; PULSE 64; RESP 18; RESP 20; TEMP 98; TEMP 98.5; O2SAT 97; O2SAT 98
[2024-04-27 18:52] VITALS: BP 133/49; PULSE 118; RESP 20; TEMP 98; O2SAT 98
[2024-04-27] MEDS: METHOCARBAMOL 500 MG TAB PO PRN (20:15)
[2024-04-27 20:30] VITALS: PULSE 106; PULSE 116; RESP 20; O2SAT 97
[2024-04-27 20:40] VITALS: BP 141/83; PULSE 114; RESP 14; TEMP 100.6; O2SAT 95
[2024-04-27] MEDS: EPOETIN ALFA-EPBX 4,000 UNIT/ML VIAL SC ONE (21:00)
[2024-04-27 23:40] VITALS: BP 124/83; PULSE 101; RESP 16; TEMP 99; O2SAT 95
[2024-04-28] VITALS (11 sets, daily range): BP systolic 106–168; BP diastolic 49–80; PULSE 81–106; RESP 16–20; TEMP 97.7–98; O2SAT 95–100
[2024-04-28] MEDS: ATORVASTATIN 20 MG TAB PO SCH (01:15)
[2024-04-28 06:58] LABS: Alanine Aminotransferase 13 U/L (7-40); Alkaline Phosphatase 73 U/L (46-116); Anion Gap 13 (5-15); BUN/Creatinine Ratio 6.9 (10.0-20.0); Calcium 8.8 mg/dL (8.7-10.4); Carbon Dioxide 23 mmol/L (20-30); Chloride 102 mmol/L (98-107); Glucose 212 mg/dL (74-106); Potassium 4.5 mmol/L (3.5-5.1); Sodium 138 mmol/L (136-145)
[2024-04-28 06:59] LABS: Albumin 3.5 g/dL (3.2-4.8); Aspartate Aminotransferase 16 U/L (13-40); Bilirubin, Total 0.3 mg/dL (0.2-1.0); Total Protein 6.5 g/dL (5.7-8.2)
[2024-04-28 07:00] LABS: Blood Urea Nitrogen 32 mg/dL (9-23)
[2024-04-28] MEDS: SODIUM CHL 0.9% 1000 ML BAG XX ONE ×2 (07:00→11:30)
[2024-04-28 07:13] LABS: Basophils # (auto) 0.1 10 ^3/uL (0-0.2); Basophils % (auto) 0.8 % (0.0-2.0); Eosinophils # (auto) 0 10 ^3/uL (0-0.8); Hemoglobin 8.3 g/dL (12.2-16.2); Lymphocytes # (auto) 0.7 10 ^3/uL (0.4-5.4); Lymphocytes % (auto) 7.7 % (10.0-50.0); Mean Corpuscular Hemoglobin 33.2 pg (28.0-32.0); Mean Corpuscular Hgb Conc. 33.3 g/dL (32.0-36.0); Mean Corpuscular Volume 99.7 fL (80.0-100.0); Monocytes # (auto) 0.8 10 ^3/uL (0-1.3); Monocytes % (auto) 9.1 % (0.0-12.0); Neutrophils # (auto) 6.9 10 ^3/uL (1.6-8.6); Neutrophils % (auto) 82.4 % (37.0-80.0); Red Blood Cells 2.51 10^6/uL (4.0-5.20); Red Cell Distribution Width 16.1 % (11.8-14.3); White Blood Cell 8.4 10^3/uL (4.4-10.8)
[2024-04-28] MEDS: SEVELAMER 800 MG TAB PO SCH (08:59)
[2024-04-28] MEDS ORDERED: cefTRIAXone 1GM/50ML D5W 50 ML IV ONE (09:45)
[2024-04-28] MEDS: LOSARTAN POTASSIUM 50 MG TAB PO SCH (10:00)
[2024-04-28] MEDS ORDERED: ENOXAPARIN SOD 30 MG/0.3 ML SYRINGE SC SCH (10:00)
[2024-04-28] MEDS: CARVEDILOL 3.125 MG TAB PO SCH (10:00)
[2024-04-28] MEDS ORDERED: PATIENTS OWN MEDICATION (Atorvastatin Calcium (Lipitor) 1 TAB) PO SCH (10:00)
[2024-04-28] MEDS: HEPARIN SODIUM (PORCINE) 5000 UNITS/ML 1ML VIAL SC SCH (10:00)
[2024-04-28] MEDS: CYANOCOBALAMIN (B-12) 1000 MCG/1 ML VIAL IM ONE ×3 (10:00→16:45)
[2024-04-28] MEDS: FUROSEMIDE 40 MG TAB PO SCH (10:00)
[2024-04-28] MEDS ORDERED: ASPirin 81 mg TAB PO SCH (10:00)
[2024-04-28] MEDS: PANTOPRAZOLE 40 MG TAB PO SCH (10:00)
[2024-04-28 10:03] LABS: Amphetamine Screen, Urine Neg (NEGATIVE); Barbiturate Scree,Urine Neg (NEGATIVE); Benzodiazephine Screen, Urine Neg (NEGATIVE); Cannabinoid Screen, Urine Neg (NEGATIVE); Cocaine Screen, Urine Neg (NEGATIVE); Opiate Scree,Urine Pos (NEGATIVE); Phencyclidine Screen, Urine Neg (NEGATIVE)
[2024-04-28] MEDS: levoFLOXacin 250MG 50 ML IV SCH (10:31)
[2024-04-28] MEDS: CLOPIDOGREL BISULFATE 75 MG TAB PO SCH (10:31)
[2024-04-28] MEDS: DOCUSATE SOD 100 MG CAP PO SCH (10:31)
[2024-04-28] MEDS: ASPirin 81 mg TAB PO SCH (10:31)
[2024-04-28] MEDS: LIDOCAINE 5% TOPICAL PATCH TOP SCH (10:31)
[2024-04-28] MEDS: busPIRone HCL 10 MG TAB PO SCH (10:32)
[2024-04-28] MEDS ORDERED: ASPI81CH74 PO (10:38)
[2024-04-28 10:48] LABS: INR 1.13 (0.9-1.15); Partial Thromboplastin Time 24.8 SEC (24.5-34.5); Prothrombin Time 11.9 sec (9.3-11.8)
[2024-04-28] MEDS ORDERED: AMIO200T33 PO (10:48)
[2024-04-28] MEDS: ONDANSETRON HCL 4 MG/2 ML VIAL IV PRN (14:17)
[2024-04-28] MEDS: ERGOCALCIFEROL 50,000 UNIT(1.25MG) CAP PO SCH (14:37)
[2024-04-28] MEDS ORDERED: CYANOCOBALAMIN (B-12) 1000 MCG/1 ML VIAL SUBCUT ONE (16:45)
[2024-04-28] MEDS ORDERED: EPOETIN ALFA-EPBX 4,000 UNIT/ML VIAL SC ONE (21:00)
[2024-04-28] MEDS: PIPERACILLIN-TAZOB 2.25GM 50 ML IV SCH (22:27)
[2024-04-28] MEDS: KETOROLAC TROMETH 30 MG/ML 1ML VIAL IV ONE (22:29)
[2024-04-28] MEDS: EPOETIN ALFA-EPBX 10,000 UNIT/1ML VIAL SC ONE (22:44)
[2024-04-29] VITALS (12 sets, daily range): BP systolic 110–138; BP diastolic 45–58; PULSE 67–85; RESP 16–18; TEMP 97.4–98.3; O2SAT 93–100
[2024-04-29 06:42] LABS: Basophils # (auto) 0.1 10 ^3/uL (0-0.2); Basophils % (auto) 1.3 % (0.0-2.0); Eosinophils # (auto) 0.1 10 ^3/uL (0-0.8); Eosinophils % (auto) 1.4 % (0.0-7.0); Hematocrit 25.9 % (36.0-46.0); Hemoglobin 8.6 g/dL (12.2-16.2); Lymphocytes # (auto) 1.2 10 ^3/uL (0.4-5.4); Lymphocytes % (auto) 18.4 % (10.0-50.0); Mean Corpuscular Hemoglobin 32.8 pg (28.0-32.0); Mean Corpuscular Hgb Conc. 33.3 g/dL (32.0-36.0); Mean Corpuscular Volume 98.4 fL (80.0-100.0); Monocytes # (auto) 0.7 10 ^3/uL (0-1.3); Monocytes % (auto) 10.3 % (0.0-12.0); Neutrophils # (auto) 4.4 10 ^3/uL (1.6-8.6); Neutrophils % (auto) 68.6 % (37.0-80.0); Red Blood Cells 2.63 10^6/uL (4.0-5.20); Red Cell Distribution Width 15.8 % (11.8-14.3); White Blood Cell 6.4 10^3/uL (4.4-10.8)
[2024-04-29 06:58] LABS: Chloride 102 mmol/L (98-107); Potassium 4.8 mmol/L (3.5-5.1); Sodium 139 mmol/L (136-145)
[2024-04-29 06:59] LABS: Anion Gap 8 (5-15); Carbon Dioxide 29 mmol/L (20-30)
[2024-04-29 07:00] LABS: Calcium 8.2 mg/dL (8.7-10.4)
[2024-04-29 07:04] LABS: BUN/Creatinine Ratio 6.7 (10.0-20.0); Blood Urea Nitrogen 31 mg/dL (9-23); Glucose 100 mg/dL (74-106)
[2024-04-29] MEDS ORDERED: cefTRIAXone 1GM/50ML D5W 50 ML IV SCH (09:00)
[2024-04-29] MEDS: ACETAMINOPHEN 325 MG TAB PO PRN (09:53)
[2024-04-29] MEDS: KETOROLAC TROMETH 30 MG/ML 1ML VIAL IV ONE (14:35)
[2024-04-29] MEDS ORDERED: KETOROLAC TROMETH 30 MG/ML 1ML VIAL IV PRN (20:00)
[2024-04-30] VITALS (11 sets, daily range): BP systolic 108–165; BP diastolic 61–84; PULSE 73–84; RESP 16–18; TEMP 97.8–98.3; O2SAT 97–100
[2024-04-30] MEDS: HYDROcodone-ACET 7.5/325MG TAB PO PRN (04:52)
[2024-04-30 06:53] LABS: Hematocrit 26.2 % (36.0-46.0); Hemoglobin 8.6 g/dL (12.2-16.2)
[2024-04-30 07:00] LABS: Chloride 101 mmol/L (98-107); Potassium 4.9 mmol/L (3.5-5.1); Sodium 137 mmol/L (136-145)
[2024-04-30] MEDS: SODIUM CHL 0.9% 1000 ML BAG XX ONE (07:00)
[2024-04-30 07:01] LABS: Anion Gap 7 (5-15); Carbon Dioxide 29 mmol/L (20-30)
[2024-04-30 07:02] LABS: Calcium 7.7 mg/dL (8.5-10.1)
[2024-04-30 07:06] LABS: Glucose 138 mg/dL (74-106)
[2024-04-30 07:13] LABS: BUN/Creatinine Ratio 8.6 (10.0-20.0); Blood Urea Nitrogen 52 mg/dL (9-23)
[2024-04-30] MEDS: CALCIUM GLUC 1,000mg/50ml-NS 50 ML IV SCH (09:15)
[2024-04-30] MEDS ORDERED: IPRATROPIUM BROM 0.5 MG/2.5ML INH SOL NEB PRN (09:15)
[2024-04-30] MEDS ORDERED: IPRATROPIUM BROM 0.5 MG/2.5ML INH SOL NEB ONE (09:15)
[2024-04-30] MEDS: CALCIUM GLUC 1,000mg/50ml-NS 50 ML IV ONE ×2 (09:15→15:29)
[2024-04-30] MEDS: traMADol HCL 50 MG TAB PO PRN (12:18)
[2024-04-30] MEDS ORDERED: ERGO1CAP23 PO (16:56)
[2024-04-30] MEDS ORDERED: APIX2.5T PO (16:56)
[2024-04-30] MEDS ORDERED: EPOE10004 SC (16:56)
[2024-04-30] MEDS ORDERED: ACET-1882 PO (16:56)
[2024-04-30] MEDS ORDERED: LEVO500T91 PO (16:56)
[2024-04-30] MEDS: EPOETIN ALFA-EPBX 10,000 UNIT/1ML VIAL SC ONE (21:20)
[2024-05-01 05:00] VITALS: BP 197/70; PULSE 81; RESP 19; TEMP 98.1; O2SAT 96
[2024-05-01 07:00] VITALS: BP 169/80; PULSE 89; RESP 18
[2024-05-01 09:00] VITALS: BP 189/85; PULSE 90; RESP 18; TEMP 98.2; O2SAT 96
[2024-05-01 09:25] VITALS: O2SAT 96
[2024-05-01] MEDS: NIFEdipine ER 30 MG TAB PO ONE (10:45)
[2024-05-01 13:00] VITALS: BP 129/44; PULSE 74; RESP 15; TEMP 97.8; O2SAT 97
[2024-05-02] MEDS ORDERED: NIFEdipine ER 30 MG TAB PO SCH (10:00)
== END 2024-05-01 15:00 | disposition home health service (06) | DRG 177 ==
LOC: ER 00:12 → EDBD 00:12 → TELE 11:01 → TELE-CENTR 18:39 → CENTRAL 04-29 00:16
PROVIDERS: ADMIT Internal Medicine; ATTEND Internal Medicine
PROC: 5A1D70Z Performance of Urinary Filtration, Intermittent, Less than 6 Hours Per Day (ICD-10-PCS; principal; 2024-04-27)
PROC: 5A1D70Z Performance of Urinary Filtration, Intermittent, Less than 6 Hours Per Day (ICD-10-PCS; 2024-04-28)
PROC: 5A1D70Z Performance of Urinary Filtration, Intermittent, Less than 6 Hours Per Day (ICD-10-PCS; 2024-04-30)
DX: J69.0 Pneumonitis due to inhalation of food and vomit (principal); I21.A1 Myocardial infarction type 2; J96.21 Acute and chronic respiratory failure with hypoxia; N18.6 End stage renal disease; I50.43 Acute on chronic combined systolic (congestive) and diastolic (congestive) heart failure; I13.2 Hypertensive heart and chronic kidney disease with heart failure and with stage 5 chronic kidney disease, or end stage renal disease; J44.1 Chronic obstructive pulmonary disease with (acute) exacerbation; J45.901 Unspecified asthma with (acute) exacerbation; I48.20 Chronic atrial fibrillation, unspecified; J44.0 Chronic obstructive pulmonary disease with (acute) lower respiratory infection; I24.9 Acute ischemic heart disease, unspecified; Z68.41 Body mass index [BMI] 40.0-44.9, adult; E87.5 Hyperkalemia; E78.5 Hyperlipidemia, unspecified; E11.22 Type 2 diabetes mellitus with diabetic chronic kidney disease; D63.1 Anemia in chronic kidney disease; I25.5 Ischemic cardiomyopathy; I16.0 Hypertensive urgency; F41.9 Anxiety disorder, unspecified; I25.10 Atherosclerotic heart disease of native coronary artery without angina pectoris; E53.8 Deficiency of other specified B group vitamins; E55.9 Vitamin D deficiency, unspecified; E66.01 Morbid (severe) obesity due to excess calories; Z91.199 Patient's noncompliance with other medical treatment and regimen due to unspecified reason; Z95.5 Presence of coronary angioplasty implant and graft; Z80.3 Family history of malignant neoplasm of breast; Z82.3 Family history of stroke; Z82.49 Family history of ischemic heart disease and other diseases of the circulatory system; Z99.2 Dependence on renal dialysis; Z90.710 Acquired absence of both cervix and uterus; Z83.3 Family history of diabetes mellitus; Z79.4 Long term (current) use of insulin
CPT/HCPCS: 36415; 36600; 71045; 80048; 80053; 80307; 81001; 82010; 82306; 82607; 82805; 82962; 83735; 83880; 84100; 84132; 84443; 84484; 85014; 85018; 85025; 85610; 85730; 87040; 87070; 87081; 87086; 87088; 87186; 87205; 87340; 90935; 93005; 94640; 96365; 96372; 96375; 97163; G0378; J1100; J1815; J1885; J2405; J2543

== ENCOUNTER 2024-05-19 09:48 | Inpatient (IN) | payer MEDICARE, MEDICAID ==
[~2024-05-19] VITALS: Ht 160 cm; Wt 95.6 kg
[~2024-05-19 09:48] MED LIST changes: +ACET-1882 PO; +AMIO200T33 PO; -AMLO1TAB23 PO; +APIX2.5T PO; -APIX5TAB PO; -ASPI-736 PO; -ASPI325T6 PO; +ASPI81CH74 PO; -ATOR40TA52 PO; -CALC667C PO; -CARV-214 PO; -CICL8SOL21 TOP; +CINA30TA14 PO; -CIPR-173 PO; -CLOP75TA70 PO; +DIPH2.5T73 PO; +DULA0.5I SC; +EPOE10004 SC; +ERGO1CAP23 PO; -LEVO250T58 PO; -MET500T PO
[2024-05-19 10:10] VITALS: RESP 18; O2SAT 95
[2024-05-19 11:00] VITALS: PULSE 85; RESP 18; O2SAT 97
[2024-05-19 11:04] LABS: Basophils # (auto) 0.1 10 ^3/uL (0-0.2); Basophils % (auto) 1.2 % (0.0-2.0); Eosinophils # (auto) 0.4 10 ^3/uL (0-0.8); Eosinophils % (auto) 5.8 % (0.0-7.0); Hematocrit 26.6 % (36.0-46.0); Hemoglobin 8.9 g/dL (12.2-16.2); Lymphocytes # (auto) 0.9 10 ^3/uL (0.4-5.4); Lymphocytes % (auto) 15.3 % (10.0-50.0); Mean Corpuscular Hemoglobin 32.9 pg (28.0-32.0); Mean Corpuscular Hgb Conc. 33.4 g/dL (32.0-36.0); Mean Corpuscular Volume 98.5 fL (80.0-100.0); Monocytes # (auto) 0.7 10 ^3/uL (0-1.3); Monocytes % (auto) 10.9 % (0.0-12.0); Neutrophils % (auto) 66.8 % (37.0-80.0); Red Cell Distribution Width 15.9 % (11.8-14.3); White Blood Cell 6.1 10^3/uL (4.4-10.8)
[2024-05-19 11:13] LABS: Chloride 96 mmol/L (98-107); Sodium 133 mmol/L (136-145)
[2024-05-19 11:14] LABS: Anion Gap 11 (5-15); Calcium 9.2 mg/dL (8.7-10.4); Carbon Dioxide 26 mmol/L (20-30)
[2024-05-19 11:19] LABS: BUN/Creatinine Ratio 6.6 (10.0-20.0); Blood Urea Nitrogen 64 mg/dL (9-23); Glucose 93 mg/dL (74-106)
[2024-05-19 11:27] LABS: Potassium 6.5 mmol/L (3.5-5.1)
[2024-05-19] MEDS: ALBUTEROL SULF 2.5 MG/0.5ML(0.5%) NEB SOLN NEB ONE (11:57)
[2024-05-19] MEDS ORDERED: DOCUSATE SOD 100 MG CAP PO PRN (12:45)
[2024-05-19] MEDS ORDERED: ACETAMINOPHEN 325 MG TAB PO PRN (12:45)
[2024-05-19] MEDS: ERGOCALCIFEROL 50,000 UNIT(1.25MG) CAP PO SCH (12:45)
[2024-05-19] MEDS ORDERED: METHOCARBAMOL 500 MG TAB PO PRN (13:00)
[2024-05-19] MEDS: CALCIUM GLUC 1,000mg/50ml-NS 50 ML IV ONE (13:30)
[2024-05-19] MEDS: hydrALAZINE HCL 25 MG TAB PO SCH (14:00)
[2024-05-19] MEDS: SODIUM BICARB 8.4% 50Meq/50ml SYR INJ IV ONE (14:08)
[2024-05-19] MEDS: InsuLIN REG 1unit/0.01ml Soln (100units/ml) IV ONE (14:09)
[2024-05-19] MEDS: DEXTROSE (50%) 50ML SYRG IV ONE (14:09)
[2024-05-19] MEDS: FUROSEMIDE 20 MG/2 ML VIAL IV ONE (14:10)
[2024-05-19] MEDS: SODIUM CHLOR 0.9% PF (SALINE LOCK) 10ML VIAL/SYR IV SCH (14:10)
[2024-05-19] MEDS: SODIUM ZIRCONIUM CYCL 10 GM PAK PO ONE (14:10)
[2024-05-19] MEDS: SEVELAMER 800 MG TAB PO SCH (17:01)
[2024-05-19] MEDS: FUROSEMIDE 40 MG TAB PO SCH (17:03)
[2024-05-19 20:00] VITALS: PULSE 76; RESP 12; O2SAT 94
[2024-05-19] MEDS ORDERED: EPOETIN ALFA-EPBX 10,000 UNIT/1ML VIAL SC SCH (21:00)
[2024-05-19 21:55] VITALS: BP 151/99; PULSE 82; TEMP 97.4; O2SAT 95
[2024-05-19] MEDS ORDERED: CARVEDILOL 3.125 MG TAB PO SCH (22:00)
[2024-05-19 22:15] VITALS: BP 155/124; PULSE 84; RESP 18; TEMP 97.4; O2SAT 95
[2024-05-19 23:22] VITALS: BP 155/124; PULSE 82; PULSE 85; RESP 18; RESP 20; TEMP 97.5; O2SAT 95
[2024-05-19] MEDS: GABAPENTIN 400 MG CAP PO SCH (23:28)
[2024-05-19] MEDS: ATORVASTATIN 20 MG TAB PO SCH (23:29)
[2024-05-19] MEDS: APIXABAN 2.5 MG TAB PO SCH (23:29)
[2024-05-19] MEDS: HYDROcodone-ACET 5/325MG TAB PO PRN (23:29)
[2024-05-20] VITALS (8 sets, daily range): BP systolic 104–154; BP diastolic 48–68; PULSE 77–99; RESP 16–18; TEMP 97.4–98.2; O2SAT 92–99
[2024-05-20] MEDS ORDERED: CINACALCET HYDROCHLORIDE 30 MG TAB PO SCH (10:00)
[2024-05-20] MEDS ORDERED: ALBUMIN 25% 100 ML IV ONE (11:00)
[2024-05-20] MEDS: busPIRone HCL 10 MG TAB PO SCH (13:12)
[2024-05-20] MEDS: PANTOPRAZOLE 40 MG TAB PO SCH (13:12)
[2024-05-20] MEDS: ASPirin 81 mg TAB PO SCH (13:12)
[2024-05-20] MEDS: CLOPIDOGREL BISULFATE 75 MG TAB PO SCH (13:12)
[2024-05-20] MEDS: AMIODARONE HCL 200 MG TAB PO SCH (13:12)
[2024-05-21] VITALS (9 sets, daily range): BP systolic 118–148; BP diastolic 48–61; PULSE 62–89; RESP 16–20; TEMP 97.5–98.8; O2SAT 94–100
[2024-05-21 05:57] LABS: Hematocrit 25.2 % (36.0-46.0); Hemoglobin 8.2 g/dL (12.2-16.2)
[2024-05-21 06:22] LABS: % Iron Saturation 86.8 % (15-50)
[2024-05-21] MEDS: SODIUM CHL 0.9% 1000 ML BAG XX ONE (07:00)
[2024-05-21] MEDS: ONDANSETRON HCL 4 MG/2 ML VIAL IV PRN (11:29)
[2024-05-22 01:00] VITALS: BP 137/41; PULSE 86; RESP 16; TEMP 98.1; O2SAT 90
[2024-05-22 05:00] VITALS: BP 163/52; PULSE 79; RESP 16; TEMP 98.5; O2SAT 100
[2024-05-22 08:00] VITALS: PULSE 82
[2024-05-22 08:18] VITALS: O2SAT 93
[2024-05-22 09:00] VITALS: BP 139/46; PULSE 83; RESP 16; TEMP 98.7; O2SAT 95
[2024-05-22 13:00] VITALS: BP 117/58; PULSE 80; RESP 16; TEMP 98.7; O2SAT 94
== END 2024-05-22 14:00 | disposition home or self-care (01) | DRG 640 ==
LOC: EDBD 09:48 → ER 09:48 → TELE 12:40 → TELE-EAST 21:55
PROVIDERS: ADMIT Internal Medicine; ATTEND Family Medicine
PROC: 5A1D70Z Performance of Urinary Filtration, Intermittent, Less than 6 Hours Per Day (ICD-10-PCS; principal; 2024-05-20)
PROC: 5A1D70Z Performance of Urinary Filtration, Intermittent, Less than 6 Hours Per Day (ICD-10-PCS; 2024-05-21)
DX: E87.5 Hyperkalemia (principal); I50.43 Acute on chronic combined systolic (congestive) and diastolic (congestive) heart failure; N18.6 End stage renal disease; I13.2 Hypertensive heart and chronic kidney disease with heart failure and with stage 5 chronic kidney disease, or end stage renal disease; E44.0 Moderate protein-calorie malnutrition; J44.1 Chronic obstructive pulmonary disease with (acute) exacerbation; E11.22 Type 2 diabetes mellitus with diabetic chronic kidney disease; I25.10 Atherosclerotic heart disease of native coronary artery without angina pectoris; E78.00 Pure hypercholesterolemia, unspecified; D63.1 Anemia in chronic kidney disease; F41.9 Anxiety disorder, unspecified; M19.09 Primary osteoarthritis, other specified site; Z99.2 Dependence on renal dialysis; Z91.199 Patient's noncompliance with other medical treatment and regimen due to unspecified reason; Z95.5 Presence of coronary angioplasty implant and graft; Z82.49 Family history of ischemic heart disease and other diseases of the circulatory system; Z82.3 Family history of stroke; Z80.3 Family history of malignant neoplasm of breast; Z83.3 Family history of diabetes mellitus; Z90.710 Acquired absence of both cervix and uterus; Z90.49 Acquired absence of other specified parts of digestive tract; Z68.37 Body mass index [BMI] 37.0-37.9, adult
CPT/HCPCS: 36415; 80048; 82728; 82962; 83540; 83550; 83880; 84132; 84484; 85014; 85018; 85025; 87081; 87340; 90935; 93005; 94640; 96365; 99291; G0378; J1642; J1815; J2405; P9047

== ENCOUNTER 2024-07-14 11:34 | Emergency (ER) | payer MEDICARE, MEDICAID ==
[~2024-07-14] VITALS: Ht 157.5 cm; Wt 100.0 kg
[~2024-07-14 11:34] MED LIST changes: -BUSP10TA90 PO; -DICL1GEL73 TOP; -DULA0.5I SC
[2024-07-14] MEDS ORDERED: HYDR-4902 PO (14:55)
[2024-07-14] MEDS ORDERED: HYDR-4798 PO (15:05)
[2024-07-14] MEDS: ONDANSETRON HCL 4 MG/2 ML VIAL IM ONE (15:19)
[2024-07-14] MEDS: MORPHINE SULFATE 4 MG/ML SYR/VIAL IM ONE (15:19)
[2024-07-14 15:21] VITALS: BP 160/84; PULSE 79; RESP 16; O2SAT 97
== END 2024-07-14 15:20 | disposition home or self-care (01) ==
LOC: ER 11:34
DX: M54.50 Low back pain, unspecified (principal); M25.551 Pain in right hip; M25.561 Pain in right knee; F41.9 Anxiety disorder, unspecified; M19.90 Unspecified osteoarthritis, unspecified site; J44.9 Chronic obstructive pulmonary disease, unspecified; E78.5 Hyperlipidemia, unspecified; I13.2 Hypertensive heart and chronic kidney disease with heart failure and with stage 5 chronic kidney disease, or end stage renal disease; E11.22 Type 2 diabetes mellitus with diabetic chronic kidney disease; N18.6 End stage renal disease; I50.9 Heart failure, unspecified; Z90.49 Acquired absence of other specified parts of digestive tract; Z90.710 Acquired absence of both cervix and uterus; Z79.899 Other long term (current) drug therapy; Z88.5 Allergy status to narcotic agent
CPT/HCPCS: 72100; 73502; 73552; 73562; 96372; 99284; J2270; J2405

== ENCOUNTER 2024-12-16 19:09 | Emergency (ER) | payer MEDICARE, MEDICAID ==
[~2024-12-16] VITALS: Ht 175.3 cm; Wt 100.0 kg
[~2024-12-16 19:09] MED LIST changes: +HYDR-4798 PO
--- NOTE | 2024-12-16 19:28 | ED.PDOC ---
History of Present Illness HPI Comments 64 year old female brought in by EMS presents to the ED with a chief complaint of dialysis shunt bleeding onset today (18:30). Patient states she received dialysis today and ended around 16:30, went for lunch, went home. Patient was laying down, unsure if she scratched dialysis shunt, noticed it was bleeding. Patient states she waited about 25 minutes trying to control bleeding, could not control it and called 911. EMS states patient lost approximately 150 ml of blood, dressing and pressure applied, bleeding was controlled. Patient also states she is on blood thinners. PMHx HTN, HLD, ESRD, COPD, CHF, anxiety, arthritis, cancer, asthma, CAD. Denies trauma, injury, headache, dizziness, headache, nausea, vomiting, diarrhea, chest pain, shortness of breath. No other symptoms or modifying factors present at this time. Chief Complaint: Puncture Wound Time Seen by MD: 19:17 Primary Care Provider: WU Roland Notes: Medications, Allergies Allergies: Coded Allergies: Codeine (Verified Allergy, Unknown, 10/07/20) Uncoded Allergies: adhesives (Allergy, Mild, 04/22/24) Home Meds Active Scripts Hydrocodone-Acetaminophen (Hydrocodone Bitartrate/AC 10-325 mg) 1 Tab Tab, 1 TAB PO Q6HPRN PRN, #15 TAB Prov:TALAT VILLEGAS [facility] 07/14/24 Levofloxacin Hemihydrate (LEVAQUIN 500 MG) 500 Mg Tab, 500 MG PO DAILY for 7 Days, #7 TAB Prov:TAMELA VELAZQUEZ [facility] 04/30/24 Apixaban Base (ELIQUIS) 2.5 Mg Tab, 2.5 MG PO BID for 30 Days, #60 TAB Prov:TAMELA VELAZQUEZ [facility] 04/30/24 Ergocalciferol (VITAMIN D 14126 UNIT) 50,000 [place], [address] UNIT PO Q7D for 30 Days, #10 CAP Prov:TAMELA VELAZQUEZ [facility] 04/30/24 Epoetin Wolf-Epbx (Retacrit) 10,000 Unit/Ml Inj, 18400 UNIT SC POSTDI@2100 for 30 Days, #20 INJ Prov:TAMELA VELAZQUEZ [facility] 04/30/24 Acetaminophen (Acetaminophen) 325 Mg Tab, 325 MG PO Q4HP PRN for 30 Days, #150 TAB Prov:TAMELA VELAZQUEZ 04/30/24 Tramadol Hcl (Tramadol Hcl) 50 Mg Tab, 50 MG PO TID PRN, #30 TAB Prov:GUILLERMO MELENDREZ MD 03/13/24 Clopidogrel Bisulfate (Plavix) 75 Mg Tab, 75 MG PO DAILY for 30 Days, #30 TAB Prov:DENY BOWEN MD 11/12/22 Pantoprazole Sodium Sesquihydr (Protonix) 40 Mg Tab, 40 MG PO DAILY, #30 TAB Prov:CARLOS VILLEGAS MD 09/13/20 Reported Medications Tirzepatide (Mounjaro) 2.5 Mg/0.5 Ml Inj, 2.5 MG SC QWEEKLY for 28 Days, #2 Administer 2.5 mg under the skin 1 time a week for 4 weeks. 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 04/28/24 Aspirin (Aspirin 81 Low Dose) 81 Mg Chw, 1 TAB PO DAILY, TAB.CHEW 04/28/24 Diphenoxylate W/ Atropine (Lomotil) 2.5 Mg Tab, 1 TAB PO TID PRN for FOR DIARRHEA, #30 TAB 04/27/24 Cinacalcet HCl (Cinacalcet Hydrochloride) 30 Mg Tab, 30 MG PO, TAB 04/27/24 Sevelamer Carbonate (Renvela) 800 Mg Tab, 1 TAB PO TID, #270 TAB 3 Refills 04/12/24 Losartan Potassium (Losartan Potassium) 50 Mg Tab, 1 TAB PO DAILY, #30 TAB 5 Refills 04/12/24 Carvedilol (Carvedilol) 3.125 Mg Tab, 3.125 MG PO DAILY for 30 Days, MG 04/12/24 Atorvastatin Calcium (Lipitor) 40 Mg Tab, 1 TAB PO DAILY 03/11/24 Albuterol Sulfate (Albuterol Sulfate Hfa) 108 Mcg/Act Aer, 1 PUFF INH Q4HR PRN 03/11/24 Hydralazine Hcl (Hydralazine Hcl) 50 Mg Tab, 1 TAB PO TID, #90 TAB 5 Refills 03/09/24 Lidocaine (Lidocaine) 5 % Pad, 1 PATCH TOP DAILY 08/19/23 Methocarbamol (Methocarbamol) 750 Mg Tab, 750 MG PO BIDP PRN for FOR MUSCLE SPASM for 30 Days, MG 07/13/19 Gabapentin (Neurontin) 400 Mg Cap, 1 CAP PO BID 07/13/19 Furosemide (Lasix) 80 Mg Tab, 1 TAB PO BID 07/13/19 Information Source: Patient, Emergency Med Personnel Mode of Arrival: EMS Severity: Moderate Timing: Hours Duration: Since onset Prehospital treatment: None Past Medical History PAST MEDICAL HISTORY: Anxiety, Arthritis, Asthma, CAD, Cancer, CHF, COPD, DM, ESRD, High Lipids, HTN Surgical History: Appendectomy, Cholecystectomy, , Hysterectomy, PTCA [employer] History: No Pertinent [employer] [employer] History Family History Family History: Family hx of DM, Family hx of heart adrianna Social History Smoker: Non-Smoker Alcohol: Denies ETOH Use Drugs: Denies Drug Use Lives In: Home Constitutional: denies: chills, diaphoresis, fatigue, fever, malaise, sweats, weakness, others EENTM: denies: blurred vision, double vision, ear bleeding, ear discharge, ear drainage, ear pain, ear ringing, eye pain, eye redness, hearing loss, mouth pain, mouth swelling, nasal discharge, nose bleeding, nose congestion, nose pain, photophobia, tearing, throat pain, throat swelling, voice changes, others Respiratory: denies: cough, hemoptysis, orthopnea, SOB at rest, shortness of breath, SOB with excertion, stridor, wheezing, others Cardiovascular: denies: chest pain, dizzy spells, diaphoresis, Dyspnea on exertion, edema, irregular heart beat, left arm pain, lightheadedness, palpitations, PND, syncope, others Gastrointestinal: denies: abdomen distended, abdominal pain, blood streaked bowels, constipated, diarrhea, dysphagia, difficulty swallowing, hematemesis, melena, nausea, poor appetite, poor fluid intake, rectal bleeding, rectal pain, vomiting, others Genitourinary: denies: abnormal vagina bleeding, burning, dyspareunia, dysuria, flank pain, frequency, hematuria, incontinence, pain, , vagina discharge, urgency, others Neurological: denies: dizziness, fainting, headache, left sided numbness, left sided weakness, numbness, paresthesia, pre-existing deficit, right sided numbness, right sided weakness, seizure, speech problems, tingling, tremors, weakness, others Musculoskeletal: reports: others (LT arm dialysis shunt malfunction ); denies: back pain, gout, joint pain, joint swelling, muscle pain, muscle stiffness, neck pain Integumetry: denies: bruises, change in color, change in hair/nails, dryness, laceration, lesions, lumps, rash, wounds, others Allergic/Immunocompromised: denies: Difficulty Healing, Frequent Infections, Hives, Itching, others Hematologic/Lymphatic: denies: anemia, blood clots, easy bleeding, easy bruising, swollen glands, others Endocrine: denies: excessive hunger, excessive sweating, excessive thirst, excessive urination, flushing, intolerance to cold, intolerance to heat, unexplained weight gain, unexplained weight loss, others Psychiatric: denies: anxiety, bipolar disorder, depression, hopeless, panic disorder, schizophrenia, sleepless, suicidal, others All Other Systems: Reviewed and Negative Physical Exam General Appearance: No Apparent Distress, Normal HEENT: Normal ENT Inspection, Pharynx Normal, TMs Normal Neck: Full Range of Motion, Non-Tender, Normal, Normal Inspection Respiratory: Chest Non-Tender, Lungs Clear, No Accessory Muscle Use, No Respiratory Distress, Normal Breath Sounds Cardiovascular: No Edema, No JVD, No Murmur, No Gallop, Normal Peripheral Pulses, Regular Rate/Rhythm Breast Exam: Deferred Gastrointestinal: No Organomegaly, Non Tender, No Pulsatile Mass, Normal Bowel Sounds, Soft Genitalia: Deferred Pelvic: Deferred Rectal: Deferred Extremities: No calf tenderness, Normal capillary refill, Normal inspection, Normal range of motion, Non-tender, No pedal edema Musculoskeletal : Apperance: Normal Neurologic: Alert, 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 Was a procedure done?: No Differential Dx Considerations may include: Differential diagnosis includes but is not limited to: persistent hemorrhage, coagulopathy, symptomatic anemia, hypovolemia and others X-Ray, Labs, Meds, VS Vital Signs Date Time Temp Pulse Resp B/P (MAP) Pulse Ox O2 Delivery O2 Flow Rate FiO2 12/16/24 19:18 98.6 92 16 111/68 (82) 96 Time of 1ST Reevaluation: 19:47 Reevaluation 1ST: Unchanged Time of 2ND Reevaluation: 20:30 Reevaluation 2ND: Improved Patient Education/Counseling: Diagnosis, Treatment, Prognosis Family Education/Counseling: No Family Present Departure 1 Departure Time of Disposition: 20:30 Impression: Primary Impression: End stage renal disease on dialysis Additional Impression: Disorder of arteriovenous shunt Disposition: 01 HOME / SELF CARE / HOMELESS Condition: Stable Discharged With: Self Critical Care Note Critical Care Time?: No Stability Stability form required: No Heart Score Heart Score: Heart Score Response (Comments) Value History N/A 0 EKG N/A 0 Age N/A 0 Risk Factors N/A 0 Troponin N/A 0 Total 0 I personally scribed for ADRIÁN KRAFT MD ([email or web address]) on 12/16/24 at 19:28. Electronically submitted by Nona Oconnor ([email or web address]). ADRIÁN KRAFT MD Dec 16, 2024 19:28
[2024-12-17 01:40] VITALS: BP 129/63; PULSE 88; RESP 16; TEMP 98.2; O2SAT 96
== END 2024-12-16 21:55 | disposition home or self-care (01) ==
LOC: EDBD 19:09 → ER 19:15
DX: I13.2 Hypertensive heart and chronic kidney disease with heart failure and with stage 5 chronic kidney disease, or end stage renal disease (principal); I50.9 Heart failure, unspecified; N18.6 End stage renal disease; E11.22 Type 2 diabetes mellitus with diabetic chronic kidney disease; T82.591A Other mechanical complication of surgically created arteriovenous shunt, initial encounter; F41.9 Anxiety disorder, unspecified; M19.90 Unspecified osteoarthritis, unspecified site; I25.10 Atherosclerotic heart disease of native coronary artery without angina pectoris; J44.9 Chronic obstructive pulmonary disease, unspecified; E78.5 Hyperlipidemia, unspecified; Z99.2 Dependence on renal dialysis; Z79.899 Other long term (current) drug therapy; Z79.85 Long-term (current) use of injectable non-insulin antidiabetic drugs; Z79.82 Long term (current) use of aspirin; Z79.01 Long term (current) use of anticoagulants; Z79.02 Long term (current) use of antithrombotics/antiplatelets; Z90.710 Acquired absence of both cervix and uterus; Z90.49 Acquired absence of other specified parts of digestive tract; Z88.5 Allergy status to narcotic agent; Y92.89 Other specified places as the place of occurrence of the external cause

== ENCOUNTER 2025-05-07 18:22 | Inpatient (IN) | payer MEDICARE, MEDICAID ==
[~2025-05-07] VITALS: Ht 157.5 cm; Wt 95.0 kg
--- NOTE | 2025-05-07 18:42 | ED.PDOC ---
SOB-HPI HPI Comments 64 year old female with a Hx of Asthma, COPD, CHF, HTN, and High Lipids was BIBA for the c/c of Respiratory Distress w/ associated SOB, Wheezing and Generalized Weakness. Pt states that her symptoms started 3x days ago and has found no alleviating factors. Per EMS pt also noted of Dark [place] Urine, and a RR of 30. No other associated symptoms, modifiers, recent injuries or sick contacts present at this time. Time Seen by MD: 18:36 Primary Care Provider: WU Reviewed notes: Nurses Notes, Manager Access Notes, Medications, Allergies Information Source: Patient, Emergency Med Personnel Mode of Arrival: EMS Severity: Moderate Timing: Days Duration: Since onset, Days Context: Other PE Risk Factors: None History of: COPD, CHF Prehospital treatment: 12 Lead EKG, Breathing Tx, Oxygen Modifying Factors: Exertion, Sitting up Associated Signs and Symptoms: Wheeze, Cough Radiation: No Radiation If cough with SOB: Productive Past Medical History PAST MEDICAL HISTORY: Anxiety, Arthritis, Asthma, CAD, Cancer, CHF, COPD, DM, ESRD, High Lipids, HTN Surgical History: Appendectomy, Cholecystectomy, , Hysterectomy, PTCA SVP GROUP DIRECTOR History: No Pertinent SVP GROUP DIRECTOR History Family History Family History: Family hx of DM, Family hx of heart adrianna Social History Smoker: Non-Smoker Alcohol: Denies ETOH Use Drugs: Denies Drug Use Lives In: Home Constitutional: denies: chills, diaphoresis, fatigue, fever, malaise, sweats, weakness, others EENTM: denies: blurred vision, double vision, ear bleeding, ear discharge, ear drainage, ear pain, ear ringing, eye pain, eye redness, hearing loss, mouth pain, mouth swelling, nasal discharge, nose bleeding, nose congestion, nose pain, photophobia, tearing, throat pain, throat swelling, voice changes, others Respiratory: reports: cough, SOB at rest, shortness of breath, wheezing; denies: hemoptysis, orthopnea, SOB with excertion, stridor, others Cardiovascular: denies: chest pain, dizzy spells, diaphoresis, Dyspnea on exertion, edema, irregular heart beat, left arm pain, lightheadedness, palpitations, PND, syncope, others Gastrointestinal: denies: abdomen distended, abdominal pain, blood streaked bowels, constipated, diarrhea, dysphagia, difficulty swallowing, hematemesis, melena, nausea, poor appetite, poor fluid intake, rectal bleeding, rectal pain, vomiting, others Genitourinary: denies: abnormal vagina bleeding, burning, dyspareunia, dysuria, flank pain, frequency, hematuria, incontinence, pain, , vagina discharge, urgency, others Neurological: denies: dizziness, fainting, headache, left sided numbness, left sided weakness, numbness, paresthesia, pre-existing deficit, right sided numbness, right sided weakness, seizure, speech problems, tingling, tremors, weakness, others Musculoskeletal: denies: back pain, gout, joint pain, joint swelling, muscle pain, muscle stiffness, neck pain, others Integumetry: denies: bruises, change in color, change in hair/nails, dryness, laceration, lesions, lumps, rash, wounds, others Allergic/Immunocompromised: denies: Difficulty Healing, Frequent Infections, Hives, Itching, others Hematologic/Lymphatic: denies: anemia, blood clots, easy bleeding, easy bruising, swollen glands, others Endocrine: denies: excessive hunger, excessive sweating, excessive thirst, excessive urination, flushing, intolerance to cold, intolerance to heat, unexplained weight gain, unexplained weight loss, others Psychiatric: denies: anxiety, bipolar disorder, depression, hopeless, panic disorder, schizophrenia, sleepless, suicidal, others All Other Systems: Reviewed and Negative Physical Exam General Appearance: Moderate Distress, Normal, Obese HEENT: Normal ENT Inspection, Pharynx Normal, TMs Normal Neck: Full Range of Motion, Non-Tender, Normal, Normal Inspection Respiratory: Accessory Muscle Use, Chest Non-Tender, Respiratory Distress, Wheezing Cardiovascular: No Edema, No JVD, No Murmur, No Gallop, Normal Peripheral Pulses, Regular Rate/Rhythm Breast Exam: Deferred Gastrointestinal: Non Tender, No Pulsatile Mass, Normal Bowel Sounds, Soft Genitalia: Deferred Pelvic: Deferred Rectal: Deferred Extremities: No calf tenderness, Normal capillary refill, Normal inspection, Normal range of motion, Non-tender, No pedal edema Musculoskeletal : Apperance: Normal Neurologic: Alert, No Motor Deficits, Normal Affect, Normal Mood, No Sensory Deficits Cerebellar Function: Normal Reflexes: Normal Skin: Dry, Normal Color, Warm Lymphatic: No Adenopathy Was a procedure done? Was a procedure done?: No Differential Dx Differential Diagnosis: Anxiety, Asthma, Bronchitis, CHF, COPD, Hypertension, Hyperventilation, Hyponatremia, Panic Attack, Pneumonia, Pneumothorax, Pulmonary Embolism, Respiratory Distress, Pharyngitis, URI X-Ray, Labs, Meds, VS Vital Signs Date Time Temp Pulse Resp B/P (MAP) Pulse Ox O2 Delivery O2 Flow Rate FiO2 05/07/25 18:58 20 98 Nasal Cannula* 3 32 05/07/25 18:54 120 28 98 Nasal Cannula* 3 32 05/07/25 18:54 98.8 120 28 141/72 (95) 98 98.8 05/07/25 18:28 98.7 100 26 121/50 (73) 98 98.7 05/07/25 18:28 26 98 Nasal Cannula* 4 36 05/07/25 18:28 109 Lab Test 05/07/25 19:08 05/07/25 19:02 05/07/25 18:35 Range/Units White Blood Count 5.7 4.4-10.8 10^3/uL Red Blood Count 3.46 L 4.0-5.20 10^6/uL Hemoglobin 11.1 L 12.2-16.2 g/dL Hematocrit 34.0 L 36.0-46.0 % Mean Corpuscular Volume 98.1 80.0-100.0 fL Mean Corpuscular Hemoglobin 32.1 H 28.0-32.0 pg Mean Corpuscular Hemoglobin Concent 32.7 32.0-36.0 g/dL Red Cell Distribution Width 16.8 H 11.8-14.3 % Platelet Count 138 L 140-450 10^3/uL Mean Platelet Volume 10.7 6.9-10.8 fL Neutrophils (%) (Auto) 85.9 H 37.0-80.0 % Lymphocytes (%) (Auto) 7.8 L 10.0-50.0 % Monocytes (%) (Auto) 4.4 0.0-12.0 % Eosinophils (%) (Auto) 1.0 0.0-7.0 % Basophils (%) (Auto) 0.9 0.0-2.0 % Neutrophils # (Auto) 4.9 1.6-8.6 10 ^3/uL Lymphocytes # (Auto) 0.4 0.4-5.4 10 ^3/uL Monocytes # (Auto) 0.3 0-1.3 10 ^3/uL Eosinophils # (Auto) 0.1 0-0.8 10 ^3/uL Basophils # (Auto) 0.1 0-0.2 10 ^3/uL Nucleated Red Blood Cells 0.2 % Sodium Level 137 136-145 mmol/L Potassium Level 3.6 3.5-5.1 mmol/L Chloride Level 95 L 98-107 mmol/L Carbon Dioxide Level 31 20-31 mmol/L Anion Gap 11 5-15 Blood Urea Nitrogen 27 H 9-23 mg/dL Creatinine 4.73 H 0.550-1.02 mg/dL Glomerular Filtration Rate Calc 10 >90 mL/min BUN/Creatinine Ratio 5.7 L 10.0-20.0 Serum Glucose 316 H 74-106 mg/dL Lactic Acid Level 3.3 *H 0.4-2.0 mmol/L Calcium Level 8.5 L 8.7-10.4 mg/dL Total Bilirubin 0.2 0.2-1.0 mg/dL Aspartate Amino Transferase (AST) 23 13-40 U/L Alanine Aminotransferase (ALT) 16 7-40 U/L Alkaline Phosphatase 126 H 46-116 U/L B-Type Natriuretic Peptide 3207.16 0-100 pg/mL Total Protein 7.1 5.7-8.2 g/dL Albumin 4.1 3.2-4.8 g/dL Blood Gas Specimen Type Venous Blood Gas Sample Site Vbg - n/a Blood Gas Patient Temperature 37.0 Arterial Blood Date Drawn [id number] Reed Test N/a Venous Blood pH 7.470 H 7.320-7.430 Venous Blood pCO2 at Patient Temp 38.0 38.0-54.0 mmHg Venous Blood pO2 at Patient Temp 42.2 23.0-48.0 mmHg Venous Blood HCO3 27.0 22.0-29.0 mmol/L Venous Bld O2 Saturation (Measured) 76.8 60.0-85.0 % Venous Blood Base Excess 3.3 H -2.0-3.0 mmol/L Venous Blood Total Hemoglobin 12.0 12.0-16.0 g/dL Venous Blood Oxyhemoglobin 75.6 0.0-79.0 % Venous Blood Carboxyhemoglobin 1.1 0.5-1.5 % Venous Blood Methemoglobin 0.4 0.0-1.5 % Blood Gas Liter Flow 3.00 Blood Gas Modality Nasal cannula Blood Gas Spontaneous Rate 22 FiO2 % 32.0 POC Glucose 301 H 70-106 mg/dl Current Medications Medications (Trade) Dose Ordered Sig/Keaton Route Start Time Stop Time Status Last Admin Albuterol (Ventolin Medneb) 5 mg ONCE ONCE HHN 05/07/25 18:45 05/07/25 18:46 DC 05/07/25 18:58 Ipratropium Clarion (Atrovent Medneb) 0.5 mg ONCE ONCE HHN 05/07/25 18:45 05/07/25 18:46 DC 05/07/25 18:58 PATIENT: MICAH LIRIANO ACCT: [id number] UNIT: [id number] : 1960 LOC: ER ROOM / BED: / AGE / SEX: 64 / F ADM STATUS: [facility] ER SERVICE 35 ORDERING PHYSICIAN: ADRIÁN KRAFT MD PROCEDURE(s): CXRP - CHEST PORTABLE REASON: SOB ORDER NUMBER(s): [id number], ACCESSION NUMBER(s): [id number] CHEST RADIOGRAPH Indication: SOB Technique: Single frontal view of the chest was obtained COMPARISON: XY CHEST XRAY 1 VIEW on DOS: 04/29/24, XY CHEST PORTABLE on DOS: 04/27/24, XY CHEST XRAY 1 VIEW on DOS: 03/09/24, XY CHEST PORTABLE on DOS: 08/17/23, XY CHEST PORTABLE on DOS: 08/11/23 FINDINGS: Lines and Tubes: None Lungs: Increased interstitial prominence Pleura: No effusion. No pneumothorax. Cardiomediastinal contours: Cardiomegaly Bones: Unremarkable IMPRESSION: Mild pulmonary vascular congestion Time of 1ST Reevaluation: 19:07 Reevaluation 1ST: Unchanged Patient Education/Counseling: Diagnosis, Treatment, Need For Follow Up Family Education/Counseling: No Family Present Sepsis focused exam: focus exam completed, time: (1929) SEPSIS Sepsis Screen Physician Orders Chest Portable (05/07/25 18:36) Oxygen (05/07/25 18:36) Player Manager (05/07/25 18:36) Blood Culture (05/07/25 18:36) Venous Blood Gas (05/07/25 18:36) Rapid Influenza A&B (05/07/25 18:36) Covid19 Antigen Marisol (05/07/25 ) Electrocardigram (05/07/25 18:44) Ceftriaxone 1gm/50ml D5w (Rocephin) (05/07/25 20:00) Azithromycin 500mg/ 250ml (Zithromax 50 (05/07/25 20:00) Vital Signs Date Time Temp Pulse Resp B/P (MAP) Pulse Ox O2 Delivery O2 Flow Rate FiO2 05/07/25 18:58 20 98 Nasal Cannula* 3 32 05/07/25 18:54 120 28 98 Nasal Cannula* 3 32 05/07/25 18:54 98.8 120 28 141/72 (95) 98 98.8 05/07/25 18:28 98.7 100 26 121/50 (73) 98 98.7 05/07/25 18:28 26 98 Nasal Cannula* 4 36 05/07/25 18:28 109 Laboratory Tests Test 05/07/25 19:08 Lactic Acid Level 3.3 mmol/L (0.4-2.0) *H White Blood Count 5.7 10^3/uL (4.4-10.8) Medications Medications Dose Ordered Sig/Keaton Route Start Time Stop Time Status Last Admin Dose Admin Albuterol 5 mg ONCE ONCE [facility] 05/07/25 18:45 05/07/25 18:46 DC 05/07/25 18:58 Ipratropium Clarion 0.5 mg ONCE ONCE [facility] 05/07/25 18:45 05/07/25 18:46 DC 05/07/25 18:58 Departure 1 Departure Time of Disposition: 20:02 Impression: Primary Impression: Respiratory failure with hypoxia Additional Impressions: COPD exacerbation Pneumonitis Type 2 diabetes mellitus with hyperglycemia ESRD (end stage renal disease) on dialysis Disposition: ADMITTED INPATIENT Condition: Guarded Comments Shortness of Breath and Weakness in 64-year-old Female with ESRD and COPD Chief Complaint: Shortness of breath and generalized weakness History of Present Illness: Patient is a 64-year-old female with a history of end-stage renal disease (ESRD) on hemodialysis and chronic obstructive pulmonary disease (COPD) who presents to the emergency department with complaints of shortness of breath and generalized weakness. The patient reports that her symptoms worsen with movement and exertion. She also notes a dry cough. The patient is on a regular dialysis schedule of Saturday, Saturday, and Saturday, and did receive dialysis earlier today. She uses a home nebulizer machine and home oxygen via nasal cannula for management of her COPD. The patient's current presentation is concerning for a COPD exacerbation, possible pneumonia, and fluid overload. Review of Systems: Constitutional: Positive for generalized weakness. Respiratory: Positive for shortness of breath, dry cough, and increased oxygen requirements. Cardiovascular: No chest pain reported. Gastrointestinal: No nausea, vomiting, or abdominal pain reported. Genitourinary: Patient with ESRD on regular hemodialysis. Musculoskeletal: No joint pain or swelling reported. Neurological: No dizziness, headache, or altered mental status reported. All other systems reviewed and negative or noncontributory. Medications: Home oxygen via nasal cannula Home nebulizer treatments Complete medication list unavailable at time of documentation Allergies: No known drug allergies documented Past Medical History: 1. End-stage renal disease on hemodialysis (Saturday, Saturday, Saturday) 2. Chronic obstructive pulmonary disease (COPD) 3. Chronic anemia 4. Diabetes mellitus (based on hyperglycemia noted) Past Surgical History: AV shunt placement in left upper arm for dialysis access Vital Signs: Oxygen requirement: 4 liters per minute via nasal cannula Other vital signs not documented in academic support center director Physical Exam: General: 64-year-old female in mild respiratory distress. HEENT: Not documented. Cardiovascular: Not specifically documented. Respiratory: Wheezing and rhonchi noted in the lung bases. Abdomen: Not documented. Extremities: Left upper arm with AV shunt with good thrill. Neurological: Not documented. Lab Results: CBC: - Hemoglobin: 11 g/dL - Hematocrit: 34% Chemistry: - Creatinine: 27.4 mg/dL (elevated, consistent with ESRD) - BUN: 4.73 mg/dL - Potassium: 3.6 mEq/L (normal) - Glucose: 301 mg/dL (elevated) Other: - Lactic acid: 3.3 mmol/L (elevated) - BNP: 3,207 pg/mL (significantly elevated) Imaging and Other Relevant Results: Chest X-ray: Mild pulmonary vascular congestion Medical Decision Making: Summary Statement: 64-year-old female with history of ESRD on dialysis and COPD presenting with acute shortness of breath, generalized weakness, and dry cough. Findings include wheezing and rhonchi on exam, elevated BNP, elevated lactic acid, and chest x-ray showing mild pulmonary vascular congestion. Problem List: 1. Acute COPD exacerbation with respiratory failure and hypoxia 2. End-stage renal disease on dialysis 3. Fluid overload 4. Possible pneumonia/pneumonitis 5. Hyperglycemia Differential Diagnosis: COPD exacerbation, pneumonia, pulmonary edema from fluid overload, heart failure exacerbation, pulmonary embolism, sepsis, metabolic acidosis from renal failure. ED Course: Patient received IV antibiotics (Rocephin and azithromycin) due to elevated lactic acid and concern for infection. Bronchodilator treatment with albuterol and Atrovent was administered. Patient requires 4L oxygen via nasal cannula. Decision made to admit for management of respiratory failure with hypo vasu, COPD exacerbation, and fluid overload. Assessment and Plan: 1. Acute COPD Exacerbation with Respiratory Failure and Hypoxia: - Continue oxygen therapy at 4L via nasal cannula to maintain adequate oxygenation - Scheduled nebulizer treatments with albuterol and Atrovent - Consider systemic corticosteroids - Monitor oxygen saturation and respiratory status 2. End-Stage Renal Disease: - Continue regular dialysis schedule (MWF) - Monitor electrolytes and renal function - Adjust medications as needed for renal dosing 3. Fluid Overload: - Strict fluid management - Daily weights - Consider additional dialysis if needed for volume removal 4. Suspected Pneumonia/Pneumonitis: - Continue IV antibiotics (Rocephin and azithromycin) - Monitor inflammatory markers and clinical response - Consider sputum culture if productive cough develops 5. Hyperglycemia: - Monitor blood glucose levels - Adjust diabetic medications as needed Disposition: Admit to inpatient medicine service for management of respiratory failure, COPD exacerbation, and fluid overload. Additional Notes: Patient presented to ED with respiratory distress requiring admission for COPD exacerbation and fluid overload. Billing Information: ICD-10: J44.1 - Chronic obstructive pulmonary disease with acute exacerbation ICD-10: J96.01 - Acute respiratory failure with hypoxia ICD-10: N18.6 - End stage renal disease ICD-10: E87.70 - Fluid overload, unspecified ICD-10: J18.9 - Pneumonia, unspecified organism Critical Care Note Critical Care Time?: Yes (35 min-critical care time only) Critical care comment: Total critical care time: Approximately 36 minutes Due to a high probability of clinically significant, life threatening deterioration, the patient required my highest level of preparedness to intervene emergently and I personally spent this critical care time directly and personally managing the patient. This critical care time included obtaining a history; examining the patient; pulse oximetry; ordering and review of studies; arranging urgent treatment with development of a management plan; evaluation of patient's response to treatment; frequent reassessment; and, discussions with other providers. This critical care time was performed to assess and manage the high probability of imminent, life-threatening deterioration that could result in multi-organ failure. It was exclusive of separately billable procedures and treating other patients. Stability Stability form required: No Heart Score Heart Score: Heart Score Response (Comments) Value History N/A 0 EKG N/A 0 Age N/A 0 Risk Factors N/A 0 Troponin N/A 0 Total 0 I personally scribed for ADRIÁN KRAFT MD ([email or web address]) on 05/07/25 at 18:42. Electronically submitted by Adilson Paredes ([email or web address]). I personally scribed for ADRIÁN KRAFT MD ([email or web address]) on 05/07/25 at 19:31. Electronically submitted by Adilson Paredes ([email or web address]). ADRIÁN KRAFT MD May 07, 2025 18:42
[2025-05-07 18:54] VITALS: PULSE 120; RESP 28; O2SAT 98
[2025-05-07] MEDS: ALBUTEROL SULF 2.5 MG/0.5ML(0.5%) NEB SOLN HHN ONE (18:58)
[2025-05-07] MEDS: IPRATROPIUM BROM 0.5 MG/2.5ML INH SOL HHN ONE (18:58)
--- NOTE | 2025-05-07 19:13 | DVH ---
CHEST RADIOGRAPH Indication: SOB Technique: Single frontal view of the chest was obtained COMPARISON: XY CHEST XRAY 1 VIEW on DOS: 04/29/24, XY CHEST PORTABLE on DOS: 04/27/24, XY CHEST XRAY 1 V IEW on DOS: 03/09/24, XY CHEST PORTABLE on DOS: 08/17/23, XY CHEST PORTABLE on DOS: 08/11/23 FINDINGS: Lines and Tubes: None Lungs: Increased interstitial prominence Pleura: No effusion. No pneumothorax. Cardiomediastinal contours: Cardiomegaly Bones: Unremarkable IMPRESSION: Mild pulmonary vascular congestion
[2025-05-07 19:29] LABS: Hematocrit 34.0 % (36.0-46.0); Hemoglobin 11.1 g/dL (12.2-16.2); Mean Corpuscular Hemoglobin 32.1 pg (28.0-32.0); Mean Corpuscular Volume 98.1 fL (80.0-100.0); Nucleated Red Blood Cells % 0.2 %
[2025-05-07 19:45] LABS: Alanine Aminotransferase 16 U/L (7-40); Albumin 4.1 g/dL (3.2-4.8); Anion Gap 11 (5-15); BUN/Creatinine Ratio 5.7 (10.0-20.0); Carbon Dioxide 31 mmol/L (20-31); Potassium 3.6 mmol/L (3.5-5.1); Sodium 137 mmol/L (136-145); Total Protein 7.1 g/dL (5.7-8.2)
[2025-05-07 19:48] LABS: Alkaline Phosphatase 126 U/L (46-116); Bilirubin, Total 0.2 mg/dL (0.2-1.0); Blood Urea Nitrogen 27 mg/dL (9-23); Calcium 8.5 mg/dL (8.7-10.4); Chloride 95 mmol/L (98-107); Glucose 316 mg/dL (74-106)
[2025-05-07 19:50] LABS: Lactic Acid w/Reflex 3.3 mmol/L (0.4-2.0)
[2025-05-07] MEDS: cefTRIAXone 1GM/50ML D5W 50 ML IV ONE (20:28)
[2025-05-07] MEDS: AZITHROMYCIN 500MG/ 250ML 250 ML IV ONE (20:28)
[2025-05-07] MEDS ORDERED: ONDANSETRON HCL 4 MG/2 ML VIAL IV PRN (20:30)
[2025-05-07] MEDS ORDERED: DEXTROSE (50%) 50ML SYRG IV PRN (20:30)
[2025-05-07] MEDS ORDERED: DOCUSATE SOD 100 MG CAP PO PRN (20:30)
--- NOTE | 2025-05-07 20:42 | DVHHP2 ---
History of Present Illness Reason for Visit: Respiratory failure with hypoxia History of Present Illness The patient is a 64-year-old female with multiple past medical history including arthritis, asthma, COPD, CHF, end-stage renal disease on hemodialysis, and hypertension who presented to [facility] ED with complaint of generalized weakness. Patient reports she has been experiencing generalized weakness associated with shortness of breaths, wheezing, respiratory distress, getting worse that prompted this visit. Patient was seen and evaluated in the ED, laboratory data shows WBC 5.7, hemoglobin 11.1, hematocrit 34.0, platelets 138, sodium 137, potassium 3.6, BUN 27, creatinine 4.73, glucose 316, calcium 8.5, BNP 3207.16, lactic acid 3.3, blood pressure 141/72, heart rate 120, temperature 98.8 F, O2 saturation 98% on oxygen. Chest x-ray revealing mild pulmonary vascular congestion. Nephrology consult will follow the patient. Please see medication orders section in the computer. On my assessment, patient denied chest pain, no headache, no dizziness, no diaphoresis, currently on oxygen, no diarrhea, no nausea, no vomiting, no fever, no chills. Patient was admitted for further evaluation and medical management. Past Medical History Anxiety, Arthritis, Asthma, CAD, Cancer, CHF, COPD, DM, ESRD, High Lipids, HTN Past Surgical History Appendectomy, Cholecystectomy, , Hysterectomy, PTCA Family History Reviewed, noncontributory to the management of this case. Past Social History The patient lives at home, denies smoking, alcohol or illicit drugs abuse. Review of Systems Constitutional: Yes: Weakness; No: Fever, Chills, Sweats, Malaise, Other Eyes: No: Pain, Vision change, Conjunctivae inflammation, Eyelid inflammation, Other, Redness ENT: No: Ear pain, Ear discharge, Nose pain, Nose discharge, Nose congestion, Mouth pain, Mouth swelling, Throat pain, Throat swelling, Other Respiratory: Cough, Shortness of breath, SOB with excertion, Wheezing, Other (SOB at rest); No: Dry, Hemoptysis, Pleuritic Pain, Sputum, Wheezing Cardiovascular: Other (Left upper extremity AV shunt); No: Chest Pain, Palpitations, Orthopnea, Paroxysmal Noc. Dyspnea, Edema, Lt Headedness Gastrointestinal: No: Nausea, Vomiting, Abdominal Pain, Diarrhea, Constipation, Melena, Hematochezia, Other Genitourinary: No Dysuria, No Frequency, No Incontinence, No Hematuria, No Retention; Other (On hemodialysis) Musculoskeletal: No: other, neck pain, shoulder pain, arm pain, back pain, hand pain, leg pain, foot pain Skin: No: Rash, Lesions, Jaundice, Bruising, Other Neurological: No: Weakness, Numbness, Incoordination, Change in speech, Confusion, Seizures, Other Allergies: Coded Allergies: Codeine (Verified Allergy, Unknown, 10/07/20) Uncoded Allergies: adhesives (Allergy, Mild, 04/22/24) Medications Current Medications Medications Dose Ordered Sig/Keaton Route Start Time Stop Time Status Last Admin Dose Admin Aspirin 81 mg DAILY PO 05/08/25 10:00 UNV Atorvastatin Calcium 20 mg HS PO 05/07/25 22:00 UNV Ceftriaxone Sodium 50 ml @ 100 mls/hr DAILY@09 IV 05/08/25 09:00 UNV Carvedilol 6.25 mg Q12HR PO 05/07/25 22:00 UNV Amiodarone HCl 200 mg DAILY PO 05/08/25 10:00 UNV Levalbuterol HCl 0.625 mg Q6HR NEB 05/08/25 00:00 UNV Multivit/Ca Carb/ B Cmplx/FA/Prenat 1 tab DAILY PO 05/08/25 10:00 UNV Sevelamer HCl 800 mg TIDWM PO 05/08/25 08:00 UNV Clonidine HCl 0.1 mg Q4HP PRN PO 05/07/25 20:30 UNV Diagnostic Test (Pha) 1 strip IQ4HR 05/08/25 00:00 UNV Insulin Human Regular IQ4HR SC 05/08/25 00:00 UNV Dextrose 50 ml UD PRN IV 05/07/25 20:30 UNV Sodium Chloride 10 ml Q8HR IV 05/07/25 22:00 UNV Ondansetron HCl 4 mg Q4HP PRN IV 05/07/25 20:30 UNV Docusate Sodium 100 mg BIDPRN PRN PO 05/07/25 20:30 UNV Acetaminophen 650 mg Q6HP PRN PO 05/07/25 20:30 UNV Exam Vital Signs Vital Signs Date Time Temp Pulse Resp B/P (MAP) Pulse Ox O2 Delivery O2 Flow Rate FiO2 05/07/25 18:58 20 98 Nasal Cannula* 3 32 05/07/25 18:54 120 05/07/25 18:54 98.8 141/72 (95) 98.8 General Appearance: Alert, Oriented X3, Cooperative, No acute distress HEENT: Atraumatic, PERRLA, EOMI, Mucous membr. moist/pink Respiratory: Normal air movement, Other (Diminished breath sounds) Cardiovascular: Regular rate, Normal S1, Normal S2, No murmurs Abdominal: Normal bowel sounds, Soft, No tenderness, No hepatospenomegaly, No masses Extremities: No clubbing, No cyanosis, No edema, Normal pulses, No tenderness/swelling Skin: No rashes, No breakdown, No significant lesion Neuro: Normal speech, Normal tone, Sensation intact, Cranial nerves 3-12 NL, Reflexes 2+, Other (Generalized weakness) Psych/Mental Status: Mental status NL, Mood NL Labs/Xrays Labs Test 05/07/25 19:50 05/07/25 19:08 05/07/25 19:02 05/07/25 18:35 Range/Units White Blood Count 5.7 4.4-10.8 10^3/uL Red Blood Count 3.46 L 4.0-5.20 10^6/uL Hemoglobin 11.1 L 12.2-16.2 g/dL Hematocrit 34.0 L 36.0-46.0 % Mean Corpuscular Volume 98.1 80.0-100.0 fL Mean Corpuscular Hemoglobin 32.1 H 28.0-32.0 pg Mean Corpuscular Hemoglobin Concent 32.7 32.0-36.0 g/dL Red Cell Distribution Width 16.8 H 11.8-14.3 % Platelet Count 138 L 140-450 10^3/uL Mean Platelet Volume 10.7 6.9-10.8 fL Neutrophils (%) (Auto) 85.9 H 37.0-80.0 % Lymphocytes (%) (Auto) 7.8 L 10.0-50.0 % Monocytes (%) (Auto) 4.4 0.0-12.0 % Eosinophils (%) (Auto) 1.0 0.0-7.0 % Basophils (%) (Auto) 0.9 0.0-2.0 % Neutrophils # (Auto) 4.9 1.6-8.6 10 ^3/uL Lymphocytes # (Auto) 0.4 0.4-5.4 10 ^3/uL Monocytes # (Auto) 0.3 0-1.3 10 ^3/uL Eosinophils # (Auto) 0.1 0-0.8 10 ^3/uL Basophils # (Auto) 0.1 0-0.2 10 ^3/uL Nucleated Red Blood Cells 0.2 % Sodium Level 137 136-145 mmol/L Potassium Level 3.6 3.5-5.1 mmol/L Chloride Level 95 L 98-107 mmol/L Carbon Dioxide Level 31 20-31 mmol/L Anion Gap 11 5-15 Blood Urea Nitrogen 27 H 9-23 mg/dL Creatinine 4.73 H 0.550-1.02 mg/dL Glomerular Filtration Rate Calc 10 >90 mL/min BUN/Creatinine Ratio 5.7 L 10.0-20.0 Serum Glucose 316 H 74-106 mg/dL Lactic Acid Level 3.3 *H 0.4-2.0 mmol/L Calcium Level 8.5 L 8.7-10.4 mg/dL Total Bilirubin 0.2 0.2-1.0 mg/dL Aspartate Amino Transferase (AST) 23 13-40 U/L Alanine Aminotransferase (ALT) 16 7-40 U/L Alkaline Phosphatase 126 H 46-116 U/L B-Type Natriuretic Peptide 3207.16 0-100 pg/mL Total Protein 7.1 5.7-8.2 g/dL Albumin 4.1 3.2-4.8 g/dL Blood Gas Specimen Type Venous Blood Gas Sample Site Vbg - n/a Blood Gas Patient Temperature 37.0 Arterial Blood Date Drawn [id number] Reed Test N/a Venous Blood pH 7.470 H 7.320-7.430 Venous Blood pCO2 at Patient Temp 38.0 38.0-54.0 mmHg Venous Blood pO2 at Patient Temp 42.2 23.0-48.0 mmHg Venous Blood HCO3 27.0 22.0-29.0 mmol/L Venous Bld O2 Saturation (Measured) 76.8 60.0-85.0 % Venous Blood Base Excess 3.3 H -2.0-3.0 mmol/L Venous Blood Total Hemoglobin 12.0 12.0-16.0 g/dL Venous Blood Oxyhemoglobin 75.6 0.0-79.0 % Venous Blood Carboxyhemoglobin 1.1 0.5-1.5 % Venous Blood Methemoglobin 0.4 0.0-1.5 % Blood Gas Liter Flow 3.00 Blood Gas Modality Nasal cannula Blood Gas Spontaneous Rate 22 FiO2 % 32.0 POC Glucose 301 H 70-106 mg/dl PATIENT: MICAH LIRIANO ACCT: [id number] UNIT: [id number] : 1960 LOC: ER ROOM / BED: / AGE / SEX: 64 / F ADM STATUS: REG ER SERVICE 35 ORDERING PHYSICIAN: ADRIÁN KRAFT MD PROCEDURE(s): CXRP - CHEST PORTABLE REASON: SOB ORDER NUMBER(s): [id number], ACCESSION NUMBER(s): [id number] CHEST RADIOGRAPH Indication: SOB Technique: Single frontal view of the chest was obtained COMPARISON: XY CHEST XRAY 1 VIEW on DOS: 04/29/24, XY CHEST PORTABLE on DOS: 04/27/24, XY CHEST XRAY 1 VIEW on DOS: 03/09/24, XY CHEST PORTABLE on DOS: 08/17/23, XY CHEST PORTABLE on DOS: 08/11/23 FINDINGS: Lines and Tubes: None Lungs: Increased interstitial prominence Pleura: No effusion. No pneumothorax. Cardiomediastinal contours: Cardiomegaly Bones: Unremarkable IMPRESSION: Mild pulmonary vascular congestion SEPSIS Sepsis Screen Date sepsis recognized/suspect: May 07, 2025 Time Sepsis recognized/suspect: 1853 Recent Procedure: No On Antibiotic Therapy: No Respiratory Rate >20: Yes Heart Rate >90: Yes Temp<36 C (96.8 F) or >38.3 C: No SBP <90 or MAP <65 mmHG: No New Acute Mental Status Change: No Is the patient on CPAP, BIPAP,: No Physician Orders Chest Portable (05/07/25 18:36) Oxygen (05/07/25 18:36) Power Plant Technician (05/07/25 18:36) Blood Culture (05/07/25 18:36) Venous Blood Gas (05/07/25 18:36) Rapid Influenza A&B (05/07/25 18:36) Covid19 Antigen Marisol (05/07/25 ) Electrocardigram (05/07/25 18:44) Azithromycin 500mg/ 250ml (Zithromax 50 (05/07/25 20:00) Consistent Carb(Ccho)Diabetes (05/08/25 Breakfast) Aspirin Tablet (05/08/25 10:00) Atorvastatin (Lipitor) (05/07/25 22:00) Ceftriaxone 1gm/50ml D5w (Rocephin) (05/08/25 09:00) Carvedilol Tablet (Coreg Tablet) (05/07/25 22:00) Amiodarone Tablet (Cordarone Tablet) (05/08/25 10:00) Levalbuterol Hcl (Xopenex Medneb) (05/08/25 00:00) B-Complex W/ C & Folic Tablet (Nephro-Vi (05/08/25 10:00) Sevelamer (Renagel) (05/08/25 08:00) *[facility] (05/07/25 20:30) Clonidine Hcl Tablet (Catapres Tablet) (05/07/25 20:30) Glucose Blood (Accu-Chek Comfort Curve T (05/08/25 00:00) Insulin R (Human) (Insulin R) (05/08/25 00:00) Dextrose 50% Syringe (05/07/25 20:30) Allergies (05/07/25 20:30) Code Status (05/07/25 20:30) Renal Standard(2gna,3gk,Lopho) (05/08/25 Breakfast) Sodium Chloride Lock (Saline Lock Ns) (05/07/25 22:00) Oxygen Per Hour (05/07/25 20:30) Ondansetron Hcl (Zofran) (05/07/25 20:30) Docusate Sodium Capsule (Colace Capsule) (05/07/25 20:30) Complete Blood Count (05/08/25 04:00) Comprehensive Metabolic Panel (05/08/25 04:00) Echo 2d Mode Cardiac Dop (05/07/25 20:30) Condition: Serious (05/07/25 20:30) Acetaminophen Tablet (Tylenol Tablet) (05/07/25 20:30) Bedrest With Bathroom Privileg (05/07/25 20:30) Sequential Compression Device (05/07/25 ) Admit (05/07/25 20:41) Nitroglycerin Sublingual (Ntrostat Subli (05/07/25 20:45) Morphine Sulfate Injection (05/07/25 20:45) Stat Ekg For Chest Pain (05/07/25 20:41) Notify Of Changes From Base (05/07/25 20:41) Ticket Writer For 24 Hours (05/07/25 20:41) Emergency Dysrhythmia Protocol (05/07/25 20:41) Rhythm Strips Once Every Shift (05/07/25 20:41) Oxygen By Nasal Cannula (05/07/25 20:41) Vital Signs Date Time Temp Pulse Resp B/P (MAP) Pulse Ox O2 Delivery O2 Flow Rate FiO2 05/07/25 18:58 20 98 Nasal Cannula* 3 32 05/07/25 18:54 120 28 98 Nasal Cannula* 3 32 05/07/25 18:54 98.8 120 28 141/72 (95) 98 98.8 05/07/25 18:28 98.7 100 26 121/50 (73) 98 98.7 05/07/25 18:28 26 98 Nasal Cannula* 4 36 05/07/25 18:28 109 Laboratory Tests Test 05/07/25 19:08 Lactic Acid Level 3.3 mmol/L (0.4-2.0) *H White Blood Count 5.7 10^3/uL (4.4-10.8) Medications Medications Dose Ordered Sig/Keaton Route Start Time Stop Time Status Last Admin Dose Admin Albuterol 5 mg ONCE ONCE N 05/07/25 18:45 05/07/25 18:46 DC 05/07/25 18:58 5 MG Azithromycin 250 ml @ 125 mls/hr ONCE ONCE IV 05/07/25 20:00 05/07/25 21:59 05/07/25 20:28 125 MLS/HR Ceftriaxone Sodium 50 ml @ 100 mls/hr ONCE ONCE IV 05/07/25 20:00 05/07/25 20:29 DC 05/07/25 20:28 100 MLS/HR Ipratropium [place] 0.5 mg ONCE ONCE HHN 05/07/25 18:45 05/07/25 18:46 DC 05/07/25 18:58 0.5 MG Assessment/Plan Assessment/Plan Respiratory failure with hypoxia COPD with acute exacerbation Pneumonitis Elevated lactic acid level Type 2 diabetes mellitus with hyperglycemia ESRD (end stage renal disease) on dialysis Generalized weakness Plan 1. Admit to telemetry unit 2. Breathing treatment 3. Pain control management 4. IV antibiotic management 5. Management of fluids and electrolytes 6. Consultation for Nephrology 7. Diagnostic test chest x-ray 8. DVT prophylaxis-on aspirin 9. Repeat labs CBC, CMP in a.m. 10. Home medication reviewed and reconciled 11. Continue with current medical management 12. Treatment plan discussed with patient and RN. Patient verbalized un derstanding. Plan discussed with: Patient, Other (RN) My Orders Orders - YANNA HEBERT DNP Procedure Category Date Status Time Consistent DIET 05/08/25 Transmitted Carb(Ccho)Diabetes Breakfast Aspirin Tablet PHA 05/08/25 Logged 10:00 Atorvastatin (Lipitor) PHA 05/07/25 Logged 22:00 Ceftriaxone 1gm/50ml PHA 05/08/25 Logged D5w (Rocephin) 09:00 Carvedilol Tablet PHA 05/07/25 Logged (Coreg Tablet) 22:00 Amiodarone Tablet PHA 05/08/25 Logged (Cordarone Tablet) 10:00 Levalbuterol Hcl PHA 05/08/25 Logged (Xopenex Medneb) 00:00 B-Complex W/ C & PHA 05/08/25 Logged Folic Tablet 10:00 Sevelamer (Renagel) PHA 05/08/25 Logged 08:00 *[facility] CONS 05/07/25 Transmitted -[place] 20:30 Clonidine Hcl Tablet PHA 05/07/25 Logged (Catapres Tablet) 20:30 Glucose Blood PHA 05/08/25 Logged (Accu-Chek Comfort 00:00 Insulin R (Human) PHA 05/08/25 Logged (Insulin R) 00:00 Dextrose 50% Syringe PHA 05/07/25 Logged 20:30 Allergies CARRIE 05/07/25 In Process 20:30 Code Status CODE 05/07/25 Transmitted 20:30 Renal DIET 05/08/25 Transmitted Standard(2gna,3gk,Lopho) Breakfast Sodium Chloride Lock PHA 05/07/25 Logged (Saline Lock Ns) 22:00 Oxygen Per Hour RT 05/07/25 Transmitted 20:30 Ondansetron Hcl PHA 05/07/25 Logged (Zofran) 20:30 Docusate Sodium PHA 05/07/25 Logged Capsule (Colace 20:30 Complete Blood Count LAB 05/08/25 Verified 04:00 Comprehensive LAB 05/08/25 Verified Metabolic Panel 04:00 Echo 2d Mode Cardiac US 05/07/25 Logged DOP 20:30 Condition: Serious CARRIE 05/07/25 In Process 20:30 Acetaminophen Tablet [facility] 05/07/25 Logged (Tylenol Tablet) 20:30 Bedrest With Bathroom CARRIE 05/07/25 In Process Privileg 20:30 Sequential [facility] 05/07/25 In Process Compression Device Admit ADMIT 05/07/25 Verified 20:41 Nitroglycerin [facility] 05/07/25 Verified Sublingual (Ntrostat 20:45 Morphine Sulfate [facility] 05/07/25 Verified Injection 20:45 Stat Ekg For Chest [facility] 05/07/25 Verified Pain 20:41 Notify Md Of Changes [facility] 05/07/25 Verified From Base 20:41 Ticket Writer For [facility] 05/07/25 Verified 24 Hours 20:41 Emergency Dysrhythmia [facility] 05/07/25 Verified Protocol 20:41 Rhythm Strips Once [facility] 05/07/25 Verified Every Shift 20:41 Oxygen By Nasal RT 05/07/25 Verified Cannula 20:41 Problem List: (1) Respiratory failure with hypoxia (2) COPD with acute exacerbation (3) Pneumonitis (4) Elevated lactic acid level (5) Type 2 diabetes mellitus with hyperglycemia (6) ESRD (end stage renal disease) on dialysis (7) Generalized weakness Date of Service: May 08, 2025 Billing Provider: YANNA HEBERT DNP Common Visit Codes: [id number] INP/OBS CARE (HIGH) YANNA HEBERT DNP May 07, 2025 20:42
[2025-05-07] MEDS ORDERED: NITROGLYCERIN 0.4 MG SL TAB SL PRN (20:45)
[2025-05-07 20:47] LABS: COVID19 ANTIGEN SOFIA FIA NEGATIVE (NEGATIVE)
[2025-05-07 20:51] VITALS: BP 141/72; PULSE 109; RESP 20; TEMP 98.8; O2SAT 98
[2025-05-07] MEDS: ATORVASTATIN 20 MG TAB PO SCH (21:30)
[2025-05-07] MEDS: SODIUM CHLOR 0.9% PF (SALINE LOCK) 10ML VIAL/SYR IV SCH (21:30)
[2025-05-07] MEDS: ACETAMINOPHEN 325 MG TAB PO PRN (21:30)
[2025-05-07] MEDS: CARVEDILOL 3.125 MG TAB PO SCH (21:30)
[2025-05-07 23:20] VITALS: BP 141/50; PULSE 50; RESP 18; TEMP 98.2; O2SAT 94
[2025-05-08] VITALS (19 sets, daily range): BP systolic 96–163; BP diastolic 48–90; PULSE 51–94; RESP 16–20; TEMP 97.4–98.2; O2SAT 93–100
[2025-05-08] MEDS: ACCU-CHEK COMFORT CURVE STRIP VI SCH (00:28)
[2025-05-08] MEDS: InsuLIN REG 1unit/0.01ml Soln (100units/ml) SC SCH (00:32)
[2025-05-08] MEDS: LEVALBUTEROL HCL 1.25 MG/3 ML NEB NEB SCH (00:47)
[2025-05-08 07:22] LABS: Hematocrit 31.9 % (36.0-46.0); Hemoglobin 10.6 g/dL (12.2-16.2); Mean Corpuscular Hemoglobin 32.4 pg (28.0-32.0); Mean Corpuscular Volume 97.3 fL (80.0-100.0); Nucleated Red Blood Cells % 0.2 %
[2025-05-08 07:46] LABS: Alanine Aminotransferase 15 U/L (7-40); Albumin 3.8 g/dL (3.2-4.8); Alkaline Phosphatase 85 U/L (46-116); Anion Gap 10 (5-15); BUN/Creatinine Ratio 7.3 (10.0-20.0); Blood Urea Nitrogen 40 mg/dL (9-23); Calcium 8.0 mg/dL (8.7-10.4); Carbon Dioxide 32 mmol/L (20-31); Chloride 97 mmol/L (98-107); Glucose 82 mg/dL (74-106); Potassium 3.5 mmol/L (3.5-5.1); Sodium 139 mmol/L (136-145); Total Protein 6.6 g/dL (5.7-8.2)
[2025-05-08 07:47] LABS: Bilirubin, Total 0.2 mg/dL (0.2-1.0)
[2025-05-08] MEDS: SEVELAMER 800 MG TAB PO SCH (08:07)
[2025-05-08] MEDS: cefTRIAXone 1GM/50ML D5W 50 ML IV SCH (09:02)
[2025-05-08] MEDS: B-COMPLEX W/ C & FOLIC ACID(NEPHROVITE TAB) PO SCH (09:02)
[2025-05-08] MEDS: AMIODARONE HCL 200 MG TAB PO SCH (10:15)
--- NOTE | 2025-05-08 13:51 | DVHINCON2 ---
Date of service: May 08, 2025 Referring Physician Radha Hogue Reason for Consultation Dialysis History of Present Illness 64 Y/O F with history of ESRD on HD via Lt arm AVF, DM,HTN, anemia, and COPD presented with chief complaint of SOB progressively worsening. In ER patient is afebrile, has tachypnea, and is hypoxic. She has been admitted for COPD exacerbation. She had her last dialysis yesterday 05/07/25 at [facility]. Nephrology consulted for dialysis Past Medical History ESRD DM HTN Anemia COPD Past Surgical History AVF creation Allergies: Coded Allergies: Codeine (Verified Allergy, Unknown, 10/07/20) Uncoded Allergies: adhesives (Allergy, Mild, 04/22/24) Home Meds Active Scripts Hydrocodone-Acetaminophen (Hydrocodone Bitartrate/AC 10-325 mg) 1 Tab Tab, 1 TAB PO Q6HPRN PRN, #15 TAB Prov:TALAT VILLEGAS [facility] 07/14/24 Levofloxacin Hemihydrate (LEVAQUIN 500 MG) 500 Mg Tab, 500 MG PO DAILY for 7 Days, #7 TAB Prov:TAMELA VELAZQUEZ RESIDENT 04/30/24 Apixaban Base (ELIQUIS) 2.5 Mg Tab, 2.5 MG PO BID for 30 Days, #60 TAB Prov:TAMELA VELAZQUEZ 04/30/24 Ergocalciferol (VITAMIN D 20462 UNIT) 50,000 [place], [address] UNIT PO Q7D for 30 Days, #10 CAP Prov:TAMELA VELAZQUEZ 04/30/24 Epoetin Wolf-Epbx (Retacrit) 10,000 Unit/Ml Inj, 92063 UNIT SC POSTDI@2100 for 30 Days, #20 INJ Prov:TAMELA VELAZQUEZ 04/30/24 Acetaminophen (Acetaminophen) 325 Mg Tab, 325 MG PO Q4HP PRN for 30 Days, #150 TAB Prov:TAMELA VELAZQUEZ 04/30/24 Tramadol Hcl (Tramadol Hcl) 50 Mg Tab, 50 MG PO TID PRN, #30 TAB Prov:GUILLERMO MELENDREZ MD 03/13/24 Clopidogrel Bisulfate (Plavix) 75 Mg Tab, 75 MG PO DAILY for 30 Days, #30 TAB Prov:DENY BOWEN MD 11/12/22 Pantoprazole Sodium Sesquihydr (Protonix) 40 Mg Tab, 40 MG PO DAILY, #30 TAB Prov:CARLOS VILLEGAS MD 09/13/20 Reported Medications Tirzepatide (Mounjaro) 2.5 Mg/0.5 Ml Inj, 2.5 MG SC QWEEKLY for 28 Days, #2 Administer 2.5 mg under the skin 1 time a week for 4 weeks. 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 04/28/24 Aspirin (Aspirin 81 Low Dose) 81 Mg Chw, 1 TAB PO DAILY, TAB.CHEW 04/28/24 Diphenoxylate W/ Atropine (Lomotil) 2.5 Mg Tab, 1 TAB PO TID PRN for FOR DIARRHEA, #30 TAB 04/27/24 Cinacalcet HCl (Cinacalcet Hydrochloride) 30 Mg Tab, 30 MG PO, TAB 04/27/24 Sevelamer Carbonate (Renvela) 800 Mg Tab, 1 TAB PO TID, #270 TAB 3 Refills 04/12/24 Losartan Potassium (Losartan Potassium) 50 Mg Tab, 1 TAB PO DAILY, #30 TAB 5 Refills 04/12/24 Carvedilol (Carvedilol) 3.125 Mg Tab, 3.125 MG PO DAILY for 30 Days, MG 04/12/24 Atorvastatin Calcium (Lipitor) 40 Mg Tab, 1 TAB PO DAILY 03/11/24 Albuterol Sulfate (Albuterol Sulfate Hfa) 108 Mcg/Act Aer, 1 PUFF INH Q4HR PRN 03/11/24 Hydralazine Hcl (Hydralazine Hcl) 50 Mg Tab, 1 TAB PO TID, #90 TAB 5 Refills 03/09/24 Lidocaine (Lidocaine) 5 % Pad, 1 PATCH TOP DAILY 08/19/23 Methocarbamol (Methocarbamol) 750 Mg Tab, 750 MG PO BIDP PRN for FOR MUSCLE SPASM for 30 Days, MG 07/13/19 Gabapentin (Neurontin) 400 Mg Cap, 1 CAP PO BID 07/13/19 Furosemide (Lasix) 80 Mg Tab, 1 TAB PO BID 07/13/19 Current Medications Current Medications Medications (Trade) Dose Ordered Sig/Keaton Route PRN Reason Start Time Stop Time Status Last Admin Aspirin 81 mg DAILY PO 05/08/25 10:00 05/08/25 09:03 Atorvastatin Calcium (Lipitor) 20 mg HS PO 05/07/25 22:00 05/07/25 21:30 Ceftriaxone Sodium 50 ml @ 100 mls/hr DAILY@09 IV 05/08/25 09:00 05/08/25 09:02 Carvedilol (Coreg Tablet) 6.25 mg Q12HR PO 05/07/25 22:00 05/07/25 21:30 Amiodarone HCl (Cordarone Tablet) 200 mg DAILY PO 05/08/25 10:00 05/08/25 10:15 Levalbuterol HCl (Xopenex Medneb) 0.625 mg Q6HR NEB 05/08/25 00:00 05/08/25 13:20 Multivit/Ca Carb/ B Cmplx/FA/Prenat (Nephro-Miguel Tablet) 1 tab DAILY PO 05/08/25 10:00 05/08/25 09:02 Sevelamer HCl (Renagel) 800 mg TIDWM PO 05/08/25 08:00 05/08/25 11:59 Clonidine HCl (Catapres Tablet) 0.1 mg Q4HP PRN PO SBP>150 05/07/25 20:30 05/08/25 06:27 Diagnostic Test (Pha) (Accu-Chek Comfort Curve T) 1 strip IQ4HR 05/08/25 00:00 05/08/25 12:05 Insulin Human Regular (InsuLIN R) IQ4HR SC 05/08/25 00:00 05/08/25 12:05 Dextrose 50 ml UD PRN IV Blood Sugar LESS THAN 60 05/07/25 20:30 Sodium Chloride (Saline Lock Ns) 10 ml Q8HR IV 05/07/25 22:00 05/08/25 06:26 Ondansetron HCl (Zofran) 4 mg Q4HP PRN IV NAUSEA / VOMITING 05/07/25 20:30 Docusate Sodium (Colace Capsule) 100 mg BIDPRN PRN PO FOR CONSTIPATION 05/07/25 20:30 Acetaminophen (Tylenol Tablet) 650 mg Q6HP PRN PO PAIN SCALE 1-3 OR TEMP>100.4 05/07/25 20:30 05/08/25 08:43 Nitroglycerin (Ntrostat Sublingual) 0.4 mg Q5MINP PRN SL FOR CHEST PAIN 05/07/25 20:45 Morphine Sulfate 2 mg Q30M PRN IV FOR CHEST PAIN 05/07/25 20:45 Family History: Cancer Diabetes mellitus MATERNAL GRANDFATHER G8 MOTHER G8 FATHER Diabetes mellitus MATERNAL GRANDFATHER G8 MOTHER G8 FATHER FH: breast cancer MOTHER'S SISTER Family history: Cardiovascular disease MATERNAL GRANDMOTHER Hypertension MATERNAL GRANDMOTHER Stroke G8 FATHER Review of Systems As per HPI, all other symptoms were reviewed and are negative H&P Exam Vital Signs/I&O Vital Sign Date Time Temp Pulse Resp B/P (MAP) Pulse Ox O2 Delivery O2 Flow Rate FiO2 05/08/25 13:27 74 20 99 05/08/25 10:00 Nasal Cannula* 2 28 05/08/25 06:27 163/98 05/08/25 05:00 97.9 97.9 Intake and Output 05/07/25 05/08/25 19:00 07:00 Intake Total 500 ml Output Total 0 ml Balance 500 ml Intake Oral 200 ml IV Total 300 ml Output Urine Total 0 ml Physical Exam Gen: NAD, AAOx3 HEENT: NC,AT Lungs: Wheezing Cardiac: RRR, no murmur Abd: soft, no tenderness Ext: no edema + Left arm AVF Labs/Diagnostic Data Labs/Diagnostic Data Laboratory Tests Test 05/08/25 11:23 05/08/25 08:06 05/08/25 06:11 05/08/25 03:56 Range/Units POC Glucose 178 H 96 100 70-106 mg/dl White Blood Count 5.2 4.4-10.8 10^3/uL Red Blood Count 3.27 L 4.0-5.20 10^6/uL Hemoglobin 10.6 L 12.2-16.2 g/dL Hematocrit 31.9 L 36.0-46.0 % Mean Corpuscular Volume 97.3 80.0-100.0 fL Mean Corpuscular Hemoglobin 32.4 H 28.0-32.0 pg Mean Corpuscular Hemoglobin Concent 33.3 32.0-36.0 g/dL Red Cell Distribution Width 16.5 H 11.8-14.3 % Platelet Count 127 L 140-450 10^3/uL Mean Platelet Volume 10.3 6.9-10.8 fL Neutrophils (%) (Auto) 64.5 37.0-80.0 % Lymphocytes (%) (Auto) 16.6 10.0-50.0 % Monocytes (%) (Auto) 10.3 0.0-12.0 % Eosinophils (%) (Auto) 7.6 H 0.0-7.0 % Basophils (%) (Auto) 1.0 0.0-2.0 % Neutrophils # (Auto) 3.4 1.6-8.6 10 ^3/uL Lymphocytes # (Auto) 0.9 0.4-5.4 10 ^3/uL Monocytes # (Auto) 0.5 0-1.3 10 ^3/uL Eosinophils # (Auto) 0.4 0-0.8 10 ^3/uL Basophils # (Auto) 0.1 0-0.2 10 ^3/uL Nucleated Red Blood Cells 0.2 % Sodium Level 139 136-145 mmol/L Potassium Level 3.5 3.5-5.1 mmol/L Chloride Level 97 L 98-107 mmol/L Carbon Dioxide Level 32 H 20-31 mmol/L Anion Gap 10 5-15 Blood Urea Nitrogen 40 #H 9-23 mg/dL Creatinine 5.45 H 0.550-1.02 mg/dL Glomerular Filtration Rate Calc 8 >90 mL/min BUN/Creatinine Ratio 7.3 L 10.0-20.0 Serum Glucose 82 74-106 mg/dL Calcium Level 8.0 L 8.7-10.4 mg/dL Total Bilirubin 0.2 0.2-1.0 mg/dL Aspartate Amino Transferase (AST) 15 13-40 U/L Alanine Aminotransferase (ALT) 15 7-40 U/L Alkaline Phosphatase 85 46-116 U/L Total Protein 6.6 5.7-8.2 g/dL Albumin 3.8 3.2-4.8 g/dL Test 05/08/25 00:01 05/07/25 21:06 05/07/25 19:50 05/07/25 19:08 Range/Units POC Glucose 233 H 70-106 mg/dl Lactic Acid Level 2.8 *H 3.3 *H 0.4-2.0 mmol/L Influenza Type A Antigen Negative Negative Influenza Type B Antigen Negative Negative SARS-CoV-2 Antigen (Rapid) Negative NEGATIVE White Blood Count 5.7 4.4-10.8 10^3/uL Red Blood Count 3.46 L 4.0-5.20 10^6/uL Hemoglobin 11.1 L 12.2-16.2 g/dL Hematocrit 34.0 L 36.0-46.0 % Mean Corpuscular Volume 98.1 80.0-100.0 fL Mean Corpuscular Hemoglobin 32.1 H 28.0-32.0 pg Mean Corpuscular Hemoglobin Concent 32.7 32.0-36.0 g/dL Red Cell Distribution Width 16.8 H 11.8-14.3 % Platelet Count 138 L 140-450 10^3/uL Mean Platelet Volume 10.7 6.9-10.8 fL Neutrophils (%) (Auto) 85.9 H 37.0-80.0 % Lymphocytes (%) (Auto) 7.8 L 10.0-50.0 % Monocytes (%) (Auto) 4.4 0.0-12.0 % Eosinophils (%) (Auto) 1.0 0.0-7.0 % Basophils (%) (Auto) 0.9 0.0-2.0 % Neutrophils # (Auto) 4.9 1.6-8.6 10 ^3/uL Lymphocytes # (Auto) 0.4 0.4-5.4 10 ^3/uL Monocytes # (Auto) 0.3 0-1.3 10 ^3/uL Eosinophils # (Auto) 0.1 0-0.8 10 ^3/uL Basophils # (Auto) 0.1 0-0.2 10 ^3/uL Nucleated Red Blood Cells 0.2 % Sodium Level 137 136-145 mmol/L Potassium Level 3.6 3.5-5.1 mmol/L Chloride Level 95 L 98-107 mmol/L Carbon Dioxide Level 31 20-31 mmol/L Anion Gap 11 5-15 Blood Urea Nitrogen 27 H 9-23 mg/dL Creatinine 4.73 H 0.550-1.02 mg/dL Glomerular Filtration Rate Calc 10 >90 mL/min BUN/Creatinine Ratio 5.7 L 10.0-20.0 Serum Glucose 316 H 74-106 mg/dL Calcium Level 8.5 L 8.7-10.4 mg/dL Total Bilirubin 0.2 0.2-1.0 mg/dL Aspartate Amino Transferase (AST) 23 13-40 U/L Alanine Aminotransferase (ALT) 16 7-40 U/L Alkaline Phosphatase 126 H 46-116 U/L B-Type Natriuretic Peptide 3207.16 0-100 pg/mL Total Protein 7.1 5.7-8.2 g/dL Albumin 4.1 3.2-4.8 g/dL Test 05/07/25 19:02 05/07/25 18:35 Range/Units Blood Gas Specimen Type Venous Blood Gas Sample Site Vbg - n/a Blood Gas Patient Temperature 37.0 Arterial Blood Date Drawn [id number] Reed Test N/a Venous Blood pH 7.470 H 7.320-7.430 Venous Blood pCO2 at Patient Temp 38.0 38.0-54.0 mmHg Venous Blood pO2 at Patient Temp 42.2 23.0-48.0 mmHg Venous Blood HCO3 27.0 22.0-29.0 mmol/L Venous Bld O2 Saturation (Measured) 76.8 60.0-85.0 % Venous Blood Base Excess 3.3 H -2.0-3.0 mmol/L Venous Blood Total Hemoglobin 12.0 12.0-16.0 g/dL Venous Blood Oxyhemoglobin 75.6 0.0-79.0 % Venous Blood Carboxyhemoglobin 1.1 0.5-1.5 % Venous Blood Methemoglobin 0.4 0.0-1.5 % Blood Gas Liter Flow 3.00 Blood Gas Modality Nasal cannula Blood Gas Spontaneous Rate 22 FiO2 % 32.0 POC Glucose 301 H 70-106 mg/dl Microbiology Date/Time Source Procedure Growth Status 05/08/25 03:21 Nose MRSA Screen - Final Complete Assessment ESRD on HD via Lt arm AVF COPD exacerbation Chronic diastolic CHF Acute hypoxic respiratory failure on supplemental oxygen DM type II HTN Anemia of CKD Hyperphosphatemia Secondary hyperparathyroidism Plan: last dialysis was on Saturday at [facility]. Next HD on Saturday COPD management per primary team continue IV antibiotics Sevelamer with meals ELISA post HD as needed. goal Hb: 10-11 g/dl Plan discussed with: Patient JUDE SPAULDING MD May 08, 2025 13:51
[2025-05-09] VITALS (14 sets, daily range): BP systolic 98–107; BP diastolic 50–74; PULSE 64–81; RESP 17–20; TEMP 97.3–98.8; O2SAT 92–100
--- NOTE | 2025-05-09 03:47 | DVHSR ---
APPROVED REPORT EXAM: Two-dimensional and M-mode echocardiogram with Doppler and color Doppler. Blood Pressure: 163/98 mmHg INDICATION chf exacerbation, unspecified RISK FACTORS Obesity: Height: 5'2, Weight: 182 DIMENSIONS LVDd5.7 (3.8-5.7cm)LA (2D)5.1 (1.9-4.0cm)Aortic Root3.1 (2.0-3.7cm) LVDs4.8 (2.5-4.0cm)LA (MM) (1.9-4.0cm)Aortic Cusp Exc1.3 (1.5-2.0cm) EF (%) 30.0 (55-70%)Rt. Atrium4.2 (1.9-4.0cm)Asc. Aorta cm IVSd1.0 (0.7-1.1cm)RV (D)5.4 (1.8-2.4cm) PWd1.3 (0.7-1.1cm) Mitral Valve MitralMitral Stenosis E wave1.41m/sMV Mean GR.mmHg A wave0.81m/sMV Peak GR.129mmHg E/A ratio1.72D MVAcm2 DECEL [id number] 1/2 Timems Aortic Valve Aortic ValveAortic Stenosis V10.99m/Ravi Mean GR.5mmHg V21.55m/Ravi Peak GR.10mmHg LVOT Diameter2.1 (1.8-2.4cm)Doppler AVA2.21cm2 Pulmonic Valve V20.78m/s Tricuspid Valve TR Velocity2.91m/s [id number] Other Information Technically limited study due to body habitus. Conclusion DILATED ALL CARDIAC CHAMBERS SEVERE HYPOKINESIS OF ALL CARDIAC CHAMBERS LV IS MODERATELY HYPOKINETIC AND LV EF IS 29% MODERATELY DILATED RV,RA AND LA SEVERE MITRAL VALVE REGURGITATION NODULAR DEGENERATION OF MITRAL LEAFLETS AORTIC SCLEROSIS SEVERE PULMONARY HYPERTENSION RVSP IS 51 MM OF HG AND IS VERY HIGH NO EFFUSION
[2025-05-09] MEDS: LOPERAMIDE HCL 2 MG CAP/TAB PO PRN (11:14)
--- NOTE | 2025-05-09 14:01 | DVHPN2 ---
Progress Note - Dictate Date Seen: May 09, 2025 Medical Necessity Reason Pt with a Central, PICC or Fol: No vital signs Vital Sign Date Time Temp Pulse Resp B/P (MAP) Pulse Ox O2 Delivery O2 Flow Rate FiO2 05/09/25 11:27 76 18 100 05/09/25 11:21 Nasal Cannula* 3 32 05/09/25 10:00 100/69 05/09/25 09:00 98.8 98.8 Total Intake and Output 05/08/25 05/08/25 05/09/25 15:00 23:00 07:00 Intake Total 50 ml 780 ml 600 ml Balance 50 ml 780 ml 600 ml medications Current Medications Medications Dose Ordered Sig/Keaton Route Start Time Stop Time Status Last Admin Dose Admin Aspirin 81 mg DAILY PO 05/08/25 10:00 05/09/25 09:33 81 MG Atorvastatin Calcium 20 mg HS PO 05/07/25 22:00 05/08/25 21:45 20 MG Ceftriaxone Sodium 50 ml @ 100 mls/hr DAILY@09 IV 05/08/25 09:00 05/09/25 09:33 100 MLS/HR Carvedilol 6.25 mg Q12HR PO 05/07/25 22:00 05/08/25 21:21 6.25 MG Amiodarone HCl 200 mg DAILY PO 05/08/25 10:00 05/09/25 09:33 200 MG Levalbuterol HCl 0.625 mg Q6HR NEB 05/08/25 00:00 05/09/25 11:21 0.625 MG Multivit/Ca Carb/ B Cmplx/FA/Prenat 1 tab DAILY PO 05/08/25 10:00 05/09/25 09:33 1 TAB Sevelamer HCl 800 mg TIDWM PO 05/08/25 08:00 05/09/25 12:08 800 MG Clonidine HCl 0.1 mg Q4HP PRN PO 05/07/25 20:30 05/08/25 06:27 0.1 MG Diagnostic Test (Pha) 1 strip IQ4HR 05/08/25 00:00 05/09/25 08:04 1 STRIP Insulin Human Regular IQ4HR SC 05/08/25 00:00 05/09/25 08:07 4 UNITS Dextrose 50 ml UD PRN IV 05/07/25 20:30 Sodium Chloride 10 ml Q8HR IV 05/07/25 22:00 05/09/25 05:54 10 ML Ondansetron HCl 4 mg Q4HP PRN IV 05/07/25 20:30 Docusate Sodium 100 mg BIDPRN PRN PO 05/07/25 20:30 Acetaminophen 650 mg Q6HP PRN PO 05/07/25 20:30 05/09/25 10:31 650 MG Nitroglycerin 0.4 mg Q5MINP PRN SL 05/07/25 20:45 Morphine Sulfate 2 mg Q30M PRN IV 05/07/25 20:45 Loperamide HCl 4 mg Q6HP PRN PO 05/09/25 10:30 05/09/25 11:14 4 MG objective Gen: NAD HEENT: NC,AT Lungs: CTA b/l Cardiac: RRR, no murmur Abd: soft, no tenderness Ext: no edema Neuro: no focal deficits + Lt arm AVF laboratory and microbiology Laboratory Tests 05/08/25 06:11 Test 05/08/25 06:11 Range/Units Serum Glucose 82 74-106 mg/dL Assessment/Plan ESRD on HD via Lt arm AVF COPD exacerbation Chronic diastolic CHF Acute hypoxic respiratory failure on supplemental oxygen DM type II HTN Anemia of CKD Hyperphosphatemia Secondary hyperparathyroidism Plan: last dialysis was on Saturday at [facility]. Next HD on Saturday COPD management per primary team continue IV antibiotics Sevelamer with meals ELISA post HD as needed. goal Hb: 10-11 g/dl Plan discussed with: Patient JUDE SPAULDING MD May 09, 2025 14:01
[2025-05-10] VITALS (20 sets, daily range): BP systolic 97–137; BP diastolic 49–73; PULSE 52–97; RESP 15–20; TEMP 98–98.6; O2SAT 93–100
[2025-05-10] MEDS ORDERED: SODIUM CHL 0.9% 1000 ML BAG XX ONE (07:00)
[2025-05-10] MEDS ORDERED: guaiFENesin-CODEINE Liq 5 ML UD GT PRN (15:15)
[2025-05-10 16:03] LABS: Hepatitis B Surface Antigen Negative (Negative)
[2025-05-10 16:24] LABS: Hepatitis C Antibody Positive (Negative)
[2025-05-10] MEDS: guaiFENesin-CODEINE Liq 5 ML UD PO PRN (16:56)
--- NOTE | 2025-05-10 18:30 | DVHPN2 ---
Progress Note - Dictate Date Seen: May 10, 2025 Medical Necessity Reason Pt with a Central, PICC or Fol: No Subjective no new symptoms vital signs Vital Sign Date Time Temp Pulse Resp B/P (MAP) Pulse Ox O2 Delivery O2 Flow Rate FiO2 05/10/25 17:00 98.4 78 17 123/66 (85) 94 98.4 05/10/25 13:19 Nasal Cannula* 2 28 Total Intake and Output 05/09/25 05/09/25 05/10/25 15:00 23:00 07:00 Intake Total 400 ml 480 ml Balance 400 ml 480 ml medications Current Medications Medications Dose Ordered Sig/Keaton Route Start Time Stop Time Status Last Admin Dose Admin Aspirin 81 mg DAILY PO 05/08/25 10:00 05/10/25 09:07 81 MG Atorvastatin Calcium 20 mg HS PO 05/07/25 22:00 05/09/25 20:49 20 MG Ceftriaxone Sodium 50 ml @ 100 mls/hr DAILY@09 IV 05/08/25 09:00 05/10/25 08:15 100 MLS/HR Carvedilol 6.25 mg Q12HR PO 05/07/25 22:00 05/10/25 09:08 6.25 MG Amiodarone HCl 200 mg DAILY PO 05/08/25 10:00 05/10/25 09:07 200 MG Levalbuterol HCl 0.625 mg Q6HR NEB 05/08/25 00:00 05/10/25 13:02 0.625 MG Multivit/Ca Carb/ B Cmplx/FA/Prenat 1 tab DAILY PO 05/08/25 10:00 05/10/25 09:08 1 TAB Sevelamer HCl 800 mg TIDWM PO 05/08/25 08:00 05/10/25 17:53 800 MG Clonidine HCl 0.1 mg Q4HP PRN PO 05/07/25 20:30 05/08/25 06:27 0.1 MG Diagnostic Test (Pha) 1 strip IQ4HR 05/08/25 00:00 05/10/25 17:01 1 STRIP Insulin Human Regular IQ4HR SC 05/08/25 00:00 05/09/25 22:00 2 UNITS Dextrose 50 ml UD PRN IV 05/07/25 20:30 Sodium Chloride 10 ml Q8HR IV 05/07/25 22:00 05/10/25 08:15 10 ML Ondansetron HCl 4 mg Q4HP PRN IV 05/07/25 20:30 Docusate Sodium 100 mg BIDPRN PRN PO 05/07/25 20:30 Acetaminophen 650 mg Q6HP PRN PO 05/07/25 20:30 05/10/25 09:26 650 MG Nitroglycerin 0.4 mg Q5MINP PRN SL 05/07/25 20:45 Morphine Sulfate 2 mg Q30M PRN IV 05/07/25 20:45 Loperamide HCl 4 mg Q6HP PRN PO 05/09/25 10:30 05/10/25 10:51 4 MG Guaifenesin/ Codeine Phosphate 5 ml Q4HPRN PRN PO 05/10/25 16:45 05/10/25 16:56 5 ML objective Gen: NAD HEENT: NC,AT Lungs: CTA b/l Cardiac: RRR, no murmur Abd: soft, no tenderness Ext: no edema Neuro: no focal deficits + Lt arm AVF laboratory and microbiology Laboratory Tests 05/08/25 06:11 Test 05/08/25 06:11 Range/Units Serum Glucose 82 74-106 mg/dL Assessment/Plan ESRD on HD via Lt arm AVF COPD exacerbation Chronic diastolic CHF Acute hypoxic respiratory failure on supplemental oxygen DM type II HTN Anemia of CKD Hyperphosphatemia Secondary hyperparathyroidism Plan: s/p HD today- Saturday , net UF 2 L last dialysis was on Saturday at [facility]. COPD management per primary team continue IV antibiotics Sevelamer with meals ELISA post HD as needed. goal Hb: 10-11 g/dl Plan discussed with: Patient JUDE SPAULDING MD May 10, 2025 18:30
[2025-05-10] MEDS: MORPHINE SULFATE INJ 2 MG/ml SYRG IV PRN (21:42)
[2025-05-11] VITALS (16 sets, daily range): BP systolic 109–143; BP diastolic 44–97; PULSE 62–87; RESP 14–18; TEMP 37; O2SAT 91–100
--- NOTE | 2025-05-11 18:27 | DVHPN2 ---
Progress Note - Dictate Date Seen: May 11, 2025 Medical Necessity Reason Pt with a Central, PICC or Fol: No Subjective no new symptoms vital signs Vital Sign Date Time Temp Pulse Resp B/P (MAP) Pulse Ox O2 Delivery O2 Flow Rate FiO2 05/11/25 18:25 71 18 100 05/11/25 18:17 Nasal Cannula* 2 28 05/11/25 15:52 37.0 05/11/25 13:00 143/46 (78) Total Intake and Output 05/10/25 05/10/25 05/11/25 15:00 23:00 07:00 Intake Total 50 ml 120 ml 250 ml Balance 50 ml 120 ml 250 ml medications Current Medications Medications Dose Ordered Sig/Keaton Route Start Time Stop Time Status Last Admin Dose Admin Aspirin 81 mg DAILY PO 05/08/25 10:00 05/11/25 09:24 81 MG Atorvastatin Calcium 20 mg HS PO 05/07/25 22:00 05/10/25 21:37 20 MG Ceftriaxone Sodium 50 ml @ 100 mls/hr DAILY@09 IV 05/08/25 09:00 05/11/25 08:11 100 MLS/HR Carvedilol 6.25 mg Q12HR PO 05/07/25 22:00 05/11/25 09:25 6.25 MG Amiodarone HCl 200 mg DAILY PO 05/08/25 10:00 05/11/25 09:25 200 MG Levalbuterol HCl 0.625 mg Q6HR NEB 05/08/25 00:00 05/11/25 18:17 0.625 MG Multivit/Ca Carb/ B Cmplx/FA/Prenat 1 tab DAILY PO 05/08/25 10:00 05/11/25 09:25 1 TAB Sevelamer HCl 800 mg TIDWM PO 05/08/25 08:00 05/11/25 17:37 800 MG Clonidine HCl 0.1 mg Q4HP PRN PO 05/07/25 20:30 05/08/25 06:27 0.1 MG Diagnostic Test (Pha) 1 strip IQ4HR 05/08/25 00:00 05/11/25 11:40 1 STRIP Insulin Human Regular IQ4HR SC 05/08/25 00:00 05/11/25 00:47 4 UNITS Dextrose 50 ml UD PRN IV 05/07/25 20:30 Sodium Chloride 10 ml Q8HR IV 05/07/25 22:00 05/11/25 09:26 10 ML Ondansetron HCl 4 mg Q4HP PRN IV 05/07/25 20:30 Docusate Sodium 100 mg BIDPRN PRN PO 05/07/25 20:30 Acetaminophen 650 mg Q6HP PRN PO 05/07/25 20:30 05/11/25 06:44 650 MG Nitroglycerin 0.4 mg Q5MINP PRN SL 05/07/25 20:45 Morphine Sulfate 2 mg Q30M PRN IV 05/07/25 20:45 05/10/25 21:42 2 MG Loperamide HCl 4 mg Q6HP PRN PO 05/09/25 10:30 05/10/25 10:51 4 MG Guaifenesin/ Codeine Phosphate 5 ml Q4HPRN PRN PO 05/10/25 16:45 05/11/25 11:40 5 ML objective Gen: NAD HEENT: NC,AT Lungs: CTA b/l Cardiac: RRR, no murmur Abd: soft, no tenderness Ext: no edema Neuro: no focal deficits + Lt arm AVF laboratory and microbiology Laboratory Tests 05/08/25 06:11 Test 05/08/25 06:11 Range/Units Serum Glucose 82 74-106 mg/dL Assessment/Plan ESRD on HD via Lt arm AVF COPD exacerbation Chronic diastolic CHF Acute hypoxic respiratory failure on supplemental oxygen DM type II HTN Anemia of CKD Hyperphosphatemia Secondary hyperparathyroidism Plan: Next HD on Saturday s/p HD- Saturday Continue HD on MWF schedule while in house COPD management per primary team continue IV antibiotics Sevelamer with meals ELISA post HD as needed. goal Hb: 10-11 g/dl Plan discussed with: Patient JUDE SPAULDING MD May 11, 2025 18:27
--- NOTE | 2025-05-17 10:12 | DVHDS2 ---
Discharge Summary Date of Admission May 07, 2025 at 20:41 Date of Discharge: May 11, 2025 Labs/Diagnostic Data: Laboratory Results Test 05/11/25 11:32 05/10/25 15:00 05/08/25 06:11 05/07/25 21:06 POC Glucose 132 mg/dl (70-106) Hepatitis B Surface Antigen Negative (Negative) Hepatitis C Antibody Positive (Negative) White Blood Count 5.2 10^3/uL (4.4-10.8) Red Blood Count 3.27 10^6/uL (4.0-5.20) Hemoglobin 10.6 g/dL (12.2-16.2) Hematocrit 31.9 % (36.0-46.0) Mean Corpuscular Volume 97.3 fL (80.0-100.0) Mean Corpuscular Hemoglobin 32.4 pg (28.0-32.0) Mean Corpuscular Hemoglobin Concent 33.3 g/dL (32.0-36.0) Red Cell Distribution Width 16.5 % (11.8-14.3) Platelet Count 127 10^3/uL (140-450) Mean Platelet Volume 10.3 fL (6.9-10.8) Neutrophils (%) (Auto) 64.5 % (37.0-80.0) Lymphocytes (%) (Auto) 16.6 % (10.0-50.0) Monocytes (%) (Auto) 10.3 % (0.0-12.0) Eosinophils (%) (Auto) 7.6 % (0.0-7.0) Basophils (%) (Auto) 1.0 % (0.0-2.0) Neutrophils # (Auto) 3.4 10 ^3/uL (1.6-8.6) Lymphocytes # (Auto) 0.9 10 ^3/uL (0.4-5.4) Monocytes # (Auto) 0.5 10 ^3/uL (0-1.3) Eosinophils # (Auto) 0.4 10 ^3/uL (0-0.8) Basophils # (Auto) 0.1 10 ^3/uL (0-0.2) Nucleated Red Blood Cells 0.2 % Sodium Level 139 mmol/L (136-145) Potassium Level 3.5 mmol/L (3.5-5.1) Chloride Level 97 mmol/L (98-107) Carbon Dioxide Level 32 mmol/L (20-31) Anion Gap 10 (5-15) Blood Urea Nitrogen 40 mg/dL (9-23) Creatinine 5.45 mg/dL (0.550-1.02) Glomerular Filtration Rate Calc 8 mL/min (>90) BUN/Creatinine Ratio 7.3 (10.0-20.0) Serum Glucose 82 mg/dL (74-106) Calcium Level 8.0 mg/dL (8.7-10.4) Total Bilirubin 0.2 mg/dL (0.2-1.0) Aspartate Amino Transferase (AST) 15 U/L (13-40) Alanine Aminotransferase (ALT) 15 U/L (7-40) Alkaline Phosphatase 85 U/L (46-116) Total Protein 6.6 g/dL (5.7-8.2) Albumin 3.8 g/dL (3.2-4.8) Lactic Acid Level 2.8 mmol/L (0.4-2.0) Test 05/07/25 19:50 05/07/25 19:08 05/07/25 19:02 Influenza Type A Antigen Negative (Negative) Influenza Type B Antigen Negative (Negative) SARS-CoV-2 Antigen (Rapid) Negative (NEGATIVE) B-Type Natriuretic Peptide 3207.16 pg/mL (0-100) Blood Gas Specimen Type Venous Blood Gas Sample Site Vbg - n/a Blood Gas Patient Temperature 37.0 Arterial Blood Date Drawn [id number] Reed Test N/a Venous Blood pH 7.470 (7.320-7.430) Venous Blood pCO2 at Patient Temp 38.0 mmHg (38.0-54.0) Venous Blood pO2 at Patient Temp 42.2 mmHg (23.0-48.0) Venous Blood HCO3 27.0 mmol/L (22.0-29.0) Venous Bld O2 Saturation (Measured) 76.8 % (60.0-85.0) Venous Blood Base Excess 3.3 mmol/L (-2.0-3.0) Venous Blood Total Hemoglobin 12.0 g/dL (12.0-16.0) Venous Blood Oxyhemoglobin 75.6 % (0.0-79.0) Venous Blood Carboxyhemoglobin 1.1 % (0.5-1.5) Venous Blood Methemoglobin 0.4 % (0.0-1.5) Blood Gas Liter Flow 3.00 Blood Gas Modality Nasal cannula Blood Gas Spontaneous Rate 22 FiO2 % 32.0 Other Laboratory Tests 05/08/25 06:11 Brief Hx & Hospital Course: The patient is a 64-year-old female with multiple past medical history including arthritis, asthma, COPD, CHF, end-stage renal disease on hemodialysis, and hypertension who presented to [facility] ED with complaint of generalized weakness. Patient reports she has been experiencing generalized weakness associated with shortness of breaths, wheezing, respiratory distress, getting worse that prompted this visit. Patient was seen and evaluated in the ED, laboratory data shows WBC 5.7, hemoglobin 11.1, hematocrit 34.0, platelets 138, sodium 137, potassium 3.6, BUN 27, creatinine 4.73, glucose 316, calcium 8.5, BNP 3207.16, lactic acid 3.3, blood pressure 141/72, heart rate 120, temperature 98.8 F, O2 saturation 98% on oxygen. Chest x-ray revealing mild pulmonary vascular congestion. Nephrology consult will follow the patient. Please see medication orders section in the computer. On my assessment, patient denied chest pain, no headache, no dizziness, no diaphoresis, currently on oxygen, no diarrhea, no nausea, no vomiting, no fever, no chills. Patient was admitted for further evaluation and medical management. Respiratory failure with hypoxia COPD with acute exacerbation Pneumonitis Elevated lactic acid level Type 2 diabetes mellitus with hyperglycemia ESRD (end stage renal disease) on dialysis Generalized weakness Condition at Discharge: Fair Final Diagnosis/Problems List see above Discharge Disposition: Home Discharge Instruct/Medications Diet: Cardiac 2g Na,low cholest Activity: No Restrictions, As Tolerated Scheduled Albuterol Sulfate (Albuterol Sulfate Hfa), 1 PUFF INH Q4HR PRN, (Reported) Amiodarone Hcl (Amiodarone Hcl), 1 TAB PO DAILY, (Reported) Apixaban Base (Eliquis), 2.5 MG PO BID Aspirin (Aspirin 81 Low Dose), 1 TAB PO DAILY, (Reported) Atorvastatin Calcium (Lipitor), 1 TAB PO DAILY, (Reported) Carvedilol (Carvedilol), 3.125 MG PO DAILY, (Reported) Clopidogrel Bisulfate (Plavix), 75 MG PO DAILY Epoetin Wolf-Epbx (Retacrit), 10,000 UNIT SC POSTDI@2100 Ergocalciferol (Vitamin D 58364 Unit), 50,000 UNIT PO Q7D Furosemide (Lasix), 1 TAB PO BID, (Reported) Gabapentin (Neurontin), 1 CAP PO BID, (Reported) Hydralazine Hcl (Hydralazine Hcl), 1 TAB PO TID, (Reported) Levofloxacin Hemihydrate (Levaquin 500 Mg), 500 MG PO DAILY Lidocaine (Lidocaine), 1 PATCH TOP DAILY, (Reported) Losartan Potassium (Losartan Potassium), 1 TAB PO DAILY, (Reported) Pantoprazole Sodium Sesquihydr (Protonix), 40 MG PO DAILY Sevelamer Carbonate (Renvela), 1 TAB PO TID, (Reported) Tirzepatide (Mounjaro), 2.5 MG SC QWEEKLY, (Reported) Scheduled PRN Acetaminophen (Acetaminophen), 325 MG PO Q4HP PRN Diphenoxylate W/ Atropine (Lomotil), 1 TAB PO TID PRN for FOR DIARRHEA, (Reported) Hydrocodone-Acetaminophen (Hydrocodone Bitartrate/AC 5-325 mg), 1 TAB PO Q12HR PRN for SPONDYLOSIS W/O MYELOPATHY, (Reported) Hydrocodone-Acetaminophen (Hydrocodone Bitartrate/AC 10-325 mg), 1 TAB PO Q6HPRN PRN Methocarbamol (Methocarbamol), 750 MG PO BIDP PRN for FOR MUSCLE SPASM, (Reported) Tramadol Hcl (Tramadol Hcl), 50 MG PO TID PRN Miscellaneous Medications Cinacalcet HCl (Cinacalcet Hydrochloride), 30 MG PO, (Reported) Discharge Statement: "Patient was advised to return to the ER or call 911 if any headaches, dizziness, shortness of breath, chest pain, abdominal pain, bleeding, fevers, or worsening of medical condition. Patient was counseled about treatment plan, medications, possible side effects, patientverbalized understanding. All questions were answered to the best of my ability. This discharge took greater then 30 minutes in planning, reviewing documentation, counseling the patient, and discussing with other team members." ASSESSMENT ASSESSMENT Assessment Date of Service: May 11, 2025 Billing Provider: FAUZIA PIMENTEL DO Common Visit Codes: [id number] DISCH DAY >30min FAUZIA PIMENTEL DO May 17, 2025 10:12
--- NOTE | 2025-05-17 10:13 | DVHPN2 ---
Reviewed: Care Plan, H&P, Labs, Medications, Previous Orders, Radiology Changes from previous H/P or p: No Changes General: Per HPI Eyes: No Pain, No Vision change, No Conjunctivae inflammation, No Eyelid inflammation, No Other, No Redness ENT: No Ear pain, No Ear discharge, No Nose pain, No Nose discharge, No Nose congestion, No Mouth pain, No Mouth swelling, No Throat pain, No Throat swelling, No Other Cardiovascular: No Chest Pain, No Palpitations, No Orthopnea, No Paroxysmal Noc. Dyspnea, No Edema, No Lt Headedness; Other (Left upper extremity AV shunt) Respiratory: Cough; No Dry; Shortness of breath, SOB with excertion, Wheezing; No Hemoptysis, No Pleuritic Pain, No Sputum; Other (SOB at rest) Gastrointestinal: No Nausea, No Vomiting, No Abdominal Pain, No Diarrhea, No Constipation, No Melena, No Hematochezia, No Other Genitourinary: No Dysuria, No Frequency, No Incontinence, No Hematuria, No Retention; Other (On hemodialysis) Musculoskeletal: No other, No neck pain, No shoulder pain, No arm pain, No back pain, No hand pain, No leg pain, No foot pain Skin: No Rash, No Lesions, No Jaundice, No Bruising, No Other Objective General Appearance: Alert, Oriented X3, Cooperative Cardiovascular: Regular rate, Normal S1, Normal S2 Neuro: Normal gait, Normal speech Laboratory Results Laboratory Tests 05/08/25 06:11 Microbiology Microbiology Date/Time Source Procedure Growth Status 05/08/25 03:21 Nose MRSA Screen - Final Complete 05/07/25 19:08 Blood Blood Culture - Final NO GROWTH AFTER 5 DAYS OF INCUBATION. Complete Labs and/or images reviewed: Labs reviewed by me, Image(s) reviewed by me Assessment/Plan Assessment/Plan Respiratory failure with hypoxia COPD with acute exacerbation Pneumonitis Elevated lactic acid level Type 2 diabetes mellitus with hyperglycemia ESRD (end stage renal disease) on dialysis Generalized weakness Plan discussed with: Patient Date of Service: May 08, 2025 Billing Provider: FAUZIA PIMENTEL DO Common Visit Codes: [id number] INP/OBS CARE(HIGH) FAUZIA PIMENTEL DO May 17, 2025 10:13
--- NOTE | 2025-05-17 10:14 | DVHPN2 ---
Reviewed: Care Plan, H&P, Labs, Medications, Previous Orders, Radiology Changes from previous H/P or p: No Changes General: Per HPI Eyes: No Pain, No Vision change, No Conjunctivae inflammation, No Eyelid inflammation, No Other, No Redness ENT: No Ear pain, No Ear discharge, No Nose pain, No Nose discharge, No Nose congestion, No Mouth pain, No Mouth swelling, No Throat pain, No Throat swelling, No Other Cardiovascular: No Chest Pain, No Palpitations, No Orthopnea, No Paroxysmal Noc. Dyspnea, No Edema, No Lt Headedness; Other (Left upper extremity AV shunt) Respiratory: Cough; No Dry; Shortness of breath, SOB with excertion, Wheezing; No Hemoptysis, No Pleuritic Pain, No Sputum; Other (SOB at rest) Gastrointestinal: No Nausea, No Vomiting, No Abdominal Pain, No Diarrhea, No Constipation, No Melena, No Hematochezia, No Other Genitourinary: No Dysuria, No Frequency, No Incontinence, No Hematuria, No Retention; Other (On hemodialysis) Musculoskeletal: No other, No neck pain, No shoulder pain, No arm pain, No back pain, No hand pain, No leg pain, No foot pain Skin: No Rash, No Lesions, No Jaundice, No Bruising, No Other Objective General Appearance: Alert, Oriented X3, Cooperative Cardiovascular: Regular rate, Normal S1, Normal S2 Neuro: Normal gait, Normal speech Laboratory Results Laboratory Tests 05/08/25 06:11 Microbiology Microbiology Date/Time Source Procedure Growth Status 05/08/25 03:21 Nose MRSA Screen - Final Complete 05/07/25 19:08 Blood Blood Culture - Final NO GROWTH AFTER 5 DAYS OF INCUBATION. Complete Labs and/or images reviewed: Labs reviewed by me, Image(s) reviewed by me Assessment/Plan Assessment/Plan Respiratory failure with hypoxia COPD with acute exacerbation Pneumonitis Elevated lactic acid level Type 2 diabetes mellitus with hyperglycemia ESRD (end stage renal disease) on dialysis Generalized weakness Plan discussed with: Patient Date of Service: May 09, 2025 Billing Provider: FAUZIA PIMENTEL DO Common Visit Codes: [id number] INP/OBS CARE(HIGH) FAUZIA PIMENTEL DO May 17, 2025 10:14
--- NOTE | 2025-05-17 10:14 | DVHPN2 ---
Reviewed: Care Plan, H&P, Labs, Medications, Previous Orders, Radiology Changes from previous H/P or p: No Changes General: Per HPI Eyes: No Pain, No Vision change, No Conjunctivae inflammation, No Eyelid inflammation, No Other, No Redness ENT: No Ear pain, No Ear discharge, No Nose pain, No Nose discharge, No Nose congestion, No Mouth pain, No Mouth swelling, No Throat pain, No Throat swelling, No Other Cardiovascular: No Chest Pain, No Palpitations, No Orthopnea, No Paroxysmal Noc. Dyspnea, No Edema, No Lt Headedness; Other (Left upper extremity AV shunt) Respiratory: Cough; No Dry; Shortness of breath, SOB with excertion, Wheezing; No Hemoptysis, No Pleuritic Pain, No Sputum; Other (SOB at rest) Gastrointestinal: No Nausea, No Vomiting, No Abdominal Pain, No Diarrhea, No Constipation, No Melena, No Hematochezia, No Other Genitourinary: No Dysuria, No Frequency, No Incontinence, No Hematuria, No Retention; Other (On hemodialysis) Musculoskeletal: No other, No neck pain, No shoulder pain, No arm pain, No back pain, No hand pain, No leg pain, No foot pain Skin: No Rash, No Lesions, No Jaundice, No Bruising, No Other Objective General Appearance: Alert, Oriented X3, Cooperative Cardiovascular: Regular rate, Normal S1, Normal S2 Abdomen: Normal bowel sounds, Soft Neuro: Normal gait, Normal speech Laboratory Results Laboratory Tests 05/08/25 06:11 Microbiology Microbiology Date/Time Source Procedure Growth Status 05/08/25 03:21 Nose MRSA Screen - Final Complete 05/07/25 19:08 Blood Blood Culture - Final NO GROWTH AFTER 5 DAYS OF INCUBATION. Complete Labs and/or images reviewed: Labs reviewed by me, Image(s) reviewed by me Assessment/Plan Assessment/Plan Respiratory failure with hypoxia COPD with acute exacerbation Pneumonitis Elevated lactic acid level Type 2 diabetes mellitus with hyperglycemia ESRD (end stage renal disease) on dialysis Generalized weakness Plan discussed with: Patient Date of Service: May 10, 2025 Billing Provider: FAUZIA PIMENTEL DO Common Visit Codes: [id number] INP/OBS CARE(HIGH) FAUZIA PIMENTEL DO May 17, 2025 10:14
== END 2025-05-11 18:48 | disposition home or self-care (01) | DRG 189 ==
LOC: ER 18:22 → EDBD 18:22 → OVERFLOW 20:41 → TELE-WESTW 23:20
PROVIDERS: ADMIT Internal Medicine; ATTEND Internal Medicine
PROC: 5A1D70Z Performance of Urinary Filtration, Intermittent, Less than 6 Hours Per Day (ICD-10-PCS; principal; 2025-05-10)
DX: J96.01 Acute respiratory failure with hypoxia (principal); N18.6 End stage renal disease; J44.1 Chronic obstructive pulmonary disease with (acute) exacerbation; E87.20 Acidosis, unspecified; I50.32 Chronic diastolic (congestive) heart failure; N25.81 Secondary hyperparathyroidism of renal origin; I13.2 Hypertensive heart and chronic kidney disease with heart failure and with stage 5 chronic kidney disease, or end stage renal disease; J98.4 Other disorders of lung; Z20.822 Contact with and (suspected) exposure to COVID-19; D63.1 Anemia in chronic kidney disease; E11.22 Type 2 diabetes mellitus with diabetic chronic kidney disease; I25.10 Atherosclerotic heart disease of native coronary artery without angina pectoris; E83.39 Other disorders of phosphorus metabolism; E11.65 Type 2 diabetes mellitus with hyperglycemia; F41.9 Anxiety disorder, unspecified; Z79.899 Other long term (current) drug therapy; Z98.891 History of uterine scar from previous surgery; Z99.2 Dependence on renal dialysis; Z90.710 Acquired absence of both cervix and uterus; Z90.49 Acquired absence of other specified parts of digestive tract; Z82.3 Family history of stroke; Z83.3 Family history of diabetes mellitus; Z82.49 Family history of ischemic heart disease and other diseases of the circulatory system; Z88.5 Allergy status to narcotic agent; Z80.3 Family history of malignant neoplasm of breast; Z79.82 Long term (current) use of aspirin
CPT/HCPCS: 36415; 36600; 71045; 80053; 82805; 82962; 83605; 83880; 85025; 86803; 87040; 87081; 87340; 87426; 87804; 90935; 93306; 94640; 96365; 99291; G0378; J1815

== ENCOUNTER 2025-07-01 13:52 | Inpatient (IN) | payer MEDICARE, MEDICAID ==
[~2025-07-01] VITALS: Ht 157.5 cm; Wt 84.2 kg
[2025-07-01 14:30] VITALS: PULSE 88; RESP 14; O2SAT 96
--- NOTE | 2025-07-01 14:44 | ECG ---
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
--- NOTE | 2025-07-01 14:50 | ED.PDOC ---
Altered Mental Status HPI Comments 64 y/o F, with PMHx of anxiety, arthritis, asthma, cancer, CAD, CHF, and COPD presents to the ED for CC ALOC. EMS reports, patient is coming from home where family called d/t patient presenting altered behavior x1day. Per family, it is reported that patient has been refusing to be dialyzed; last known dialysis was [id number] ago. Upon arrival, to the ED patient is A&Ox2 to person and place only. No other symptoms or modifying factors are obtainable at this time. Chief Complaint: ALOC Time Seen by MD: 14:15 Primary Care Provider: WU Reviewed Notes: Nurses Notes, Medications, Allergies Allergies: Coded Allergies: Codeine (Verified Allergy, Unknown, 10/07/20) Uncoded Allergies: adhesives (Allergy, Mild, 04/22/24) Home Meds Active Scripts Hydrocodone-Acetaminophen (Hydrocodone Bitartrate/AC 10-325 mg) 1 Tab Tab, 1 TAB PO Q6HPRN PRN, #15 TAB Prov:TALAT VILLEGAS [facility] 07/14/24 Levofloxacin Hemihydrate (LEVAQUIN 500 MG) 500 Mg Tab, 500 MG PO DAILY for 7 Days, #7 TAB Prov:TAMELA VELAZQUEZ [facility] 04/30/24 Apixaban Base (ELIQUIS) 2.5 Mg Tab, 2.5 MG PO BID for 30 Days, #60 TAB Prov:TAMELA VELAZQUEZ [facility] 04/30/24 Ergocalciferol (VITAMIN D 95881 UNIT) 50,000 [place], [address] UNIT PO Q7D for 30 Days, #10 CAP Prov:TAMELA VELAZQUEZ [facility] 04/30/24 Epoetin Wolf-Epbx (Retacrit) 10,000 Unit/Ml Inj, 69687 UNIT SC POSTDI@2100 for 30 Days, #20 INJ Prov:TAMELA VELAZQUEZ 04/30/24 Acetaminophen (Acetaminophen) 325 Mg Tab, 325 MG PO Q4HP PRN for 30 Days, #150 TAB Prov:TAMELA VELAZQUEZ [facility] 04/30/24 Tramadol Hcl (Tramadol Hcl) 50 Mg Tab, 50 MG PO TID PRN, #30 TAB Prov:GUILLERMO MELENDREZ MD 03/13/24 Clopidogrel Bisulfate (Plavix) 75 Mg Tab, 75 MG PO DAILY for 30 Days, #30 TAB Prov:DENY BOWEN MD 11/12/22 Pantoprazole Sodium Sesquihydr (Protonix) 40 Mg Tab, 40 MG PO DAILY, #30 TAB Prov:CARLOS VILLEGAS MD 09/13/20 Reported Medications Tirzepatide (Mounjaro) 2.5 Mg/0.5 Ml Inj, 2.5 MG SC QWEEKLY for 28 Days, #2 Administer 2.5 mg under the skin 1 time a week for 4 weeks. 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 04/28/24 Aspirin (Aspirin 81 Low Dose) 81 Mg Chw, 1 TAB PO DAILY, TAB.CHEW 04/28/24 Diphenoxylate W/ Atropine (Lomotil) 2.5 Mg Tab, 1 TAB PO TID PRN for FOR DIARRHEA, #30 TAB 04/27/24 Cinacalcet HCl (Cinacalcet Hydrochloride) 30 Mg Tab, 30 MG PO, TAB 04/27/24 Sevelamer Carbonate (Renvela) 800 Mg Tab, 1 TAB PO TID, #270 TAB 3 Refills 04/12/24 Losartan Potassium (Losartan Potassium) 50 Mg Tab, 1 TAB PO DAILY, #30 TAB 5 Refills 04/12/24 Carvedilol (Carvedilol) 3.125 Mg Tab, 3.125 MG PO DAILY for 30 Days, MG 04/12/24 Atorvastatin Calcium (Lipitor) 40 Mg Tab, 1 TAB PO DAILY 03/11/24 Albuterol Sulfate (Albuterol Sulfate Hfa) 108 Mcg/Act Aer, 1 PUFF INH Q4HR PRN 03/11/24 Hydralazine Hcl (Hydralazine Hcl) 50 Mg Tab, 1 TAB PO TID, #90 TAB 5 Refills 03/09/24 Lidocaine (Lidocaine) 5 % Pad, 1 PATCH TOP DAILY 08/19/23 Methocarbamol (Methocarbamol) 750 Mg Tab, 750 MG PO BIDP PRN for FOR MUSCLE SPASM for 30 Days, MG 07/13/19 Gabapentin (Neurontin) 400 Mg Cap, 1 CAP PO BID 07/13/19 Furosemide (Lasix) 80 Mg Tab, 1 TAB PO BID 07/13/19 Information Source: Patient Mode of Arrival: EMS Severity: Moderate Timing: Hours Duration: Since onset Prehospital treatment: None Quality: Change in Behavior Recent: None History of: Diabetes Associated Signs and Symptoms: None Past Medical History PAST MEDICAL HISTORY: Anxiety, Arthritis, Asthma, CAD, Cancer, CHF, COPD, DM, ESRD, High Lipids, HTN Surgical History: Appendectomy, Cholecystectomy, , Hysterectomy, PTCA [employer] SUPERVISOR History: No Pertinent [employer]PER[employer]OR History Family History Family History: Family hx of DM, Family hx of heart adrianna Social History Smoker: Non-Smoker Alcohol: Denies ETOH Use Drugs: Denies Drug Use Lives In: Home Unable to Obtain due to: Altered Mental Status All Other Systems: Reviewed and Negative Physical Exam General Appearance: Normal HEENT: Normal ENT Inspection, Pharynx Normal Neck: Full Range of Motion, Non-Tender, Normal, Normal Inspection Respiratory: Chest Non-Tender, Lungs Clear, No Accessory Muscle Use, No R espiratory Distress, Normal Breath Sounds Cardiovascular: No Edema, No Murmur, No Gallop, Normal Peripheral Pulses, Regular Rate/Rhythm Breast Exam: Deferred Gastrointestinal: No Organomegaly, Non Tender, No Pulsatile Mass, Normal Bowel Sounds, Soft Genitalia: Deferred Pelvic: Deferred Rectal: Deferred Extremities: No calf tenderness, Normal capillary refill, Normal inspection, Normal range of motion, Non-tender, No pedal edema Musculoskeletal : Apperance: Normal 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 Was a procedure done?: No Differential Diagnosis (ALOC) Differential Diagnosis: Hypoglycemia, Other (fluid overload, electrolyte imbalance) X-Ray, Labs, Meds, VS Vital Signs Date Time Temp Pulse Resp B/P (MAP) Pulse Ox O2 Delivery O2 Flow Rate FiO2 07/01/25 16:01 97.7 90 12 159/68 (98) 98 97.7 07/01/25 14:30 98.4 88 14 159/68 (98) 96 98.4 07/01/25 14:30 88 14 96 Room Air* 0 21 07/01/25 14:30 89 07/01/25 14:19 98.1 87 14 146/93 (110) 97 98.1 07/01/25 13:57 98.1 63 18 170/92 97 98.1 Lab Test 07/01/25 15:27 07/01/25 14:53 Range/Units Troponin I High Sensitivity 119 *H 127 *H </=34 ng/L White Blood Count 3.6 L 4.4-10.8 10^3/uL Red Blood Count 3.77 L 4.0-5.20 10^6/uL Hemoglobin 12.0 L 12.2-16.2 g/dL Hematocrit 36.2 36.0-46.0 % Mean Corpuscular Volume 96.1 80.0-100.0 fL Mean Corpuscular Hemoglobin 31.8 28.0-32.0 pg Mean Corpuscular Hemoglobin Concent 33.1 32.0-36.0 g/dL Red Cell Distribution Width 17.6 H 11.8-14.3 % Platelet Count 126 L 140-450 10^3/uL Mean Platelet Volume 10.6 6.9-10.8 fL Neutrophils (%) (Auto) 68.1 37.0-80.0 % Lymphocytes (%) (Auto) 16.7 10.0-50.0 % Monocytes (%) (Auto) 9.7 0.0-12.0 % Eosinophils (%) (Auto) 4.3 0.0-7.0 % Basophils (%) (Auto) 1.2 0.0-2.0 % Neutrophils # (Auto) 2.5 1.6-8.6 10 ^3/uL Lymphocytes # (Auto) 0.6 0.4-5.4 10 ^3/uL Monocytes # (Auto) 0.4 0-1.3 10 ^3/uL Eosinophils # (Auto) 0.2 0-0.8 10 ^3/uL Basophils # (Auto) 0 0-0.2 10 ^3/uL Nucleated Red Blood Cells 0.0 % Sodium Level 137 136-145 mmol/L Potassium Level 4.5 3.5-5.1 mmol/L Chloride Level 100 98-107 mmol/L Carbon Dioxide Level 16 L 20-31 mmol/L Anion Gap 21 H 5-15 Blood Urea Nitrogen 137 *H 9-23 mg/dL Creatinine 12.68 *H 0.550-1.02 mg/dL Glomerular Filtration Rate Calc 3 >90 mL/min BUN/Creatinine Ratio 10.8 10.0-20.0 Serum Glucose 84 74-106 mg/dL Calcium Level 6.5 L 8.7-10.4 mg/dL B-Type Natriuretic Peptide 4014.64 0-100 pg/mL [place] [address] Ph: [phone] DIAGNOSTIC IMAGING Diagnostic Imaging Report : [id number] Signed PATIENT: MICAH LIRIANO ACCT: [id number] UNIT: [id number] : 1960 LOC: ER ROOM / BED: / AGE / SEX: 64 / F ADM STATUS: REG ER SERVICE 1442 ORDERING PHYSICIAN: ESTELITA CHO MD PROCEDURE(s): CXRP - CHEST PORTABLE REASON: ams ORDER NUMBER(s): [id number], ACCESSION NUMBER(s): [id number] CHEST RADIOGRAPH Indication: ams Technique: Single frontal view of the chest was obtained COMPARISON: XY CHEST PORTABLE on DOS: 05/07/25, XR CHEST 1 VIEW on DOS: 07/16/24, XY CHEST XRAY 1 VIEW on DOS: 04/29/24, XY CHEST PORTABLE on DOS: 04/27/24, XY CHEST PORTABLE on DOS: 04/11/24 FINDINGS: Lines and Tubes: None Lungs: Pulmonary vascular congestion Pleura: No effusion. No pneumothorax. Cardiomediastinal contours: Cardiomegaly Bones: Unremarkable IMPRESSION: Pulmonary vascular congestion. ATED BY: PITO LEDEZMA MD DICTATED DATE/TIME: 07/01/25 152 SIGNED BY: PITO LEDEZMA MD SIGNED DATE/TIME: 07/01/25 1520 CC: [place] [address] Ph: [phone] DIAGNOSTIC IMAGING Diagnostic Imaging Report : [id number] Signed PATIENT: MICAH LIRIANO ACCT: [id number] UNIT: [id number] : 1960 LOC: ER ROOM / BED: / AGE / SEX: 64 / F ADM STATUS: REG ER SERVICE 1442 ORDERING PHYSICIAN: ESTELITA CHO MD PROCEDURE(s): HWOCT - HEAD WITHOUT CONTRAST REASON: [facility] ORDER NUMBER(s): [id number], ACCESSION NUMBER(s): [id number] EXAM: CT HEAD WITHOUT CONTRAST INDICATION: ams TECHNIQUE: CT of the head without intravenous contrast. Radiation Dose : 1. Head: CT Dose: CTDI volume is 64 mGy. Dose-length product is 1140 mGy*cm The dose indicators for CT are the volume Computed Tomography (CT) Dose Index (CTDIvol) and the Dose Length Product (DLP), and are measured in units of mGy and mGy-cm, respectively. These indicators are not patient dose, but values generated from the CT scanner acquisition factors. The report includes radiation exposure data for exposures received during this examination. COMPARISON: CT HEAD WITHOUT CONTRAST on DOS: 03/09/24 FINDINGS: There is no evidence of acute intracranial hemorrhage, extra-axial collection, mass effect, midline shift, herniation or hydrocephalus. The ventricles, sulci and cisterns are age appropriate. The segal-white differentiation is intact. Patchy periventricular and subcortical white matter hypoattenuation is nonspecific but may be related to small vessel ischemic disease. The visualized paranasal sinuses and mastoid air cells are clear. The surrounding soft tissues and osseous structures are unremarkable. IMPRESSION: No acute intracranial abnormality. Radiation optimization: All CT scans at this facility use at least one of these dose optimization techniques: automated exposure control mA and/or kV adjustment per patient size (includes targeted exams where dose is matched to clinical indication) or iterative reconstruction. ATED BY: PITO LEDEZMA MD DICTATED DATE/TIME: 07/01/25 1524 SIGNED BY: PITO LEDEZMA MD SIGNED DATE/TIME: 07/01/25 1524 CC: Time of 1ST Reevaluation: 14:45 Reevaluation 1ST: Unchanged Patient Education/Counseling: Diagnosis, Treatment Family Education/Counseling: No Family Present SEPSIS Sepsis Screen Date sepsis recognized/suspect: Jul 01, 2025 Time Sepsis recognized/suspect: 1359 Recent Procedure: No On Antibiotic Therapy: No Respiratory Rate >20: No Heart Rate >90: No Temp<36 C (96.8 F) or >38.3 C: No SBP <90 or MAP <65 mmHG: No New Acute Mental Status Change: No Is the patient on CPAP, BIPAP,: No Physician Orders Chest Portable (07/01/25 14:42) Head Without Contrast (07/01/25 14:42) Troponin-I Hs (07/01/25 17:42) Electrocardigram (07/01/25 15:42) Electrocardigram (07/01/25 17:42) Vital Signs Date Time Temp Pulse Resp B/P (MAP) Pulse Ox O2 Delivery O2 Flow Rate FiO2 07/01/25 16:01 97.7 90 12 159/68 (98) 98 97.7 07/01/25 14:30 98.4 88 14 159/68 (98) 96 98.4 07/01/25 14:30 88 14 96 Room Air* 0 21 07/01/25 14:30 89 07/01/25 14:19 98.1 87 14 146/93 (110) 97 98.1 07/01/25 13:57 98.1 63 18 170/92 97 98.1 Laboratory Tests Test 07/01/25 14:53 White Blood Count 3.6 10^3/uL (4.4-10.8) L Departure 1 Departure Time of Disposition: 18:03 (Patient with a acute metabolic encephalopathyWe will admit patient for worsening we will altered mental status and further workup) Impression: Primary Impression: Acute metabolic encephalopathy Additional Impressions: Altered mental status Qualified Codes: R41.82 - Altered mental status, unspecified Generalized weakness Disposition: ADMITTED INPATIENT Admit to: Med Surg Condition: Serious Critical Care Note Critical Care Time?: Yes Critical care comment: Altered mental status Authorized and Performed by: Estelita Cho MD Total critical care time: Approximately 38 minutes Due to a high probability of clinically significant, life threatening deterioration, the patient required my highest level of preparedness to intervene emergently and I personally spent this critical care time directly and personally managing the patient. This critical care time included obtaining a history; examining the patient; pulse oximetry; ordering and review of studies; arranging urgent treatment with development of a management plan; evaluation of patient's response to treatment; frequent reassessment; and, discussions with other providers. This critical care time was performed to assess and manage the high probability of imminent, life-threatening deterioration that could result in multi-organ failure. It was exclusive of separately billable procedures and treating other patients and teaching time. Please see my other sections and the rest of the note for further information on patient assessment and treatment. Stability Stability form required: No Heart Score Heart Score: Heart Score Response (Comments) Value History N/A 0 EKG N/A 0 Age N/A 0 Risk Factors N/A 0 Troponin N/A 0 Total 0 I personally scribed for ESTELITA CHO MD ([email or web address]) on 07/01/25 at 14:50. Electronically submitted by Susanna Zarate ([email or web address]). I personally scribed for ESTELITA CHO MD ([email or web address]) on 07/01/25 at 15:18. Electronically submitted by Susanna Zarate ([email or web address]). I personally scribed for ESTELITA CHO MD ([email or web address]) on 07/01/25 at 16:26. Electronically submitted by Susanna Zarate ([email or web address]). I personally scribed for ESTELITA CHO MD ([email or web address]) on 07/01/25 at 16:27. Electronically submitted by Susanna Zarate ([email or web address]). ESTELITA CHO MD Jul 01, 2025 14:50
[2025-07-01 15:13] LABS: Hematocrit 36.2 % (36.0-46.0); Hemoglobin 12.0 g/dL (12.2-16.2); Mean Corpuscular Hemoglobin 31.8 pg (28.0-32.0); Mean Corpuscular Volume 96.1 fL (80.0-100.0); Nucleated Red Blood Cells % 0.0 %
[2025-07-01 15:20] LABS: Chloride 100 mmol/L (98-107); Potassium 4.5 mmol/L (3.5-5.1); Sodium 137 mmol/L (136-145)
[2025-07-01 15:21] LABS: Anion Gap 21 (5-15)
[2025-07-01 15:22] LABS: Calcium 6.5 mg/dL (8.7-10.4); Carbon Dioxide 16 mmol/L (20-31)
--- NOTE | 2025-07-01 15:23 | DVH ---
CHEST RADIOGRAPH Indication: ams Technique: Single frontal view of the chest was obtained COMPARISON: XY CHEST PORTABLE on DOS: 05/07/25, XR CHEST 1 VIEW on DOS: 07/16/24, XY CHEST XRAY 1 VIEW on DOS: 04/29/24, XY CHEST PORTABLE on DOS: 04/27/24, XY CHEST PORTABLE on DOS: 04/11/24 FINDINGS: Lines and Tubes: None Lungs: Pulmonary vascular congestion Pleura: No effusion. No pneumothorax. Cardiomediastinal contours: Cardiomegaly Bones: Unremarkable IMPRESSION: Pulmonary vascular congestion.
--- NOTE | 2025-07-01 15:26 | DVH ---
EXAM: CT HEAD WITHOUT CONTRAST INDICATION: ams TECHNIQUE: CT of the head without intravenous contrast. Radiation Dose : 1. Head: CT Dose: CTDI volume is 64 mGy. Dose-length product is 1140 mGy*cm The dose indicators for CT are the volume Computed Tomography (CT) Dose Index (CTDIvol) and the Dose Length Product (DLP), and are measured in units of mGy and mGy-cm, respectively. These indicators are not patient dose, but values generated from the CT scanner acquisition factors. The report includes radiation exposure data for exposures received during this examination. COMPARISON: CT HEAD WITHOUT CONTRAST on DOS: 03/09/24 FINDINGS: There is no evidence of acute intracranial hemorrhage, extra-axial collection, mass effect, midline s hift, herniation or hydrocephalus. The ventricles, sulci and cisterns are age appropriate. The segal-white differentiation is intact. Patchy periventricular and subcortical white matter hypoattenuation is nonspecific but may be related to small vessel ischemic disease. The visualized paranasal sinuses and mastoid air cells are clear. The surrounding soft tissues and osseous structures are unremarkable. IMPRESSION: No acute intracranial abnormality. Radiation optimization: All CT scans at this facility use at least one of these dose optimization kateryna hniques: automated exposure control mA and/or kV adjustment per patient size (includes targeted exam s where dose is matched to clinical indication) or iterative reconstruction.
[2025-07-01 15:27] LABS: BUN/Creatinine Ratio 10.8 (10.0-20.0); Glucose 84 mg/dL (74-106)
[2025-07-01 15:28] LABS: Blood Urea Nitrogen 137 mg/dL (9-23)
[2025-07-01 19:30] VITALS: PULSE 89; RESP 18; O2SAT 99
[2025-07-01] MEDS ORDERED: ONDANSETRON HCL 4 MG/2 ML VIAL IV PRN ×2 (22:15→23:00)
[2025-07-01] MEDS ORDERED: DOCUSATE SOD 100 MG CAP PO PRN ×2 (22:15→23:00)
[2025-07-01] MEDS ORDERED: MORPHINE SULFATE INJ 2 MG/ml SYRG IV PRN (23:00)
[2025-07-01 23:39] VITALS: BP 165/95; PULSE 85; RESP 16; TEMP 97.9; O2SAT 98
[2025-07-02] VITALS (7 sets, daily range): BP systolic 102–171; BP diastolic 69–101; PULSE 73–88; RESP 12–18; TEMP 97.6–97.9; O2SAT 94–99
[2025-07-02] MEDS: ACETAMINOPHEN 325 MG TAB PO PRN (02:38)
--- NOTE | 2025-07-02 03:09 | DVHHPRES ---
History of Present Illness Resident Creating Document: BILL GOTTLIEB RESIDENT History of Present Illness Raya Whatley is a 64-year-old female with past medical history of asthma, CHF, COPD, ESRD on HD, hypertension, cancer, anxiety, arthritis, diabetes mellitus, who came to the ED with chief complaints of altered level of con sciousness and confusion which started yesterday morning. As per daughter patient has missed 5-6 dialysis episodes since 3 weeks because patient was not feeling well. Patient undergoes dialysis on Fridays at [facility]. 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 Patient states that she is not in any pain and is irritated. Patient is currently A/O x4 and is following simple commands. On chest x-ray patient had pulmonary vascular congestion. Patient has a history of hepatitis-C. Use wheelchair for ambulation, and is at 2.5 L of oxygen at home. Patient is admitted for further management. Past medical history : asthma, CHF, COPD, ESRD on HD, hypertension, cancer, anxiety, arthritis, diabetes mellitus, Surgical history: Appendectomy, Cholecystectomy, , Hysterectomy, PTCA Family history: Reviewed, unremarkable Personal history: Denies smoking, drinking, drug use Lives with: Family PCP: Dr. Bolden Assurance Officer: Michelle goldstein Review of Systems Constitutional: No: Fever, Chills, Sweats, Weakness, Malaise, Other Eyes: No: Pain, Vision change, Conjunctivae inflammation, Eyelid inflammation, Other, Redness ENT: No: Ear pain, Ear discharge, Nose pain, Nose discharge, Nose congestion, Mouth pain, Mouth swelling, Throat pain, Throat swelling, Other Respiratory: Shortness of breath; No: Cough, Dry, SOB with excertion, Wheezing, Hemoptysis, Pleuritic Pain, Sputum, Wheezing, Other Cardiovascular: No: Chest Pain, Palpitations, Orthopnea, Paroxysmal Noc. Dyspnea, Edema, Lt Headedness, Other Gastrointestinal: No: Nausea, Vomiting, Abdominal Pain, Diarrhea, Constipation, Melena, Hematochezia, Other Genitourinary: No Dysuria, No Frequency, No Incontinence, No Hematuria, No Re tention, No Other Musculoskeletal: No: other, neck pain, shoulder pain, arm pain, back pain, hand pain, leg pain, foot pain Skin: No: Rash, Lesions, Jaundice, Bruising, Other Neurological: Confusion; No: Weakness, Numbness, Incoordination, Change in speech, Seizures, Other Allergies: Coded Allergies: Codeine (Verified Allergy, Unknown, 10/07/20) Uncoded Allergies: adhesives (Allergy, Mild, 04/22/24) Medications Current Medications Medications Dose Ordered Sig/Keaton Route Start Time Stop Time Status Last Admin Dose Admin Ondansetron HCl 4 mg Q4HP PRN IV 07/01/25 22:15 Docusate Sodium 100 mg BIDPRN PRN PO 07/01/25 22:15 Acetaminophen 650 mg Q6HP PRN PO 07/01/25 22:15 07/02/25 02:38 650 MG Morphine Sulfate 2 mg Q4HPRN PRN IV 07/01/25 23:00 Exam Vital Signs Vital Signs Date Time Temp Pulse Resp B/P (MAP) Pulse Ox O2 Delivery O2 Flow Rate FiO2 07/02/25 01:00 88 18 171/80 (110) 94 07/02/25 00:20 97.9 97.9 07/01/25 23:39 Nasal Cannula* 2 28 Exam General: Patient alert and oriented in person, place and time. Patient following commands. HEENT: Normocephalic, atraumatic, moist mucous membranes Respiratory/pulmonary: Clear lungs bilaterally, vesicular murmurs present in almost all lung chance, no associated crackles or wheezes. Cardiovascular: Normal heart sounds S1 and S2 with no associated murmurs Abdomen: Abdomen nondistended, there is no pain to palpation in any of the abdominal quadrants, no palpable masses. Extremities: Left upper arm Nicolas catheter Mild bilateral lower extremity peripheral edema Peripheral Pulses: 3+ Radial (R). 3+ Radial (L). 3+ Dorsalis pedis (R). 3+ Dorsalis pedis(L) Skin: No rashes or pruritus, there is no sacral edema present at this time. Neurological: Intact cranial nerves with no focal neurologic deficits Labs/Xrays Labs Test 07/01/25 18:02 07/01/25 14:53 Range/Units Troponin I High Sensitivity 114 *H </=34 ng/L White Blood Count 3.6 L 4.4-10.8 10^3/uL Red Blood Count 3.77 L 4.0-5.20 10^6/uL Hemoglobin 12.0 L 12.2-16.2 g/dL Hematocrit 36.2 36.0-46.0 % Mean Corpuscular Volume 96.1 80.0-100.0 fL Mean Corpuscular Hemoglobin 31.8 28.0-32.0 pg Mean Corpuscular Hemoglobin Concent 33.1 32.0-36.0 g/dL Red Cell Distribution Width 17.6 H 11.8-14.3 % Platelet Count 126 L 140-450 10^3/uL Mean Platelet Volume 10.6 6.9-10.8 fL Neutrophils (%) (Auto) 68.1 37.0-80.0 % Lymphocytes (%) (Auto) 16.7 10.0-50.0 % Monocytes (%) (Auto) 9.7 0.0-12.0 % Eosinophils (%) (Auto) 4.3 0.0-7.0 % Basophils (%) (Auto) 1.2 0.0-2.0 % Neutrophils # (Auto) 2.5 1.6-8.6 10 ^3/uL Lymphocytes # (Auto) 0.6 0.4-5.4 10 ^3/uL Monocytes # (Auto) 0.4 0-1.3 10 ^3/uL Eosinophils # (Auto) 0.2 0-0.8 10 ^3/uL Basophils # (Auto) 0 0-0.2 10 ^3/uL Nucleated Red Blood Cells 0.0 % Sodium Level 137 136-145 mmol/L Potassium Level 4.5 3.5-5.1 mmol/L Chloride Level 100 98-107 mmol/L Carbon Dioxide Level 16 L 20-31 mmol/L Anion Gap 21 H 5-15 Blood Urea Nitrogen 137 *H 9-23 mg/dL Creatinine 12.68 *H 0.550-1.02 mg/dL Glomerular Filtration Rate Calc 3 >90 mL/min BUN/Creatinine Ratio 10.8 10.0-20.0 Serum Glucose 84 74-106 mg/dL Calcium Level 6.5 L 8.7-10.4 mg/dL B-Type Natriuretic Peptide 4014.64 0-100 pg/mL SEPSIS Sepsis Screen Date sepsis recognized/suspect: Jul 01, 2025 Time Sepsis recognized/suspect: 1929 Recent Procedure: No On Antibiotic Therapy: No Respiratory Rate >20: No Heart Rate >90: No Temp<36 C (96.8 F) or >38.3 C: No SBP <90 or MAP <65 mmHG: No New Acute Mental Status Change: No Is the patient on CPAP, BIPAP,: No Physician Orders Ondansetron Hcl (Zofran) (07/01/25 22:15) Docusate Sodium Capsule (Colace Capsule) (07/01/25 22:15) Acetaminophen Tablet (Tylenol Tablet) (07/01/25 22:15) Admit (07/01/25 22:51) Allergies (07/01/25 22:51) Code Status (07/01/25 22:51) Complete Blood Count (07/02/25 04:00) Comprehensive Metabolic Panel (07/02/25 04:00) Npo (Nothing By Mouth) Diet (07/02/25 Breakfast) Condition: Serious (07/01/25 22:51) Bedrest With Bathroom Privileg (07/01/25 22:51) Morphine Sulfate Injection (07/01/25 23:00) * Dietary Consult (07/02/25 01:35) * Wound Consult (07/02/25 ) Mrsa Screen (07/02/25 01:35) Comprehensive Hepatitis Panel (07/02/25 01:44) Urinalysis (07/02/25 03:05) Abg W/ Co-Ox (07/02/25 03:05) Prothrombin Time W/ Inr (07/02/25 03:05) Vital Signs Date Time Temp Pulse Resp B/P (MAP) Pulse Ox O2 Delivery O2 Flow Rate FiO2 07/02/25 01:00 88 18 171/80 (110) 94 07/02/25 00:20 97.9 85 16 165/95 (118) 98 97.9 07/02/25 00:00 89 07/01/25 23:39 85 16 98 Nasal Cannula* 2 28 07/01/25 23:39 97.9 85 16 165/95 (118) 98 97.9 07/01/25 21:00 102 13 176/63 (100) 95 07/01/25 20:09 98.1 89 18 166/69 (101) 99 98.1 07/01/25 20:00 90 07/01/25 19:30 89 18 99 Room Air* 0 21 Medications Medications Dose Ordered Sig/Keaton Route Start Time Stop Time Status Last Admin Dose Admin Acetaminophen 650 mg Q6HP PRN PO 07/01/25 22:15 07/02/25 02:38 650 MG Assessment/Plan Assessment/Plan Assessment and plan # end-stage renal disease, missed dialysis Nephrology consulted # uremic encephalopathy - head CT No acute intracranial abnormality. - urine drug screen # acute hypoxic respiratory failure due to volume overload due to end-stage renal disease, missed dialysis Chest x-ray reveals pulmonary vascular congestion # ?CHF exacerbation IV Lasix Resume home medication # ?Sepsis , source not known yet Urine routine, urine culture, blood culture IV ceftriaxone # prolonged QTC Held amiodarone Held ondansetron # Acute generalized weakness secondary to missed hemodialysis Resume hemodialysis per Nephrology # Afib # severe mitral regurgitation # aortic sclerosis # severe pulmonary hypertension Continue home meds Held Eliquis, on heparin prophylactic dose, consider switching to therapeutic dose if no procedure planned and later to Eliquis #Arthritis #History of Coronary artery disease status post stents Continue aspirin, atorvastatin #History of cancer -follow-up outpatient #Asthma # COPD - continue home meds #Diabetes - hba1c # uncontrolled Hypertension Resume home meds #Hypercholesterolemia Resume home meds #Anxiety #Moderate malnutrition #Noncompliance PPI prophylaxis: Protonix DVT prophylaxis: Heparin Goals of care addressed with the patient for more than 31 minutes: Full code status Case discussed with , patient and nurse Plan discussed with: Patient My Orders Orders - BILL GOTTLIEB RESIDENT Procedure Category Date Status Time Ondansetron Hcl PHA 07/01/25 In Process (Zofran) 22:15 Docusate Sodium PHA 07/01/25 In Process Capsule (Colace 22:15 Acetaminophen Tablet PHA 07/01/25 In Process (Tylenol Tablet) 22:15 Admit ADMIT 07/01/25 Transmitted 22:51 Allergies CARRIE 07/01/25 In Process 22:51 Code Status CODE 07/01/25 Transmitted 22:51 Complete Blood Count LAB 07/02/25 Logged 04:00 Comprehensive LAB 07/02/25 Logged Metabolic Panel 04:00 Npo (Nothing By DIET 07/02/25 Transmitted Mouth) Diet Breakfast Condition: Serious CARRIE 07/01/25 In Process 22:51 Bedrest With Bathroom CARRIE 07/01/25 In Process Privileg 22:51 Morphine Sulfate PHA 07/01/25 In Process Injection 23:00 * Dietary Consult CONS 07/02/25 Transmitted 01:35 * Wound Consult CONS 07/02/25 Transmitted Mrsa Screen KENTRELL 07/02/25 Uncollected 01:35 Comprehensive LAB 07/02/25 Logged Hepatitis Panel 01:44 Urinalysis LAB 07/02/25 Transmitted 03:05 Abg W/ Co-Ox RT 07/02/25 Transmitted 03:05 Prothrombin Time W/ LAB 07/02/25 Transmitted INR 03:05 Date of Service: Jul 01, 2025 Billing Provider: DENY BOWEN MD Common Visit Codes: 34824-[id number] INP/OBS CARE (HIGH) Secondary Visit Codes: 16163-[id number] CARE PLAN 30 MINUTES BILL GOTTLIEB RESIDENT Jul 02, 2025 03:09 MELANIE BUCKNER RESIDENT Jul 02, 2025 09:18
[2025-07-02 04:16] LABS: Hematocrit 35.9 % (36.0-46.0); Hemoglobin 11.8 g/dL (12.2-16.2); Mean Corpuscular Hemoglobin 32.1 pg (28.0-32.0); Mean Corpuscular Volume 98.1 fL (80.0-100.0); Nucleated Red Blood Cells % 0.1 %
[2025-07-02 04:26] LABS: INR 1.23 (0.9-1.15); Prothrombin Time 12.8 sec (9.3-11.8)
[2025-07-02 04:33] LABS: Alanine Aminotransferase 21 U/L (7-40); Albumin 3.7 g/dL (3.2-4.8); Alkaline Phosphatase 68 U/L (46-116); Anion Gap 23 (5-15); BUN/Creatinine Ratio 8.3 (10.0-20.0); Chloride 100 mmol/L (98-107); Glucose 90 mg/dL (74-106); Potassium 4.4 mmol/L (3.5-5.1); Sodium 136 mmol/L (136-145); Total Protein 7.1 g/dL (5.7-8.2)
[2025-07-02 04:35] LABS: Bilirubin, Total 0.3 mg/dL (0.2-1.0)
[2025-07-02 04:43] LABS: Blood Urea Nitrogen 104 mg/dL (9-23); Calcium 6.6 mg/dL (8.7-10.4); Carbon Dioxide 13 mmol/L (20-31)
[2025-07-02] MEDS: SEVELAMER 800 MG TAB PO SCH (06:00)
[2025-07-02] MEDS: FUROSEMIDE 100 MG/10ML VIAL IV ONE (07:37)
[2025-07-02] MEDS: HEPARIN SODIUM (PORCINE) 5000 UNITS/ML 1ML VIAL SC SCH (07:38)
[2025-07-02] MEDS ORDERED: ATORVASTATIN 20 MG TAB PO SCH (10:00)
[2025-07-02] MEDS ORDERED: AMIODARONE HCL 200 MG TAB PO SCH (10:00)
[2025-07-02] MEDS: CARVEDILOL 3.125 MG TAB PO SCH (10:18)
[2025-07-02] MEDS: PANTOPRAZOLE 40 MG TAB PO SCH (10:18)
[2025-07-02] MEDS: ASPirin-EC 81 mg tab PO SCH (10:18)
[2025-07-02 10:52] LABS: Urine Protein, UAD 3+ (Negative)
[2025-07-02 10:55] LABS: Opiate Scree,Urine Neg (NEGATIVE)
[2025-07-02 10:57] LABS: Amphetamine Screen, Urine Neg (NEGATIVE); Barbiturate Scree,Urine Neg (NEGATIVE); Benzodiazephine Screen, Urine Neg (NEGATIVE); Cannabinoid Screen, Urine Neg (NEGATIVE); Cocaine Screen, Urine Neg (NEGATIVE); Phencyclidine Screen, Urine Neg (NEGATIVE)
[2025-07-02 11:54] LABS: Hepatitis A Total Antibody Positive (Negative)
[2025-07-02 11:55] LABS: Hepatitis B Surface Antigen Negative (Negative); Hepatitis C Antibody Positive (Negative)
--- NOTE | 2025-07-02 14:33 | DVHINCON2 ---
Date of service: Jul 02, [address] Toussaint History of Present Illness 64 Y/O F with history of ESRD on HD , DM, HTN, CHF, asthma and anxiety presented with altered mental status. She has not had dialysis for [address] head w/o contrast is unremarkable. CXR shows pulmonary congestion. labs show K: 4.4 mmol/l, BUN: 104, Hb: 11.8 g/dl, Troponin is mildly elevated, and serial troponin is about the same. Nephrology consulted for dialysis. Past Medical History ESRD DM HTN CHF Asthma Anxiety Past Surgical History AVF creation Allergies: Coded Allergies: Codeine (Verified Allergy, Unknown, 10/07/20) Uncoded Allergies: adhesives (Allergy, Mild, 04/22/24) Home Meds Active Scripts Hydrocodone-Acetaminophen (Hydrocodone Bitartrate/AC 10-325 mg) 1 Tab Tab, 1 TAB PO Q6HPRN PRN, #15 TAB Prov:TALAT VILLEGAS [facility] 07/14/24 Levofloxacin Hemihydrate (LEVAQUIN 500 MG) 500 Mg Tab, 500 MG PO DAILY for 7 Days, #7 TAB Prov:TAMELA VELAZQUEZ [facility] 04/30/24 Apixaban Base (ELIQUIS) 2.5 Mg Tab, 2.5 MG PO BID for 30 Days, #60 TAB Prov:TAMELA VELAZQUEZ 04/30/24 Ergocalciferol (VITAMIN D 06755 UNIT) 50,000 [place], [address] UNIT PO Q7D for 30 Days, #10 CAP Prov:TAMELA VELAZQUEZ [facility] 04/30/24 Epoetin Wolf-Epbx (Retacrit) 10,000 Unit/Ml Inj, 19859 UNIT SC POSTDI@2100 for 30 Days, #20 INJ Prov:TAMELA VELAZQUEZ 04/30/24 Acetaminophen (Acetaminophen) 325 Mg Tab, 325 MG PO Q4HP PRN for 30 Days, #150 TAB Prov:TAMELA VELAZQUEZ 04/30/24 Tramadol Hcl (Tramadol Hcl) 50 Mg Tab, 50 MG PO TID PRN, #30 TAB Prov:GUILLERMO MELENDREZ MD 03/13/24 Clopidogrel Bisulfate (Plavix) 75 Mg Tab, 75 MG PO DAILY for 30 Days, #30 TAB Prov:DENY BOWEN MD 11/12/22 Pantoprazole Sodium Sesquihydr (Protonix) 40 Mg Tab, 40 MG PO DAILY, #30 TAB Prov:CARLOS VILLEGAS MD 09/13/20 Reported Medications Tirzepatide (Mounjaro) 2.5 Mg/0.5 Ml Inj, 2.5 MG SC QWEEKLY for 28 Days, #2 Administer 2.5 mg under the skin 1 time a week for 4 weeks. 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 04/28/24 Aspirin (Aspirin 81 Low Dose) 81 Mg Chw, 1 TAB PO DAILY, TAB.CHEW 04/28/24 Diphenoxylate W/ Atropine (Lomotil) 2.5 Mg Tab, 1 TAB PO TID PRN for FOR DIARRHEA, #30 TAB 04/27/24 Cinacalcet HCl (Cinacalcet Hydrochloride) 30 Mg Tab, 30 MG PO, TAB 04/27/24 Sevelamer Carbonate (Renvela) 800 Mg Tab, 1 TAB PO TID, #270 TAB 3 Refills 04/12/24 Losartan Potassium (Losartan Potassium) 50 Mg Tab, 1 TAB PO DAILY, #30 TAB 5 Refills 04/12/24 Carvedilol (Carvedilol) 3.125 Mg Tab, 3.125 MG PO DAILY for 30 Days, MG 04/12/24 Atorvastatin Calcium (Lipitor) 40 Mg Tab, 1 TAB PO DAILY 03/11/24 Albuterol Sulfate (Albuterol Sulfate Hfa) 108 Mcg/Act Aer, 1 PUFF INH Q4HR PRN 03/11/24 Hydralazine Hcl (Hydralazine Hcl) 50 Mg Tab, 1 TAB PO TID, #90 TAB 5 Refills 03/09/24 Lidocaine (Lidocaine) 5 % Pad, 1 PATCH TOP DAILY 08/19/23 Methocarbamol (Methocarbamol) 750 Mg Tab, 750 MG PO BIDP PRN for FOR MUSCLE SPAS M for 30 Days, MG 07/13/19 Gabapentin (Neurontin) 400 Mg Cap, 1 CAP PO BID 07/13/19 Furosemide (Lasix) 80 Mg Tab, 1 TAB PO BID 07/13/19 Current Medications Current Medications Medications (Trade) Dose Ordered Sig/Keaton Route PRN Reason Start Time Stop Time Status Last Admin Ondansetron HCl (Zofran) 4 mg Q4HP PRN IV NAUSEA / VOMITING 07/01/25 22:15 07/02/25 09:17 DC Docusate Sodium (Colace Capsule) 100 mg BIDPRN PRN PO FOR CONSTIPATION 07/01/25 22:15 Acetaminophen (Tylenol Tablet) 650 mg Q6HP PRN PO PAIN SCALE 1-3 OR TEMP>100.4 07/01/25 22:15 07/02/25 02:38 Ondansetron HCl (Zofran) 4 mg Q4HP PRN IV NAUSEA / VOMITING 07/01/25 23:00 07/01/25 23:01 DC Docusate Sodium (Colace Capsule) 100 mg BIDPRN PRN PO FOR CONSTIPATION 07/01/25 23:00 07/01/25 23:01 DC Morphine Sulfate 2 mg Q4HPRN PRN IV SEVERE PAIN (7-10 PAIN SCALE) 07/01/25 23:00 Amiodarone HCl (Cordarone Tablet) 200 mg DAILY PO 07/02/25 10:00 07/02/25 09:17 DC Carvedilol (Coreg Tablet) 3.125 mg DAILY PO 07/02/25 10:00 07/02/25 10:18 Pantoprazole Sodium (Protonix Tablet) 40 mg DAILY PO 07/02/25 10:00 07/02/25 10:18 Aspirin (Ecotrin Enteric Coated Tablet) 81 mg DAILY PO 07/02/25 10:00 07/02/25 10:18 Atorvastatin Calcium (Lipitor) 40 mg DAILY PO 07/02/25 10:00 07/02/25 09:17 DC Hydralazine HCl (Apresoline Tablet) 50 mg TID PO 07/02/25 06:00 Sevelamer HCl (Renagel) 800 mg TID PO 07/02/25 06:00 Heparin Sodium (Porcine) 5,000 units Q8HR SC 07/02/25 06:00 07/02/25 07:38 Atorvastatin Calcium (Lipitor) 40 mg HS PO 07/02/25 22:00 Family History: Cancer Diabetes mellitus MATERNAL GRANDFATHER G8 MOTHER G8 FATHER G8 MOTHER Diabetes mellitus MATERNAL GRANDFATHER G8 MOTHER G8 FATHER G8 MOTHER FH: breast cancer MOTHER'S SISTER Family history: Cardiovascular disease MATERNAL GRANDMOTHER Hypertension MATERNAL GRANDMOTHER G8 MOTHER Stroke Review of Systems As per HPI, all other systems were reviewed and are negative H&P Exam Vital Signs/I&O Vital Sign Date Time Temp Pulse Resp B/P (MAP) Pulse Ox O2 Delivery O2 Flow Rate FiO2 07/02/25 12:00 97.7 83 14 124/53 (76) 100 97.7 07/02/25 08:00 Room Air* 0 21 Intake and Output 07/01/25 07/02/25 19:00 07:00 Intake Total 25 ml Balance 25 ml Intake Oral 25 ml Physical Exam Gen: obtunded HEENT: NC, AT Lungs: Crackles lung bases Cardiac: RRR, no murmur Abd: soft, no tenderness Ext: no edema Labs/Diagnostic Data Labs/Diagnostic Data Laboratory Tests Test 07/02/25 10:00 07/02/25 03:56 07/01/25 18:02 07/01/25 15:27 Range/Units Urine Color Yellow Yellow Urine Clarity Turbid H Clear Urine pH 6.0 5.0-9.0 Urine Specific [place] 1.017 1.001-1.035 Urine Protein 3+ H Negative Urine Ketones Negative Negative Urine Blood 1+ H Negative /uL Urine Nitrite Negative Negative Urine Bilirubin Negative Negative Urine Urobilinogen Normal Negative mg/dL Urine Leukocyte Esterase Negative Negative /uL Urine RBC 2 0 - 4 /hpf Urine Microscopic WBC 4 0-5 /HPF Urine Squamous Epithelial Cells Few <5 /hpf Urine Bacteria None seen None Seen /hpf Urine Glucose 1+ H Normal mg/dL Urine Opiates Screen Neg NEGATIVE Urine Fentanyl Screen Neg NEGATIVE Urine Barbiturates Screen Neg NEGATIVE Urine Phencyclidine Screen Neg NEGATIVE Urine Amphetamines Screen Neg NEGATIVE Urine Benzodiazepines Screen Neg NEGATIVE Urine Cocaine Screen Neg NEGATIVE Urine Cannabinoids Screen Neg NEGATIVE White Blood Count 3.7 L 4.4-10.8 10^3/uL Red Blood Count 3.66 L 4.0-5.20 10^6/uL Hemoglobin 11.8 L 12.2-16.2 g/dL Hematocrit 35.9 L 36.0-46.0 % Mean Corpuscular Volume 98.1 80.0-100.0 fL Mean Corpuscular Hemoglobin 32.1 H 28.0-32.0 pg Mean Corpuscular Hemoglobin Concent 32.8 32.0-36.0 g/dL Red Cell Distribution Width 17.3 H 11.8-14.3 % Platelet Count 112 L 140-450 10^3/uL Mean Platelet Volume 10.4 6.9-10.8 fL Neutrophils (%) (Auto) 61.7 37.0-80.0 % Lymphocytes (%) (Auto) 19.7 10.0-50.0 % Monocytes (%) (Auto) 11.2 0.0-12.0 % Eosinophils (%) (Auto) 6.3 0.0-7.0 % Basophils (%) (Auto) 1.1 0.0-2.0 % Neutrophils # (Auto) 2.3 1.6-8.6 10 ^3/uL Lymphocytes # (Auto) 0.7 0.4-5.4 10 ^3/uL Monocytes # (Auto) 0.4 0-1.3 10 ^3/uL Eosinophils # (Auto) 0.2 0-0.8 10 ^3/uL Basophils # (Auto) 0 0-0.2 10 ^3/uL Nucleated Red Blood Cells 0.1 % Prothrombin Time 12.8 H 9.3-11.8 sec Prothrombin Time INR 1.23 H 0.9-1.15 Sodium Level 136 136-145 mmol/L Potassium Level 4.4 3.5-5.1 mmol/L Chloride Level 100 98-107 mmol/L Carbon Dioxide Level 13 L 20-31 mmol/L Anion Gap 23 H 5-15 Blood Urea Nitrogen 104 #*H 9-23 mg/dL Creatinine 12.50 *H 0.550-1.02 mg/dL Glomerular Filtration Rate Calc 3 >90 mL/min BUN/Creatinine Ratio 8.3 L 10.0-20.0 Serum Glucose 90 74-106 mg/dL Calcium Level 6.6 L 8.7-10.4 mg/dL Total Bilirubin 0.3 0.2-1.0 mg/dL Aspartate Amino Transferase (AST) 30 13-40 U/L Alanine Aminotransferase (ALT) 21 7-40 U/L Alkaline Phosphatase 68 46-116 U/L Total Protein 7.1 5.7-8.2 g/dL Albumin 3.7 3.2-4.8 g/dL Hepatitis A Antibody Total Positive H Negative Hepatitis B Surface Antigen Negative Negative Hepatitis B Surface Antibody Positive H Negative Hepatitis B Core Total Antibody Negative Negative Hepatitis C Antibody Positive *A Negative Troponin I High Sensitivity 114 *H 119 *H </=34 ng/L Test 07/01/25 14:53 Range/Units White Blood Count 3.6 L 4.4-10.8 10^3/uL Red Blood Count 3.77 L 4.0-5.20 10^6/uL Hemoglobin 12.0 L 12.2-16.2 g/dL Hematocrit 36.2 36.0-46.0 % Mean Corpuscular Volume 96.1 80.0-100.0 fL Mean Corpuscular Hemoglobin 31.8 28.0-32.0 pg Mean Corpuscular Hemoglobin Concent 33.1 32.0-36.0 g/dL Red Cell Distribution Width 17.6 H 11.8-14.3 % Platelet Count 126 L 140-450 10^3/uL Mean Platelet Volume 10.6 6.9-10.8 fL Neutrophils (%) (Auto) 68.1 37.0-80.0 % Lymphocytes (%) (Auto) 16.7 10.0-50.0 % Monocytes (%) (Auto) 9.7 0.0-12.0 % Eosinophils (%) (Auto) 4.3 0.0-7.0 % Basophils (%) (Auto) 1.2 0.0-2.0 % Neutrophils # (Auto) 2.5 1.6-8.6 10 ^3/uL Lymphocytes # (Auto) 0.6 0.4-5.4 10 ^3/uL Monocytes # (Auto) 0.4 0-1.3 10 ^3/uL Eosinophils # (Auto) 0.2 0-0.8 10 ^3/uL Basophils # (Auto) 0 0-0.2 10 ^3/uL Nucleated Red Blood Cells 0.0 % Sodium Level 137 136-145 mmol/L Potassium Level 4.5 3.5-5.1 mmol/L Chloride Level 100 98-107 mmol/L Carbon Dioxide Level 16 L 20-31 mmol/L Anion Gap 21 H 5-15 Blood Urea Nitrogen 137 *H 9-23 mg/dL Creatinine 12.68 *H 0.550-1.02 mg/dL Glomerular Filtration Rate Calc 3 >90 mL/min BUN/Creatinine Ratio 10.8 10.0-20.0 Serum Glucose 84 74-106 mg/dL Calcium Level 6.5 L 8.7-10.4 mg/dL Troponin I High Sensitivity 127 *H </=34 ng/L B-Type Natriuretic Peptide 4014.64 0-100 pg/mL Assessment ESRD on HD Pulmonary congestion Fluid overload Uremia Anemia of CKD Elevated troponin Secondary hyperparathyroidism Hyperphosphatemia Plan: HD today. 3 h, 2.5 L fluid restriction Coreg 3.125 mg BID Sevelamer 1 tab TID with meals ELISA post HS as needed. goal Hb: 10- 11 g/dl Plan discussed with: Patient JUDE SPAULDING MD Jul 02, 2025 14:33
[2025-07-02] MEDS: ATORVASTATIN 20 MG TAB PO SCH (21:54)
--- NOTE | 2025-07-02 23:09 | DVHPN2 ---
Subjective The patient is seen and examined at bedside. Still complain of pain. Reviewed: Care Plan, H&P, Labs, Medications, Previous Orders Changes from previous H/P or p: No Changes Eyes: No Pain, No Vision change, No Conjunctivae inflammation, No Eyelid inflammation, No Other, No Redness ENT: No Ear pain, No Ear discharge, No Nose pain, No Nose discharge, No Nose congestion, No Mouth pain, No Mouth swelling, No Throat pain, No Throat swelling, No Other Cardiovascular: No Chest Pain, No Palpitations, No Orthopnea, No Paroxysmal Noc. Dyspnea, No Edema, No Lt Headedness, No Other Respiratory: No Cough, No Dry; Shortness of breath; No SOB with excertion, No Wheezing, No Hemoptysis, No Pleuritic Pain, No Sputum, No Other Gastrointestinal: No Nausea, No Vomiting, No Abdominal Pain, No Diarrhea, No Constipation, No Melena, No Hematochezia, No Other Genitourinary: No Dysuria, No Frequency, No Incontinence, No Hematuria, No Retention, No Other Musculoskeletal: No other, No neck pain, No shoulder pain, No arm pain, No back pain, No hand pain, No leg pain, No foot pain Skin: No Rash, No Lesions, No Jaundice, No Bruising, No Other Objective Vitals Vital Signs Date Time Temp Pulse Resp B/P (MAP) Pulse Ox O2 Delivery O2 Flow Rate FiO2 07/02/25 21:53 149/101 07/02/25 21:00 97.6 81 15 96 97.6 07/02/25 08:00 Room Air* 0 21 Intake/Output Intake and Output 07/02/25 07:00 Intake Total 25 ml Balance 25 ml Intake Oral 25 ml General Appearance: Alert, Oriented X3, Cooperative, No acute distress HEENT: Atraumatic, PERRLA, EOMI Neck: Supple Lungs: Clear to auscultation, Normal air movement Cardiovascular: Regular rate, Normal S1, Normal S2, No murmurs, Gallops, Rubs Neuro: Cranial nerves 3-12 NL Psych/Mental Status: Mental status NL Medications Current Medications Medications Dose Ordered Sig/Keaton Route Start Time Stop Time Status Last Admin Dose Admin Docusate Sodium 100 mg BIDPRN PRN PO 07/01/25 22:15 Acetaminophen 650 mg Q6HP PRN PO 07/01/25 22:15 07/02/25 02:38 650 MG Morphine Sulfate 2 mg Q4HPRN PRN IV 07/01/25 23:00 Carvedilol 3.125 mg DAILY PO 07/02/25 10:00 07/02/25 10:18 3.125 MG Pantoprazole Sodium 40 mg DAILY PO 07/02/25 10:00 07/02/25 10:18 40 MG Aspirin 81 mg DAILY PO 07/02/25 10:00 07/02/25 10:18 81 MG Hydralazine HCl 50 mg TID PO 07/02/25 06:00 Sevelamer HCl 800 mg TID PO 07/02/25 06:00 Heparin Sodium (Porcine) 5,000 units Q8HR SC 07/02/25 06:00 07/02/25 07:38 5,000 UNITS Atorvastatin Calcium 40 mg HS PO 07/02/25 22:00 Laboratory Results Laboratory Tests 07/02/25 03:56 Chemistry Test 07/02/25 03:56 Albumin 3.7 g/dL (3.2-4.8) Calcium Level 6.6 mg/dL (8.7-10.4) L Total Protein 7.1 g/dL (5.7-8.2) Coagulation Test 07/02/25 03:56 Prothrombin Time 12.8 sec (9.3-11.8) H Prothrombin Time INR 1.23 (0.9-1.15) H LFT Test 07/02/25 03:56 Alanine Aminotransferase (ALT) 21 U/L (7-40) Alkaline Phosphatase 68 U/L (46-116) Aspartate Amino Transferase (AST) 30 U/L (13-40) Total Bilirubin 0.3 mg/dL (0.2-1.0) Urinalysis Test 07/02/25 10:00 Urine Color Yellow (Yellow) Urine Clarity Turbid (Clear) H Urine pH 6.0 (5.0-9.0) Urine Specific [place] 1.017 (1.001-1.035) Urine Protein 3+ (Negative) H Urine Ketones Negative (Negative) Urine Blood 1+ /uL (Negative) H Urine Nitrite Negative (Negative) Urine Bilirubin Negative (Negative) Urine Urobilinogen Normal mg/dL (Negative) Urine Leukocyte Esterase Negative /uL (Negative) Urine RBC 2 /hpf (0 - 4) Urine Microscopic WBC 4 /HPF (0-5) Urine Squamous Epithelial Cells Few /hpf (<5) Urine Bacteria None seen /hpf (None Seen) Urine Glucose 1+ mg/dL (Normal) H Microbiology Microbiology Date/Time Source Procedure Growth Status 07/02/25 02:40 Nose MRSA Screen - Final Complete Labs and/or images reviewed: Labs reviewed by me Assessment/Plan Assessment/Plan # end-stage renal disease, missed dialysis Nephrology consulted for continuing dialysis # uremic encephalopathy - head CT No acute intracranial abnormality. - urine drug screen # acute hypoxic respiratory failure due to volume overload due to end-stage renal disease, missed dialysis Chest x-ray reveals pulmonary vascular congestion # ?CHF exacerbation IV Lasix Resume home medication # ?Sepsis , source not known yet Urine routine, urine culture, blood culture IV ceftriaxone # prolonged QTC Held amiodarone Held ondansetron # Acute generalized weakness secondary to missed hemodialysis Resume hemodialysis per Nephrology # Afib # severe mitral regurgitation # aortic sclerosis # severe pulmonary hypertension Continue home meds Held Eliquis, on heparin prophylactic dose, consider switching to therapeutic dose if no procedure planned and later to Eliquis #Arthritis #History of Coronary artery disease status post stents Continue aspirin, atorvastatin #History of cancer -follow-up outpatient #Asthma # COPD - continue home meds #Diabetes - hba1c # uncontrolled Hypertension Resume home meds #Hypercholesterolemia Resume home meds #Anxiety #Moderate malnutrition #Noncompliance'' Continuing current management. Plan discussed with: Patient Date of Service: Jul 02, 2025 Billing Provider: SEFERINO HEARD MD Common Visit Codes: [id number] INP/OBS CARE(HIGH) SEFERINO HEARD MD Jul 02, 2025 23:09
[2025-07-03] VITALS (15 sets, daily range): BP systolic 115–183; BP diastolic 65–79; PULSE 79–99; RESP 16–97; TEMP 85–98.8; O2SAT 92–100
[2025-07-03] MEDS ORDERED: SODIUM CHL 0.9% 1000 ML BAG XX ONE (07:00)
[2025-07-03 09:40] LABS: Hematocrit 35.7 % (36.0-46.0); Hemoglobin 11.4 g/dL (12.2-16.2); Mean Corpuscular Hemoglobin 31.8 pg (28.0-32.0); Mean Corpuscular Volume 99.2 fL (80.0-100.0); Nucleated Red Blood Cells % 0.1 %
[2025-07-03 09:48] LABS: Chloride 101 mmol/L (98-107); Potassium 4.5 mmol/L (3.5-5.1)
[2025-07-03 09:49] LABS: Anion Gap 23 (5-15)
[2025-07-03 09:53] LABS: Calcium 6.9 mg/dL (8.7-10.4); Carbon Dioxide 11 mmol/L (20-31); Sodium 135 mmol/L (136-145)
[2025-07-03 09:54] LABS: BUN/Creatinine Ratio 8.6 (10.0-20.0)
[2025-07-03 09:56] LABS: Glucose 72 mg/dL (74-106)
[2025-07-03 09:57] LABS: Blood Urea Nitrogen 111 mg/dL (9-23)
[2025-07-03] MEDS: IPRATROPIUM BROM 0.5 MG/2.5ML INH SOL NEB PRN (10:43)
[2025-07-03] MEDS: ALBUTEROL SULF 2.5 MG/0.5ML(0.5%) NEB SOLN NEB PRN (10:43)
--- NOTE | 2025-07-03 13:20 | DVHPN2 ---
Progress Note - Dictate Date Seen: Jul 03, 2025 Medical Necessity Reason Pt with a Central, PICC or Fol: No vital signs Vital Sign Date Time Temp Pulse Resp B/P (MAP) Pulse Ox O2 Delivery O2 Flow Rate FiO2 07/03/25 13:17 99 183/72 07/03/25 11:50 98.3 16 99 2.0 28 98.3 07/03/25 10:51 Nasal Cannula Total Intake and Output 07/02/25 07/02/25 07/03/25 15:00 23:00 07:00 Intake Total 50 ml 650 ml 0 ml Output Total 1 ml Balance 50 ml 650 ml -1 ml medications Current Medications Medications Dose Ordered Sig/Keaton Route Start Time Stop Time Status Last Admin Dose Admin Docusate Sodium 100 mg BIDPRN PRN PO 07/01/25 22:15 Acetaminophen 650 mg Q6HP PRN PO 07/01/25 22:15 07/02/25 02:38 650 MG Morphine Sulfate 2 mg Q4HPRN PRN IV 07/01/25 23:00 Carvedilol 3.125 mg DAILY PO 07/02/25 10:00 07/03/25 13:17 3.125 MG Pantoprazole Sodium 40 mg DAILY PO 07/02/25 10:00 07/03/25 13:17 40 MG Aspirin 81 mg DAILY PO 07/02/25 10:00 07/03/25 13:17 81 MG Hydralazine HCl 50 mg TID PO 07/02/25 06:00 Sevelamer HCl 800 mg TID PO 07/02/25 06:00 Heparin Sodium (Porcine) 5,000 units Q8HR SC 07/02/25 06:00 07/02/25 07:38 5,000 UNITS Atorvastatin Calcium 40 mg HS PO 07/02/25 22:00 Ipratropium [place] 0.5 mg Q6HPRN PRN NEB 07/03/25 10:15 07/03/25 10:43 0.5 MG Albuterol 2.5 mg Q6HPRN PRN NEB 07/03/25 10:15 07/03/25 10:43 2.5 MG objective Gen: Lethargic HEENT: NC, AT Lungs: Crackles lung bases Cardiac: RRR, no murmur Abd: soft, no tenderness Ext: no edema laboratory and microbiology Laboratory Tests 07/03/25 09:26 Test 07/03/25 09:26 Range/Units Serum Glucose 72 L 74-106 mg/dL Assessment/Plan ESRD on HD Pulmonary congestion Fluid overload Uremia Anemia of CKD Elevated troponin Secondary hyperparathyroidism Hyperphosphatemia Plan: Unfortunately she refused dialysis yesterday. She is rescheduled for HD for today fluid restriction Coreg 3.125 mg BID Sevelamer 1 tab TID with meals ELISA post HS as needed. goal Hb: 10- 11 g/dl Dietary Evaluation Review Comments: Nutrition Recommendation 1) Advance to [facility] 60gm + renal standard diet 2) Nephro-cr 1 tab daily 3) Monitor PO intake, lab values, weight trend, and I/O Expected Outcomes/Goals: To meet >75% estimated needs Lab values to improve Fu 3-5 days Plan discussed with: Patient, Other JUDE SPAULDING MD Jul 03, 2025 13:20
--- NOTE | 2025-07-03 15:04 | DVHPN2 ---
Subjective The patient is seen and examined at bedside. The patient is more alert awake today. The patient received hemodialysis today. Reviewed: Care Plan, H&P, Labs, Medications, Previous Orders Changes from previous H/P or p: No Changes Eyes: No Pain, No Vision change, No Conjunctivae inflammation, No Eyelid inflammation, No Other, No Redness ENT: No Ear pain, No Ear discharge, No Nose pain, No Nose discharge, No Nose congestion, No Mouth pain, No Mouth swelling, No Throat pain, No Throat swelling, No Other Cardiovascular: No Chest Pain, No Palpitations, No Orthopnea, No Paroxysmal Noc. Dyspnea, No Edema, No Lt Headedness, No Other Respiratory: No Cough, No Dry; Shortness of breath; No SOB with excertion, No Wheezing, No Hemoptysis, No Pleuritic Pain, No Sputum, No Other Gastrointestinal: No Nausea, No Vomiting, No Abdominal Pain, No Diarrhea, No Constipation, No Melena, No Hematochezia, No Other Genitourinary: No Dysuria, No Frequency, No Incontinence, No Hematuria, No Retention, No Other Musculoskeletal: No other, No neck pain, No shoulder pain, No arm pain, No back pain, No hand pain, No leg pain, No foot pain Skin: No Rash, No Lesions, No Jaundice, No Bruising, No Other Objective Vitals Vital Signs Date Time Temp Pulse Resp B/P (MAP) Pulse Ox O2 Delivery O2 Flow Rate FiO2 07/03/25 13:17 99 183/72 07/03/25 13:00 98.0 20 97 98.0 07/03/25 11:50 2.0 28 07/03/25 10:51 Nasal Cannula Intake/Output Intake and Output 07/03/25 07:00 Intake Total 700 ml Output Total 1 ml Balance 699 ml Intake Oral 650 ml IV Total 50 ml Output Stool Total 1 ml # Voids 1 General Appearance: Alert, Oriented X3, Cooperative, No acute distress HEENT: Atraumatic, PERRLA, EOMI Neck: Supple Lungs: Clear to auscultation, Normal air movement Cardiovascular: Regular rate, Normal S1, Normal S2, No murmurs, Gallops, Rubs Neuro: Cranial nerves 3-12 NL Psych/Mental Status: Mental status NL Medications Current Medications Medications Dose Ordered Sig/Keaton Route Start Time Stop Time Status Last Admin Dose Admin Docusate Sodium 100 mg BIDPRN PRN PO 07/01/25 22:15 Acetaminophen 650 mg Q6HP PRN PO 07/01/25 22:15 07/02/25 02:38 650 MG Morphine Sulfate 2 mg Q4HPRN PRN IV 07/01/25 23:00 Carvedilol 3.125 mg DAILY PO 07/02/25 10:00 07/03/25 13:17 3.125 MG Pantoprazole Sodium 40 mg DAILY PO 07/02/25 10:00 07/03/25 13:17 40 MG Aspirin 81 mg DAILY PO 07/02/25 10:00 07/03/25 13:17 81 MG Hydralazine HCl 50 mg TID PO 07/02/25 06:00 Sevelamer HCl 800 mg TID PO 07/02/25 06:00 Heparin Sodium (Porcine) 5,000 units Q8HR SC 07/02/25 06:00 07/02/25 07:38 5,000 UNITS Atorvastatin Calcium 40 mg HS PO 07/02/25 22:00 Ipratropium [place] 0.5 mg Q6HPRN PRN NEB 07/03/25 10:15 07/03/25 10:43 0.5 MG Albuterol 2.5 mg Q6HPRN PRN NEB 07/03/25 10:15 07/03/25 10:43 2.5 MG Laboratory Results Laboratory Tests 07/03/25 09:26 Chemistry Test 07/03/25 09:26 Calcium Level 6.9 mg/dL (8.7-10.4) L Urinalysis Test 07/02/25 10:00 Urine Color Yellow (Yellow) Urine Clarity Turbid (Clear) H Urine pH 6.0 (5.0-9.0) Urine Specific [place] 1.017 (1.001-1.035) Urine Protein 3+ (Negative) H Urine Ketones Negative (Negative) Urine Blood 1+ /uL (Negative) H Urine Nitrite Negative (Negative) Urine Bilirubin Negative (Negative) Urine Urobilinogen Normal mg/dL (Negative) Urine Leukocyte Esterase Negative /uL (Negative) Urine RBC 2 /hpf (0 - 4) Urine Microscopic WBC 4 /HPF (0-5) Urine Squamous Epithelial Cells Few /hpf (<5) Urine Bacteria None seen /hpf (None Seen) Urine Glucose 1+ mg/dL (Normal) H Microbiology Microbiology Date/Time Source Procedure Growth Status 07/02/25 02:40 Nose MRSA Screen - Final Complete Labs and/or images reviewed: Labs reviewed by me Assessment/Plan Assessment/Plan # end-stage renal disease, missed dialysis Nephrology consulted for continuing dialysis # uremic encephalopathy - head CT No acute intracranial abnormality. - urine drug screen # acute hypoxic respiratory failure due to volume overload due to end-stage renal disease, missed dialysis Chest x-ray reveals pulmonary vascular congestion # ?CHF exacerbation IV Lasix Resume home medication # ?Sepsis , source not known yet Urine routine, urine culture, blood culture IV ceftriaxone # prolonged QTC Held amiodarone Held ondansetron # Acute generalized weakness secondary to missed hemodialysis Resume hemodialysis per Nephrology # Afib # severe mitral regurgitation # aortic sclerosis # severe pulmonary hypertension Continue home meds Held Eliquis, on heparin prophylactic dose, consider switching to therapeutic dose if no procedure planned and later to Eliquis #Arthritis #History of Coronary artery disease status post stents Continue aspirin, atorvastatin #History of cancer -follow-up outpatient #Asthma # COPD - continue home meds #Diabetes - hba1c # uncontrolled Hypertension Resume home meds #Hypercholesterolemia Resume home meds #Anxiety #Moderate malnutrition #Noncompliance'' Continuing current management. Continuing hemodialysis. Discharge planning. This medical document was created using an electronic medical record system with [employer] direct computerized dictation system. Although this document has been carefully reviewed, there may still be some phonetic and typographical errors. These areas are purely typographical due to imperfections of the software programs, and do not reflect any compromise in the patient's medical care. Plan discussed with: Patient My Orders Orders - SEFERINO HEARD MD Procedure Category Date Status Time Complete Blood Count LAB 07/04/25 Verified 05:00 Complete Blood Count LAB 07/05/25 Verified 05:00 Complete Blood Count LAB 07/06/25 Verified 05:00 Complete Blood Count LAB 07/07/25 Verified 05:00 Basic Metabolic Panel LAB 07/04/25 Verified 05:00 Basic Metabolic Panel LAB 07/05/25 Verified 05:00 Renal DIET 07/03/25 Transmitted Standard(2gna,3gk,Lopho) Breakfast Ipratropium Medneb PHA 07/03/25 In Process (Atrovent Medneb) 10:15 Albuterol Medneb PHA 07/03/25 In Process (Ventolin Medneb) 10:15 Oxygen By Nasal RT 07/03/25 Transmitted Cannula 10:30 Date of Service: Jul 03, 2025 Billing Provider: SEFERINO HEARD MD Common Visit Codes: [id number] INP/OBS CARE(HIGH) SEFERINO HEARD MD Jul 03, 2025 15:04
[2025-07-03] MEDS: guaiFENesin-DM 100/10mg/5ml SYR PO PRN (23:42)
[2025-07-04] VITALS (13 sets, daily range): BP systolic 107–164; BP diastolic 54–81; PULSE 55–94; RESP 15–20; TEMP 97.3–98.8; O2SAT 95–100
[2025-07-04 07:17] LABS: Hematocrit 32.6 % (36.0-46.0); Hemoglobin 11.1 g/dL (12.2-16.2); Mean Corpuscular Hemoglobin 31.7 pg (28.0-32.0); Mean Corpuscular Volume 93.3 fL (80.0-100.0); Nucleated Red Blood Cells % 0.0 %
[2025-07-04 07:33] LABS: Anion Gap 18 (5-15); Carbon Dioxide 23 mmol/L (20-31); Chloride 98 mmol/L (98-107); Sodium 139 mmol/L (136-145)
[2025-07-04 07:39] LABS: Glucose 91 mg/dL (74-106)
[2025-07-04 07:48] LABS: Blood Urea Nitrogen 56 mg/dL (9-23)
[2025-07-04 07:49] LABS: BUN/Creatinine Ratio 7.4 (10.0-20.0); Calcium 7.1 mg/dL (8.7-10.4); Potassium 2.9 mmol/L (3.5-5.1)
--- NOTE | 2025-07-04 15:17 | DVHPN2 ---
Progress Note - Dictate Date Seen: Jul 04, 2025 Medical Necessity Reason Pt with a Central, PICC or Fol: No Subjective no new symptoms vital signs Vital Sign Date Time Temp Pulse Resp B/P (MAP) Pulse Ox O2 Delivery O2 Flow Rate FiO2 07/04/25 14:48 55 19 100 07/04/25 14:42 Nasal Cannula 3.0 07/04/25 14:42 32 07/04/25 14:00 108/55 07/04/25 13:00 97.3 97.3 Total Intake and Output 07/03/25 07/03/25 07/04/25 15:00 23:00 07:00 Intake Total 0 ml 220 ml Balance 0 ml 220 ml medications Current Medications Medications Dose Ordered Sig/Keaton Route Start Time Stop Time Status Last Admin Dose Admin Docusate Sodium 100 mg BIDPRN PRN PO 07/01/25 22:15 Acetaminophen 650 mg Q6HP PRN PO 07/01/25 22:15 07/04/25 09:12 650 MG Morphine Sulfate 2 mg Q4HPRN PRN IV 07/01/25 23:00 Carvedilol 3.125 mg DAILY PO 07/02/25 10:00 07/03/25 13:17 3.125 MG Pantoprazole Sodium 40 mg DAILY PO 07/02/25 10:00 07/04/25 09:12 40 MG Aspirin 81 mg DAILY PO 07/02/25 10:00 07/04/25 09:13 81 MG Hydralazine HCl 50 mg TID PO 07/02/25 06:00 07/03/25 21:53 50 MG Sevelamer HCl 800 mg TID PO 07/02/25 06:00 07/04/25 14:38 800 MG Heparin Sodium (Porcine) 5,000 units Q8HR SC 07/02/25 06:00 07/04/25 14:43 5,000 UNITS Atorvastatin Calcium 40 mg HS PO 07/02/25 22:00 07/03/25 21:55 40 MG Ipratropium [place] 0.5 mg Q6HPRN PRN NEB 07/03/25 10:15 07/04/25 14:42 0.5 MG Albuterol 2.5 mg Q6HPRN PRN NEB 07/03/25 10:15 07/04/25 14:42 2.5 MG Guaifenesin/ Dextromethorphan 10 ml Q6HPRN PRN PO 07/03/25 16:00 07/04/25 14:40 10 ML objective Gen: Lethargic HEENT: NC, AT Lungs: Crackles lung bases Cardiac: RRR, no murmur Abd: soft, no tenderness Ext: no edema laboratory and microbiology Laboratory Tests 07/04/25 05:54 Test 07/04/25 05:54 Range/Units Serum Glucose 91 74-106 mg/dL Assessment/Plan ESRD on HD Pulmonary congestion Fluid overload Uremia Anemia of CKD Elevated troponin Secondary hyperparathyroidism Hyperphosphatemia Plan: s/p HD yesterday. additional dialysis tomorrow (Saturday) fluid restriction Coreg 3.125 mg BID Sevelamer 1 tab TID with meals ELISA post HS as needed. goal Hb: 10- 11 g/dl Dietary Evaluation Review Comments: Nutrition Recommendation 1) Advance to [facility] 60gm + renal standard diet 2) Nephro-cr 1 tab daily 3) Monitor PO intake, lab values, weight trend, and I/O Expected Outcomes/Goals: To meet >75% estimated needs Lab values to improve Fu 3-5 days Plan discussed with: Patient, Other JUDE SPAULDING MD Jul 04, 2025 15:17
--- NOTE | 2025-07-04 22:47 | DVHPN2 ---
Subjective The patient is seen and examined at bedside. The patient is more alert awake today. The patient still complains of weakness and tired. Reviewed: Care Plan, H&P, Labs, Medications, Previous Orders Changes from previous H/P or p: No Changes Eyes: No Pain, No Vision change, No Conjunctivae inflammation, No Eyelid inflammation, No Other, No Redness ENT: No Ear pain, No Ear discharge, No Nose pain, No Nose discharge, No Nose congestion, No Mouth pain, No Mouth swelling, No Throat pain, No Throat swelling, No Other Cardiovascular: No Chest Pain, No Palpitations, No Orthopnea, No Paroxysmal Noc. Dyspnea, No Edema, No Lt Headedness, No Other Respiratory: No Cough, No Dry; Shortness of breath; No SOB with excertion, No Wheezing, No Hemoptysis, No Pleuritic Pain, No Sputum, No Other Gastrointestinal: No Nausea, No Vomiting, No Abdominal Pain, No Diarrhea, No Constipation, No Melena, No Hematochezia, No Other Genitourinary: No Dysuria, No Frequency, No Incontinence, No Hematuria, No Retention, No Other Musculoskeletal: No other, No neck pain, No shoulder pain, No arm pain, No back pain, No hand pain, No leg pain, No foot pain Skin: No Rash, No Lesions, No Jaundice, No Bruising, No Other Objective Vitals Vital Signs Date Time Temp Pulse Resp B/P (MAP) Pulse Ox O2 Delivery O2 Flow Rate FiO2 07/04/25 21:29 220/200 07/04/25 17:13 97.6 60 16 96 97.6 07/04/25 14:42 Nasal Cannula 3.0 07/04/25 14:42 32 Intake/Output Intake and Output 07/04/25 07:00 Intake Total 220 ml Balance 220 ml Intake Oral 220 ml # Voids 2 # Bowel Movements 2 General Appearance: Alert, Oriented X3, Cooperative, No acute distress HEENT: Atraumatic, PERRLA, EOMI Neck: Supple Lungs: Clear to auscultation, Normal air movement Cardiovascular: Regular rate, Normal S1, Normal S2, No murmurs, Gallops, Rubs Neuro: Cranial nerves 3-12 NL Psych/Mental Status: Mental status NL Medications Current Medications Medications Dose Ordered Sig/Keaton Route Start Time Stop Time Status Last Admin Dose Admin Docusate Sodium 100 mg BIDPRN PRN PO 9/11/25 22:15 Acetaminophen 650 mg Q6HP PRN PO 07/01/25 22:15 07/04/25 09:12 650 MG Morphine Sulfate 2 mg Q4HPRN PRN IV 07/01/25 23:00 Carvedilol 3.125 mg DAILY PO 07/02/25 10:00 07/03/25 13:17 3.125 MG Pantoprazole Sodium 40 mg DAILY PO 07/02/25 10:00 07/04/25 09:12 40 MG Aspirin 81 mg DAILY PO 07/02/25 10:00 07/04/25 09:13 81 MG Hydralazine HCl 50 mg TID PO 07/02/25 06:00 07/04/25 21:29 50 MG Sevelamer HCl 800 mg TID PO 07/02/25 06:00 07/04/25 21:29 800 MG Heparin Sodium (Porcine) 5,000 units Q8HR SC 07/02/25 06:00 07/04/25 21:30 5,000 UNITS Atorvastatin Calcium 40 mg HS PO 07/02/25 22:00 07/04/25 21:29 40 MG Ipratropium [place] 0.5 mg Q6HPRN PRN NEB 07/03/25 10:15 07/04/25 14:42 0.5 MG Albuterol 2.5 mg Q6HPRN PRN NEB 07/03/25 10:15 07/04/25 14:42 2.5 MG Guaifenesin/ Dextromethorphan 10 ml Q6HPRN PRN PO 07/03/25 16:00 07/04/25 14:40 10 ML Laboratory Results Laboratory Tests 07/04/25 05:54 Chemistry Test 07/04/25 05:54 Calcium Level 7.1 mg/dL (8.7-10.4) L Urinalysis Test 07/02/25 10:00 Urine Color Yellow (Yellow) Urine Clarity Turbid (Clear) H Urine pH 6.0 (5.0-9.0) Urine Specific [place] 1.017 (1.001-1.035) Urine Protein 3+ (Negative) H Urine Ketones Negative (Negative) Urine Blood 1+ /uL (Negative) H Urine Nitrite Negative (Negative) Urine Bilirubin Negative (Negative) Urine Urobilinogen Normal mg/dL (Negative) Urine Leukocyte Esterase Negative /uL (Negative) Urine RBC 2 /hpf (0 - 4) Urine Microscopic WBC 4 /HPF (0-5) Urine Squamous Epithelial Cells Few /hpf (<5) Urine Bacteria None seen /hpf (None Seen) Urine Glucose 1+ mg/dL (Normal) H Microbiology Microbiology Date/Time Source Procedure Growth Status 07/02/25 02:40 Nose MRSA Screen - Final Complete Labs and/or images reviewed: Labs reviewed by me Assessment/Plan Assessment/Plan # end-stage renal disease, missed dialysis Nephrology consulted for continuing dialysis # uremic encephalopathy - head CT No acute intracranial abnormality. - urine drug screen # acute hypoxic respiratory failure due to volume overload due to end-stage renal disease, missed dialysis Chest x-ray reveals pulmonary vascular congestion # ?CHF exacerbation IV Lasix Resume home medication # ?Sepsis , source not known yet Urine routine, urine culture, blood culture IV ceftriaxone # prolonged QTC Held amiodarone Held ondansetron # Acute generalized weakness secondary to missed hemodialysis Resume hemodialysis per Nephrology # Afib # severe mitral regurgitation # aortic sclerosis # severe pulmonary hypertension Continue home meds Held Eliquis, on heparin prophylactic dose, consider switching to therapeutic dose if no procedure planned and later to Eliquis #Arthritis #History of Coronary artery disease status post stents Continue aspirin, atorvastatin #History of cancer -follow-up outpatient #Asthma # COPD - continue home meds #Diabetes - hba1c # uncontrolled Hypertension Resume home meds #Hypercholesterolemia Resume home meds #Anxiety #Moderate malnutrition #Noncompliance'' Continuing current management. Continuing hemodialysis. Discharge planning. This medical document was created using an electronic medical record system with [employer] direct computerized dictation system. Although this document has been carefully reviewed, there may still be some phonetic and typographical errors. These areas are purely typographical due to imperfections of the software programs, and do not reflect any compromise in the patient's medical care. Plan discussed with: Patient Date of Service: Jul 04, 2025 Billing Provider: SEFERINO HEARD MD Common Visit Codes: [id number] INP/OBS CARE(HIGH) SEFERINO HEARD MD Jul 04, 2025 22:47
[2025-07-05] VITALS (10 sets, daily range): BP systolic 121–135; BP diastolic 57–97; PULSE 77–101; RESP 16–20; TEMP 36.8; O2SAT 97–100
[2025-07-05 07:45] LABS: Hematocrit 33.8 % (36.0-46.0); Hemoglobin 11.3 g/dL (12.2-16.2); Mean Corpuscular Hemoglobin 31.6 pg (28.0-32.0); Mean Corpuscular Volume 94.3 fL (80.0-100.0); Nucleated Red Blood Cells % 0.0 %
[2025-07-05 08:03] LABS: Chloride 98 mmol/L (98-107); Sodium 138 mmol/L (136-145)
[2025-07-05 08:04] LABS: Anion Gap 18 (5-15); Carbon Dioxide 22 mmol/L (20-31)
[2025-07-05 08:09] LABS: BUN/Creatinine Ratio 6.7 (10.0-20.0); Glucose 91 mg/dL (74-106)
[2025-07-05 08:10] LABS: Blood Urea Nitrogen 55 mg/dL (9-23); Calcium 6.9 mg/dL (8.7-10.4); Potassium 2.9 mmol/L (3.5-5.1)
[2025-07-05] MEDS: SODIUM CHL 0.9% 1000 ML BAG XX ONE (11:00)
--- NOTE | 2025-07-05 11:06 | DVHPN2 ---
Subjective The patient is seen and examined at bedside. The patient is more alert awake today. The patient still complains of weakness and tired. Reviewed: Care Plan, H&P, Labs, Medications, Previous Orders Eyes: No Pain, No Vision change, No Conjunctivae inflammation, No Eyelid inflammation, No Other, No Redness ENT: No Ear pain, No Ear discharge, No Nose pain, No Nose discharge, No Nose congestion, No Mouth pain, No Mouth swelling, No Throat pain, No Throat swelling, No Other Cardiovascular: No Chest Pain, No Palpitations, No Orthopnea, No Paroxysmal Noc. Dyspnea, No Edema, No Lt Headedness, No Other Respiratory: No Cough, No Dry; Shortness of breath; No SOB with excertion, No Wheezing, No Hemoptysis, No Pleuritic Pain, No Sputum, No Other Gastrointestinal: No Nausea, No Vomiting, No Abdominal Pain, No Diarrhea, No Constipation, No Melena, No Hematochezia, No Other Genitourinary: No Dysuria, No Frequency, No Incontinence, No Hematuria, No Retention, No Other Musculoskeletal: No other, No neck pain, No shoulder pain, No arm pain, No back pain, No hand pain, No leg pain, No foot pain Skin: No Rash, No Lesions, No Jaundice, No Bruising, No Other Objective Vitals Vital Signs Date Time Temp Pulse Resp B/P (MAP) Pulse Ox O2 Delivery O2 Flow Rate FiO2 07/05/25 10:59 93 20 100 07/05/25 10:50 Nasal Cannula* 3 32 07/05/25 09:31 123/68 07/05/25 09:00 97.6 97.6 Intake/Output Intake and Output 07/05/25 07:00 Intake Total 520 ml Balance 520 ml Intake Oral 520 ml # Voids 6 # Bowel Movements 4 General Appearance: Alert, Oriented X3, Cooperative, No acute distress HEENT: Atraumatic, PERRLA, EOMI Neck: Supple Lungs: Clear to auscultation, Normal air movement Cardiovascular: Regular rate, Normal S1, Normal S2, No murmurs, Gallops, Rubs Neuro: Cranial nerves 3-12 NL Psych/Mental Status: Mental status NL Medications Current Medications Medications Dose Ordered Sig/Keaton Route Start Time Stop Time Status Last Admin Dose Admin Docusate Sodium 100 mg BIDPRN PRN PO 07/01/25 22:15 Acetaminophen 650 mg Q6HP PRN PO 07/01/25 22:15 07/04/25 09:12 650 MG Morphine Sulfate 2 mg Q4HPRN PRN IV 07/01/25 23:00 Carvedilol 3.125 mg DAILY PO 07/02/25 10:00 07/03/25 13:17 3.125 MG Pantoprazole Sodium 40 mg DAILY PO 07/02/25 10:00 07/05/25 09:30 40 MG Aspirin 81 mg DAILY PO 07/02/25 10:00 07/05/25 09:30 81 MG Hydralazine HCl 50 mg TID PO 07/02/25 06:00 07/05/25 05:35 50 MG Sevelamer HCl 800 mg TID PO 07/02/25 06:00 07/05/25 09:30 800 MG Heparin Sodium (Porcine) 5,000 units Q8HR SC 07/02/25 06:00 07/05/25 05:34 5,000 UNITS Atorvastatin Calcium 40 mg HS PO 07/02/25 22:00 07/04/25 21:29 40 MG Ipratropium [place] 0.5 mg Q6HPRN PRN NEB 07/03/25 10:15 07/05/25 10:50 0.5 MG Albuterol 2.5 mg Q6HPRN PRN NEB 07/03/25 10:15 07/05/25 10:50 2.5 MG Guaifenesin/ Dextromethorphan 10 ml Q6HPRN PRN PO 07/03/25 16:00 07/04/25 14:40 10 ML Laboratory Results Laboratory Tests 07/05/25 07:15 Chemistry Test 07/05/25 07:15 Calcium Level 6.9 mg/dL (8.7-10.4) L Urinalysis Test 07/02/25 10:00 Urine Color Yellow (Yellow) Urine Clarity Turbid (Clear) H Urine pH 6.0 (5.0-9.0) Urine Specific [place] 1.017 (1.001-1.035) Urine Protein 3+ (Negative) H Urine Ketones Negative (Negative) Urine Blood 1+ /uL (Negative) H Urine Nitrite Negative (Negative) Urine Bilirubin Negative (Negative) Urine Urobilinogen Normal mg/dL (Negative) Urine Leukocyte Esterase Negative /uL (Negative) Urine RBC 2 /hpf (0 - 4) Urine Microscopic WBC 4 /HPF (0-5) Urine Squamous Epithelial Cells Few /hpf (<5) Urine Bacteria None seen /hpf (None Seen) Urine Glucose 1+ mg/dL (Normal) H Microbiology Microbiology Date/Time Source Procedure Growth Status 07/02/25 02:40 Nose MRSA Screen - Final Complete Assessment/Plan Assessment/Plan # end-stage renal disease, missed dialysis Nephrology consulted for continuing dialysis # uremic encephalopathy - head CT No acute intracranial abnormality. - urine drug screen # acute hypoxic respiratory failure due to volume overload due to end-stage renal disease, missed dialysis Chest x-ray reveals pulmonary vascular congestion # ?CHF exacerbation IV Lasix Resume home medication # ?Sepsis , source not known yet Urine routine, urine culture, blood culture IV ceftriaxone # prolonged QTC Held amiodarone Held ondansetron # Acute generalized weakness secondary to missed hemodialysis Resume hemodialysis per Nephrology # Afib # severe mitral regurgitation # aortic sclerosis # severe pulmonary hypertension Continue home meds Held Eliquis, on heparin prophylactic dose, consider switching to therapeutic dose if no procedure planned and later to Eliquis #Arthritis #History of Coronary artery disease status post stents Continue aspirin, atorvastatin #History of cancer -follow-up outpatient #Asthma # COPD - continue home meds #Diabetes - hba1c # uncontrolled Hypertension Resume home meds #Hypercholesterolemia Resume home meds #Anxiety #Moderate malnutrition #Noncompliance'' Continuing current management. Continuing hemodialysis. Discharge planning. This medical document was created using an electronic medical record system with [employer] direct computerized dictation system. Although this document has been carefully reviewed, there may still be some phonetic and typographical errors. These areas are purely typographical due to imperfections of the software programs, and do not reflect any compromise in the patient's medical care. SEFERINO HEARD MD Jul 05, 2025 11:06
--- NOTE | 2025-07-05 12:17 | DVHDS2 ---
Discharge Summary Date of Admission Jul 01, 2025 at 22:51 Date of Discharge: Jul 05, 2025 Admitting Diagnosis # end-stage renal disease, missed dialysis # uremic encephalopathy # acute hypoxic respiratory failure due to volume overload due to end-stage renal disease, missed dialysis # ?CHF exacerbation # ?Sepsis , source not known yet # prolonged QTC # Acute generalized weakness secondary to missed hemodialysis # Afib # severe mitral regurgitation # aortic sclerosis # severe pulmonary hypertension #Arthritis #History of Coronary artery disease status post stents #History of cancer #Asthma # COPD #Diabetes # uncontrolled Hypertension #Hypercholesterolemia #Anxiety #Moderate malnutrition #Noncompliance'' Labs/Diagnostic Data: Laboratory Results Test 07/05/25 07:15 07/02/25 10:00 07/02/25 03:56 07/01/25 18:02 White Blood Count 4.2 10^3/uL (4.4-10.8) Red Blood Count 3.58 10^6/uL (4.0-5.20) Hemoglobin 11.3 g/dL (12.2-16.2) Hematocrit 33.8 % (36.0-46.0) Mean Corpuscular Volume 94.3 fL (80.0-100.0) Mean Corpuscular Hemoglobin 31.6 pg (28.0-32.0) Mean Corpuscular Hemoglobin Concent 33.5 g/dL (32.0-36.0) Red Cell Distribution Width 16.5 % (11.8-14.3) Platelet Count 104 10^3/uL (140-450) Mean Platelet Volume 10.6 fL (6.9-10.8) Neutrophils (%) (Auto) 66.1 % (37.0-80.0) Lymphocytes (%) (Auto) 13.9 % (10.0-50.0) Monocytes (%) (Auto) 12.1 % (0.0-12.0) Eosinophils (%) (Auto) 7.1 % (0.0-7.0) Basophils (%) (Auto) 0.8 % (0.0-2.0) Neutrophils # (Auto) 2.8 10 ^3/uL (1.6-8.6) Lymphocytes # (Auto) 0.6 10 ^3/uL (0.4-5.4) Monocytes # (Auto) 0.5 10 ^3/uL (0-1.3) Eosinophils # (Auto) 0.3 10 ^3/uL (0-0.8) Basophils # (Auto) 0 10 ^3/uL (0-0.2) Nucleated Red Blood Cells 0.0 % Sodium Level 138 mmol/L (136-145) Potassium Level 2.9 mmol/L (3.5-5.1) Chloride Level 98 mmol/L (98-107) Carbon Dioxide Level 22 mmol/L (20-31) Anion Gap 18 (5-15) Blood Urea Nitrogen 55 mg/dL (9-23) Creatinine 8.25 mg/dL (0.550-1.02) Glomerular Filtration Rate Calc 5 mL/min (>90) BUN/Creatinine Ratio 6.7 (10.0-20.0) Serum Glucose 91 mg/dL (74-106) Calcium Level 6.9 mg/dL (8.7-10.4) Urine Color Yellow (Yellow) Urine Clarity Turbid (Clear) Urine pH 6.0 (5.0-9.0) Urine Specific [place] 1.017 (1.001-1.035) Urine Protein 3+ (Negative) Urine Ketones Negative (Negative) Urine Blood 1+ /uL (Negative) Urine Nitrite Negative (Negative) Urine Bilirubin Negative (Negative) Urine Urobilinogen Normal mg/dL (Negative) Urine Leukocyte Esterase Negative /uL (Negative) Urine RBC 2 /hpf (0 - 4) Urine Microscopic WBC 4 /HPF (0-5) Urine Squamous Epithelial Cells Few /hpf (<5) Urine Bacteria None seen /hpf (None Seen) Urine Glucose 1+ mg/dL (Normal) Urine Opiates Screen Neg (NEGATIVE) Urine Fentanyl Screen Neg (NEGATIVE) Urine Barbiturates Screen Neg (NEGATIVE) Urine Phencyclidine Screen Neg (NEGATIVE) Urine Amphetamines Screen Neg (NEGATIVE) Urine Benzodiazepines Screen Neg (NEGATIVE) Urine Cocaine Screen Neg (NEGATIVE) Urine Cannabinoids Screen Neg (NEGATIVE) Prothrombin Time 12.8 sec (9.3-11.8) Prothrombin Time INR 1.23 (0.9-1.15) Total Bilirubin 0.3 mg/dL (0.2-1.0) Aspartate Amino Transferase (AST) 30 U/L (13-40) Alanine Aminotransferase (ALT) 21 U/L (7-40) Alkaline Phosphatase 68 U/L (46-116) Total Protein 7.1 g/dL (5.7-8.2) Albumin 3.7 g/dL (3.2-4.8) Hepatitis A Antibody Total Positive (Negative) Hepatitis B Surface Antigen Negative (Negative) Hepatitis B Surface Antibody Positive (Negative) Hepatitis B Core Total Antibody Negative (Negative) Hepatitis C Antibody Positive (Negative) Troponin I High Sensitivity 114 ng/L (</=34) Test 07/01/25 14:53 B-Type Natriuretic Peptide 4014.64 pg/mL (0-100) Other Laboratory Tests 07/05/25 07:15 Brief Hx & Hospital Course: This is a 64 years old female with past medical history of asthma, congestive heart failure, COPD, end-stage renal disease on hemodialysis, hypertension, cancer, anxiety, arthritis, diabetes come to emergency department because of altered mental status. Patient was very confused in the morning. Patient received dialysis however had missed 5-6 episode for three weeks because she not feeling well. The patient was under go hemodialysis Saturday at [facility]. The patient had pulmonary congestion from chest x-ray. The patient was admitted. The patient had dialysis in the hospital and become more alert awake. So I to discharge the patient home today. Advised the patient to follow up with primary care physician 1-2 weeks. Follow up with utilization review rn per schedule. Advised not to skip dialysis. Activity as tolerated. Diet per home diet. Recommend renal diet. Physical exam: HEENT: Normocephalic atraumatic pupils equal react to light and accommodation. Extraocular muscles intact, conjunctiva pink, oropharynx moist, no thrush, no exudate. Lymphatic: No lymphadenopathy Cardiovascular exam: S1, S2 was heard. No murmurs, rubs, gallops Lung: Clear on auscultation bilaterally, no wheeze, rale, rhonchi. GI: Abdominal soft, nondistended, nontenderness, positive bowel sounds. Extremity: No crepitus, cyanosis, edema. Pedal pulses present bilateral. Full range of motion. Skin: Normal turgor, no rash. Psych: Alert, oriented x3. Neurology: No focal deficits, cranial nerve II to XII grossly intact. This medical document was created using an electronic medical record system with [employer] direct computerized dictation system. Although this document has been carefully reviewed, there may still be some phonetic and typographical errors. These areas are purely typographical due to imperfections of the software programs, and do not reflect any compromise in the patient's medical care. Condition at Discharge: Stable Final Diagnosis/Problems List # end-stage renal disease, missed dialysis # uremic encephalopathy # acute hypoxic respiratory failure due to volume overload due to end-stage renal disease, missed dialysis # ?CHF exacerbation # ?Sepsis , source not known yet # prolonged QTC # Acute generalized weakness secondary to missed hemodialysis # Afib # severe mitral regurgitation # aortic sclerosis # severe pulmonary hypertension #Arthritis #History of Coronary artery disease status post stents #History of cancer #Asthma # COPD #Diabetes # uncontrolled Hypertension #Hypercholesterolemia #Anxiety #Moderate malnutrition #Noncompliance'' Discharge Disposition: Home Discharge Instruct/Medications Diet: Renal Activity: No Restrictions, As Tolerated Follow Up/Referral: pcp 1-2 weeks Medications: Resume home meds Scheduled Albuterol Sulfate (Albuterol Sulfate Hfa), 1 PUFF INH Q4HR PRN, (Reported) Amiodarone Hcl (Amiodarone Hcl), 1 TAB PO DAILY, (Reported) Apixaban Base (Eliquis), 2.5 MG PO BID Aspirin (Aspirin 81 Low Dose), 1 TAB PO DAILY, (Reported) Atorvastatin Calcium (Lipitor), 1 TAB PO DAILY, (Reported) Carvedilol (Carvedilol), 3.125 MG PO DAILY, (Reported) Clopidogrel Bisulfate (Plavix), 75 MG PO DAILY Epoetin Wolf-Epbx (Retacrit), 10,000 UNIT SC POSTDI@2100 Ergocalciferol (Vitamin D 79515 Unit), 50,000 UNIT PO Q7D Furosemide (Lasix), 1 TAB PO BID, (Reported) Gabapentin (Neurontin), 1 CAP PO BID, (Reported) Hydralazine Hcl (Hydralazine Hcl), 1 TAB PO TID, (Reported) Levofloxacin Hemihydrate (Levaquin 500 Mg), 500 MG PO DAILY Lidocaine (Lidocaine), 1 PATCH TOP DAILY, (Reported) Losartan Potassium (Losartan Potassium), 1 TAB PO DAILY, (Reported) Pantoprazole Sodium Sesquihydr (Protonix), 40 MG PO DAILY Sevelamer Carbonate (Renvela), 1 TAB PO TID, (Reported) Tirzepatide (Mounjaro), 2.5 MG SC QWEEKLY, (Reported) Scheduled PRN Acetaminophen (Acetaminophen), 325 MG PO Q4HP PRN Diphenoxylate W/ Atropine (Lomotil), 1 TAB PO TID PRN for FOR DIARRHEA, (Reported) Hydrocodone-Acetaminophen (Hydrocodone Bitartrate/AC 5-325 mg), 1 TAB PO Q12HR PRN for SPONDYLOSIS W/O MYELOPATHY, (Reported) Hydrocodone-Acetaminophen (Hydrocodone Bitartrate/AC 10-325 mg), 1 TAB PO Q6HPRN PRN Methocarbamol (Methocarbamol), 750 MG PO BIDP PRN for FOR MUSCLE SPASM, (Reported) Tramadol Hcl (Tramadol Hcl), 50 MG PO TID PRN Miscellaneous Medications Cinacalcet HCl (Cinacalcet Hydrochloride), 30 MG PO, (Reported) Discharge Statement: "Patient was advised to return to the ER or call 911 if any headaches, dizziness, shortness of breath, chest pain, abdominal pain, bleeding, fevers, or worsening of medical condition. Patient was counseled about treatment plan, medications, possible side effects, patientverbalized understanding. All questions were answered to the best of my ability. This discharge took greater then 30 minutes in planning, reviewing documentation, counseling the patient, and discussing with other team members." ASSESSMENT ASSESSMENT Assessment encephalopathy Date of Service: Jul 05, 2025 Billing Provider: SEFERINO HEARD MD Common Visit Codes: 83324-KTW/OBS DISCH DAY >30min SEFERINO HEARD MD Jul 05, 2025 12:17
[2025-07-05] MEDS: POTASSIUM CHL 20 Meq TABLET PO ONE ×2 (16:31→16:32)
--- NOTE | 2025-07-05 18:29 | DVHPN2 ---
Progress Note - Dictate Date Seen: Jul 05, 2025 Medical Necessity Reason Pt with a Central, PICC or Fol: No Subjective No new complaints vital signs Vital Sign Date Time Temp Pulse Resp B/P (MAP) Pulse Ox O2 Delivery O2 Flow Rate FiO2 07/05/25 17:00 97.6 77 17 135/58 (83) 97 97.6 07/05/25 10:50 Nasal Cannula* 3 32 Total Intake and Output 07/04/25 07/04/25 07/05/25 15:00 23:00 07:00 Intake Total 120 ml 400 ml Balance 120 ml 400 ml medications Current Medications Medications Dose Ordered Sig/[place] Route Start Time Stop Time Status Last Admin Dose Admin Docusate Sodium 100 mg BIDPRN PRN PO 07/01/25 22:15 Acetaminophen 650 mg Q6HP PRN PO 07/01/25 22:15 07/04/25 09:12 650 MG Morphine Sulfate 2 mg Q4HPRN PRN IV 07/01/25 23:00 Carvedilol 3.125 mg DAILY PO 07/02/25 10:00 07/03/25 13:17 3.125 MG Pantoprazole Sodium 40 mg DAILY PO 07/02/25 10:00 07/05/25 09:30 40 MG Aspirin 81 mg DAILY PO 07/02/25 10:00 07/05/25 09:30 81 MG Hydralazine HCl 50 mg TID PO 07/02/25 06:00 07/05/25 05:35 50 MG Sevelamer HCl 800 mg TID PO 07/02/25 06:00 07/05/25 09:30 800 MG Heparin Sodium (Porcine) 5,000 units Q8HR SC 07/02/25 06:00 07/05/25 05:34 5,000 UNITS Atorvastatin Calcium 40 mg HS PO 07/02/25 22:00 07/04/25 21:29 40 MG Ipratropium [place] 0.5 mg Q6HPRN PRN NEB 07/03/25 10:15 07/05/25 10:50 0.5 MG Albuterol 2.5 mg Q6HPRN PRN NEB 07/03/25 10:15 07/05/25 10:50 2.5 MG Guaifenesin/ Dextromethorphan 10 ml Q6HPRN PRN PO 07/03/25 16:00 07/04/25 14:40 10 ML objective Gen: Lethargic HEENT: NC, AT Lungs: Crackles lung bases Cardiac: RRR, no murmur Abd: soft, no tenderness Ext: no edema laboratory and microbiology Laboratory Tests 07/05/25 07:15 Test 07/05/25 07:15 Range/Units Serum Glucose 91 74-106 mg/dL Assessment/Plan ESRD on HD Fluid overload has improved Anemia of CKD Elevated troponin Secondary hyperparathyroidism Hyperphosphatemia Plan: Was dialyzed today, continue MWF schedule fluid restriction Coreg 3.125 mg BID Sevelamer 1 tab TID with meals ELISA post HS as needed. goal Hb: 10- 11 g/dl Dietary Evaluation Review Comments: Nutrition Recommendation 1) Advance to [facility] 60gm + renal standard diet 2) Nephro-cr 1 tab daily 3) Monitor PO intake, lab values, weight trend, and I/O Expected Outcomes/Goals: To meet >75% estimated needs Lab values to improve Fu 3-5 days Plan discussed with: Other YOSELYN ENRIQUEZ MD Jul 05, 2025 18:29
== END 2025-07-05 18:42 | disposition home or self-care (01) | DRG 871 ==
LOC: EDUNIT# 13:52 → EDBD 13:52 → ER 13:52 → OVERFLOW 22:51 → TELE-EAST 07-02 15:46
PROVIDERS: ADMIT Internal Medicine; ATTEND Internal Medicine
PROC: 5A1D70Z Performance of Urinary Filtration, Intermittent, Less than 6 Hours Per Day (ICD-10-PCS; principal; 2025-07-03)
PROC: 5A1D70Z Performance of Urinary Filtration, Intermittent, Less than 6 Hours Per Day (ICD-10-PCS; 2025-07-05)
DX: A41.9 Sepsis, unspecified organism (principal); G93.41 Metabolic encephalopathy; J96.01 Acute respiratory failure with hypoxia; N18.6 End stage renal disease; E44.0 Moderate protein-calorie malnutrition; G93.49 Other encephalopathy; I13.2 Hypertensive heart and chronic kidney disease with heart failure and with stage 5 chronic kidney disease, or end stage renal disease; N25.81 Secondary hyperparathyroidism of renal origin; I48.91 Unspecified atrial fibrillation; D63.1 Anemia in chronic kidney disease; E78.00 Pure hypercholesterolemia, unspecified; E83.39 Other disorders of phosphorus metabolism; F41.9 Anxiety disorder, unspecified; I27.20 Pulmonary hypertension, unspecified; I34.0 Nonrheumatic mitral (valve) insufficiency; I70.0 Atherosclerosis of aorta; J44.89 Other specified chronic obstructive pulmonary disease; I25.10 Atherosclerotic heart disease of native coronary artery without angina pectoris; I50.9 Heart failure, unspecified; E11.22 Type 2 diabetes mellitus with diabetic chronic kidney disease; M19.09 Primary osteoarthritis, other specified site; Z88.5 Allergy status to narcotic agent; Z79.899 Other long term (current) drug therapy; Z90.49 Acquired absence of other specified parts of digestive tract; Z90.710 Acquired absence of both cervix and uterus; Z98.891 History of uterine scar from previous surgery; Z95.5 Presence of coronary angioplasty implant and graft; Z83.3 Family history of diabetes mellitus; Z82.49 Family history of ischemic heart disease and other diseases of the circulatory system; Z91.199 Patient's noncompliance with other medical treatment and regimen due to unspecified reason; Z79.01 Long term (current) use of anticoagulants; Z79.82 Long term (current) use of aspirin; Z80.3 Family history of malignant neoplasm of breast; Z82.3 Family history of stroke; Z99.2 Dependence on renal dialysis; Z68.31 Body mass index [BMI] 31.0-31.9, adult
CPT/HCPCS: 36415; 36600; 70450; 71045; 80048; 80053; 80307; 81001; 82805; 83880; 84484; 85025; 85610; 86704; 86706; 86708; 86803; 87081; 87340; 90935; 93005; 94640; 99291; G0378; J1642